=== PATIENT | female | born 1950 | race Caucasian/White ===

== ENCOUNTER 2016-06-03 18:28 | Inpatient (IN) | payer MEDICARE ==
--- NOTE | 2016-06-03 20:41 | C.PDOC ---
History Of Present Illness 66 year old patient presents to the ED complaining of upper abdominal pain since yesterday. Patient states the pain is constant. Patient was seen by Dr. Mendez in office and sent to the ED for SVT on EKG. Patient denies nausea, vomiting, diarrhea, dysuria, or back pain. Time Seen by Provider: 06/03/16 20:16 Chief Complaint (Nursing): Palpitations History Per: Patient History/Exam Limitations: no limitations Onset/Duration Of Symptoms: Other Current Symptoms Are (Timing): Still Present Severity: Mild Pain Scale Rating Of: 3 Reports Recently: Treated By A Physician Recent travel outside of the [place]: No Past Medical History Reviewed: Historical Data, Nursing Documentation, Vital Signs Vital Signs: Last Vital Signs Temp 98.3 F 06/06/16 16:00 Pulse 104 H 06/06/16 16:00 Resp 18 06/06/16 16:00 BP 156/92 H 06/06/16 16:00 Pulse Ox 98 06/06/16 16:00 Family History: States: Unknown Family Hx - Social History Hx Alcohol Use: No Hx Substance Use: No - Immunization History Hx Tetanus Toxoid Vaccination: No Hx Influenza Vaccination: No Hx Pneumococcal Vaccination: No Review Of Systems Except As Marked, All Systems Reviewed And Found Negative. Gastrointestinal: Positive for: Abdominal Pain. Negative for: Nausea, Vomiting , Diarrhea Genitourinary: Negative for: Dysuria Musculoskeletal: Negative for: Back Pain Physical Exam - Physical Exam Appears: Chronically Ill Skin: Warm, Dry Head: Atraumatic, Normacephalic Eye(s): bilateral: Normal Inspection, EOMI Neck: Normal ROM, Supple Chest: Symmetrical, No Tenderness Cardiovascular: Rhythm Regular Respiratory: Normal Breath Sounds, No Rales, No Rhonchi, No Wheezing Gastrointestinal/Abdominal: Soft, No Tenderness Back: Normal Inspection, No CVA Tenderness Extremity: Normal ROM, Pedal Edema (2+ bilaterally), No Deformity Neurological/Psych: Oriented x3 ED Course And Treatment - Laboratory Results Result Diagrams: 06/03/16 20:51 06/03/16 20:51 O2 Sat by Pulse Oximetry: 96 (RA) - Radiology CXR: Interpreted by Me, Viewed By Me CXR Interpretation: Yes: Other (right side pleural effusion; small opacity in the lower left lobe) Medical Decision Making Medical Decision Making: The pts HR initially normalized w vagal maneuver, then went back into rvr. rvr resolved after 10mg cardizem, pt had transient asymptomatic hypotension to 80's which resolved shortly after. 1st EKG at 20:14 Sinus Tachycardia 131 bpm RBBB Pattern suspect for SVT 2nd EKG at 20:25 NSR 87 bpm RBBB SVT wave abnormality 20:[address] Loomis regarding the EKG who states there is no code heart criteria met at this time. 20:[address] Mendez who is aware of the plan and will admit the patient. Disposition - Disposition Disposition: HOSPITALIZED Disposition Time: 20:43 Condition: STABLE - Clinical Impression Clinical Impression: Atrial fibrillation with rapid ventricular response, Pancreatitis - Scribe Statement The provider has reviewed the documentation as recorded by the Amandaiblinda Frias Provider Attestation: All medical record entries made by the Amandaiblinda were at my direction and personally dictated by me. I have reviewed the chart and agree that the record accurately reflects my personal performance of the history, physical exam, medical decision making, and the department course for this patient. I have also personally directed, reviewed, and agree with the discharge instructions and disposition.
[2016-06-03 21:06] LABS: BASO % 0.5 % (0.0-2.0); EOS % 0.6 % (0.0-4.0); LYMPH % 15.8 % (20.0-40.0); MEAN CELL VOLUME 94.7 fL (81.0-99.0); MEAN CORPUSCULAR HEMOGLOBIN 29.6 pg (27.0-31.0); MEAN CORPUSCULAR HGB CONC 31.3 g/dL (33.0-37.0); MEAN PLATELET VOLUME 10.4 fL (7.2-11.7); MONO # 0.5 K/uL (0.0-0.8); MONO % 7.4 % (0.0-10.0); NRBC % 0.2 % (0.0-2.0); RED CELL DISTRIBUTION WIDTH 16.6 % (11.5-14.5); WHITE BLOOD COUNT 6.4 K/uL (4.8-10.8)
[2016-06-03 21:10] LABS: POTASSIUM 4.2 mmol/L (3.6-5.2)
[2016-06-03 21:12] LABS: ALB/GLOB RATIO 0.9 (1.0-2.1); BILIRUBIN,TOTAL 0.7 mg/dL (0.2-1.3); TOTAL PROTEIN 7.1 g/dL (6.3-8.3)
[2016-06-03 21:13] LABS: CALCIUM 8.4 mg/dl (8.6-10.4)
[2016-06-03 21:31] LABS: TROPONIN I 0.396 ng/mL (0.00-0.120)
[2016-06-04] MEDS ORDERED: Sodium Chloride 0.9% 500 ML IV ONE (00:58)
[2016-06-04] MEDS ORDERED: Albumin Human 5% (12.5 gm/250 ml) IV ONE (01:38)
--- NOTE | 2016-06-04 04:53 | CP.PCM.CON ---
History of Present Illness - History of Present Illness History of Present Illness: 66F CAD/CABG, HTN, HLD, DM2, ESRD on HD (TTS), s/p thyroidectomy sent to ED from Dr. Mendez's office for SVT. In ED, pt noted to be in Afib c RVR and given cardizem IVP with resolution of rvr. Pt subsequently with HR 60s and SBP 80s- 90s. ICU eval called for hypotension. On my eval, pt is lying in bed. Awake/alert/orientedx3. Coherent and speaking in full sentences. Only offers c/o head ache and neck pain radiating down her spine. asking for ambien for sleep. She endorses seeing dr mendez earlier yesterday and being sent in for evaluation. Does not offer any other significant complaints or symptoms. Deneis lightheadedness/dizziness/vertigo/ confusion/fevers/chills/cough/sputum production/chest pain/dyspnea/abd pain/n/v/ d. Has chronic LE edema. Had last HD this past friday with 4L UF removed. PMH/Sx: as noted above ALL: NKDA MEDS: As per MAY SocHx: denies FamHx: non contributory ROS: otherwise negative except noted above PE: Afebrile, HR 60s -70s irregular; RR 16-18; BP 88/60s (lying down) --> 99/60 ( sitting up); OxSat 98% NC In mild distress from neck pain Skin: extensive skin excoriations from chronic "picking" (according to pt) HEENT: RADHA, EOMI, MM dry Neck: Supple. +JVD Lungs: bibasilar crackles CVS: Irregularly irregular; S1, S2 Abd: Soft, Nt/ND, BS +ve Ext: +ve LE edema, chronic as per pt Neuro: AAOx3, CN II --> XII intact. Moves all extremities spontaneously MSK: no significant tenderness to palpation of cervical spine; no step offs; no swelling/erythema noted of the spine Labs / imaging reviewed independently by me as noted below Impression: 66F CAD/CABG, HTN, HLD, DM2, ESRD on HD (TTS), s/p thyroidectomy sent to ED from Dr. Mendez's office for SVT, noted to be in Afib c RVR converted to Afib c slow response with SBP 80s-90s after cardizem IVP but patient remains alert/oriented and asymptomatic. Small Troponin leak is noted but likely a result of earlier SVT (demand related) without evidence for ACS on EKG. On my eval, pt is appropriate for acute care admission to telemetry with ongoing management by cardiology sugg: admit to tele hold further ccb/bb/htn meds cont asa/statin full anticoagulation as per cards HD per renal imaging of spine as per primary team pain control further mgmt as per cards/primary team please recall if clinically warranted Alessandro Ribera MD Past Patient History - Past Social History Smoking Status: Never Smoked - RENAL Hx Renal Failure: Yes Other/Comment: on dialysis T-- - PSYCHIATRIC Hx Substance Use: No - SURGICAL HISTORY Hx Cardiac Catheterization: Yes Hx Open Heart Surgery: Yes (CABG ( tripple)) Hx Vascular Access Device: Yes (Left arm shunt) - ANESTHESIA Hx Anesthesia: Yes Hx Anesthesia Reactions: No Hx Malignant Hyperthermia: No Meds Allergies/Adverse Reactions: Allergies Allergy/AdvReac Type Severity Reaction Status Date / Time No Known Allergies Allergy Verified 06/03/16 20:06 - Medications Medications: Current Medications Diltiazem HCl 125 mg/ Dextrose 125 mls @ 5 mls/hr IV .Q24H ALEXANDER; 5 MG/HR PRN Reason: Protocol Last Admin: 06/04/16 01:42 Dose: Not Given Calcium Gluconate 4.65 meq/ (Sodium Chloride) 110 mls @ 100 mls/hr IV ONCE ONE Stop: 06/04/16 04:52 Last Admin: 06/04/16 04:22 Dose: 100 mls/hr Results - Vital Signs Recent Vital Signs: Last Vital Signs Temp 97.3 F L 06/04/16 02:21 Pulse 56 L 06/04/16 04:23 Resp 16 06/04/16 04:23 BP 99/60 L 06/04/16 04:23 Pulse Ox 98 06/04/16 04:23 - Labs Result Diagrams: 06/03/16 20:51 06/03/16 20:51 Labs: Laboratory Results - last 24 hr 06/03/16 20:51 WBC 6.4 RBC 3.80 Hgb 11.3 Hct 36.0 MCV 94.7 D MCH 29.6 MCHC 31.3 L RDW 16.6 H Plt Count 130 MPV 10.4 Neut % (Auto) 75.7 H Lymph % (Auto) 15.8 L [place] % (Auto) 7.4 Eos % (Auto) 0.6 Baso % (Auto) 0.5 Neut # 4.9 Lymph # 1.0 [place] # 0.5 Eos # 0.0 Baso # 0.0 Sodium 129 L Potassium 4.2 Chloride 86 L Carbon Dioxide 24 Anion Gap 23 H BUN 88 H Creatinine 7.1 H D Est GFR ( Amer) 7 Est GFR (Non-Af Amer) 6 Random Glucose 210 H Calcium 8.4 L Total Bilirubin 0.7 AST 78 H D ALT 47 Alkaline Phosphatase 197 H D Troponin I 0.3960 H* Total Protein 7.1 Albumin 3.4 L Globulin 3.7 Albumin/Globulin Ratio 0.9 L Lipase 1119 H TSH 3rd Generation 2.95 - EKG Data EKG Interpreted by: Myself (afib c rvr; non specific st-t changes) - Imaging and Cardiology Chest x-ray Status: Image reviewed by me (cardiomegaly; + sternotomy wires; arronley bibasilar effusions, small)
--- NOTE | 2016-06-04 05:35 | CP.PCM.PN ---
Subjective - Date & Time of Evaluation Date of Evaluation: 06/04/16 Time of Evaluation: 05:34 - Subjective Subjective: pt transferred to telemetry from ED remains asymptomatic HR 65, BP 104/67 continues to improve cont telemetry mgmt. Objective - Vital Signs/Intake and Output Vital Signs (last 24 hours): Temp Pulse Resp BP Pulse Ox 98.2 F 65 20 104/67 97 06/04/16 04:55 06/04/16 04:55 06/04/16 04:55 06/04/16 04:55 06/04/16 04:55 - Medications Medications: Current Medications Diltiazem HCl 125 mg/ Dextrose 125 mls @ 5 mls/hr IV .Q24H ALEXANDER; 5 MG/HR PRN Reason: Protocol Last Admin: 06/04/16 01:42 Dose: Not Given - Labs Labs: 06/03/16 20:51 06/03/16 20:51
[2016-06-04] MEDS: Oxycodone/Acetaminophen 5/325 mg Tab PO PRN ×2 (06:14→16:55)
--- NOTE | 2016-06-04 08:54 | CP.PCM.CON ---
History of Present Illness - History of Present Illness History of Present Illness: CC recurrent falls arrhythmias HPI 66 y/o [place] female was initially seen in the office for recurrent falls and generalized weakness. Pt also c/o unsteady gait and poor coordination. EKG revealed SVT HR 136 and BP 90/60. Pt was sent to ED. Pt denied any chest pain or syncope but admits to recurrent palpitations in the past few weeks. Review of Systems - Constitutional Constitutional: Fatigue, Frequent Falls, Weakness - EENT Ears: Dizziness Nose/Mouth/Throat: absent: Epistaxis - Cardiovascular Cardiovascular: Dyspnea on Exertion, Pedal Edema - Respiratory Respiratory: Dyspnea - Musculoskeletal Musculoskeletal: Back Pain - Neurological Neurological: Abnormal Gait, Dizziness, Frequent Falls, Weakness Past Patient History - Past Medical History & Family History Past Medical History?: Yes - Past Social History Smoking Status: Never Smoked - CARDIAC Hx Cardiac Disorders: Yes Hx Hypertension: Yes - PULMONARY Hx Respiratory Disorders: No - NEUROLOGICAL Hx Neurological Disorder: No - HEENT Hx HEENT Problems: Yes Hx Cataracts: Yes - RENAL Hx Renal Failure: Yes Other/Comment: on dialysis - - ENDOCRINE/METABOLIC Hx Endocrine Disorders: Yes Hx Diabetes Mellitus Type 2: Yes - HEMATOLOGICAL/ONCOLOGICAL Hx Blood Disorders: No - INTEGUMENTARY Hx Dermatological Problems: No - MUSCULOSKELETAL/RHEUMATOLOGICAL Hx Musculoskeletal Disorders: No Hx Falls: Yes - GASTROINTESTINAL Hx Gastrointestinal Disorders: No - GENITOURINARY/GYNECOLOGICAL Hx Genitourinary Disorders: No - PSYCHIATRIC Hx Substance Use: No - SURGICAL HISTORY Hx Cardiac Catheterization: Yes Hx Open Heart Surgery: Yes (CABG ( tripple)) Hx Vascular Access Device: Yes (Left arm shunt) - ANESTHESIA Hx Anesthesia: Yes Hx Anesthesia Reactions: No Hx Malignant Hyperthermia: No Meds Allergies/Adverse Reactions: Allergies Allergy/AdvReac Type Severity Reaction Status Date / Time No Known Allergies Allergy Verified 06/03/16 20:06 - Medications Medications: Current Medications Aspirin (Aspirin Chewable) 81 mg PO DAILY ALEXANDER Calcium Acetate (Phoslo) [facility] Last Admin: 06/04/16 08:23 Dose: 667 mg Diltiazem HCl 125 mg/ Dextrose 125 mls @ 5 mls/hr IV .Q24H ALEXANDER; 5 MG/HR PRN Reason: Protocol Last Admin: 06/04/16 01:42 Dose: Not Given Insulin Aspart (Novolog) 0 unit SC Q6 ALEXANDER PRN Reason: Protocol Oxycodone/Acetaminophen (Percocet 5/325 Mg Tab) 1 tab PO Q4H PRN PRN Reason: Pain, Mild (1-3) Stop: 06/07/16 05:35 Last Admin: 06/04/16 06:14 Dose: 1 tab Physical Exam - Constitutional Appears: Non-toxic - Head Exam Head Exam: NORMAL INSPECTION - Eye Exam Eye Exam: absent: Scleral icterus - ENT Exam ENT Exam: Mucous Membranes Moist - Neck Exam Neck exam: Positive for: Full Rom. Negative for: Lymphadenopathy - Respiratory Exam Respiratory Exam: Clear to Auscultation Bilateral - Cardiovascular Exam Cardiovascular Exam: Irregular Rhythm - GI/Abdominal Exam GI & Abdominal Exam: Soft. absent: Tenderness - Extremities Exam Extremities exam: Positive for: full ROM, pedal edema. Negative for: calf tenderness Results - Vital Signs Recent Vital Signs: Last Vital Signs Temp 97.3 F L 06/04/16 07:10 Pulse 75 06/04/16 07:10 Resp 18 06/04/16 07:10 BP 123/71 06/04/16 07:10 Pulse Ox 100 06/04/16 07:10 - Labs Result Diagrams: 06/03/16 20:51 06/03/16 20:51 Labs: Laboratory Results - last 24 hr 06/03/16 06/04/16 06/04/16 20:51 06:43 07:49 WBC 6.4 RBC 3.80 Hgb 11.3 Hct 36.0 MCV 94.7 D MCH 29.6 MCHC 31.3 L RDW 16.6 H Plt Count 130 MPV 10.4 Neut % (Auto) 75.7 H Lymph % (Auto) 15.8 L [place] % (Auto) 7.4 Eos % (Auto) 0.6 Baso % (Auto) 0.5 Neut # 4.9 Lymph # 1.0 [place] # 0.5 Eos # 0.0 Baso # 0.0 Sodium 129 L Potassium 4.2 Chloride 86 L Carbon Dioxide 24 Anion Gap 23 H BUN 88 H Creatinine 7.1 H D Est GFR ( Amer) 7 Est GFR (Non-Af Amer) 6 POC Glucose (mg/dL) 162 H Random Glucose 210 H Calcium 8.4 L Total Bilirubin 0.7 AST 78 H D ALT 47 Alkaline Phosphatase 197 H D Total Creatine Kinase 168 H CK-MB (Mass) 5.44 H Troponin I 0.3960 H* Total Protein 7.1 Albumin 3.4 L Globulin 3.7 Albumin/Globulin Ratio 0.9 L Lipase 1119 H TSH 3rd Generation 2.95 Assessment & Plan - Assessment and Plan (Free Text) Assessment: Paroxysmal Afib/SVT ESRD CAD T2DM Recurrent Falls Plan: AC Hold all anti-htn meds until BP is stable ECHO Carotid ultrasound Will call for EP eval re: Watchman implant v ablation COnsider cath when more stable - Date & Time Date: 06/04/16 Time: 08:54
--- NOTE | 2016-06-04 09:38 | CP.PCM.CON ---
History of Present Illness - History of Present Illness History of Present Illness: pt seen and examined, full consult is dictated #[id number] 1. esrd 2. afib with RVR 3.htn 4.dm for hd today, d/w dr. Mendez Past Patient History - Past Medical History & Family History Past Medical History?: Yes - Past Social History Smoking Status: Never Smoked - CARDIAC Hx Cardiac Disorders: Yes Hx Hypertension: Yes - PULMONARY Hx Respiratory Disorders: No - NEUROLOGICAL Hx Neurological Disorder: No - HEENT Hx HEENT Problems: Yes Hx Cataracts: Yes - RENAL Hx Renal Failure: Yes Other/Comment: on dialysis T--S - ENDOCRINE/METABOLIC Hx Endocrine Disorders: Yes Hx Diabetes Mellitus Type 2: Yes - HEMATOLOGICAL/ONCOLOGICAL Hx Blood Disorders: No - INTEGUMENTARY Hx Dermatological Problems: No - MUSCULOSKELETAL/RHEUMATOLOGICAL Hx Musculoskeletal Disorders: No Hx Falls: Yes - GASTROINTESTINAL Hx Gastrointestinal Disorders: No - GENITOURINARY/GYNECOLOGICAL Hx Genitourinary Disorders: No - PSYCHIATRIC Hx Substance Use: No - SURGICAL HISTORY Hx Cardiac Catheterization: Yes Hx Open Heart Surgery: Yes (CABG ( tripple)) Hx Vascular Access Device: Yes (Left arm shunt) - ANESTHESIA Hx Anesthesia: Yes Hx Anesthesia Reactions: No Hx Malignant Hyperthermia: No Meds Allergies/Adverse Reactions: Allergies Allergy/AdvReac Type Severity Reaction Status Date / Time No Known Allergies Allergy Verified 06/03/16 20:06 - Medications Medications: Current Medications Aspirin (Aspirin Chewable) 81 mg PO DAILY ALEXANDER Calcium Acetate (Phoslo) 667 mg PO TIDCC ALEXANDER Last Admin: 06/04/16 08:23 Dose: 667 mg Diltiazem HCl 125 mg/ Dextrose 125 mls @ 5 mls/hr IV .Q24H ALEXANDER; 5 MG/HR PRN Reason: Protocol Last Admin: 06/04/16 01:42 Dose: Not Given Insulin Aspart (Novolog) 0 unit SC Q6 ALEXANDER PRN Reason: Protocol Oxycodone/Acetaminophen (Percocet 5/325 Mg Tab) 1 tab PO Q4H PRN PRN Reason: Pain, Mild (1-3) Stop: 06/07/16 05:35 Last Admin: 06/04/16 06:14 Dose: 1 tab Results - Vital Signs Recent Vital Signs: Last Vital Signs Temp 97.3 F L 06/04/16 07:10 Pulse 72 06/04/16 08:00 Resp 18 03/21/17 07:10 BP 123/71 06/04/16 07:10 Pulse Ox 100 06/04/16 07:10 - Labs Result Diagrams: 06/03/16 20:51 06/03/16 20:51 Labs: Laboratory Results - last 24 hr 06/03/16 06/04/16 06/04/16 20:51 06:43 07:49 WBC 6.4 RBC 3.80 Hgb 11.3 Hct 36.0 MCV 94.7 D MCH 29.6 MCHC 31.3 L RDW 16.6 H Plt Count 130 MPV 10.4 Neut % (Auto) 75.7 H Lymph % (Auto) 15.8 L [place] % (Auto) 7.4 Eos % (Auto) 0.6 Baso % (Auto) 0.5 Neut # 4.9 Lymph # 1.0 [place] # 0.5 Eos # 0.0 Baso # 0.0 Sodium 129 L Potassium 4.2 Chloride 86 L Carbon Dioxide 24 Anion Gap 23 H BUN 88 H Creatinine 7.1 H D Est GFR ( Amer) 7 Est GFR (Non-Af Amer) 6 POC Glucose (mg/dL) 162 H Random Glucose 210 H Calcium 8.4 L Total Bilirubin 0.7 AST 78 H D ALT 47 Alkaline Phosphatase 197 H D Total Creatine Kinase 168 H CK-MB (Mass) 5.44 H Troponin I 0.3960 H* Troponin I, Quant 0.3760 H* Total Protein 7.1 Albumin 3.4 L Globulin 3.7 Albumin/Globulin Ratio 0.9 L Lipase 1119 H TSH 3rd Generation 2.95
[2016-06-04] MEDS: Multivitamin Vitamin B Complex (Nephro-Vite) Tab PO SCH (10:39)
--- NOTE | 2016-06-04 11:01 | CP.PCM.HP ---
History of Present Illness - History of Present Illness History of Present Illness: 66F CAD/CABG, HTN, HLD, DM2, ESRD on HD (TTS), s/p thyroidectomy sent to ED from Dr. Mendez's office for SVT, noted to be in Afib c RVR converted to Afib c slow response with SBP 80s-90s after cardizem IVP but patient remains alert/ oriented and asymptomatic. Small Troponin leak is noted but likely a result of earlier SVT (demand related) without evidence for ACS on EKG. Present on Admission - Present on Admission Any Indicators Present on Admission: No History of DVT/PE: No History of Uncontrolled Diabetes: No Urinary Catheter: No Decubitus Ulcer Present: No History Surgical Site Infection Following: None Review of Systems - Constitutional Constitutional: As Per HPI, Fatigue - EENT Eyes: absent: As Per HPI, Blind Spots, Blurred Vision, Change in Vision, Decreased Night Vision, Diplopia, Discharge, Dry Eye, Exophthalmos, Floaters, Irritation, Itchy Eyes, Loss of Peripheral Vision, Pain, Photophobia, Requires Corrective Lenses, Sees Flashes, Spots in Vision, Tunnel Vision, Other Visual Disturbances, Loss of Vision, Other Ears: absent: As Per HPI, Decreased Hearing, Ear Discharge, Ear Pain, Tinnitus, Abnormal Hearing, Disequilibrium, Dizziness, Other Nose/Mouth/Throat: absent: As Per HPI, Epistaxis, Nasal Congestion, Nasal Discharge, Nasal Obstruction, Nasal Trauma, Nose Pain, Post Nasal Drip, Sinus Pain, Sinus Pressure, Bleeding Gums, Change in Voice, Dental Pain, Dry Mouth, Dysphagia, Halitosis, Hoarsness, Lip Swelling, Mouth Lesions, Mouth Pain, Odynophagia, Sore Throat, Throat Swelling, Tongue Swelling, Facial Pain, Neck Pain, Neck Mass, Other - Breasts Breasts: absent: As Per HPI, Change in Shape, Mass, Pain, Nipple Discharge, Nipple Inversion, Skin Changes, Swelling, Other - Cardiovascular Cardiovascular: As Per HPI - Respiratory Respiratory: absent: As Per HPI, Cough, Dyspnea, Hemoptysis, Dyspnea on Exertion , Wheezing, Snoring, Stridor, Pain on Inspiration, Chest Congestion, Excessive Mucous Production, Change in Mucous Color, Pain with Coughing, Other - Gastrointestinal Gastrointestinal: absent: As Per HPI, Abdominal Pain, Belching, Bloating, Change in Bowel Habits, Change in Stool Character, Coffee Ground Emesis, Constipation, Cramping, Diarrhea, Dyspepsia, Dysphagia, Early Satiety, Excessive Flatus, Fecal Incontinence, Heartburn, Hematemesis, Hematochezia, Loose Stools, Melena, Nausea, Odynophagia, Temesmus, Vomiting, Other - Genitourinary Genitourinary: absent: As Per HPI, Change in Urinary Stream, Difficulty Urinating, Dysuria, Flank Pain, Hematuria, Pyuria, Nocturia, Urinary Incontinence, Urinary Frequency, Urinary Hesitance, Urinary Urgency, Voiding Freq/Small Amts, Freq UTI, Hx Renal/Bladder Calculi, Hx /Renal Surgery, Bladder Distension, Other - Reproductive: Female Reproductive:Female: absent: As Per HPI, Amenorrhea, Amenorrhea/ Control, Currently Menstual, Cycle <21 Days, Cycle >35 Days, Cycle Variable, Menses 1-7 Days, Menses >/= 8 Days, Menses Variable, Cycle > 4 Weeks Between, No Menses for 6 Months, Heavy Menses, Light Menses, Normal Menses, Spotting Between Cycles , S/P Hysterectomy, Menopausal, Post Menopausal, Premenarche, Abnormal Vaginal Bleeding, Dysmenorrhea, Dyspareunia, Genital Lesions, Genital Pruritis, Pelvic Pain, Prolapse Symptoms, Sexual Dysfunction, Vaginal Discharge, Vaginal Dryness , Vaginal Odor, Vaginal Pruritis, Other - Menstruation Menstruation: absent: As Per HPI, Amenorrhea, Amenorrhea/ Control, Currently Menstual, Cycle <21 Days, Cycle >35 Days, Cycle Variable, Menses 1-7 Days, Menses >/= 8 Days, Menses Variable, Cycle > 4 Weeks Between, No Menses for 6 Months, Heavy Menses, Light Menses, Normal Menses, Spotting Between Cycles , S/P Hysterectomy, Menopausal, Post Menopausal, Premenarche, Abnormal Vaginal Bleeding, Dysmenorrhea, Other - Musculoskeletal Musculoskeletal: As Per HPI - Integumentary Integumentary: As Per HPI - Neurological Neurological: As Per HPI - Psychiatric Psychiatric: absent: As Per HPI, Abnormal Sleep Pattern, Anhedonia, Anxiety, Auditory Hallucinations, Behavioral Changes, Change in Appetite, Change in Libido, Confusion, Depression, Difficulty Concentrating, Hallucinations, Homicidal Ideation, Hopelessness, Irritability, Memory Loss, Mood Swings, Panic Attacks, Paranoia, Suicidal Ideation, Visual Hallucinations, Tactile Hallucinations, Other - Endocrine Endocrine: absent: As Per HPI, Change in Body Appearance, Change in Libido, Cold Intolorance, Deepening of Voice, Excessive Sweating, Fatigue, Flushing, Heat Intolorance, Increase in Ring/Shoe/Hat Size, Palpitations, Polydipsia, Polyphagia, Polyuria, Other Past Patient History - Past Medical History & Family History Past Medical History?: Yes - Past Social History Smoking Status: Never Smoked - CARDIAC Hx Cardiac Disorders: Yes Hx Hypertension: Yes - PULMONARY Hx Respiratory Disorders: No - NEUROLOGICAL Hx Neurological Disorder: No - HEENT Hx HEENT Problems: Yes Hx Cataracts: Yes - RENAL Hx Renal Failure: Yes Other/Comment: on dialysis - - ENDOCRINE/METABOLIC Hx Endocrine Disorders: Yes Hx Diabetes Mellitus Type 2: Yes - HEMATOLOGICAL/ONCOLOGICAL Hx Blood Disorders: No - INTEGUMENTARY Hx Dermatological Problems: No - MUSCULOSKELETAL/RHEUMATOLOGICAL Hx Musculoskeletal Disorders: No Hx Falls: Yes - GASTROINTESTINAL Hx Gastrointestinal Disorders: No - GENITOURINARY/GYNECOLOGICAL Hx Genitourinary Disorders: No - PSYCHIATRIC Hx Substance Use: No - SURGICAL HISTORY Hx Cardiac Catheterization: Yes Hx Open Heart Surgery: Yes (CABG ( tripple)) Hx Vascular Access Device: Yes (Left arm shunt) - ANESTHESIA Hx Anesthesia: Yes Hx Anesthesia Reactions: No Hx Malignant Hyperthermia: No Meds Allergies/Adverse Reactions: Allergies Allergy/AdvReac Type Severity Reaction Status Date / Time No Known Allergies Allergy Verified 06/03/16 20:06 Physical Exam - Constitutional Appears: Non-toxic, Cachectic, Chronically Ill - Head Exam Head Exam: NORMOCEPHALIC - Eye Exam Eye Exam: absent: Scleral icterus - ENT Exam ENT Exam: Mucous Membranes Dry, Normal External Ear Exam - Neck Exam Neck exam: Negative for: Lymphadenopathy - Respiratory Exam Respiratory Exam: Decreased Breath Sounds, Rhonchi - Cardiovascular Exam Cardiovascular Exam: REGULAR RHYTHM, +S1, +S2 - GI/Abdominal Exam GI & Abdominal Exam: Diminished Bowel Sounds, Soft. absent: Tenderness - Rectal Exam Rectal Exam: Deferred - Exam Exam: NORMAL INSPECTION - Extremities Exam Extremities exam: Positive for: pedal pulses present. Negative for: calf tenderness, pedal edema - Back Exam Back exam: absent: CVA tenderness (L), CVA tenderness (R) - Neurological Exam Neurological exam: Alert, CN II-XII Intact, Oriented x3, Reflexes Normal Results - Vital Signs Recent Vital Signs: Last Vital Signs Temp 97.3 F L 06/04/16 07:10 Pulse 72 06/04/16 08:00 Resp 18 06/04/16 07:10 BP 123/71 06/04/16 07:10 Pulse Ox 100 06/04/16 07:10 - Labs Result Diagrams: 06/03/16 20:51 06/03/16 20:51 Labs: Laboratory Results - last 24 hr 06/03/16 06/04/16 06/04/16 20:51 06:43 07:49 WBC 6.4 RBC 3.80 Hgb 11.3 Hct 36.0 MCV 94.7 D MCH 29.6 MCHC 31.3 L RDW 16.6 H Plt Count 130 MPV 10.4 Neut % (Auto) 75.7 H Lymph % (Auto) 15.8 L [place] % (Auto) 7.4 Eos % (Auto) 0.6 Baso % (Auto) 0.5 Neut # 4.9 Lymph # 1.0 [place] # 0.5 Eos # 0.0 Baso # 0.0 Sodium 129 L Potassium 4.2 Chloride 86 L Carbon Dioxide 24 Anion Gap 23 H BUN 88 H Creatinine 7.1 H D Est GFR ( Amer) 7 Est GFR (Non-Af Amer) 6 POC Glucose (mg/dL) 162 H Random Glucose 210 H Calcium 8.4 L Phosphorus Total Bilirubin 0.7 AST 78 H D ALT 47 Alkaline Phosphatase 197 H D Total Creatine Kinase 168 H CK-MB (Mass) 5.44 H Troponin I 0.3960 H* Troponin I, Quant 0.3760 H* Total Protein 7.1 Albumin 3.4 L Globulin 3.7 Albumin/Globulin Ratio 0.9 L Lipase 1119 H TSH 3rd Generation 2.95 06/04/16 10:16 WBC RBC Hgb Hct MCV MCH MCHC RDW Plt Count MPV Neut % (Auto) Lymph % (Auto) [place] % (Auto) Eos % (Auto) Baso % (Auto) Neut # Lymph # [place] # Eos # Baso # Sodium Potassium Chloride Carbon Dioxide Anion Gap BUN Creatinine Est GFR ( Amer) Est GFR (Non-Af Amer) POC Glucose (mg/dL) Random Glucose Calcium Phosphorus 8.3 H Total Bilirubin AST ALT Alkaline Phosphatase Total Creatine Kinase CK-MB (Mass) Troponin I Troponin I, Quant Total Protein Albumin Globulin Albumin/Globulin Ratio Lipase TSH 3rd Generation Assessment & Plan - Assessment and Plan (Free Text) Assessment: Paroxysmal Afib/SVT ESRD CAD T2DM Recurrent Falls Plan: as per neuro and cardio
--- NOTE | 2016-06-04 11:05 | RAD ---
HISTORY: SVT COMPARISON: Upper FINDINGS: LUNGS: There is right basilar atelectasis and discoid atelectasis/ scarring in the left mid lung. PLEURA: No significant pleural effusion identified, no pneumothorax apparent. CARDIOVASCULAR: There is moderate cardiomegaly. Status post CABG. OSSEOUS STRUCTURES: No significant abnormalities. VISUALIZED UPPER ABDOMEN: Normal. OTHER FINDINGS: None. IMPRESSION: Discoid atelectasis/scarring in the left mid lung. Moderate cardiomegaly. Move
[2016-06-04] MEDS ORDERED: Iohexol 240 (50 ml) PO ONE ×2 (12:00→17:00)
[2016-06-04] MEDS: (Novolog) Insulin Aspart, Recombinant 100 u/ml 10 ml vial SC SCH ×2 (15:00→19:00)
[2016-06-04] MEDS: Paricalcitol 2 mcg/ml Inj IV SCH (15:00)
--- NOTE | 2016-06-04 15:22 | CON ---
DATE: 06/04/2016 The patient is located in room 662, bed B. REQUESTING PHYSICIAN: Dr. Citlalli Mendez. REASON FOR RENAL CONSULTATION: End-stage renal disease, for continuation of hemodialysis. HISTORY OF PRESENT ILLNESS: The patient is a [id number] very pleasant elderly [place] female with a past medical history significant for longstanding hypertension, diabetes, coronary artery disease, status post CABG, status post thyroid surgery, end-stage renal disease on hemodialysis 3 times a wee k, Friday, , Friday for the last 3-4 years, who was sent from the PMD office with neck bunny n and the patient was found to have A-fib with rapid ventricular response and the patient was admitte d for further management for possible ablation or Los monitor placement, on anticoagulation. The patient denies any headache, dizziness, any chest pain, palpitation at this time. No nausea, vomiti ng, diarrhea. The patient does complain of swelling of the legs. Usually, the patient gains about 3 -4 L in between dialysis. PAST MEDICAL HISTORY: Significant for longstanding hypertension, diabetes, coronary artery disease, end-stage renal disease and congestive heart failure on hemodialysis 3 times a week, Friday, , Friday for the last 3-4 years [facility]. PAST SURGICAL HISTORY: Status post CABG and also thyroid surgery and x 1, hysterectomy and cholecystectomy. ALLERGIES: No known drug allergies. SOCIAL HISTORY: No smoking, no alcohol, no drugs. PERSONAL HISTORY: The patient is a and she has 3 children. FAMILY HISTORY: Noncontributory. CURRENT MEDICATIONS: Include as follows: Aspirin 81 mg daily, diltiazem 125 mg IV piggyback q. 24 h ours at 5 mg per hour, NovoLog for sliding scale, Percocet 1 tablet q. 4 hours p.r.n., PhosLo 667 mg p.o. t.i.d. REVIEW OF SYSTEMS: Significant for neck pain and palpitations. All other review of systems is revie wed and are negative except edema of the legs. PHYSICAL EXAMINATION: VITAL SIGNS: Blood pressure 123/71, pulse 75, respiration 18, temperature 97.3, saturation 100%, hei ght 5 feet 2 inches and weight is 144 pounds. GENERAL: The patient is a 66-year-old elderly female, moderately built, moderately nourished, not in distress with bilateral lower extremity edema. HEENT: Pupils normal, react to light and accommodation. Conjunctivae pink. Sclerae anicteric. Ton merlin is moist. NECK: Trachea is midline. LUNGS: Symmetric on both sides. Bilateral breath sounds present. Occasional basal crackles present . CARDIOVASCULAR: [place] in the fifth intercostal space midclavicular line. S1, S2 audible. Irregularl y irregular. ABDOMEN: Normal in appearance. The patient has a midline subumbilical scar from the previous hyster ectomy. Abdomen is soft, tympanic. No guarding, no rigidity. No hepatosplenomegaly. CENTRAL NERVOUS SYSTEM: The patient is alert, awake, oriented x 3, nonfocal on examination. Cranial nerves II-XII grossly intact. Sensory and motor system is within normal limits. EXTREMITIES: No cyanosis, no clubbing. The patient has 2+ edema in both lower extremities. LABORATORY DATA: Include as follows: As of 06/03/2016, WBC 6.4, hemoglobin 11.3, hematocrit is 36, p latelets 130. Sodium 129, potassium 4.2, chloride 86, CO2 24, BUN 88, creatinine 7.1, glucose 210, a nd troponin is 0.39 and 0.37. CPK 168, CK MB is 5.44, total protein 7.1, albumin is 3.4, lipase is 1 119 and TSH is 2.95. Reports: Chest x-ray report is pending. Reviewed by me and slight blunting of the right costophrenic angle. The official report is pending. EKG as of 04/12/2016, heart rate is 5 5, QRS is 134, QT 470. A-fib with slow ventricular response and right bundle branch block T inversi on in II, III, aVF and V3 to V6. SUMMARY: The patient is about 66-year-old elderly, very pleasant [place] female with a history of l ongstanding hypertension, diabetes, coronary artery disease, congestive heart failure, status post co ronary artery bypass graft, end-stage renal disease on hemodialysis 3 times a week, Friday, , Friday, who was admitted with neck pain and found to have atrial fibrillation with rapid ventricu lar response, on Cardizem drip. 1. End-stage renal disease. Continue hemodialysis 3 times a week, Friday, , Friday. 2. Hypertension. 3. Diabetes. We will continue Cardizem drip and continue to monitor Accu-Cheks. 4. Atrial fibrillation with rapid ventricular response. Continue Cardizem. We will schedule for he modialysis today and also restrict fluids to 1 L per day and we will add Nephrocaps 1 capsule p.o. da yohannes and we will add Zemplar 2 mcg during hemodialysis. We will also check phosphorus and PTH intact level, iron, TIBC, ferritin during dialysis. Thank you for allowing me to participate in your patient's care. Silva Malik MD cc: [id number] TT: 06/04/2016 15:21:15 Confirmation # [id number] Dictation # [id number] tn
[2016-06-04 21:00] LABS: RBC URINE 9 /hpf (0-3); TRANSITIONAL EPITHIAL < 1 /hpf (0-3); URINE BACTERIA OCC (<OCC); URINE BILIRUBIN NEGATIVE (NEGATIVE); URINE BLOOD 1+ (NEGATIVE); URINE COLOR Yellow (YELLOW); URINE GLUCOSE (UA) 2+ mg/dL (Normal); URINE KETONE NEGATIVE (NEGATIVE); URINE LEUKOCYTE ESTERASE 3+ Leu/uL (Negative); URINE PROTEIN 3+ mg/dL (NEGATIVE); URINE UROBILINOGEN NORMAL mg/dL (0.2-1.0); WBC URINE 28 /hpf (0-5)
[2016-06-05] MEDS: (Novolog) Insulin Aspart, Recombinant 100 u/ml 10 ml vial SC SCH ×4 (08:57→21:13)
[2016-06-05] MEDS: Multivitamin Vitamin B Complex (Nephro-Vite) Tab PO SCH (09:09)
--- NOTE | 2016-06-05 10:31 | CT ---
PROCEDURE: CT Abdomen and Pelvis with Oral contrast. HISTORY: back pain COMPARISON: None. TECHNIQUE: Contiguous axial images of the abdomen and pelvis. Oral contrast was administered. No IV contrast given. Coronal and Sagittal reformats generated. Radiation dose: Total exam DLP = 437.3 mGy-cm. Contrast dose: No IV contrast was given P FINDINGS: LOWER THORAX: There are small to moderate bilateral pleural effusions larger on the right. Heart is enlarged. Partial atelectasis of the lower lobes noted likely due to pleural effusions. . LIVER: No evidence of acute pathology or suspicious mass in the liver in this noncontrast study. GALLBLADDER AND BILE DUCTS: The gallbladder is not visualized. PANCREAS: No evidence of acute pathology. The main pancreatic duct is not dilated. SPLEEN: Focal hypodensity seen at the anterior aspect of the spleen may represent splenic lesion or focal infarction. ADRENALS: Unremarkable. KIDNEYS AND URETERS: No evidence of hydronephrosis or obstructing renal calculi. Diffuse vascular calcifications seen in both kidneys. The kidneys are slightly small in size. The ureters are not dilated. BLADDER: The urinary bladder is not distended. REPRODUCTIVE: The uterus and adnexa are not visualized P APPENDIX: No evidence of appendicitis. BOWEL: Mild diffuse small bowel wall thickening likely due to soft tissue edema. No evidence of bowel obstruction. PERITONEUM: Small amount of ascites in the abdomen and pelvis. No evidence of free air. LYMPH NODES: Unremarkable. No enlarged lymph nodes. VASCULATURE: Diffuse vascular calcification is noted may be related to renal insufficiency and atherosclerotic disease. BONES: No fracture or destructive lesion. OTHER FINDINGS: None. IMPRESSION: Moderate right and small left pleural effusions. Mild cardiomegaly. Small ascites in the abdomen and pelvis. Diffuse vascular calcification. Focal hypodensity seen in the spleen may represent splenic lesion or focal infarction. [id number] anasarca. Preliminary report was submitted by [facility].
--- NOTE | 2016-06-05 10:46 | CP.PCM.CON ---
History of Present Illness - History of Present Illness History of Present Illness: I have been asked by Dr. Mendez to see this patient with atrial fibrillation 66 yo woman with extensive cardiac history that includes HTN, DM, hypercholesterolemia, RBBB, CAD, pulmonary HTN, CABG and PAF. She also has ESRD on HD. Her history is also notable for hospitalizations due to missed HD sessions. She was admitted with shortness of breath and new sustained atrial fibrillation. She was given cardizem and also experienced bradycardia. She also reports discomfort of her heel. She gets SOB located in chest with minimal exertion. No associated dizziness. No modifying factors. No fever or chills. She was hospitalized in March at [facility] and had a bronchoscopy to evaluate hemoptysis. At that time she was in sinus rhythm. CABG 2010 at [facility]: ABBASI---> LAD, VG--> D2, VG-->OM1, VG-->PDA, with RLL nodule wedge resection. PMEDHX: CAD, s/p CABG 2010, CHF, PAF, DM, HTN, hypercholesteroemia, ESRD on HD 2012, LVH, s/p thyroidecomy, s/p , s/p appy, erosive gastritis Social Hx: Does not smoke or use alcohol Family History: No premature CAD or sudden Echo 06/04/16 LAE 4.9 Mild MR Pulm HTn 43 Severe LVH Ao calcification wihtout stenosis IVC dilated Severely reduced EF 08/09/15 LA 4.2 EF 55% LVH Diastolic dysfunction Pulm HTN 02/04/13 EF 20-25% LVH Mod pulm htn Mod TR Stress 02/02/13 EF 45% mil anteroseptal reversibility ECG 06/04/16 Aflutter v afib at 130 bpm -35 degrees RBBB 06/04/16: AFib with slow ventricular response. 02/02/13: SR at 88 180/140/360 TSH 2.95 CXR 06/04/16 s/p CABG, enlarged cardiac silhouette, small bilat effusions increased airspace opacity c/v volume overload EGD 05/17/15: erosive gastritis Review of Systems - Constitutional Constitutional: Fatigue. absent: Fever, Sleep Apnea - EENT Eyes: absent: Blind Spots, Blurred Vision Ears: Dizziness. absent: Ear Discharge Nose/Mouth/Throat: Epistaxis - Cardiovascular Cardiovascular: As Per HPI - Respiratory Respiratory: Dyspnea - Gastrointestinal Gastrointestinal: absent: Constipation, Diarrhea - Musculoskeletal Musculoskeletal: As Per HPI - Integumentary Integumentary: Skin Ulcer, Unusual Bruising - Neurological Neurological: absent: Abnormal Gait, Abnormal Hearing - Psychiatric Psychiatric: absent: As Per HPI, Abnormal Sleep Pattern, Anhedonia, Anxiety, Auditory Hallucinations, Behavioral Changes, Change in Appetite, Change in Libido, Confusion, Depression, Difficulty Concentrating, Hallucinations, Homicidal Ideation, Hopelessness, Irritability, Memory Loss, Mood Swings, Panic Attacks, Paranoia, Suicidal Ideation, Visual Hallucinations, Tactile Hallucinations, Other Past Patient History - Past Medical History & Family History Past Medical History?: Yes - Past Social History Smoking Status: Never Smoked - CARDIAC Hx Cardiac Disorders: Yes Hx Hypertension: Yes - PULMONARY Hx Respiratory Disorders: No - NEUROLOGICAL Hx Neurological Disorder: No - HEENT Hx HEENT Problems: Yes Hx Cataracts: Yes - RENAL Hx Renal Failure: Yes Other/Comment: on dialysis T-- - ENDOCRINE/METABOLIC Hx Endocrine Disorders: Yes Hx Diabetes Mellitus Type 2: Yes - HEMATOLOGICAL/ONCOLOGICAL Hx Blood Disorders: No - INTEGUMENTARY Hx Dermatological Problems: No - MUSCULOSKELETAL/RHEUMATOLOGICAL Hx Musculoskeletal Disorders: No Hx Falls: Yes - GASTROINTESTINAL Hx Gastrointestinal Disorders: No - GENITOURINARY/GYNECOLOGICAL Hx Genitourinary Disorders: No - PSYCHIATRIC Hx Substance Use: No - SURGICAL HISTORY Hx Cardiac Catheterization: Yes Hx Open Heart Surgery: Yes (CABG ( tripple)) Hx Vascular Access Device: Yes (Left arm shunt) - ANESTHESIA Hx Anesthesia: Yes Hx Anesthesia Reactions: No Hx Malignant Hyperthermia: No Meds Allergies/Adverse Reactions: Allergies Allergy/AdvReac Type Severity Reaction Status Date / Time No Known Allergies Allergy Verified 06/03/16 20:06 - Medications Medications: Current Medications Aspirin (Aspirin Chewable) 81 mg PO DAILY [facility] Last Admin: 06/05/16 09:09 Dose: 81 mg Calcium Acetate (Phoslo) 667 mg PO TIDCC [facility] Last Admin: 06/05/16 08:57 Dose: 667 mg Insulin Aspart (Novolog) 0 unit SC ACHS [facility] PRN Reason: Protocol Last Admin: 06/05/16 08:57 Dose: 1 unit Ondansetron HCl (Zofran Inj) 4 mg IVP Q6 PRN PRN Reason: Nausea/Vomiting Last Admin: 06/04/16 19:44 Dose: 4 mg Oxycodone/Acetaminophen (Percocet 5/325 Mg Tab) 1 tab PO Q4H PRN PRN Reason: Pain, Mild (1-3) Stop: 06/07/16 05:35 Last Admin: 06/04/16 16:55 Dose: 1 tab Paricalcitol (Zemplar) 2 mcg IV TTS [facility] Last Admin: 06/04/16 15:00 Dose: Not Given Vitamin B Complex/Vit C/Folic Acid (Nephro-Jose) 1 tab PO DAILY [facility] Last Admin: 06/05/16 09:09 Dose: 1 tab Zolpidem Tartrate (Ambien) 5 mg PO HS PRN PRN Reason: Insomnia Last Admin: 06/05/16 00:26 Dose: 5 mg Physical Exam - Constitutional Appears: Well, Non-toxic - Head Exam Head Exam: ATRAUMATIC, NORMAL INSPECTION, NORMOCEPHALIC - Eye Exam Eye Exam: EOMI, Normal appearance, PERRL - ENT Exam ENT Exam: Mucous Membranes Moist, Normal Exam - Respiratory Exam Additional comments: decreased breath sounds both bases - Cardiovascular Exam Cardiovascular Exam: Irregular Rhythm, +S2, Systolic Murmur Additional comments: irregularly irregular - Extremities Exam Extremities exam: Positive for: pedal edema - Back Exam Back exam: CVA tenderness (L). absent: CVA tenderness (R) - Neurological Exam Neurological exam: Alert, CN II-XII Intact - Psychiatric Exam Psychiatric exam: Normal Mood - Skin Skin Exam: Dry, Warm Results - Vital Signs Recent Vital Signs: Last Vital Signs Temp 97.3 F L 06/05/16 07:15 Pulse 90 06/05/16 07:15 Resp 18 06/05/16 07:15 BP 126/74 06/05/16 07:15 Pulse Ox 98 06/05/16 07:15 - Labs Result Diagrams: 06/03/16 20:51 06/03/16 20:51 Labs: Laboratory Results - last 24 hr 06/04/16 06/04/16 06/05/16 20:45 23:50 06:11 POC Glucose (mg/dL) 179 H 165 H Urine Color Yellow Urine Clarity Hazy Urine pH 5.0 Ur Specific [place] 1.017 Urine Protein 3+ H Urine Glucose (UA) 2+ H Urine Ketones Negative Urine Blood 1+ H Urine Nitrate Negative Urine Bilirubin Negative Urine Urobilinogen Normal Ur Leukocyte Esterase 3+ H Urine WBC (Auto) 28 H Urine RBC (Auto) 9 H Ur Squamous Epith Cells 13 H Ur Transition Epith Cell < 1 Urine Bacteria Occ H Urine Yeast (Budding) Few H Assessment & Plan - Assessment and Plan (Free Text) Assessment: 66 yo woman with history of CAD, previous CABG, ESRD on HD, HTN, pulmonary HTN, DM,hypercholesterolemia admitted with rapid AF and found to have a low ER. AF: suggest HINA/DCCV and initiation of amiodarone. She declines terminal carman anticoagultion due to epistaxis and bruising. Should take for one month after CV. Amiodarone can be used to maintain SR. She is at high risk for both bleeding and stroke. HINA will screen for suitabiltiy of watchman ELDER closure. CHF: Has had dynamic EF ranges over the years since CABG. Reevaluate after she has been put back into SR. HTN: stable CAD: continue asa and statine. ESRD: HD
--- NOTE | 2016-06-05 11:59 | CP.PCM.CON ---
History of Present Illness - History of Present Illness History of Present Illness: Patient is a 66 year old female with PMH of CAD/CABG, HTN, HLD, DM2, ESRD on Dialysis who presented to the ED on 06/03/16 with complaints of upper abdominal pain. Pt was s/p recent Thyroidectomy and was sent to the ED from Dr. Mendez's office due for findings of SVT and Afib c RVR converted to Afib c slow response with SBP 80s-90s after cardizem IVP. However, patient remained alert/oriented and asymptomatic. Pt also had a small Troponin leak but this was likely a result of earlier SVT. Pulmonary team was consulted due to findings of pleural effusion on Abdominal CT. Pt seen and examined at bedside. Pt sitting up in bed, appears to be comfortable. Pt states that she is doing "okay". Pt admits to dry coughs, but denies any production, congestion, SOB, SOB and subjective fever. Review of Systems - Constitutional Constitutional: absent: Fever - Cardiovascular Cardiovascular: As Per HPI - Respiratory Respiratory: Cough (Dry). absent: Dyspnea, Hemoptysis, Wheezing, Chest Congestion, Excessive Mucous Production, Change in Mucous Color - Musculoskeletal Musculoskeletal: As Per HPI - Neurological Neurological: As Per HPI Past Patient History - Past Medical History & Family History Past Medical History?: Yes - Past Social History Smoking Status: Never Smoked - CARDIAC Hx Cardiac Disorders: Yes Hx Hypertension: Yes - PULMONARY Hx Respiratory Disorders: No - NEUROLOGICAL Hx Neurological Disorder: No - HEENT Hx HEENT Problems: Yes Hx Cataracts: Yes - RENAL Hx Renal Failure: Yes Other/Comment: on dialysis - - ENDOCRINE/METABOLIC Hx Endocrine Disorders: Yes Hx Diabetes Mellitus Type 2: Yes - HEMATOLOGICAL/ONCOLOGICAL Hx Blood Disorders: No - INTEGUMENTARY Hx Dermatological Problems: No - MUSCULOSKELETAL/RHEUMATOLOGICAL Hx Musculoskeletal Disorders: No Hx Falls: Yes - GASTROINTESTINAL Hx Gastrointestinal Disorders: No - GENITOURINARY/GYNECOLOGICAL Hx Genitourinary Disorders: No - PSYCHIATRIC Hx Substance Use: No - SURGICAL HISTORY Hx Cardiac Catheterization: Yes Hx Open Heart Surgery: Yes (CABG ( tripple)) Hx Vascular Access Device: Yes (Left arm shunt) - ANESTHESIA Hx Anesthesia: Yes Hx Anesthesia Reactions: No Hx Malignant Hyperthermia: No Meds Allergies/Adverse Reactions: Allergies Allergy/AdvReac Type Severity Reaction Status Date / Time No Known Allergies Allergy Verified 06/03/16 20:06 - Medications Medications: Current Medications Aspirin (Aspirin Chewable) 81 mg PO DAILY [facility] Last Admin: 06/05/16 09:09 Dose: 81 mg Calcium Acetate (Phoslo) 667 mg PO TIDCC [facility] Last Admin: 06/05/16 08:57 Dose: 667 mg Insulin Aspart (Novolog) 0 unit SC ACHS [facility] PRN Reason: Protocol Last Admin: 06/05/16 08:57 Dose: 1 unit Ondansetron HCl (Zofran Inj) 4 mg IVP Q6 PRN PRN Reason: Nausea/Vomiting Last Admin: 06/04/16 19:44 Dose: 4 mg Oxycodone/Acetaminophen (Percocet 5/325 Mg Tab) 1 tab PO Q4H PRN PRN Reason: Pain, Mild (1-3) Stop: 06/07/16 05:35 Last Admin: 06/04/16 16:55 Dose: 1 tab Paricalcitol (Zemplar) 2 mcg IV TTS [facility] Last Admin: 06/04/16 15:00 Dose: Not Given Vitamin B Complex/Vit C/Folic Acid (Nephro-Jose) 1 tab PO DAILY [facility] Last Admin: 06/05/16 09:09 Dose: 1 tab Zolpidem Tartrate (Ambien) 5 mg PO HS PRN PRN Reason: Insomnia Last Admin: 06/05/16 00:26 Dose: 5 mg Physical Exam - Constitutional Appears: Non-toxic, No Acute Distress - Head Exam Head Exam: ATRAUMATIC, NORMOCEPHALIC - Eye Exam Eye Exam: Normal appearance - ENT Exam ENT Exam: Mucous Membranes Moist - Respiratory Exam Respiratory Exam: Decreased Breath Sounds - Cardiovascular Exam Cardiovascular Exam: REGULAR RHYTHM, +S1, +S2 - Neurological Exam Neurological exam: Alert, CN II-XII Intact, Oriented x3 - Psychiatric Exam Psychiatric exam: Normal Affect, Normal Mood - Skin Skin Exam: Dry, Intact, Normal Color, Warm Results - Vital Signs Recent Vital Signs: Last Vital Signs Temp 97.3 F L 06/05/16 07:15 Pulse 90 06/05/16 07:15 Resp 18 06/05/16 07:15 BP 126/74 06/05/16 07:15 Pulse Ox 98 06/05/16 07:15 - Labs Result Diagrams: 06/03/16 20:51 06/03/16 20:51 Labs: Laboratory Results - last 24 hr 06/04/16 06/04/16 06/05/16 20:45 23:50 06:11 POC Glucose (mg/dL) 179 H 165 H Urine Color Yellow Urine Clarity Hazy Urine pH 5.0 [address] [place] 1.017 Urine Protein 3+ H Urine Glucose (UA) 2+ H Urine Ketones Negative Urine Blood 1+ H Urine Nitrate Negative Urine Bilirubin Negative Urine Urobilinogen Normal Ur Leukocyte Esterase 3+ H Urine WBC (Auto) 28 H Urine RBC (Auto) 9 H Ur Squamous Epith Cells 13 H Ur Transition Epith Cell < 1 Urine Bacteria Occ H Urine Yeast (Budding) Few H 06/05/16 11:18 POC Glucose (mg/dL) 251 H Urine Color Urine Clarity Urine pH Ur Specific [place] Urine Protein Urine Glucose (UA) Urine Ketones Urine Blood Urine Nitrate Urine Bilirubin Urine Urobilinogen Ur Leukocyte Esterase Urine WBC (Auto) Urine RBC (Auto) Ur Squamous Epith Cells Ur Transition Epith Cell Urine Bacteria Urine Yeast (Budding) Assessment & Plan (1) Pleural effusion Assessment and Plan: CAT scan of the abdomen showed small to moderate right-sided pleural effusion Patient denies shortness of breath but complaining of cough Will consider thoracentesis Continue present treatment Status: Acute
--- NOTE | 2016-06-05 12:06 | CARD ---
APPROVED REPORT EKG Measurement Heart [id number] <Conclusion> Atrial fibrillation with slow ventricular response Right bundle branch block Possible Inferior infarct, age undetermined T wave abnormality, consider lateral ischemia Abnormal ECG
--- NOTE | 2016-06-05 12:34 | CARD ---
APPROVED REPORT EXAM: Two-dimensional and M-mode echocardiogram with Doppler and color Doppler. Other Information Quality : GoodRhythm : NSR INDICATION Diastolic RISK FACTORS Hypertension Diabetes M-Mode DIMENSIONS RVDd2.60 (2.1-3.2cm)Left Atrium (MM)4.95 (2.5-4.0cm) IVSd1.50 (0.7-1.1cm)Aortic Root3.03 (2.2-3.7cm) LVDd3.81 (4.0-5.6cm)Aortic Cusp Exc.1.69 (1.5-2.0cm) PWd1.66 (0.7-1.1cm)FS (%) 11 % LVDs3.38 (2.0-3.8cm)LVEF (%)25 (>50%) Mitral Valve MV E Wououahk062.8cm/sMV A Twblehkj28.4cm/sE/A ratio3.8 TDI E/Lateral E'0.0E/Medial E'0.0 Tricuspid Valve TR Peak Njiemqwm123kv/sTR Peak Gr.[id number] LEFT VENTRICLE The left ventricle is normal size. There is mild to moderate concentric left ventricular hypertrophy. Left ventricle systolic function is moderately to severely impaired. The Ejection Fraction is 30-35%. Bundle branch block Atrial fibrillation There is no ventricular septal defect visualized. RIGHT VENTRICLE The right ventricle is borderline dilated. The right ventricular systolic function is normal. ATRIA The left atrium is mildly dilated. The right atrium is mildly dilated. Consider small patent foramina ovale, consider HINA for verification AORTIC VALVE The aortic valve is mildly sclerotic. The aortic valve is tri-cuspid. No aortic regurgitation is present. There is no aortic valvular stenosis. MITRAL VALVE Mitral annular calcification is mild. There is no evidence of mitral valve prolapse. Mitral regurgitation is mild. Centrally oriented yet TRICUSPID VALVE The tricuspid valve is normal in structure. There is moderate tricuspid regurgitation. Right ventricular systolic pressure is estimated at greater than 60 mmHg. There is severe pulmonary hypertension. PULMONIC VALVE The pulmonic valve is not well visualized. There is trace pulmonic valvular regurgitation. GREAT VESSELS The IVC is dilated. PERICARDIAL EFFUSION There is no pericardial effusion. <Conclusion> There is mild to moderate concentric left ventricular hypertrophy. Left ventricle systolic function is moderately to severely impaired. The Ejection Fraction is 30-35%. Mitral regurgitation is mild. There is severe pulmonary hypertension.
--- NOTE | 2016-06-05 14:54 | VASCLAB ---
PROCEDURE: HISTORY: recurrent dizziness COMPARISON: None available. TECHNIQUE: Grayscale and duplex Doppler evaluation of the cervical carotid and vertebral arteries were performed. The common carotid, carotid bifurcations and cervical Internal Carotid Artery (ICA) and proximal External Carotid Artery (ECA) were evaluated. The vertebral arteries were evaluated for gross patency and flow direction. Report prepared by Jose C Simmons, BS, RVT FINDINGS: RIGHT CAROTID ARTERIES: 1. Common Carotid Artery: Severe calcified plaque formation of the right proximal CCA which does not results in a hemodynamically significant stenosis. Maximum Peak Systolic velocity: 43 cm/sec: End-diastolic velocity 9 cm/sec. 2. Carotid Bifurcation: plaque formation. Maximum Peak Systolic velocity: 35 cm/sec: End-diastolic velocity 12 cm/sec. 3. Internal Carotid Artery: Severe plaque formation of the right proximal ICA which does not results in a hemodynamically significant stenosis. Plaque description: Calcified 3.1. Proximal Segment: Peak systolic velocity 48 cm/sec: End-diastolic velocity 21 cm/sec - % stenosis 0-15% 3.2. Middle Segment: Peak systolic velocity 90 cm/sec: End-diastolic velocity 23 cm/sec - % stenosis 0-15% 3.3. Distal Segment: Peak systolic velocity 65 cm/sec: End-diastolic velocity 21 cm/sec - % stenosis 0-15% 4. External Carotid Artery: No significant focal plaque formation. Peak systolic velocity 49 cm/sec 5. ICA/CCA Ratio: 2.1 LEFT CAROTID ARTERIES: 1. Common Carotid Artery: Moderate calcified plaque formation of the left proximal CCA which does not results in hemodynamically significant stenosis. Maximum Peak Systolic velocity: 79 cm/sec: End-diastolic velocity 26 cm/sec. 2. Carotid Bifurcation: plaque formation. Maximum Peak Systolic velocity: 82 cm/sec: End-diastolic velocity 25 cm/sec. 3. Internal Carotid Artery: Severe plaque formation of the left proximal ICA which results in a hemodynamically significant stenosis. Plaque description: Calcified 3.1. Proximal Segment: Peak systolic velocity 87 cm/sec: End-diastolic velocity 28 cm/sec - % stenosis 0-15% 3.2. Middle Segment: Peak systolic velocity 60 cm/sec: End-diastolic velocity 23 cm/sec - % stenosis 0-15% 3.3. Distal Segment: Peak systolic velocity 65 cm/sec: End-diastolic velocity 24 cm/sec - % stenosis 0-15% 4. External Carotid Artery: Significant calcified plaque formation. Peak systolic velocity Not visualized 5. ICA/CCA Ratio: 1.1 VERTEBRAL ARTERIES: 1. Right Vertebral Artery: The right vertebral artery flow direction is antegrade. 2. Left Vertebral Artery: The left vertebral artery flow direction is antegrade. OTHER FINDINGS: 1. Right Brachial Blood pressure: 127 mmHg. 2. Left Brachial Blood pressure: mmHg. IMPRESSION: RIGHT: Severe calcific plaque in the common carotid artery and severe calcific plaque of the right proximal CCA that do not results in a hemodynamically significant stenosis. LEFT: Moderate calcific plaque in the common carotid artery and severe calcific plaque of the right proximal CCA that do not results in a hemodynamically significant stenosis.
--- NOTE | 2016-06-05 14:55 | VASCLAB ---
PROCEDURE: Lower Extremity Venous Duplex Exam. HISTORY: Bilateral lower extremity swelling r/o dvt PRIORS: None. TECHNIQUE: Bilateral common femoral, femoral, popliteal and posterior tibial, peroneal and great saphenous veins were evaluated. Flow was assessed with color Doppler, compressibility, assessment of phasic flow and augmentation response. Report prepared by Jose C Simmons, WERNER, RVT FINDINGS: RIGHT: 1. Common Femoral Vein: 1.1. Compressibility - Fully compressible: Thrombus - None : Flow - Phasic: Augmentation -Normal: Reflux - None. 2. Femoral Vein: 2.1. Compressibility - Fully compressible: Thrombus - None : Flow - Phasic: Augmentation -Normal: Reflux - None. 3. Popliteal Vein: 3.1. Compressibility - Fully compressible: Thrombus - None : Flow - Phasic: Augmentation -Normal: Reflux - None. 4. Posterior Tibial Vein: 4.1. Compressibility - Fully compressible: Thrombus - None: Flow - Phasic: Augmentation -Normal: Reflux - None. 5. Peroneal Vein: 5.1. Compressibility - Fully compressible: Thrombus - None: Flow - Phasic: Augmentation -Normal: Reflux - None. 6. Great Saphenous Vein: 6.1. Compressibility - : Thrombus - : Flow - : Augmentation - : Reflux - . LEFT: 1. Common Femoral Vein: 1.1. Compressibility - Fully compressible: Thrombus - None: Flow - Phasic: Augmentation -Normal: Reflux - None. 2. Femoral Vein: 2.1. Compressibility - Fully compressible: Thrombus - None: Flow - Phasic: Augmentation -Normal: Reflux - None. 3. Popliteal Vein: 3.1. Compressibility - Fully compressible: Thrombus - None : Flow - Phasic: Augmentation -Normal: Reflux - None. 4. Posterior Tibial Vein: 4.1. Compressibility - Fully compressible: Thrombus - None: Flow - Phasic: Augmentation -Normal: Reflux - None. 5. Peroneal Vein: 5.1. Compressibility - Fully compressible: Thrombus - None: Flow - Phasic: Augmentation -Normal: Reflux - None. 6. Great Saphenous Vein: 6.1. Compressibility - : Thrombus - : Flow - : Augmentation - : Reflux - . OTHER FINDINGS: Bilateral greater saphenous veins has been previously removed. IMPRESSION: Right: No evidence of deep or superficial vein thrombosis of the right lower extremity. Normal valve function noted of the right side. Left: No evidence of deep or superficial vein thrombosis of the left lower extremity. Normal valve function noted of the left side.
--- NOTE | 2016-06-05 17:59 | CP.PCM.PN ---
Subjective - Date & Time of Evaluation Date of Evaluation: 06/05/16 Time of Evaluation: 17:58 - Subjective Subjective: pt seen and examined, follow up consult is dictated #[id number] for hd in am Objective - Vital Signs/Intake and Output Vital Signs (last 24 hours): Temp Pulse Resp BP Pulse Ox 97.5 F L 89 20 136/86 100 06/05/16 16:30 06/05/16 16:30 06/05/16 16:30 06/05/16 16:30 06/05/16 16:30 Intake and Output: 06/05/16 06/05/16 06:59 18:59 Intake Total 200 500 Balance 200 500 - Medications Medications: Current Medications Aspirin (Aspirin Chewable) [address] [facility] Last Admin: 06/05/16 09:09 Dose: 81 mg Calcium Acetate (Phoslo) [address] [facility] Last Admin: 06/05/16 17:37 Dose: 667 mg Diltiazem HCl (Cardizem) [address] [facility] Last Admin: 06/05/16 14:16 Dose: 30 mg Insulin Aspart (Novolog) [address] [facility] PRN Reason: Protocol Last Admin: 06/05/16 17:37 Dose: 2 unit Ondansetron HCl (Zofran Inj) 4 mg IVP Q6 PRN PRN Reason: Nausea/Vomiting Last Admin: 06/04/16 19:44 Dose: 4 mg Oxycodone/Acetaminophen (Percocet 5/325 Mg Tab) 1 tab PO Q4H PRN PRN Reason: Pain, Mild (1-3) Stop: 06/07/16 05:35 Last Admin: 06/04/16 16:55 Dose: 1 tab Paricalcitol (Zemplar) [address] [facility] Last Admin: 06/04/16 15:00 Dose: Not Given Vitamin B Complex/Vit C/Folic Acid (Nephro-Jose) [address] [facility] Last Admin: 06/05/16 09:09 Dose: 1 tab Zolpidem Tartrate (Ambien) 5 mg PO HS PRN PRN Reason: Insomnia Last Admin: 06/05/16 00:26 Dose: 5 mg
--- NOTE | 2016-06-05 18:40 | CP.PCM.PN ---
Subjective - Date & Time of Evaluation Date of Evaluation: 06/05/16 Time of Evaluation: 09:00 - Subjective Subjective: c/o foot pain has week pulses and ? ulcer right heel- very tender to touch may need vascular eval will have podiatry eval Objective - Vital Signs/Intake and Output Vital Signs (last 24 hours): Temp Pulse Resp BP Pulse Ox 97.5 F L 89 20 136/86 100 06/05/16 16:30 06/05/16 16:30 06/05/16 16:30 06/05/16 16:30 06/05/16 16:30 Intake and Output: 06/05/16 06/05/16 06:59 18:59 Intake Total 200 500 Balance 200 500 - Medications Medications: Current Medications Aspirin (Aspirin Chewable) 81 mg PO DAILY [facility] Last Admin: 06/05/16 09:09 Dose: 81 mg Calcium Acetate (Phoslo) 667 mg PO TIDCC [facility] Last Admin: 06/05/16 17:37 Dose: 667 mg Diltiazem HCl (Cardizem) 30 mg PO Q8H [facility] Last Admin: 06/05/16 14:16 Dose: 30 mg Cefazolin Sodium 2,000 mg/ (Sodium Chloride) 50 mls @ 100 mls/hr IVPB MWF [facility] Insulin Aspart (Novolog) 0 unit SC ACHS [facility] PRN Reason: Protocol Last Admin: 06/05/16 17:37 Dose: 2 unit Ondansetron HCl (Zofran Inj) 4 mg IVP Q6 PRN PRN Reason: Nausea/Vomiting Last Admin: 06/04/16 19:44 Dose: 4 mg Oxycodone/Acetaminophen (Percocet 5/325 Mg Tab) 1 tab PO Q4H PRN PRN Reason: Pain, Mild (1-3) Stop: 06/07/16 05:35 Last Admin: 06/04/16 16:55 Dose: 1 tab Paricalcitol (Zemplar) 2 mcg IV TTS [facility] Last Admin: 06/04/16 15:00 Dose: Not Given Vitamin B Complex/Vit C/Folic Acid (Nephro-Jose) 1 tab PO DAILY [facility] Last Admin: 06/05/16 09:09 Dose: 1 tab Zolpidem Tartrate (Ambien) 5 mg PO HS PRN PRN Reason: Insomnia Last Admin: 06/05/16 00:26 Dose: 5 mg - Constitutional Appears: Non-toxic, Cachectic, Chronically Ill - Head Exam Head Exam: NORMOCEPHALIC - Eye Exam Eye Exam: absent: Scleral icterus - ENT Exam ENT Exam: Mucous Membranes Dry - Neck Exam Neck Exam: absent: Lymphadenopathy - Respiratory Exam Respiratory Exam: Decreased Breath Sounds - Cardiovascular Exam Cardiovascular Exam: REGULAR RHYTHM - GI/Abdominal Exam GI & Abdominal Exam: Distended, Soft - Rectal Exam Rectal Exam: Deferred - Exam Exam: NORMAL INSPECTION - Extremities Exam Extremities Exam: Pedal Edema, Tenderness. absent: Calf Tenderness, Normal Inspection - Back Exam Back Exam: absent: CVA tenderness (L), CVA tenderness (R) - Neurological Exam Neurological Exam: Alert, Awake, CN II-XII Intact, Oriented x3 Neuro motor strength exam: Left Upper Extremity: 4, Right Upper Extremity: 4, Left Lower Extremity: 4, Right Lower Extremity: 4 - Psychiatric Exam Psychiatric exam: Normal Mood - Skin Skin Exam: Dry, Intact Assessment and Plan (1) Diabetes Status: Acute (2) End stage renal disease on dialysis Status: Acute (3) Cardiomyopathy as manifestation of underlying disease Status: Acute (4) PVD (peripheral vascular disease) Status: Acute (5) CHF (congestive heart failure), NYHA class III Status: Acute (6) Cellulitis and abscess of foot Status: Acute
--- NOTE | 2016-06-05 18:43 | CP.PCM.PN ---
Subjective - Date & Time of Evaluation Date of Evaluation: 06/05/16 Time of Evaluation: 08:00 - Subjective Subjective: dr ricks on consult consider vascular eval if ok with dr lowe Objective - Vital Signs/Intake and Output Vital Signs (last 24 hours): Temp Pulse Resp BP Pulse Ox 97.5 F L 89 20 136/86 100 06/05/16 16:30 06/05/16 16:30 06/05/16 16:30 06/05/16 16:30 06/05/16 16:30 Intake and Output: 06/05/16 06/05/16 06:59 18:59 Intake Total 200 500 Balance 200 500 - Medications Medications: Current Medications Aspirin (Aspirin Chewable) 81 mg PO DAILY [facility] Last Admin: 06/05/16 09:09 Dose: 81 mg Calcium Acetate (Phoslo) 667 mg PO TIDCC [facility] Last Admin: 06/05/16 17:37 Dose: 667 mg Diltiazem HCl (Cardizem) 30 mg PO Q8H [facility] Last Admin: 06/05/16 14:16 Dose: 30 mg Cefazolin Sodium 2,000 mg/ (Sodium Chloride) 50 mls @ 100 mls/hr IVPB MWF [facility] Insulin Aspart (Novolog) 0 unit SC ACHS [facility] PRN Reason: Protocol Last Admin: 06/05/16 17:37 Dose: 2 unit Ondansetron HCl (Zofran Inj) 4 mg IVP Q6 PRN PRN Reason: Nausea/Vomiting Last Admin: 06/04/16 19:44 Dose: 4 mg Oxycodone/Acetaminophen (Percocet 5/325 Mg Tab) 1 tab PO Q4H PRN PRN Reason: Pain, Mild (1-3) Stop: 06/07/16 05:35 Last Admin: 06/04/16 16:55 Dose: 1 tab Paricalcitol (Zemplar) 2 mcg IV TTS [facility] Last Admin: 06/04/16 15:00 Dose: Not Given Vitamin B Complex/Vit C/Folic Acid (Nephro-Jose) 1 tab PO DAILY [facility] Last Admin: 06/05/16 09:09 Dose: 1 tab Zolpidem Tartrate (Ambien) 5 mg PO HS PRN PRN Reason: Insomnia Last Admin: 06/05/16 00:26 Dose: 5 mg Assessment and Plan (1) Diabetes Status: Acute (2) End stage renal disease on dialysis Status: Acute (3) Cardiomyopathy as manifestation of underlying disease Status: Acute (4) PVD (peripheral vascular disease) Status: Acute (5) CHF (congestive heart failure), NYHA class III Status: Acute (6) Cellulitis and abscess of foot Status: Acute (7) Atrial fibrillation with rapid ventricular response Status: Acute
--- NOTE | 2016-06-05 23:31 | PN ---
DATE: 06/05/2016 LOCATION: The patient is located in room 662, bed B. REQUESTED BY: Dr. Jose C Sosa and Dr. Citlalli Mendez. REASON FOR RENAL CONSULTATION: End-stage renal disease and continuation of hemodialysis. HISTORY OF PRESENT ILLNESS: The patient is a 66-year-old elderly [place]ian female with a past medical history significant for longstanding hypertension, diabetes, CHF, AFib, end-stage renal disease, per ipheral vascular disease, on hemodialysis 3 times a week; Friday, , Friday, who was admitt ed with neck pain and palpitations. The patient was found to have AFib with rapid ventricular respon se. The patient was initially started on IV Cardizem drip. The patient is feeling better, not in ac te-moak distress, denies any chest pain, palpitations, complaints of nausea, vomiting x 1 last night. No abdominal pain, no dysuria or frequency. The patient has complaints of swelling of both legs. PHYSICAL EXAMINATION: VITAL SIGNS: Blood pressure 136/86, pulse 89, respiration 20, temperature 97.5, saturation 100%, hei ght 5 feet 2 inches, and weight is 143 pounds. GENERAL: The patient is a 66-year-old female, moderately built, moderately nourished, not in acute d istress. HEENT: Pupils normal reactive to light and accommodation, conjunctivae pink, sclerae anicteric. Ton merlin is moist. NECK: Trachea midline. LUNGS: Symmetric on both sides. Bilateral breath sounds present. Occasional basal crackles present . CARDIOVASCULAR: [place] in the fifth intercostal space midclavicular line, S1, S2 audible. No murmur, no gallop. ABDOMEN: Normal in appearance, soft, tympanic. No guarding, no rigidity. No hepatosplenomegaly. CENTRAL NERVOUS SYSTEM: The patient is alert, awake, oriented x 3, nonfocal on examination. Cranial nerves II-XII grossly intact. Sensory and motor systems are within normal limits. EXTREMITIES: No cyanosis. The patient has 2+ edema in both lower extremities. CURRENT MEDICATIONS: Include as follows: Ambien 5 mg p.o. at bedtime, aspirin 81 mg p.o. daily, Car dizem 30 mg p.o. q. 8 hours, cefazolin 2 grams 3 times a week, Nephrocaps 1 tablet daily, Nephro-Jose 1 tablet daily, Nizoral 1 gram topical b.i.d., Percocet 1 tablet q. 4 hours p.r.n., PhosLo 667 mg t .i.d., Zemplar 2 mcg 3 times a day, Zofran 4 mg IV q. 6 hours p.r.n. LABORATORY DATA: Include as follows as of 06/04/2016: Urine yellow, hazy, specific gravity 1.017, pr otein 3+, glucose 2+, ketones negative, blood 1+, nitrites negative, bilirubin negative, urobilinogen normal. Leukocyte esterase, 3+ WBCs, 28, RBCs 9. Bacteria: Occasional. CT of the abdomen and pel vis as of 06/04/2016: Impression: Moderate right and small left pleural effusion, mild cardiomegaly. Small ascites in the abdomen and pelvis, diffuse vascular calcification, focal hyperdensity seen in the spleen, may represent splenic lesion or focal infarcts, mild to moderate anasarca. Echocardiogr am as of 06/04/2016: Ejection fraction 25%. Impression: There is vluz-oj-nqhdjamb concentric left v entricular hypertrophy, left ventricular systolic function is qskjrvgd-fe-xzekwker impaired, and ejec tion fraction is about 30-35%. Mitral regurgitation is mild disease. There is severe pulmonary hype rtension. SUMMARY: The patient is a 66-year-old elderly [place]ian female with a history of hypertension, diabet es, end-stage renal disease, peripheral vascular disease, congestive heart failure, atrial fibrillati on, who was admitted with neck pain and palpitations, with bilateral leg swelling and severe pulmonar y hypertension. 1. End-stage renal disease: Continue hemodialysis 3 times a week, Friday, , Friday, and will try to ultrafiltrate as much as the patient can tolerate. 2. Atrial fibrillation: Continue Cardizem as per Dr. Mendez. 3. Fluid overload. 4. Severe pulmonary hypertension. We will follow with you. Thank you for allowing me to participate in your patient's care. Silva Malik MD cc: [id number] TT: 06/05/2016 23:30:46 Confirmation # [id number] Dictation # [id number]
[2016-06-06] MEDS: (Novolog) Insulin Aspart, Recombinant 100 u/ml 10 ml vial SC SCH ×4 (08:24→21:47)
[2016-06-06] MEDS ORDERED: Albumin Human 25% (12.5 gm/50 ml) IV ONE ×3 (09:41→11:30)
--- NOTE | 2016-06-06 09:48 | CP.PCM.PN ---
Subjective - Date & Time of Evaluation Date of Evaluation: 06/06/16 Time of Evaluation: 09:46 - Subjective Subjective: pt seen and examined, follow up consult is dictated seen in hd Objective - Vital Signs/Intake and Output Vital Signs (last 24 hours): Temp Pulse Resp BP Pulse Ox 97.9 F 60 18 132/70 97 06/06/16 07:00 06/06/16 07:00 06/06/16 07:00 06/06/16 07:00 06/06/16 07:00 Intake and Output: 06/06/16 06/06/16 06:59 18:59 Intake Total 300 Balance 300 - Medications Medications: Current Medications Aspirin (Aspirin Chewable) 81 mg PO DAILY [facility] Last Admin: 06/06/16 09:23 Dose: Not Given Calcium Acetate (Phoslo) 667 mg PO TIDCC [facility] Last Admin: 06/06/16 08:24 Dose: 667 mg Heparin Sodium (Porcine) (Heparin) 5,000 units SC Q12 [facility] Last Admin: 06/06/16 09:27 Dose: Not Given Cefazolin Sodium 2,000 mg/ (Sodium Chloride) 50 mls @ 100 mls/hr IVPB MWF [facility] Insulin Aspart (Novolog) 0 unit SC ACHS [facility] PRN Reason: Protocol Last Admin: 06/06/16 08:24 Dose: 3 unit Ketoconazole (Nizoral) 1 gm TOP BID [facility] Metoprolol Tartrate (Lopressor) 25 mg PO BID [facility] Ondansetron HCl (Zofran Inj) 4 mg IVP Q6 PRN PRN Reason: Nausea/Vomiting Last Admin: 06/04/16 19:44 Dose: 4 mg Oxycodone/Acetaminophen (Percocet 5/325 Mg Tab) 1 tab PO Q4H PRN PRN Reason: Pain, Mild (1-3) Stop: 06/07/16 05:35 Last Admin: 06/04/16 16:55 Dose: 1 tab Paricalcitol (Zemplar) 2 mcg IV TTS [facility] Last Admin: 06/04/16 15:00 Dose: Not Given Vitamin B Complex/Vit C/Folic Acid (Nephro-Jose) 1 tab PO DAILY [facility] Last Admin: 06/05/16 09:09 Dose: 1 tab Zolpidem Tartrate (Ambien) 5 mg PO HS PRN PRN Reason: Insomnia Last Admin: 06/05/16 23:46 Dose: 5 mg
[2016-06-06] MEDS: Paricalcitol 2 mcg/ml Inj IV SCH (10:19)
--- NOTE | 2016-06-06 10:34 | PN ---
DATE: 06/06/2016 LOCATION: The patient is located in room 662, bed B. REQUESTED BY: Jose C Sosa MD REASON FOR RENAL CONSULTATION: End-stage renal disease, continuation of hemodialysis. HISTORY OF PRESENT ILLNESS: The patient is a 66-year-old elderly female with a past medical history significant for hypertension, diabetes, end-stage renal disease, cardiomyopathy, atrial fibrillation and peripheral vascular disease, who was admitted with neck pain and afib with rapid ventricular resp onse. The patient was initially started on IV Cardizem and subsequently changed to p.o. Cardizem. T he patient is being dialyzed at this time. UF goal is about 3 liters and as tolerated. The patient is not in acute distress and denies any headache, dizziness and denies any chest pain, palpitations. Denies fever or cough. No abdominal pain, no nausea, vomiting, diarrhea. PHYSICAL EXAMINATION: VITAL SIGNS: As follows: Blood pressure 132/70, pulse 60, respiration 18, temperature 97.9, saturat ion 97%, height 5 feet 2 inches and weight is 145 pounds. GENERAL: A 66-year-old elderly female, moderately built, moderately nourished, not in acute distress . HEENT: Pupils normal reactive to light and accommodation. Conjunctivae pink. Sclerae anicteric. T ongue is moist. NECK: Trachea is midline. LUNGS: Symmetric on both sides. Bilateral breath sounds present. Occasional basal crackles present . CARDIOVASCULAR: [place] at the fifth intercostal space midclavicular line. S1 and S2 audible. No murm ur or gallop. ABDOMEN: Normal in appearance. Soft, tympanic. No guarding, no rigidity. No hepatosplenomegaly. CENTRAL NERVOUS SYSTEM: The patient is alert, awake, oriented x 3, nonfocal on examination. Cranial nerves II-XII grossly intact. Sensory and motor system is within normal limits. EXTREMITIES: No cyanosis, no clubbing. The patient has 1-2+ edema in both lower extremities. MEDICATIONS: Include as follows: Albumin 25% 50 mL q. 1 hour x 2 during dialysis, Ambien 5 mg at be dtime, aspirin 81 mg daily, cefazolin 2 grams 3 times a week, Friday, Friday and Friday, subcutane ous heparin 5000 q. 12 hours, Lopressor 25 mg p.o. b.i.d., Nephro-Jose 1 tablet daily, Nizoral 1 gram topical b.i.d., NovoLog for sliding scale, Percocet 1 tablet q. 4 hour p.r.n. for pain, PhosLo 667 m g p.o. t.i.d., Zemplar 2 mcg 3 times a week, Zofran 4 mg IV q. 6 hours p.r.n. and Cardizem 30 mg p.o. q. 8 not given this morning. LABORATORY DATA: Include as follows as of 06/06/2016: Accu-Chek 261. SUMMARY: The patient is a 66-year-old elderly [place]ine[place] female with a longstanding history of hyperte nsion, diabetes, end-stage renal disease, atrial fibrillation, severe pulmonary hypertension, cardiom yopathy, LV function about 30-35%, was admitted with neck pain and atrial fibrillation with rapid jeff tricular response. 1. End-stage renal disease. Continue hemodialysis 3 times a week, Friday, , Friday. 2. Atrial fibrillation. 3. Pulmonary hypertension. 4. Cardiomyopathy with LV function about 30-35%, we will try to ultrafiltrate as much as the patient can tolerate. We will also use a high sodium 148 with a sodium profile during dialysis and albumin p.r.n. for hypertension. Thank you for allowing me to participate in your patient's care. Silva Malik MD cc: [id number] TT: 06/06/2016 10:34:19 Confirmation # [id number] Dictation # [id number]
--- NOTE | 2016-06-06 10:54 | CP.PCM.CON ---
History of Present Illness - History of Present Illness History of Present Illness: 66 year old female for treatment of heel fissure right with chronic look duration unknown. Review of Systems - Constitutional Constitutional: As Per HPI - EENT Eyes: As Per HPI Nose/Mouth/Throat: As Per HPI - Cardiovascular Cardiovascular: As Per HPI - Respiratory Respiratory: As Per HPI - Gastrointestinal Gastrointestinal: As Per HPI - Genitourinary Genitourinary: As Per HPI - Musculoskeletal Musculoskeletal: As Per HPI - Integumentary Integumentary: Skin Ulcer - Neurological Neurological: As Per HPI Past Patient History - Past Medical History & Family History Past Medical History?: Yes - Past Social History Smoking Status: Never Smoked - CARDIAC Hx Cardiac Disorders: Yes Hx Hypertension: Yes - PULMONARY Hx Respiratory Disorders: No - NEUROLOGICAL Hx Neurological Disorder: No - HEENT Hx HEENT Problems: Yes Hx Cataracts: Yes - RENAL Hx Renal Failure: Yes Other/Comment: on dialysis T- - ENDOCRINE/METABOLIC Hx Endocrine Disorders: Yes Hx Diabetes Mellitus Type 2: Yes - HEMATOLOGICAL/ONCOLOGICAL Hx Blood Disorders: No - INTEGUMENTARY Hx Dermatological Problems: No - MUSCULOSKELETAL/RHEUMATOLOGICAL Hx Musculoskeletal Disorders: No Hx Falls: Yes - GASTROINTESTINAL Hx Gastrointestinal Disorders: No - GENITOURINARY/GYNECOLOGICAL Hx Genitourinary Disorders: No - PSYCHIATRIC Hx Substance Use: No - SURGICAL HISTORY Hx Cardiac Catheterization: Yes Hx Open Heart Surgery: Yes (CABG ( tripple)) Hx Vascular Access Device: Yes (Left arm shunt) - ANESTHESIA Hx Anesthesia: Yes Hx Anesthesia Reactions: No Hx Malignant Hyperthermia: No Meds Allergies/Adverse Reactions: Allergies Allergy/AdvReac Type Severity Reaction Status Date / Time No Known Allergies Allergy Verified 06/03/16 20:06 - Medications Medications: Current Medications Aspirin (Aspirin Chewable) 81 mg PO DAILY [facility] Last Admin: 06/06/16 09:23 Dose: Not Given Calcium Acetate (Phoslo) 667 mg PO TIDCC [facility] Last Admin: 06/06/16 08:24 Dose: 667 mg Heparin Sodium (Porcine) (Heparin) 5,000 units SC Q12 [facility] Last Admin: 06/06/16 09:27 Dose: Not Given Cefazolin Sodium 2,000 mg/ (Sodium Chloride) 50 mls @ 100 mls/hr IVPB MWF [facility] Insulin Aspart (Novolog) 0 unit SC ACHS [facility] PRN Reason: Protocol Last Admin: 06/06/16 08:24 Dose: 3 unit Ketoconazole (Nizoral) 1 gm TOP BID [facility] Metoprolol Tartrate (Lopressor) 25 mg PO BID [facility] Ondansetron HCl (Zofran Inj) 4 mg IVP Q6 PRN PRN Reason: Nausea/Vomiting Last Admin: 06/04/16 19:44 Dose: 4 mg Oxycodone/Acetaminophen (Percocet 5/325 Mg Tab) 1 tab PO Q4H PRN PRN Reason: Pain, Mild (1-3) Stop: 06/07/16 05:35 Last Admin: 06/04/16 16:55 Dose: 1 tab Paricalcitol (Zemplar) 2 mcg IV TTS [facility] Last Admin: 06/06/16 10:19 Dose: 2 mcg Vitamin B Complex/Vit C/Folic Acid (Nephro-Jose) 1 tab PO DAILY [facility] Last Admin: 06/05/16 09:09 Dose: 1 tab Zolpidem Tartrate (Ambien) 5 mg PO HS PRN PRN Reason: Insomnia Last Admin: 06/05/16 23:46 Dose: 5 mg Physical Exam - Extremities Exam Extremities exam: Positive for: pedal edema Additional comments: o/heel fissure type ulcer medial aspect heel . No sign of infection noted . Vascular status grossly intact .Pedal pulses non palpable. Sensorium grossly intact b/l No gross orthopedic abnormalities b/l. Results - Vital Signs Recent Vital Signs: Last Vital Signs Temp 97.4 F L 06/06/16 09:10 Pulse 72 06/06/16 09:10 Resp 18 06/06/16 09:10 BP 137/82 06/06/16 09:10 Pulse Ox 97 06/06/16 07:00 - Labs Result Diagrams: 06/03/16 20:51 06/03/16 20:51 Labs: Laboratory Results - last 24 hr 06/05/16 06/05/16 06/05/16 11:18 16:14 22:01 POC Glucose (mg/dL) 251 H 249 H 236 H 06/06/16 06:28 POC Glucose (mg/dL) 261 H Assessment & Plan - Assessment and Plan (Free Text) Assessment: a/Heel Fissure right Plan: P/apply bactoban ointment and non -adherent dressing to skin fissure right heel bid . Prevalon Boots b/l
--- NOTE | 2016-06-06 11:09 | CP.PCM.PN ---
Subjective - Date & Time of Evaluation Date of Evaluation: 06/06/16 Time of Evaluation: 08:00 - Subjective Subjective: Patient seen and examined Getting hemodialysis CAT scan of abdomen consistent with bilateral pleural effusion right greater than left Dyspnea on exertion and slight cough Objective - Vital Signs/Intake and Output Vital Signs (last 24 hours): Temp Pulse Resp BP Pulse Ox 97.4 F L 72 18 144/76 97 06/06/16 09:20 06/06/16 09:20 06/06/16 09:10 06/06/16 10:20 06/06/16 07:00 Intake and Output: 06/06/16 06/06/16 06:59 18:59 Intake Total 300 Balance 300 - Medications Medications: Current Medications Aspirin (Aspirin Chewable) 81 mg PO DAILY [facility] Last Admin: 06/06/16 09:23 Dose: Not Given Calcium Acetate (Phoslo) 667 mg PO TIDCC [facility] Last Admin: 06/06/16 08:24 Dose: 667 mg Heparin Sodium (Porcine) (Heparin) 5,000 units SC Q12 [facility] Last Admin: 06/06/16 09:27 Dose: Not Given Cefazolin Sodium 2,000 mg/ (Sodium Chloride) 50 mls @ 100 mls/hr IVPB MWF [facility] Insulin Aspart (Novolog) 0 unit SC ACHS [facility] PRN Reason: Protocol Last Admin: 06/06/16 08:24 Dose: 3 unit Ketoconazole (Nizoral) 1 gm TOP BID [facility] Metoprolol Tartrate (Lopressor) 25 mg PO BID [facility] Mupirocin (Bactroban Ointment) 0 gm TOP BID [facility] Ondansetron HCl (Zofran Inj) 4 mg IVP Q6 PRN PRN Reason: Nausea/Vomiting Last Admin: 06/04/16 19:44 Dose: 4 mg Oxycodone/Acetaminophen (Percocet 5/325 Mg Tab) 1 tab PO Q4H PRN PRN Reason: Pain, Mild (1-3) Stop: 06/07/16 05:35 Last Admin: 06/04/16 16:55 Dose: 1 tab Paricalcitol (Zemplar) 2 mcg IV TTS [facility] Last Admin: 06/06/16 10:19 Dose: 2 mcg Vitamin B Complex/Vit C/Folic Acid (Nephro-Jose) 1 tab PO DAILY [facility] Last Admin: 06/05/16 09:09 Dose: 1 tab Zolpidem Tartrate (Ambien) 5 mg PO HS PRN PRN Reason: Insomnia Last Admin: 06/05/16 23:46 Dose: 5 mg - Head Exam Head Exam: ATRAUMATIC, NORMOCEPHALIC - Eye Exam Eye Exam: Normal appearance - Neck Exam Neck Exam: Normal Inspection - Respiratory Exam Respiratory Exam: Decreased Breath Sounds - Cardiovascular Exam Cardiovascular Exam: Irregular Rhythm - GI/Abdominal Exam GI & Abdominal Exam: Soft, Normal Bowel Sounds - Extremities Exam Extremities Exam: Pedal Edema - Neurological Exam Neurological Exam: Awake Assessment and Plan (1) Pleural effusion Assessment & Plan: Most likely secondary to renal failure Thoracentesis by IR Continue aggressive hemodialysis Status: Acute
--- NOTE | 2016-06-06 13:19 | RAD ---
PROCEDURE: Radiographs of the Lumbar Spine. HISTORY: BACK PAIN COMPARISON: CT abdomen and pelvis without IV contrast performed 06/04/16 FINDINGS: Diffuse osseous demineralization limits evaluation for acute fracture lines. Loss of vertebral body height at L1 age indeterminate compression fracture with loss of height approximately 10 percent. Prominent anterior osteophyte formation. Facet hypertrophy. Dense atherosclerotic calcifications of the abdominal aorta. Right upper quadrant surgical clips. Residual oral contrast within the colon. IMPRESSION: Age indeterminate L1 compression fracture with loss of height of approximately 10 percent. Osseous demineralization. Multilevel degenerative changes.
--- NOTE | 2016-06-06 13:20 | RAD ---
HISTORY: BACK PAIN COMPARISON: None. FINDINGS: Mild kyphosis. Diffuse osseous demineralization limits evaluation for acute fracture lines. Multilevel degenerative changes including osteophyte formation. No acute displaced fracture or subluxation identified. Cardiomegaly. Atherosclerotic calcifications. Median sternotomy wires with evidence of CABG. IMPRESSION: Osseous demineralization. Multilevel degenerative changes. Mild kyphosis.
--- NOTE | 2016-06-06 13:28 | RAD ---
PROCEDURE: Cervical Spine Radiographs. HISTORY: Pain. COMPARISON: None available FINDINGS: Straightening of the normal cervical lordosis may be related to muscle spasm or positioning. Diffuse osseous demineralization limits evaluation for acute fracture lines. Suboptimal lateral view with cervical spine ; the cervical spine is not visualized beyond C5. Multilevel degenerative changes including intervertebral disc space narrowing. No acute displaced fracture or subluxation appreciated. The dens tip is obscured. Partially imaged median sternotomy wires and evidence of CABG. IMPRESSION: Limited study. Further evaluation with CT or MRI of the cervical spine suggested if clinically indicated. Straightening of the normal cervical lordosis may be related to muscle spasm or positioning. Osseous demineralization. Multilevel degenerative changes.
[2016-06-06] MEDS: Multivitamin Vitamin B Complex (Nephro-Vite) Tab PO SCH (13:29)
[2016-06-06] MEDS: Oxycodone/Acetaminophen 5/325 mg Tab PO PRN (16:27)
--- NOTE | 2016-06-06 19:31 | CP.PCM.PN ---
Subjective - Date & Time of Evaluation Date of Evaluation: 06/06/16 Time of Evaluation: 09:00 - Subjective Subjective: previous entries noted still sob weak and bedridden iv antiibotics in progress may need vascular eval CAT scan of abdomen consistent with bilateral pleural effusion right greater than left Dyspnea on exertion and slight cough Objective - Vital Signs/Intake and Output Vital Signs (last 24 hours): Temp Pulse Resp BP Pulse Ox 98.3 F 104 H 18 156/92 H 96 06/06/16 16:00 06/06/16 16:00 06/06/16 16:00 06/06/16 17:43 06/06/16 16:59 Intake and Output: 06/06/16 06/07/16 18:59 06:59 Intake Total 400 Balance 400 - Medications Medications: Current Medications Aspirin (Aspirin Chewable) 81 mg PO DAILY [facility] Last Admin: 06/06/16 09:23 Dose: Not Given Calcium Acetate (Phoslo) 667 mg PO TIDCC [facility] Last Admin: 06/06/16 17:43 Dose: 667 mg Heparin Sodium (Porcine) (Heparin) 5,000 units SC Q12 [facility] Last Admin: 06/06/16 09:27 Dose: Not Given Cefazolin Sodium 2,000 mg/ (Sodium Chloride) 100 mls @ 100 mls/hr IVPB [facility] Insulin Aspart (Novolog) 0 unit SC [facility] PRN Reason: Protocol Last Admin: 06/06/16 17:30 Dose: 4 unit Ketoconazole (Nizoral) 1 gm TOP BID [facility] Last Admin: 06/06/16 17:44 Dose: 1 applic Metoprolol Tartrate (Lopressor) 25 mg PO BID [facility] Last Admin: 06/06/16 17:43 Dose: 25 mg Mupirocin (Bactroban Ointment) 0 gm TOP BID [facility] Last Admin: 06/06/16 17:44 Dose: 1 applic Ondansetron HCl (Zofran Inj) 4 mg IVP Q6 PRN PRN Reason: Nausea/Vomiting Last Admin: 06/04/16 19:44 Dose: 4 mg Oxycodone/Acetaminophen (Percocet 5/325 Mg Tab) 1 tab PO Q4H PRN PRN Reason: Pain, Mild (1-3) Stop: 06/07/16 05:35 Last Admin: 06/06/16 16:27 Dose: 1 tab Paricalcitol (Zemplar) 2 mcg IV TTS [facility] Last Admin: 06/06/16 10:19 Dose: 2 mcg Vitamin B Complex/Vit C/Folic Acid (Nephro-Jose) 1 tab PO DAILY [facility] Last Admin: 06/06/16 13:29 Dose: 1 tab Zolpidem Tartrate (Ambien) 5 mg PO HS PRN PRN Reason: Insomnia Last Admin: 06/05/16 23:46 Dose: 5 mg - Constitutional Appears: Non-toxic, Chronically Ill - Head Exam Head Exam: NORMOCEPHALIC - Eye Exam Eye Exam: PERRL. absent: Scleral icterus - ENT Exam ENT Exam: Mucous Membranes Dry - Neck Exam Neck Exam: absent: Lymphadenopathy - Respiratory Exam Respiratory Exam: Decreased Breath Sounds, Clear to Ausculation Bilateral - Cardiovascular Exam Cardiovascular Exam: REGULAR RHYTHM, +S1, +S2 - GI/Abdominal Exam GI & Abdominal Exam: Distended, Soft. absent: Tenderness - Rectal Exam Rectal Exam: Deferred - Exam Exam: NORMAL INSPECTION - Extremities Exam Extremities Exam: absent: Calf Tenderness, Pedal Edema - Back Exam Back Exam: absent: CVA tenderness (L), CVA tenderness (R) - Neurological Exam Neurological Exam: Alert, Awake, Oriented x3 - Psychiatric Exam Psychiatric exam: Normal Mood - Skin Skin Exam: Dry Assessment and Plan (1) Diabetes Status: Acute (2) End stage renal disease on dialysis Status: Acute (3) Cardiomyopathy as manifestation of underlying disease Status: Acute (4) PVD (peripheral vascular disease) Status: Acute (5) CHF (congestive heart failure), NYHA class III Status: Acute (6) Cellulitis and abscess of foot Status: Acute (7) Atrial fibrillation with rapid ventricular response Status: Acute
[2016-06-07] MEDS: (Novolog) Insulin Aspart, Recombinant 100 u/ml 10 ml vial SC SCH ×4 (08:13→22:07)
--- NOTE | 2016-06-07 08:37 | CP.PCM.PN ---
Subjective - Date & Time of Evaluation Date of Evaluation: 06/07/16 Time of Evaluation: 08:34 - Subjective Subjective: weak - s/p thoracentesis refused HINA and cardioversion today Labs from the office recently revealed elevated tumor markers Case discussed w/ Dr Alarcon(called for Hemonc consult) Objective - Vital Signs/Intake and Output Vital Signs (last 24 hours): Temp Pulse Resp BP Pulse Ox 98.5 F 105 H 20 148/87 97 06/06/16 23:10 06/07/16 01:24 06/06/16 23:10 06/07/16 04:05 06/06/16 23:10 Intake and Output: 06/07/16 06/07/16 06:59 18:59 Intake Total 250 Balance 250 - Medications Medications: Current Medications Aspirin (Aspirin Chewable) 81 mg PO DAILY [facility] Last Admin: 06/06/16 09:23 Dose: Not Given Calcium Acetate (Phoslo) 667 mg PO TIDCC [facility] Last Admin: 06/07/16 08:15 Dose: Not Given Heparin Sodium (Porcine) (Heparin) 5,000 units SC Q12 [facility] Last Admin: 06/06/16 21:46 Dose: Not Given Cefazolin Sodium 2,000 mg/ (Sodium Chloride) 100 mls @ 100 mls/hr IVPB MWF [facility] Insulin Aspart (Novolog) 0 unit SC ACHS [facility] PRN Reason: Protocol Last Admin: 06/07/16 08:13 Dose: Not Given Ketoconazole (Nizoral) 1 gm TOP BID [facility] Last Admin: 06/06/16 17:44 Dose: 1 applic Metoprolol Tartrate (Lopressor) 25 mg PO BID [facility] Last Admin: 06/06/16 17:43 Dose: 25 mg Mupirocin (Bactroban Ointment) 0 gm TOP BID [facility] Last Admin: 06/06/16 17:44 Dose: 1 applic Ondansetron HCl (Zofran Inj) 4 mg IVP Q6 PRN PRN Reason: Nausea/Vomiting Last Admin: 06/04/16 19:44 Dose: 4 mg Paricalcitol (Zemplar) 2 mcg IV TTS [facility] Last Admin: 06/06/16 10:19 Dose: 2 mcg Vitamin B Complex/Vit C/Folic Acid (Nephro-Jose) 1 tab PO DAILY [facility] Last Admin: 06/06/16 13:29 Dose: 1 tab Zolpidem Tartrate (Ambien) 5 mg PO HS PRN PRN Reason: Insomnia Last Admin: 06/06/16 23:52 Dose: 5 mg - Constitutional Appears: Chronically Ill - Head Exam Additional comments: moonface - Eye Exam Eye Exam: Periorbital swelling. absent: Scleral icterus - Neck Exam Neck Exam: absent: Lymphadenopathy - Extremities Exam Extremities Exam: Pedal Edema - Neurological Exam Neurological Exam: Alert, Oriented x3 Assessment and Plan - Assessment and Plan (Free Text) Assessment: r/o Occult malignancy ESRD Back pain CAD T2DM Plan: Spine series Hemonc consult w/ Dr Alarcon Cancel HINA and cardioversion Pain meds
[2016-06-07 09:27] LABS: POTASSIUM 4.4 mmol/L (3.6-5.2)
[2016-06-07 09:30] LABS: CALCIUM 8.5 mg/dl (8.6-10.4)
--- NOTE | 2016-06-07 09:39 | CP.PCM.PN ---
Subjective - Date & Time of Evaluation Date of Evaluation: 06/07/16 Time of Evaluation: 08:00 - Subjective Subjective: Patient seen and examined. Lying comfortably in no acute distress awaiting for thoracentesis Status post hemodialysis yesterday Complaining of dyspnea on exertion Refusing HINA and cardioversion Objective - Vital Signs/Intake and Output Vital Signs (last 24 hours): Temp Pulse Resp BP Pulse Ox 97.5 F L 105 H 18 147/83 97 06/07/16 07:20 06/07/16 08:30 06/07/16 07:20 06/07/16 07:20 06/07/16 07:20 Intake and Output: 06/07/16 06/07/16 06:59 18:59 Intake Total 250 Balance 250 - Medications Medications: Current Medications Aspirin (Aspirin Chewable) 81 mg PO DAILY [facility] Last Admin: 06/06/16 09:23 Dose: Not Given Calcium Acetate (Phoslo) 667 mg PO TIDCC [facility] Last Admin: 06/07/16 08:15 Dose: Not Given Heparin Sodium (Porcine) (Heparin) 5,000 units SC Q12 [facility] Last Admin: 06/06/16 21:46 Dose: Not Given Cefazolin Sodium 2,000 mg/ (Sodium Chloride) 100 mls @ 100 mls/hr IVPB MWF [facility] Insulin Aspart (Novolog) 0 unit SC ACHS [facility] PRN Reason: Protocol Last Admin: 06/07/16 08:13 Dose: Not Given Ketoconazole (Nizoral) 1 gm TOP BID [facility] Last Admin: 06/06/16 17:44 Dose: 1 applic Metoprolol Tartrate (Lopressor) 25 mg PO BID [facility] Last Admin: 06/06/16 17:43 Dose: 25 mg Mupirocin (Bactroban Ointment) 0 gm TOP BID [facility] Last Admin: 06/06/16 17:44 Dose: 1 applic Ondansetron HCl (Zofran Inj) 4 mg IVP Q6 PRN PRN Reason: Nausea/Vomiting Last Admin: 06/04/16 19:44 Dose: 4 mg Paricalcitol (Zemplar) 2 mcg IV TTS [facility] Last Admin: 06/06/16 10:19 Dose: 2 mcg Vitamin B Complex/Vit C/Folic Acid (Nephro-Jose) 1 tab PO DAILY [facility] Last Admin: 06/06/16 13:29 Dose: 1 tab Zolpidem Tartrate (Ambien) 5 mg PO HS PRN PRN Reason: Insomnia Last Admin: 06/06/16 23:52 Dose: 5 mg - Labs Labs: 06/07/16 09:04 - Head Exam Head Exam: ATRAUMATIC, NORMOCEPHALIC - Eye Exam Eye Exam: Normal appearance - ENT Exam ENT Exam: Mucous Membranes Moist - Neck Exam Neck Exam: Normal Inspection - Respiratory Exam Respiratory Exam: Decreased Breath Sounds - Cardiovascular Exam Cardiovascular Exam: Irregular Rhythm - GI/Abdominal Exam GI & Abdominal Exam: Soft, Normal Bowel Sounds - Extremities Exam Extremities Exam: Pedal Edema Assessment and Plan (1) Pleural effusion Assessment & Plan: For thoracentesis Continue hemodialysis Status: Acute
[2016-06-07] MEDS: Multivitamin Vitamin B Complex (Nephro-Vite) Tab PO SCH (09:41)
--- NOTE | 2016-06-07 10:13 | CP.PCM.PN ---
Subjective - Date & Time of Evaluation Date of Evaluation: 06/07/16 Time of Evaluation: 10:13 - Subjective Subjective: pt seen and examined, follow up consult is dictated #[id number] for possible thoracentesis today Objective - Vital Signs/Intake and Output Vital Signs (last 24 hours): Temp Pulse Resp BP Pulse Ox 97.5 F L 105 H 18 147/83 97 06/07/16 07:20 06/07/16 08:30 06/07/16 07:20 06/07/16 09:40 06/07/16 07:20 Intake and Output: 06/07/16 06/07/16 06:59 18:59 Intake Total 250 Balance 250 - Medications Medications: Current Medications Aspirin (Aspirin Chewable) 81 mg PO DAILY [facility] Last Admin: 06/07/16 09:35 Dose: 81 mg Calcium Acetate (Phoslo) 667 mg PO TIDCC [facility] Last Admin: 06/07/16 08:15 Dose: Not Given Heparin Sodium (Porcine) (Heparin) 5,000 units SC Q12 [facility] Last Admin: 06/07/16 09:35 Dose: 5,000 units Cefazolin Sodium 2,000 mg/ (Sodium Chloride) 100 mls @ 100 mls/hr IVPB MWF [facility] Last Admin: 06/07/16 09:34 Dose: 100 mls/hr Insulin Aspart (Novolog) 0 unit SC ACHS [facility] PRN Reason: Protocol Last Admin: 06/07/16 08:13 Dose: Not Given Ketoconazole (Nizoral) 1 gm TOP BID [facility] Last Admin: 06/07/16 09:41 Dose: 1 applic Metoprolol Tartrate (Lopressor) 25 mg PO BID [facility] Last Admin: 06/07/16 09:40 Dose: 25 mg Mupirocin (Bactroban Ointment) 0 gm TOP BID [facility] Last Admin: 06/07/16 09:35 Dose: 1 applic Ondansetron HCl (Zofran Inj) 4 mg IVP Q6 PRN PRN Reason: Nausea/Vomiting Last Admin: 06/04/16 19:44 Dose: 4 mg Paricalcitol (Zemplar) 2 mcg IV TTS [facility] Last Admin: 06/06/16 10:19 Dose: 2 mcg Vitamin B Complex/Vit C/Folic Acid (Nephro-Jose) 1 tab PO DAILY [facility] Last Admin: 06/07/16 09:41 Dose: 1 tab Zolpidem Tartrate (Ambien) 5 mg PO HS PRN PRN Reason: Insomnia Last Admin: 06/06/16 23:52 Dose: 5 mg - Labs Labs: 06/07/16 09:04
--- NOTE | 2016-06-07 14:21 | VASCLAB ---
STUDY DESCRIPTION: HISTORY: cold feet weak pulses PRIORS: None. TECHNIQUE: Pulse volume recording waveforms and segmental pressures of bilateral lower extremities at multiple levels were obtained. Ankle Brachial Indices (ABIs) were calculated. Report prepared by WERNER Guerra, RVT RIGHT LOWER EXTREMITY: * Brachial artery: Pressure - mmHg. * High thigh: Pressure - mmHg: Ratio - : PVR waveform - Reduced * Low thigh: Pressure - mmHg: Ratio - PVR waveform: Reduced * Calf: Pressure - 220 mmHg: Ratio - NC PVR waveform: Reduced * Posterior tibial Artery: Pressure - 220 mmHg: Ratio - NC PVR waveform: Reduced * Dorsalis pedis Artery: Pressure - 220 mmHg: Ratio - NC PVR waveform: Reduced * Great toe: Pressure - mmHg: Ratio - PVR waveform: Ankle brachial index (JUDSON): NC LEFT LOWER EXTREMITY: * Brachial artery: Pressure - mmHg. * High thigh: Pressure - mmHg: Ratio - : PVR waveform - Reduced * Low thigh: Pressure - mmHg: Ratio - PVR waveform: Reduced * Calf: Pressure - 220 mmHg: Ratio - CN PVR waveform: Reduced * Posterior tibial Artery: Pressure - 220 mmHg: Ratio - CN PVR waveform: Reduced * Dorsalis pedis Artery: Pressure - 220 mmHg: Ratio - NC PVR waveform: Reduced * Great toe: Pressure - mmHg: Ratio - PVR waveform: Ankle brachial index (JUDSON): NC OTHER FINDINGS: Right: eft: IMPRESSION: Right: The ankle pressure index of the right lower extremity is non-diagnostic due to possible arterial wall calcifications. Waveforms are blunted and monophasic. Left: The ankle pressure index of the left lower extremity is non-diagnostic due to possible arterial wall calcifications. Waveforms are blunted and monophasic. Angiogram or CTA is recommended.
--- NOTE | 2016-06-07 15:31 | CP.PCM.PN ---
Subjective - Date & Time of Evaluation Date of Evaluation: 06/07/16 Time of Evaluation: 14:35 - Subjective Subjective: 66 y/o female patient seen and evaluated at bedside for follow up on right heel fissure. Patient was sleeping. Patient denies any pedal pain at this time. Patient did not have right foot dressing. Patient states that she removed the dressing. Patient denies any N/V/F/SOB/Chest pain. Objective - Vital Signs/Intake and Output Vital Signs (last 24 hours): Temp Pulse Resp BP Pulse Ox 97.5 F L 105 H 18 147/83 97 06/07/16 07:20 06/07/16 08:30 06/07/16 07:20 06/07/16 09:40 06/07/16 07:20 Intake and Output: 06/07/16 06/07/16 06:59 18:59 Intake Total 250 Balance 250 - Medications Medications: Current Medications Amiodarone HCl (Cordarone) 200 mg PO DAILY [facility] Last Admin: 06/07/16 13:07 Dose: 200 mg Aspirin (Aspirin Chewable) 81 mg PO DAILY [facility] Last Admin: 06/07/16 09:35 Dose: 81 mg Calcium Acetate (Phoslo) 667 mg PO TIDCC [facility] Last Admin: 06/07/16 13:09 Dose: 667 mg Heparin Sodium (Porcine) (Heparin) 5,000 units SC Q12 [facility] Last Admin: 06/07/16 09:35 Dose: 5,000 units Cefazolin Sodium 2,000 mg/ (Sodium Chloride) 100 mls @ 100 mls/hr IVPB MWF [facility] Last Admin: 06/07/16 09:34 Dose: 100 mls/hr Insulin Aspart (Novolog) 0 unit SC ACHS [facility] PRN Reason: Protocol Last Admin: 06/07/16 12:30 Dose: Not Given Ketoconazole (Nizoral) 1 gm TOP BID [facility] Last Admin: 06/07/16 09:41 Dose: 1 applic Metoprolol Tartrate (Lopressor) 25 mg PO BID [facility] Last Admin: 06/07/16 09:40 Dose: 25 mg Mupirocin (Bactroban Ointment) 0 gm TOP BID [facility] Last Admin: 06/07/16 09:35 Dose: 1 applic Ondansetron HCl (Zofran Inj) 4 mg IVP Q6 PRN PRN Reason: Nausea/Vomiting Last Admin: 06/04/16 19:44 Dose: 4 mg Paricalcitol (Zemplar) 2 mcg IV TTS [facility] Last Admin: 06/06/16 10:19 Dose: 2 mcg Vitamin B Complex/Vit C/Folic Acid (Nephro-Jose) 1 tab PO DAILY [facility] Last Admin: 06/07/16 09:41 Dose: 1 tab Zolpidem Tartrate (Ambien) 5 mg PO HS PRN PRN Reason: Insomnia Last Admin: 06/06/16 23:52 Dose: 5 mg - Labs Labs: 06/07/16 09:04 - Constitutional Appears: Non-toxic, No Acute Distress - Extremities Exam Additional comments: Right lower extremity Vacular: DP is faintly palpable ( 1/4) PT is non-palpable, CFT is less than 5 seconds, Skin temp is cooler than normal skin temp, no edema, Blue and purplelish skin color Derm: Longitudinal superficial small fissure (2cm longitudinal and 0.3 cm deep) is noted to the medial posterior heel area, no signs of infection, no drainage Ortho: Limited ROM of ankle and STJ Neuro: Diminished Protective sensation - Neurological Exam Neurological Exam: Alert Assessment and Plan - Assessment and Plan (Free Text) Assessment: 66 y/o female patient with right heel fissure Plan: Patient seen and evaluated at beside All the questions and concerns were addressed Discussed with attending Dr. Ramon Dressing was applied to the right foot with Muprocin ointment and DSD Labs and vitals were reviewed Podiatry will continue to follow while patient remains in house.
--- NOTE | 2016-06-07 15:51 | CP.PCM.PN ---
Subjective - Date & Time of Evaluation Date of Evaluation: 06/07/16 Time of Evaluation: 07:00 - Subjective Subjective: shady on hold severe pvd noted elevated tumor markers iv rcx renewed Objective - Vital Signs/Intake and Output Vital Signs (last 24 hours): Temp Pulse Resp BP Pulse Ox 97.5 F L 105 H 18 147/83 97 06/07/16 07:20 06/07/16 08:30 06/07/16 07:20 06/07/16 09:40 06/07/16 07:20 Intake and Output: 06/07/16 06/07/16 06:59 18:59 Intake Total 250 Balance 250 - Medications Medications: Current Medications Amiodarone HCl (Cordarone) 200 mg PO DAILY [facility] Last Admin: 06/07/16 13:07 Dose: 200 mg Aspirin (Aspirin Chewable) 81 mg PO DAILY [facility] Last Admin: 06/07/16 09:35 Dose: 81 mg Calcium Acetate (Phoslo) 667 mg PO TIDCC [facility] Last Admin: 06/07/16 13:09 Dose: 667 mg Heparin Sodium (Porcine) (Heparin) 5,000 units SC Q12 [facility] Last Admin: 06/07/16 09:35 Dose: 5,000 units Cefazolin Sodium 2,000 mg/ (Sodium Chloride) 100 mls @ 100 mls/hr IVPB MWF [facility] Last Admin: 06/07/16 09:34 Dose: 100 mls/hr Insulin Aspart (Novolog) 0 unit SC ACHS [facility] PRN Reason: Protocol Last Admin: 06/07/16 12:30 Dose: Not Given Ketoconazole (Nizoral) 1 gm TOP BID [facility] Last Admin: 06/07/16 09:41 Dose: 1 applic Metoprolol Tartrate (Lopressor) 25 mg PO BID [facility] Last Admin: 06/07/16 09:40 Dose: 25 mg Mupirocin (Bactroban Ointment) 0 gm TOP BID [facility] Last Admin: 06/07/16 09:35 Dose: 1 applic Ondansetron HCl (Zofran Inj) 4 mg IVP Q6 PRN PRN Reason: Nausea/Vomiting Last Admin: 06/04/16 19:44 Dose: 4 mg Paricalcitol (Zemplar) 2 mcg IV TTS [facility] Last Admin: 06/06/16 10:19 Dose: 2 mcg Vitamin B Complex/Vit C/Folic Acid (Nephro-Jose) 1 tab PO DAILY [facility] Last Admin: 06/07/16 09:41 Dose: 1 tab Zolpidem Tartrate (Ambien) 5 mg PO HS PRN PRN Reason: Insomnia Last Admin: 06/06/16 23:52 Dose: 5 mg - Labs Labs: 06/07/16 09:04 - Constitutional Appears: Non-toxic, Cachectic, Chronically Ill - Head Exam Head Exam: NORMOCEPHALIC - Eye Exam Eye Exam: absent: Scleral icterus - ENT Exam ENT Exam: Mucous Membranes Dry, Normal External Ear Exam - Neck Exam Neck Exam: absent: Lymphadenopathy - Respiratory Exam Respiratory Exam: Decreased Breath Sounds - Cardiovascular Exam Cardiovascular Exam: Irregular Rhythm, +S1, +S2 - GI/Abdominal Exam GI & Abdominal Exam: Distended, Soft - Rectal Exam Rectal Exam: Deferred - Exam Exam: NORMAL INSPECTION - Extremities Exam Extremities Exam: Pedal Edema, Tenderness - Back Exam Back Exam: absent: CVA tenderness (L), CVA tenderness (R) Assessment and Plan (1) Diabetes Status: Acute (2) End stage renal disease on dialysis Status: Acute (3) Cardiomyopathy as manifestation of underlying disease Status: Acute (4) PVD (peripheral vascular disease) Status: Acute (5) CHF (congestive heart failure), NYHA class III Status: Acute (6) Cellulitis and abscess of foot Status: Acute (7) Atrial fibrillation with rapid ventricular response Status: Acute
--- NOTE | 2016-06-07 17:35 | CP.PCM.CON ---
History of Present Illness - History of Present Illness History of Present Illness: 66 yo man with ESRD on hemodialysis admitted from senior materials scientist's office when patient was found to be wek, ataxic and in A-fib. An oncology consult was called for work up of elevated tumor markers done as an outpatient. Patient says she feels weak,unable to ambulate because of [place] and has lost weight, but denies any loss of appetite, abdominal distension, fever,chills or nt.sweats. She is complaining of back pain, both upper and lower back. Past Patient History - Past Medical History & Family History Past Medical History?: Yes - Past Social History Smoking Status: Never Smoked - CARDIAC Hx Cardiac Disorders: Yes (CAD, CABG, Cardiac Cath,) Hx Hypertension: Yes - PULMONARY Hx Respiratory Disorders: No - NEUROLOGICAL Hx Neurological Disorder: No - HEENT Hx HEENT Problems: Yes Hx Cataracts: Yes - RENAL Hx Renal Failure: Yes (CRF, ESRD) - ENDOCRINE/METABOLIC Hx Diabetes Mellitus Type 2: Yes - HEMATOLOGICAL/ONCOLOGICAL Hx Blood Disorders: No - INTEGUMENTARY Hx Dermatological Problems: No - MUSCULOSKELETAL/RHEUMATOLOGICAL Hx Musculoskeletal Disorders: No Hx Falls: Yes - GASTROINTESTINAL Hx Gastrointestinal Disorders: No - GENITOURINARY/GYNECOLOGICAL Hx Genitourinary Disorders: No - PSYCHIATRIC Hx Substance Use: No - SURGICAL HISTORY Hx Cardiac Catheterization: Yes Hx Open Heart Surgery: Yes (CABG ( tripple)) Hx Vascular Access Device: Yes (Left arm shunt) - ANESTHESIA Hx Anesthesia: Yes Hx Anesthesia Reactions: No Hx Malignant Hyperthermia: No Meds Allergies/Adverse Reactions: Allergies Allergy/AdvReac Type Severity Reaction Status Date / Time No Known Allergies Allergy Verified 06/03/16 20:06 - Medications Medications: Current Medications Amiodarone HCl (Cordarone) 200 mg PO DAILY [facility] Last Admin: 06/07/16 13:07 Dose: 200 mg Aspirin (Aspirin Chewable) 81 mg PO DAILY [facility] Last Admin: 06/07/16 09:35 Dose: 81 mg Calcium Acetate (Phoslo) 667 mg PO TIDCC [facility] Last Admin: 06/07/16 13:09 Dose: 667 mg Heparin Sodium (Porcine) (Heparin) 5,000 units SC Q12 [facility] Last Admin: 06/07/16 09:35 Dose: 5,000 units Cefazolin Sodium 2,000 mg/ (Sodium Chloride) 100 mls @ 100 mls/hr IVPB MWF [facility] Last Admin: 06/07/16 09:34 Dose: 100 mls/hr Insulin Aspart (Novolog) 0 unit SC ACHS [facility] PRN Reason: Protocol Last Admin: 06/07/16 12:30 Dose: Not Given Ketoconazole (Nizoral) 1 gm TOP BID [facility] Last Admin: 06/07/16 09:41 Dose: 1 applic Metoprolol Tartrate (Lopressor) 25 mg PO BID [facility] Last Admin: 06/07/16 09:40 Dose: 25 mg Mupirocin (Bactroban Ointment) 0 gm TOP BID [facility] Last Admin: 06/07/16 09:35 Dose: 1 applic Ondansetron HCl (Zofran Inj) 4 mg IVP Q6 PRN PRN Reason: Nausea/Vomiting Last Admin: 06/04/16 19:44 Dose: 4 mg Paricalcitol (Zemplar) 2 mcg IV TTS [facility] Last Admin: 06/06/16 10:19 Dose: 2 mcg Vitamin B Complex/Vit C/Folic Acid (Nephro-Jose) 1 tab PO DAILY [facility] Last Admin: 06/07/16 09:41 Dose: 1 tab Zolpidem Tartrate (Ambien) 5 mg PO HS PRN PRN Reason: Insomnia Last Admin: 06/06/16 23:52 Dose: 5 mg Results - Vital Signs Recent Vital Signs: Last Vital Signs Temp 97.1 F L 06/07/16 16:00 Pulse 91 H 06/07/16 16:00 Resp 20 06/07/16 16:00 BP 144/89 06/07/16 16:00 Pulse Ox 97 06/07/16 07:20 - Labs Result Diagrams: 06/03/16 20:51 06/07/16 09:04 Labs: Laboratory Results - last 24 hr 06/06/16 06/07/16 06/07/16 21:08 06:31 09:04 Sodium 133 Potassium 4.4 Chloride 87 L Carbon Dioxide 27 Anion Gap 23 H BUN 59 H Creatinine 6.5 H Est GFR ( Amer) 8 Est GFR (Non-Af Amer) 6 POC Glucose (mg/dL) 193 H 224 H Random Glucose 203 H Calcium 8.5 L 06/07/16 10:55 Sodium Potassium Chloride Carbon Dioxide Anion Gap BUN Creatinine Est GFR ( Amer) Est GFR (Non-Af Amer) POC Glucose (mg/dL) 235 H Random Glucose Calcium Assessment & Plan - Assessment and Plan (Free Text) Assessment: 66 yo woman with ESRD on HD, peripheral vascular disease, Type 2 DM, s/p CABG, HTN, ? new pleural effusions, limited ascites. Will repeat the markers, the tumor markers being epithelial in nature may be elevated in benign conditions like peritoneal inflammation. Since outpatient tests like PET scans may be difficult for this chronically ill patient to comply with, an option is to repeat the markers, do CAT of chest and consider thoracentesis if there is sufficient fluid
--- NOTE | 2016-06-07 22:55 | PN ---
DATE: 06/07/2016 The patient is located in room 662, bed B. HISTORY OF PRESENT ILLNESS: The patient is about a 66-year-old elderly female with a past medical hi story significant for longstanding hypertension, diabetes, end-stage renal disease, cardiomyopathy, A Fib, CHF, peripheral vascular disease, who was admitted with chief complaints of neck pain and found to have AFib with rapid ventricular response. Initially, the patient was given IV Cardizem and subse quently changed to p.o. Cardizem. The patient was also found to have bilateral effusion. The patien t underwent hemodialysis and tried to remove fluid as much as the patient can tolerate. The patient is not in acute distress. The patient is out of bed to chair. No chest pain, no palpitation, no kaiden rtness of breath. PHYSICAL EXAMINATION: VITAL SIGNS: This morning, blood pressure 147/83, pulse 105, respirations 20, temperature 97.1. Hei ght 5 feet 2 inches and weight is 140 pounds. GENERAL: The patient is a 66-year-old elderly female, moderately built, moderately nourished, not in acute distress. HEENT: Pupils normal reactive to light and accommodation. Conjunctivae pink. Sclerae anicteric. T ongue is moist. NECK: Trachea is midline. LUNGS: Symmetric on both sides. Bilateral breath sounds present. No crackles. CARDIOVASCULAR: [place] in the fifth intercostal space midclavicular line. S1 and S2 audible. No murm ur or gallop. ABDOMEN: Normal in appearance, soft, tympanic. No guarding, no rigidity, no hepatosplenomegaly. CENTRAL NERVOUS SYSTEM: The patient is alert, awake, oriented x 3, nonfocal on examination. Cranial nerves II-XII grossly intact. Sensory and motor system is within normal limits. EXTREMITIES: No cyanosis, no clubbing. The patient has 1+ edema in both lower extremities. CURRENT MEDICATIONS: Include Ambien 5 mg at bedtime, aspirin 81 mg daily, Bactroban ointment topical b.i.d., cefazolin 2 grams 3 times a week, amiodarone 200 mg p.o. daily, subcutaneous heparin 5000 q. 12 hours, Lopressor 25 mg p.o. b.i.d., Nephro-Jose 1 tablet daily, Nizoral 1 gram topical b.i.d., No voLog for sliding scale, PhosLo 667 mg p.o. t.i.d., Zemplar 2 mg IV 3 times a week, and Zofran 4 mg I V q. 6 hours. LABORATORY DATA: Include sodium 133, potassium 4.4, chloride 87, CO2 27, BUN 59, creatinine 6.5, glu cose 203, calcium 8.5. SUMMARY: The patient is a 66-year-old female with history of hypertension, diabetes, end-stage renal disease, peripheral vascular disease, cardiomyopathy, congestive heart failure with atrial fibrillat ion with rapid ventricular response. 1. End-stage renal disease. Continue hemodialysis 3 times a week - Friday, , Friday - an d will try to ultrafiltrate as much as the patient can tolerate. 2. Hypertension. Blood pressure is stable. 3. Atrial fibrillation with rapid ventricular response, on amiodarone. Restrict fluids to 1 liter p er day. Will follow with you. Thank you for allowing me to participate in your patient's care. Silva Malik MD cc: [id number] TT: 06/07/2016 22:54:41 Confirmation # [id number] Dictation # [id number] [email or web address]
[2016-06-08 08:19] LABS: CARCINOEMBRYONIC ANTIGEN 7.1 ng/mL (0-3.0)
[2016-06-08] MEDS: (Novolog) Insulin Aspart, Recombinant 100 u/ml 10 ml vial SC SCH ×4 (08:55→21:37)
--- NOTE | 2016-06-08 09:09 | CP.PCM.PN ---
Subjective - Date & Time of Evaluation Date of Evaluation: 06/08/16 Time of Evaluation: 09:05 - Subjective Subjective: pt seen for follow up of heel fissure right and old blister toe 2 left . Pt state she drained it at home with needle . Objective - Vital Signs/Intake and Output Vital Signs (last 24 hours): Temp Pulse Resp BP Pulse Ox 97.7 F 95 H 18 143/95 H 99 06/08/16 07:30 06/08/16 07:30 06/08/16 07:30 06/08/16 07:30 06/08/16 07:30 Intake and Output: 06/08/16 06/08/16 06:59 18:59 Intake Total 200 Balance 200 - Medications Medications: Current Medications Amiodarone HCl (Cordarone) 200 mg PO DAILY [facility] Last Admin: 06/07/16 13:07 Dose: 200 mg Aspirin (Aspirin Chewable) 81 mg PO DAILY [facility] Last Admin: 06/07/16 09:35 Dose: 81 mg Calcium Acetate (Phoslo) 667 mg PO TIDCC [facility] Last Admin: 06/08/16 08:54 Dose: 667 mg Heparin Sodium (Porcine) (Heparin) 5,000 units SC Q12 [facility] Last Admin: 06/07/16 22:18 Dose: 5,000 units Cefazolin Sodium 2,000 mg/ (Sodium Chloride) 100 mls @ 100 mls/hr IVPB MWF [facility] Last Admin: 06/07/16 09:34 Dose: 100 mls/hr Insulin Aspart (Novolog) 0 unit SC ACHS [facility] PRN Reason: Protocol Last Admin: 06/08/16 08:55 Dose: 2 unit Ketoconazole (Nizoral) 1 gm TOP BID [facility] Last Admin: 06/07/16 17:43 Dose: 1 applic Metoprolol Tartrate (Lopressor) 25 mg PO BID [facility] Last Admin: 06/07/16 17:42 Dose: 25 mg Mupirocin (Bactroban Ointment) 0 gm TOP BID [facility] Last Admin: 06/07/16 17:42 Dose: 1 applic Ondansetron HCl (Zofran Inj) 4 mg IVP Q6 PRN PRN Reason: Nausea/Vomiting Last Admin: 06/04/16 19:44 Dose: 4 mg Paricalcitol (Zemplar) 2 mcg IV TTS [facility] Last Admin: 06/06/16 10:19 Dose: 2 mcg Vitamin B Complex/Vit C/Folic Acid (Nephro-Jose) 1 tab PO DAILY [facility] Last Admin: 06/07/16 09:41 Dose: 1 tab Zolpidem Tartrate (Ambien) 5 mg PO HS PRN PRN Reason: Insomnia Last Admin: 06/07/16 22:23 Dose: 5 mg - Labs Labs: 06/07/16 09:04 - Extremities Exam Additional comments: O/Heel Fissure right medial aspect of heel . Stable old drained blister toe 2 left .No sign of infection .No Open wound noted. Vascular status intact but PAD noted with cold feet and N.P. pedal pulses. No gross orhtopedic abnormalities noted. Assessment and Plan - Assessment and Plan (Free Text) Assessment: A/Heel Fissure right/Old Blister dry toe 2 left . Plan: P/ Apply Bactroban /Xeroform DSD right heel . Apply Bactroban to blister.
[2016-06-08] MEDS: Multivitamin Vitamin B Complex (Nephro-Vite) Tab PO SCH (09:44)
[2016-06-08] MEDS ORDERED: Iodixanol 320 mg/ml 150 ml Bottle IV ONE (09:56)
--- NOTE | 2016-06-08 10:10 | CP.PCM.PN ---
Subjective - Date & Time of Evaluation Date of Evaluation: 06/08/16 Time of Evaluation: 10:09 - Subjective Subjective: pt seen and examined, follow up consult is dictated #[id number] for hd today Objective - Vital Signs/Intake and Output Vital Signs (last 24 hours): Temp Pulse Resp BP Pulse Ox 97.7 F 95 H 18 143/95 H 99 06/08/16 07:30 06/08/16 07:30 06/08/16 07:30 06/08/16 09:43 06/08/16 07:30 Intake and Output: 06/08/16 06/08/16 06:59 18:59 Intake Total 200 Balance 200 - Medications Medications: Current Medications Amiodarone HCl (Cordarone) 200 mg PO DAILY [facility] Last Admin: 06/08/16 09:43 Dose: 200 mg Aspirin (Aspirin Chewable) 81 mg PO DAILY [facility] Last Admin: 06/08/16 09:43 Dose: 81 mg Calcium Acetate (Phoslo) 667 mg PO TIDCC [facility] Last Admin: 06/08/16 08:54 Dose: 667 mg Heparin Sodium (Porcine) (Heparin) 5,000 units SC Q12 [facility] Last Admin: 06/08/16 09:44 Dose: 5,000 units Cefazolin Sodium 2,000 mg/ (Sodium Chloride) 100 mls @ 100 mls/hr IVPB MWF [facility] Last Admin: 06/07/16 09:34 Dose: 100 mls/hr Insulin Aspart (Novolog) 0 unit SC ACHS [facility] PRN Reason: Protocol Last Admin: 06/08/16 08:55 Dose: 2 unit Ketoconazole (Nizoral) 1 gm TOP BID [facility] Last Admin: 06/07/16 17:43 Dose: 1 applic Metoprolol Tartrate (Lopressor) 25 mg PO BID [facility] Last Admin: 06/08/16 09:43 Dose: 25 mg Mupirocin (Bactroban Ointment) 0 gm TOP BID [facility] Last Admin: 06/08/16 09:45 Dose: Not Given Ondansetron HCl (Zofran Inj) 4 mg IVP Q6 PRN PRN Reason: Nausea/Vomiting Last Admin: 06/04/16 19:44 Dose: 4 mg Paricalcitol (Zemplar) 2 mcg IV TTS [facility] Last Admin: 06/06/16 10:19 Dose: 2 mcg Vitamin B Complex/Vit C/Folic Acid (Nephro-Jose) 1 tab PO DAILY [facility] Last Admin: 06/08/16 09:44 Dose: 1 tab Zolpidem Tartrate (Ambien) 5 mg PO HS PRN PRN Reason: Insomnia Last Admin: 06/07/16 22:23 Dose: 5 mg - Labs Labs: 06/07/16 09:04
--- NOTE | 2016-06-08 10:17 | CP.PCM.CON ---
History of Present Illness - History of Present Illness History of Present Illness: Vascular Surgery - Dr. Gann 66F w/ pmh of CAD/CABG, HTN, HLD, DM2, ESRD on HD (TTS), Thyroidectomy, admitted to the hospital on 06/04 with Afib/RVR. Pt was also noted to have a right heel fissure for which podiatry was consulted. Vascular surgery is consulted to evaluate blood supply to the lower ext. Pt had dopplers done which showed poor waveform. CTA was ordered for further evaluation. Pt currently denies any complaints. She is aware of the plan for further imaging and intervention if warranted. Review of Systems - Review of Systems All systems: reviewed and no additional remarkable complaints except (as per HPI ) Past Patient History - Past Medical History & Family History Past Medical History?: Yes - Past Social History Smoking Status: Never Smoked - CARDIAC Hx Cardiac Disorders: Yes (CAD, CABG, Cardiac Cath,) Hx Hypertension: Yes - PULMONARY Hx Respiratory Disorders: No - NEUROLOGICAL Hx Neurological Disorder: No - HEENT Hx HEENT Problems: Yes Hx Cataracts: Yes - RENAL Hx Renal Failure: Yes (CRF, ESRD) - ENDOCRINE/METABOLIC Hx Diabetes Mellitus Type 2: Yes - HEMATOLOGICAL/ONCOLOGICAL Hx Blood Disorders: No - INTEGUMENTARY Hx Dermatological Problems: No - MUSCULOSKELETAL/RHEUMATOLOGICAL Hx Musculoskeletal Disorders: No Hx Falls: Yes - GASTROINTESTINAL Hx Gastrointestinal Disorders: No - GENITOURINARY/GYNECOLOGICAL Hx Genitourinary Disorders: No - PSYCHIATRIC Hx Substance Use: No - SURGICAL HISTORY Hx Cardiac Catheterization: Yes Hx Open Heart Surgery: Yes (CABG ( tripple)) Hx Vascular Access Device: Yes (Left arm shunt) - ANESTHESIA Hx Anesthesia: Yes Hx Anesthesia Reactions: No Hx Malignant Hyperthermia: No Meds Allergies/Adverse Reactions: Allergies Allergy/AdvReac Type Severity Reaction Status Date / Time No Known Allergies Allergy Verified 06/03/16 20:06 - Medications Medications: Current Medications Amiodarone HCl (Cordarone) 200 mg PO DAILY [facility] Last Admin: 06/08/16 09:43 Dose: 200 mg Aspirin (Aspirin Chewable) 81 mg PO DAILY [facility] Last Admin: 06/08/16 09:43 Dose: 81 mg Calcium Acetate (Phoslo) 667 mg PO TIDCC [facility] Last Admin: 06/08/16 08:54 Dose: 667 mg Heparin Sodium (Porcine) (Heparin) 5,000 units SC Q12 [facility] Last Admin: 06/08/16 09:44 Dose: 5,000 units Cefazolin Sodium 2,000 mg/ (Sodium Chloride) 100 mls @ 100 mls/hr IVPB MWF [facility] Last Admin: 06/07/16 09:34 Dose: 100 mls/hr Insulin Aspart (Novolog) 0 unit SC ACHS [facility] PRN Reason: Protocol Last Admin: 06/08/16 08:55 Dose: 2 unit Ketoconazole (Nizoral) 1 gm TOP BID [facility] Last Admin: 06/07/16 17:43 Dose: 1 applic Metoprolol Tartrate (Lopressor) 25 mg PO BID [facility] Last Admin: 06/08/16 09:43 Dose: 25 mg Mupirocin (Bactroban Ointment) 0 gm TOP BID [facility] Last Admin: 06/08/16 09:45 Dose: Not Given Ondansetron HCl (Zofran Inj) 4 mg IVP Q6 PRN PRN Reason: Nausea/Vomiting Last Admin: 06/04/16 19:44 Dose: 4 mg Paricalcitol (Zemplar) 2 mcg IV TTS [facility] Last Admin: 06/06/16 10:19 Dose: 2 mcg Vitamin B Complex/Vit C/Folic Acid (Nephro-Jose) 1 tab PO DAILY [facility] Last Admin: 06/08/16 09:44 Dose: 1 tab Zolpidem Tartrate (Ambien) 5 mg PO HS PRN PRN Reason: Insomnia Last Admin: 06/07/16 22:23 Dose: 5 mg Physical Exam - Constitutional Appears: Well, No Acute Distress - Head Exam Head Exam: ATRAUMATIC, NORMOCEPHALIC - Eye Exam Eye Exam: Normal appearance - Respiratory Exam Respiratory Exam: NORMAL BREATHING PATTERN. absent: Respiratory Distress - Extremities Exam Extremities exam: Negative for: calf tenderness, pedal edema, pedal pulses present Additional comments: R heel with podiatry dressing in place, foot is warm though pulses not palpable , slightly prolonged capillary refill - Neurological Exam Neurological exam: Alert, Oriented x3 - Psychiatric Exam Psychiatric exam: Normal Affect, Normal Mood - Skin Skin Exam: Dry, Intact Results - Vital Signs Recent Vital Signs: Last Vital Signs Temp 97.7 F 06/08/16 07:30 Pulse 95 H 06/08/16 07:30 Resp 18 06/08/16 07:30 BP 143/95 H 06/08/16 09:43 Pulse Ox 99 06/08/16 07:30 - Labs Result Diagrams: 06/03/16 20:51 06/07/16 09:04 Labs: Laboratory Results - last 24 hr 06/07/16 06/07/16 06/07/16 10:55 17:32 21:27 POC Glucose (mg/dL) 235 H 234 H 221 H Carcinoembryonic Ag CA 19-9 Antigen CA 125 Antigen 06/08/16 06/08/16 06:14 07:21 POC Glucose (mg/dL) 206 H Carcinoembryonic Ag 7.1 H CA 19-9 Antigen 306 H CA 125 Antigen 376 H Assessment & Plan - Assessment and Plan (Free Text) Assessment: 66 yo F w/ extensive medical hx including ESRD on HD, w/ R heel ulcer and PVD -Dopplers reviewed with Dr. Gann -CTA today to further assess vasculature -Dialysis to be done today post CTA -DW Dr. Sanjuanita Solo PGY2
--- NOTE | 2016-06-08 11:15 | PN ---
DATE: 06/08/2016 FOLLOWUP RENAL CONSULTATION LOCATION: The patient is located in room 662, bed B. REQUESTED BY: Jose C Sosa MD. REASON FOR RENAL CONSULTATION: End-stage renal disease and for continuation of hemodialysis. HISTORY OF PRESENT ILLNESS: The patient is a 66-year-old elderly [place] female with a past medical history significant for diabetes, end-stage renal disease, CHF, cardiomyopathy, AFib who was admitte d with neck pain and found to have AFib with rapid ventricular response and admitted to [facility] for further evaluation. The patient was given initially IV Cardizem, subsequently, changed it to p.o. Now the patient is on amiodarone. The patient was also complaining of right foot infection - started on IV cefazolin 2 grams 3 times a week by Dr. Sosa. The patient is not in acute distress, denies any headache, dizziness. Denies an y chest pain, palpitation. No fever, no cough, no shortness of breath. PHYSICAL EXAMINATION: VITAL SIGNS: This morning, blood pressure 143/95, pulse 95, respirations 18, temperature 97.7, satur ation 96%. Height 5 feet 2 inches, and weight is 140 pounds. GENERAL: The patient is a 66-year-old elderly female, moderately-built, moderately-nourished, not in acute distress. HEENT: Pupils normal reactive to light and accommodation. Conjunctivae are pink. Sclerae are anict erica. Tongue is moist. NECK: Trachea is midline. LUNGS: Symmetric on both sides. Bilateral breath sounds present. No crackles. CARDIOVASCULAR: [place] in the fifth intercostal space, midclavicular line. S1 and S2 audible. No mur mur or gallop. ABDOMEN: Normal in appearance, soft, tympanic. No guarding. No rigidity. No hepatosplenomegaly. CENTRAL NERVOUS SYSTEM: The patient is alert, awake, oriented x 3, nonfocal on examination. EXTREMITIES: No cyanosis, no clubbing. The patient has 1-2+ edema in both lower extremities. The p atient also has a dressing to the right foot. CURRENT MEDICATIONS: Include as follows: Ambien, aspirin, Bactroban, cefazolin, amiodarone, heparin , Lopressor, Nephro-Jose, Nizoral, NovoLog, PhosLo, Zemplar, and Zofran. LABORATORY DATA: Include as follows: As of 06/07, sodium 133, potassium 4.4, chloride 87, CO2 of 27, BUN 59, creatinine 6.5, glucose 203, calcium 8.5, and CEA is 7.1. CA 19-9 is 306, and CA 125 is ___ _. SUMMARY: The patient's is a 66-year-old elderly female with a history of longstanding hypertension, diabetes, cardiomyopathy, AFib, CHF, end-stage renal disease on hemodialysis 3 times a week. 1. End-stage renal disease. Continue hemodialysis 3 times a week, Mugvsrs-Djdusudt-Clyyvosg. 2. AFib. 3. CHF with fluid overload. 4. Rule out peripheral vascular disease. 5. Right foot infection. Continue cefazolin 2 grams 3 times a week. The patient is scheduled for p ossible CT angiogram of the lower extremities. We will try to ultrafiltrate as much as the patient c an tolerate. We will follow with you. Thank you for allowing me to participate in your patient's care. Silva Malik MD cc: [id number] TT: 06/08/2016 11:14:20 Confirmation # [id number] Dictation # [id number]
--- NOTE | 2016-06-08 11:18 | CT ---
PROCEDURE: CT Chest without contrast HISTORY: pleural effusions, [place] COMPARISON: None. TECHNIQUE: Contiguous axial images were obtained through the chest without intravenous contrast enhancement. Sagittal and coronal reconstructions were performed. Radiation dose (DLP): 744.34 mGy-cm. FINDINGS: LUNGS: Linear scar/ atelectasis right lower lobe. No pulmonary infiltrate. Minimal bilateral lower lobe compressive atelectasis, secondary to pleural effusion. There is a nodular calcification in the atelectatic portion of the right lower lobe, likely a calcified granuloma. MEDIASTINUM: Unremarkable thoracic aorta. No aneurysm. Cardiomegaly. CABG. Main pulmonary artery unremarkable. No vascular congestion. No lymphadenopathy. PLEURA: Small left and moderate right pleural effusion. Extent of pleural effusion is essentially unchanged from 06/04/2016 CT abdomen/pelvis. BONES: No fracture. No destructive lesion. UPPER ABDOMEN: Ascites. Nonspecific 1.5 cm low-attenuation lesion in spleen. Possible mass or focal infarct. Unchanged from 06/04/2016. OTHER FINDINGS: Mild anasarca. IMPRESSION: Bilateral pleural effusion. No pulmonary infiltrate. Cardiomegaly. CABG. Ascites. Mild anasarca. Nonspecific 1.5 cm low-attenuation lesion in spleen as on 06/04/2016. Preliminary interpretation of this examination was reported by [facility] at 9:49 p.m. on 06/07/2016. There is concurrence of this report with the preliminary interpretation.
[2016-06-08] MEDS: Paricalcitol 2 mcg/ml Inj IV SCH (14:14)
--- NOTE | 2016-06-08 15:02 | CARD ---
APPROVED REPORT EKG Measurement Heart [id number] <Conclusion> Wide QRS tachycardia,probable svt Indeterminate axis Right bundle branch block Septal infarct, age undetermined Inferior infarct, age undetermined T wave abnormality, consider lateral ischemia Abnormal ECG
--- NOTE | 2016-06-08 16:26 | CP.PCM.PN ---
Subjective - Date & Time of Evaluation Date of Evaluation: 06/08/16 Time of Evaluation: 15:15 - Subjective Subjective: patient seen and examined. Lying without any respir distress Afebrile Seen by vascular surgery Thoracentesis Was Canceled Not Enough Fluid Objective - Vital Signs/Intake and Output Vital Signs (last 24 hours): Temp Pulse Resp BP Pulse Ox 97.8 F 75 20 139/90 100 06/08/16 13:35 06/08/16 13:35 06/08/16 13:35 06/08/16 15:35 06/08/16 13:35 Intake and Output: 06/08/16 06/08/16 06:59 18:59 Intake Total 200 200 Balance 200 200 - Medications Medications: Current Medications Amiodarone HCl (Cordarone) 200 mg PO DAILY [facility] Last Admin: 06/08/16 09:43 Dose: 200 mg Aspirin (Aspirin Chewable) 81 mg PO DAILY [facility] Last Admin: 06/08/16 09:43 Dose: 81 mg Calcium Acetate (Phoslo) 667 mg PO TIDCC [facility] Last Admin: 06/08/16 12:41 Dose: 667 mg Heparin Sodium (Porcine) (Heparin) 5,000 units SC Q12 [facility] Last Admin: 06/08/16 10:22 Dose: Not Given Cefazolin Sodium 2,000 mg/ (Sodium Chloride) 100 mls @ 100 mls/hr IVPB MWF [facility] Last Admin: 06/07/16 09:34 Dose: 100 mls/hr Insulin Aspart (Novolog) 0 unit SC ACHS [facility] PRN Reason: Protocol Last Admin: 06/08/16 12:40 Dose: 3 unit Ketoconazole (Nizoral) 1 gm TOP BID [facility] Last Admin: 06/08/16 10:23 Dose: Not Given Metoprolol Tartrate (Lopressor) 25 mg PO BID [facility] Last Admin: 06/08/16 09:43 Dose: 25 mg Mupirocin (Bactroban Ointment) 0 gm TOP BID [facility] Last Admin: 06/08/16 09:45 Dose: Not Given Ondansetron HCl (Zofran Inj) 4 mg IVP Q6 PRN PRN Reason: Nausea/Vomiting Last Admin: 06/04/16 19:44 Dose: 4 mg Paricalcitol (Zemplar) 2 mcg IV TTS [facility] Last Admin: 06/08/16 14:14 Dose: 2 mcg Vitamin B Complex/Vit C/Folic Acid (Nephro-Jose) 1 tab PO DAILY [facility] Last Admin: 06/08/16 09:44 Dose: 1 tab Zolpidem Tartrate (Ambien) 5 mg PO HS PRN PRN Reason: Insomnia Last Admin: 06/07/16 22:23 Dose: 5 mg - Labs Labs: 06/07/16 09:04 - Head Exam Head Exam: ATRAUMATIC, NORMOCEPHALIC - Eye Exam Eye Exam: EOMI - ENT Exam ENT Exam: Mucous Membranes Moist - Neck Exam Neck Exam: Normal Inspection - Respiratory Exam Respiratory Exam: Decreased Breath Sounds - GI/Abdominal Exam GI & Abdominal Exam: Soft, Normal Bowel Sounds Assessment and Plan (1) Pleural effusion Status: Acute
--- NOTE | 2016-06-09 08:58 | CP.PCM.PN ---
Subjective - Date & Time of Evaluation Date of Evaluation: 06/09/16 Time of Evaluation: 07:00 - Subjective Subjective: Vascular Surgery Pt S&E, NAEO. Pain in R heel has improved, no other C/O Objective - Vital Signs/Intake and Output Vital Signs (last 24 hours): Temp Pulse Resp BP Pulse Ox 97.4 F L 84 20 146/88 97 06/08/16 23:11 06/09/16 00:25 06/08/16 23:11 06/08/16 23:11 06/08/16 23:11 Intake and Output: 06/09/16 06/09/16 06:59 18:59 Intake Total 240 Balance 240 - Medications Medications: Current Medications Amiodarone HCl (Cordarone) 200 mg PO DAILY [facility] Last Admin: 06/08/16 09:43 Dose: 200 mg Aspirin (Aspirin Chewable) 81 mg PO DAILY [facility] Last Admin: 06/08/16 09:43 Dose: 81 mg Calcium Acetate (Phoslo) 667 mg PO TIDCC [facility] Last Admin: 06/08/16 18:02 Dose: 667 mg Heparin Sodium (Porcine) (Heparin) 5,000 units SC Q12 [facility] Last Admin: 06/08/16 21:27 Dose: Not Given Hydroxyzine HCl (Atarax) 25 mg PO TID PRN PRN Reason: Itching / Pruritus Last Admin: 06/09/16 06:01 Dose: 25 mg Cefazolin Sodium 2,000 mg/ (Sodium Chloride) 100 mls @ 100 mls/hr IVPB MWF [facility] Last Admin: 06/07/16 09:34 Dose: 100 mls/hr Insulin Aspart (Novolog) 0 unit SC ACHS [facility] PRN Reason: Protocol Last Admin: 06/08/16 21:37 Dose: 2 unit Ketoconazole (Nizoral) 1 gm TOP BID [facility] Last Admin: 06/08/16 18:02 Dose: 1 applic Metoprolol Tartrate (Lopressor) 25 mg PO BID [facility] Last Admin: 06/08/16 18:02 Dose: 25 mg Mupirocin (Bactroban Ointment) 0 gm TOP BID [facility] Last Admin: 06/08/16 18:03 Dose: 1 applic Ondansetron HCl (Zofran Inj) 4 mg IVP Q6 PRN PRN Reason: Nausea/Vomiting Last Admin: 06/04/16 19:44 Dose: 4 mg Paricalcitol (Zemplar) 2 mcg IV TTS [facility] Last Admin: 06/08/16 14:14 Dose: 2 mcg Vitamin B Complex/Vit C/Folic Acid (Nephro-Jose) 1 tab PO DAILY [facility] Last Admin: 06/08/16 09:44 Dose: 1 tab Zolpidem Tartrate (Ambien) 5 mg PO HS PRN PRN Reason: Insomnia Last Admin: 06/09/16 00:28 Dose: 5 mg - Labs Labs: 06/07/16 09:04 - Constitutional Appears: Non-toxic, No Acute Distress - Head Exam Head Exam: ATRAUMATIC, NORMOCEPHALIC - Eye Exam Eye Exam: EOMI. absent: Scleral icterus - Respiratory Exam Respiratory Exam: NORMAL BREATHING PATTERN. absent: Respiratory Distress - GI/Abdominal Exam GI & Abdominal Exam: Soft. absent: Distended, Tenderness - Extremities Exam Additional comments: Mild R heel TTP - Neurological Exam Neurological Exam: Alert, Awake - Skin Skin Exam: Dry, Warm Assessment and Plan - Assessment and Plan (Free Text) Assessment: 66F with R heel ulcer and PVD Plan: F/U CTA results Will D/W Dr. Sanjuanita Rangel PGY3
[2016-06-09] MEDS: (Novolog) Insulin Aspart, Recombinant 100 u/ml 10 ml vial SC SCH ×4 (10:15→23:10)
[2016-06-09] MEDS: Multivitamin Vitamin B Complex (Nephro-Vite) Tab PO SCH (10:48)
--- NOTE | 2016-06-09 12:18 | CP.PCM.PN ---
Subjective - Date & Time of Evaluation Date of Evaluation: 06/09/16 Time of Evaluation: 12:16 - Subjective Subjective: vessels appear open on cta this is in conflict to previous non invasive studies Will discuss with radiology this will help us decide re procedding with formal angiography Objective - Vital Signs/Intake and Output Vital Signs (last 24 hours): Temp Pulse Resp BP Pulse Ox 97.4 F L 84 20 145/80 97 06/08/16 23:11 06/09/16 00:25 06/08/16 23:11 06/09/16 10:48 06/08/16 23:11 Intake and Output: 06/09/16 06/09/16 06:59 18:59 Intake Total 240 Balance 240 - Medications Medications: Current Medications Amiodarone HCl (Cordarone) 200 mg PO DAILY [facility] Last Admin: 06/09/16 10:48 Dose: 200 mg Aspirin (Aspirin Chewable) 81 mg PO DAILY [facility] Last Admin: 06/08/16 09:43 Dose: 81 mg Calcium Acetate (Phoslo) 667 mg PO TIDCC [facility] Last Admin: 06/09/16 10:48 Dose: 667 mg Hydroxyzine HCl (Atarax) 25 mg PO TID PRN PRN Reason: Itching / Pruritus Last Admin: 06/09/16 06:01 Dose: 25 mg Cefazolin Sodium 2,000 mg/ (Sodium Chloride) 100 mls @ 100 mls/hr IVPB MWF [facility] Last Admin: 06/07/16 09:34 Dose: 100 mls/hr Insulin Aspart (Novolog) 0 unit SC ACHS [facility] PRN Reason: Protocol Last Admin: 06/09/16 10:15 Dose: 3 unit Ketoconazole (Nizoral) 1 gm TOP BID [facility] Last Admin: 06/09/16 10:55 Dose: Not Given Metoprolol Tartrate (Lopressor) 25 mg PO BID [facility] Last Admin: 06/09/16 10:48 Dose: 25 mg Mupirocin (Bactroban Ointment) 0 gm TOP BID [facility] Last Admin: 06/08/16 18:03 Dose: 1 applic Ondansetron HCl (Zofran Inj) 4 mg IVP Q6 PRN PRN Reason: Nausea/Vomiting Last Admin: 06/04/16 19:44 Dose: 4 mg Paricalcitol (Zemplar) 2 mcg IV TTS [facility] Last Admin: 06/08/16 14:14 Dose: 2 mcg Vitamin B Complex/Vit C/Folic Acid (Nephro-Jose) 1 tab PO DAILY [facility] Last Admin: 06/09/16 10:48 Dose: 1 tab Zolpidem Tartrate (Ambien) 5 mg PO HS PRN PRN Reason: Insomnia Last Admin: 06/09/16 00:28 Dose: 5 mg - Labs Labs: 06/07/16 09:04
--- NOTE | 2016-06-09 14:47 | CP.PCM.PN ---
Subjective - Date & Time of Evaluation Date of Evaluation: 06/09/16 Time of Evaluation: 09:00 - Subjective Subjective: SEEN BY DR VINI Franco PROGRESS CONT IV RX / WOUND CARE / HD AND CARDIO WORK UP- FOR PPM Objective - Vital Signs/Intake and Output Vital Signs (last 24 hours): Temp Pulse Resp BP Pulse Ox 97.4 F L 84 20 145/80 97 06/08/16 23:11 06/09/16 00:25 06/08/16 23:11 06/09/16 10:48 06/08/16 23:11 Intake and Output: 06/09/16 06/09/16 06:59 18:59 Intake Total 240 Balance 240 - Medications Medications: Current Medications Amiodarone HCl (Cordarone) 200 mg PO DAILY [facility] Last Admin: 06/09/16 10:48 Dose: 200 mg Aspirin (Aspirin Chewable) 81 mg PO DAILY [facility] Last Admin: 06/09/16 13:18 Dose: 81 mg Calcium Acetate (Phoslo) 667 mg PO TIDCC [facility] Last Admin: 06/09/16 13:18 Dose: 667 mg Hydroxyzine HCl (Atarax) 25 mg PO TID PRN PRN Reason: Itching / Pruritus Last Admin: 06/09/16 06:01 Dose: 25 mg Cefazolin Sodium 2,000 mg/ (Sodium Chloride) 100 mls @ 100 mls/hr IVPB MWF [facility] Last Admin: 06/07/16 09:34 Dose: 100 mls/hr Insulin Aspart (Novolog) 0 unit SC ACHS [facility] PRN Reason: Protocol Last Admin: 06/09/16 13:16 Dose: 1 unit Ketoconazole (Nizoral) 1 gm TOP BID [facility] Last Admin: 06/09/16 10:55 Dose: Not Given Metoprolol Tartrate (Lopressor) 25 mg PO BID [facility] Last Admin: 06/09/16 10:48 Dose: 25 mg Mupirocin (Bactroban Ointment) 0 gm TOP BID [facility] Last Admin: 06/09/16 10:00 Dose: Not Given Ondansetron HCl (Zofran Inj) 4 mg IVP Q6 PRN PRN Reason: Nausea/Vomiting Last Admin: 06/04/16 19:44 Dose: 4 mg Paricalcitol (Zemplar) 2 mcg IV TTS [facility] Last Admin: 06/08/16 14:14 Dose: 2 mcg Vitamin B Complex/Vit C/Folic Acid (Nephro-Jose) 1 tab PO DAILY [facility] Last Admin: 06/09/16 10:48 Dose: 1 tab Zolpidem Tartrate (Ambien) 5 mg PO HS PRN PRN Reason: Insomnia Last Admin: 06/09/16 00:28 Dose: 5 mg - Labs Labs: 06/07/16 09:04 - Constitutional Appears: Non-toxic, Cachectic, Chronically Ill - Head Exam Head Exam: NORMOCEPHALIC - Eye Exam Eye Exam: PERRL. absent: Scleral icterus - ENT Exam ENT Exam: Mucous Membranes Dry - Neck Exam Neck Exam: absent: Lymphadenopathy - Respiratory Exam Respiratory Exam: Decreased Breath Sounds - Cardiovascular Exam Cardiovascular Exam: Irregular Rhythm, +S1, +S2 - GI/Abdominal Exam GI & Abdominal Exam: Distended, Soft. absent: Tenderness - Rectal Exam Rectal Exam: Deferred - Exam Exam: NORMAL INSPECTION - Extremities Exam Extremities Exam: Pedal Edema, Tenderness. absent: Calf Tenderness - Back Exam Back Exam: absent: CVA tenderness (L), CVA tenderness (R) - Neurological Exam Neurological Exam: Alert, Awake, Oriented x3 Neuro motor strength exam: Left Upper Extremity: 3, Right Upper Extremity: 3, Left Lower Extremity: 3, Right Lower Extremity: 3 - Psychiatric Exam Psychiatric exam: Depressed Assessment and Plan (1) Diabetes Status: Acute (2) End stage renal disease on dialysis Status: Acute (3) Cardiomyopathy as manifestation of underlying disease Status: Acute (4) PVD (peripheral vascular disease) Status: Acute (5) CHF (congestive heart failure), NYHA class III Status: Acute (6) Cellulitis and abscess of foot Status: Acute (7) Atrial fibrillation with rapid ventricular response Status: Acute
--- NOTE | 2016-06-09 15:25 | CP.PCM.PN ---
Subjective - Date & Time of Evaluation Date of Evaluation: 06/09/16 Time of Evaluation: 09:00 - Subjective Subjective: 66 y/o female patient seen and evaluated at bedside for right heel fissure. Patient was sleeping. Patient denies any pedal pain at this time. Patient did not have right foot dressing, as she removed it. She denies any n/v/f/c/sob/cp. Objective - Vital Signs/Intake and Output Vital Signs (last 24 hours): Temp Pulse Resp BP Pulse Ox 97.4 F L 84 20 145/80 97 06/08/16 23:11 06/09/16 00:25 06/08/16 23:11 06/09/16 10:48 06/08/16 23:11 Intake and Output: 06/09/16 06/09/16 06:59 18:59 Intake Total 240 Balance 240 - Medications Medications: Current Medications Amiodarone HCl (Cordarone) 200 mg PO DAILY [facility] Last Admin: 06/09/16 10:48 Dose: 200 mg Aspirin (Aspirin Chewable) 81 mg PO DAILY [facility] Last Admin: 06/09/16 13:18 Dose: 81 mg Calcium Acetate (Phoslo) 667 mg PO TIDCC [facility] Last Admin: 06/09/16 13:18 Dose: 667 mg Hydroxyzine HCl (Atarax) 25 mg PO TID PRN PRN Reason: Itching / Pruritus Last Admin: 06/09/16 06:01 Dose: 25 mg Cefazolin Sodium 2,000 mg/ (Sodium Chloride) 100 mls @ 100 mls/hr IVPB MWF [facility] Last Admin: 06/07/16 09:34 Dose: 100 mls/hr Insulin Aspart (Novolog) 0 unit SC ACHS [facility] PRN Reason: Protocol Last Admin: 06/09/16 13:16 Dose: 1 unit Ketoconazole (Nizoral) 1 gm TOP BID [facility] Last Admin: 06/09/16 10:55 Dose: Not Given Metoprolol Tartrate (Lopressor) 25 mg PO BID [facility] Last Admin: 06/09/16 10:48 Dose: 25 mg Mupirocin (Bactroban Ointment) 0 gm TOP BID [facility] Last Admin: 06/09/16 10:00 Dose: Not Given Ondansetron HCl (Zofran Inj) 4 mg IVP Q6 PRN PRN Reason: Nausea/Vomiting Last Admin: 06/04/16 19:44 Dose: 4 mg Paricalcitol (Zemplar) 2 mcg IV TTS [facility] Last Admin: 06/08/16 14:14 Dose: 2 mcg Vitamin B Complex/Vit C/Folic Acid (Nephro-Jose) 1 tab PO DAILY [facility] Last Admin: 06/09/16 10:48 Dose: 1 tab Zolpidem Tartrate (Ambien) 5 mg PO HS PRN PRN Reason: Insomnia Last Admin: 06/09/16 00:28 Dose: 5 mg - Labs Labs: 06/07/16 09:04 - Constitutional Appears: Non-toxic, No Acute Distress - Extremities Exam Additional comments: Right lower extremity focused exam: Vacular: DP is faintly palpable 1/4, and PT is non-palpable. CFT is less than 5 seconds. Skin temperature is cool. Derm: Longitudinal superficial small fissure approximately 2 cm long and 0.2 cm deep is noted to the medial posterior heel. No drainage, no acute signs of infection noted. Skin has a purplish color Ortho: Limited ROM of ankle and STJ Neuro: Diminished Protective sensation Assessment and Plan - Assessment and Plan (Free Text) Assessment: 66 year old female with right heel fissure Plan: Patient examined and evaluated at beside Chart and vitals reviewed Discussed with attending Dr. Ramon Dressing was applied to the right foot with bactroban and DSD Podiatry will continue to follow while patient remains in house.
--- NOTE | 2016-06-09 16:09 | CP.PCM.PN ---
Subjective - Date & Time of Evaluation Date of Evaluation: 06/09/16 Time of Evaluation: 16:07 - Subjective Subjective: Patient is more awake, still somewhat lethargic. Able to answer questions. Discussed with patient about elevated tumor markers, unclear if this represents benign/ inflammatory findings or represents malignancy. Objective - Vital Signs/Intake and Output Vital Signs (last 24 hours): Temp Pulse Resp BP Pulse Ox 97.4 F L 84 20 145/80 97 06/08/16 23:11 06/09/16 00:25 06/08/16 23:11 06/09/16 10:48 06/08/16 23:11 Intake and Output: 06/09/16 06/09/16 06:59 18:59 Intake Total 240 Balance 240 - Medications Medications: Current Medications Amiodarone HCl (Cordarone) 200 mg PO DAILY [facility] Last Admin: 06/09/16 10:48 Dose: 200 mg Aspirin (Aspirin Chewable) 81 mg PO DAILY [facility] Last Admin: 06/09/16 13:18 Dose: 81 mg Calcium Acetate (Phoslo) 667 mg PO TIDCC [facility] Last Admin: 06/09/16 13:18 Dose: 667 mg Hydroxyzine HCl (Atarax) 25 mg PO TID PRN PRN Reason: Itching / Pruritus Last Admin: 06/09/16 06:01 Dose: 25 mg Cefazolin Sodium 2,000 mg/ (Sodium Chloride) 100 mls @ 100 mls/hr IVPB MWF [facility] Last Admin: 06/07/16 09:34 Dose: 100 mls/hr Insulin Aspart (Novolog) 0 unit SC ACHS [facility] PRN Reason: Protocol Last Admin: 06/09/16 13:16 Dose: 1 unit Ketoconazole (Nizoral) 1 gm TOP BID [facility] Last Admin: 06/09/16 10:55 Dose: Not Given Metoprolol Tartrate (Lopressor) 25 mg PO BID [facility] Last Admin: 06/09/16 10:48 Dose: 25 mg Mupirocin (Bactroban Ointment) 0 gm TOP BID [facility] Last Admin: 06/09/16 10:00 Dose: Not Given Ondansetron HCl (Zofran Inj) 4 mg IVP Q6 PRN PRN Reason: Nausea/Vomiting Last Admin: 06/04/16 19:44 Dose: 4 mg Paricalcitol (Zemplar) 2 mcg IV TTS [facility] Last Admin: 06/08/16 14:14 Dose: 2 mcg Vitamin B Complex/Vit C/Folic Acid (Nephro-Jose) 1 tab PO DAILY [facility] Last Admin: 06/09/16 10:48 Dose: 1 tab Zolpidem Tartrate (Ambien) 5 mg PO HS PRN PRN Reason: Insomnia Last Admin: 06/09/16 00:28 Dose: 5 mg - Labs Labs: 06/07/16 09:04 Assessment and Plan (1) Elevated CEA Assessment & Plan: Elevated CEA, CA19-9, Ca125 levels without any obvious lesions, masses or fluid to biopsy. Will discuss with IR if there is enough fluid for paracentesis. Patient is agreeable if it is safely possible. If it is not possible, will try and get PET scan approved as outpatient Status: Acute
--- NOTE | 2016-06-09 16:59 | CP.PCM.PN ---
Subjective - Date & Time of Evaluation Date of Evaluation: 06/09/16 Time of Evaluation: 16:59 - Subjective Subjective: pt seen and examined, follow up consult is dictated #[id number] Objective - Vital Signs/Intake and Output Vital Signs (last 24 hours): Temp Pulse Resp BP Pulse Ox 97.8 F 95 H 20 111/72 100 06/09/16 16:20 06/09/16 16:20 06/09/16 16:20 06/09/16 16:20 06/09/16 16:20 Intake and Output: 06/09/16 06/09/16 06:59 18:59 Intake Total 240 Balance 240 - Medications Medications: Current Medications Amiodarone HCl (Cordarone) 200 mg PO DAILY [facility] Last Admin: 06/09/16 10:48 Dose: 200 mg Aspirin (Aspirin Chewable) 81 mg PO DAILY [facility] Last Admin: 06/09/16 13:18 Dose: 81 mg Calcium Acetate (Phoslo) 667 mg PO TIDCC [facility] Last Admin: 06/09/16 13:18 Dose: 667 mg Hydroxyzine HCl (Atarax) 25 mg PO TID PRN PRN Reason: Itching / Pruritus Last Admin: 06/09/16 06:01 Dose: 25 mg Cefazolin Sodium 2,000 mg/ (Sodium Chloride) 100 mls @ 100 mls/hr IVPB MWF [facility] Last Admin: 06/07/16 09:34 Dose: 100 mls/hr Insulin Aspart (Novolog) 0 unit SC ACHS [facility] PRN Reason: Protocol Last Admin: 06/09/16 13:16 Dose: 1 unit Ketoconazole (Nizoral) 1 gm TOP BID [facility] Last Admin: 06/09/16 10:55 Dose: Not Given Metoprolol Tartrate (Lopressor) 25 mg PO BID [facility] Last Admin: 06/09/16 10:48 Dose: 25 mg Mupirocin (Bactroban Ointment) 0 gm TOP BID [facility] Last Admin: 06/09/16 10:00 Dose: Not Given Ondansetron HCl (Zofran Inj) 4 mg IVP Q6 PRN PRN Reason: Nausea/Vomiting Last Admin: 06/04/16 19:44 Dose: 4 mg Paricalcitol (Zemplar) 2 mcg IV TTS [facility] Last Admin: 06/08/16 14:14 Dose: 2 mcg Vitamin B Complex/Vit C/Folic Acid (Nephro-Jose) 1 tab PO DAILY [facility] Last Admin: 06/09/16 10:48 Dose: 1 tab Zolpidem Tartrate (Ambien) 5 mg PO HS PRN PRN Reason: Insomnia Last Admin: 06/09/16 00:28 Dose: 5 mg - Labs Labs: 06/07/16 09:04
--- NOTE | 2016-06-09 22:23 | PN ---
DATE: 06/09/2016 The patient is located in room 662, bed B. REQUESTED BY: Dr. Jose C Sosa. REASON FOR RENAL CONSULTATION: End-stage renal disease, continuation of hemodialysis. HISTORY OF PRESENT ILLNESS: The patient is a 66-year-old elderly [place] female with a past medical history significant for diabetes, end-stage renal disease, CHF, cardiomyopathy, atrial fibrillation, who was admitted with pain in the neck and atrial fibrillation with rapid ventricular response. Was initially started on IV Cardizem and subsequently was changed to p.o. Cardizem and now the patient i s on amiodarone. The patient is not in acute distress. Denies any headache or dizziness. Denies an y chest pain or palpitations. Denies any shortness of breath at this time. She is status post CT an giogram of the abdomen and underwent hemodialysis yesterday and had ultrafiltration of about 2.7 lite rs. The patient is not in acute distress. PHYSICAL EXAMINATION: VITAL SIGNS: Are as follows: Blood pressure 111/72, pulse 95, respiration 20, temperature 97.8, sat uration 100%, height 5 feet 2 inches and weight is 140 pounds. GENERAL: The patient is a 66-year-old elderly female, moderately built, moderately nourished, not in acute distress. HEENT: Pupils normal reactive to light and accommodation. Conjunctivae pink. Sclerae anicteric. T ongue is moist. NECK: Trachea is midline. LUNGS: Symmetric on both sides. Bilateral breath sounds present. No crackles. CARDIOVASCULAR: Donnelly at the fifth intercostal space midclavicular line. S1 and S2 audible. No murm ur or gallop. ABDOMEN: Normal in appearance, soft, tympanic. No guarding, no rigidity. No hepatosplenomegaly. CENTRAL NERVOUS SYSTEM: The patient is alert, awake, oriented x 3, nonfocal on examination. Cranial nerves II-XII grossly intact. Sensory and motor system is within normal limits. EXTREMITIES: No cyanosis, no clubbing. The patient has 1-2+ edema in both lower extremities. The p atient has a dressing to the right foot for right heel fissure. CURRENT MEDICATIONS: Include as follows: Ambien 5 mg p.o. at bedtime p.r.n., aspirin 81 mg daily, A tarax 25 mg p.o. t.i.d., mupirocin ointment topical b.i.d., cefazolin 2 grams three times a week, Fri, Friday and Friday; amiodarone 200 mg p.o. daily, Nephro-Jose 1 tablet daily, Nizoral topical b.i.d., NovoLog for sliding scale, PhosLo 667 mg p.o. t.i.d., Zemplar 2 mcg 3 times a week TTS, Zofra n 4 mg IV q.6 hours p.r.n. LABORATORY DATA: No new labs are available. Accu-Cheks today were 280, [address] abdominal a ngiogram report is pending. IN SUMMARY: The patient is a 66-year-old elderly [place] female with a history of diabetes, end-sta ge renal disease, congestive heart failure, cardiomyopathy, status post CT angiogram. 1. End-stage renal disease. Continue hemodialysis 3 times a week, Friday, , Friday. The patient underwent hemodialysis yesterday after the CT angiogram and had ultrafiltration of about 2.7 liters. 2. Congestive heart failure secondary to fluid overload and poor left ventricular function. Restric t fluids to 1 liter per day. Discussed with the patient and patient's daughter at the bedside. 3. Atrial fibrillation. Continue amiodarone. 4. Fissure of the right heel. Follow up with vascular surgery, Dr. Gann. Thank you for allowing me to participate in your patient's care. Silva Malik MD cc: [id number] TT: 06/09/2016 22:22:25 Confirmation # [id number] Dictation # [id number] dn
--- NOTE | 2016-06-09 23:06 | CP.PCM.PN ---
Subjective - Date & Time of Evaluation Date of Evaluation: 06/06/16 Time of Evaluation: 01:15 - Subjective Subjective: remains weak +elevated tumor markers - needs to r/o occult malignancy Druck/Palathingal on case tele - Afib Objective - Vital Signs/Intake and Output Vital Signs (last 24 hours): Temp Pulse Resp BP Pulse Ox 97.8 F 95 H 20 111/70 100 06/09/16 16:20 06/09/16 18:27 06/09/16 16:20 06/09/16 18:00 06/09/16 16:20 Intake and Output: 06/09/16 06/10/16 18:59 06:59 Intake Total 350 Balance 350 - Medications Medications: Current Medications Amiodarone HCl (Cordarone) 200 mg PO DAILY [facility] Last Admin: 06/09/16 10:48 Dose: 200 mg Aspirin (Aspirin Chewable) 81 mg PO DAILY [facility] Last Admin: 06/09/16 13:18 Dose: 81 mg Calcium Acetate (Phoslo) 667 mg PO TIDCC [facility] Last Admin: 06/09/16 17:28 Dose: 667 mg Hydroxyzine HCl (Atarax) 25 mg PO TID PRN PRN Reason: Itching / Pruritus Last Admin: 06/09/16 17:29 Dose: 25 mg Cefazolin Sodium 2,000 mg/ (Sodium Chloride) 100 mls @ 100 mls/hr IVPB MWF [facility] Last Admin: 06/07/16 09:34 Dose: 100 mls/hr Insulin Aspart (Novolog) 0 unit SC ACHS [facility] PRN Reason: Protocol Last Admin: 06/09/16 17:29 Dose: 1 unit Ketoconazole (Nizoral) 1 gm TOP BID [facility] Last Admin: 06/09/16 18:00 Dose: 1 applic Metoprolol Tartrate (Lopressor) 25 mg PO BID [facility] Last Admin: 06/09/16 18:00 Dose: Not Given Mupirocin (Bactroban Ointment) 0 gm TOP BID [facility] Last Admin: 06/09/16 21:23 Dose: Not Given Ondansetron HCl (Zofran Inj) 4 mg IVP Q6 PRN PRN Reason: Nausea/Vomiting Last Admin: 06/04/16 19:44 Dose: 4 mg Paricalcitol (Zemplar) 2 mcg IV TTS [facility] Last Admin: 06/08/16 14:14 Dose: 2 mcg Vitamin B Complex/Vit C/Folic Acid (Nephro-Jose) 1 tab PO DAILY [facility] Last Admin: 06/09/16 10:48 Dose: 1 tab Zolpidem Tartrate (Ambien) 5 mg PO HS PRN PRN Reason: Insomnia Last Admin: 06/09/16 00:28 Dose: 5 mg - Labs Labs: 06/07/16 09:04 - Constitutional Appears: Chronically Ill - Head Exam Head Exam: ATRAUMATIC - Eye Exam Eye Exam: Scleral icterus - ENT Exam ENT Exam: Mucous Membranes Moist - Neck Exam Neck Exam: absent: Lymphadenopathy - Respiratory Exam Respiratory Exam: Decreased Breath Sounds - Cardiovascular Exam Cardiovascular Exam: REGULAR RHYTHM - GI/Abdominal Exam GI & Abdominal Exam: Soft. absent: Tenderness - Extremities Exam Extremities Exam: Pedal Edema Assessment and Plan - Assessment and Plan (Free Text) Assessment: Afib Elevated tumor markers CAD T2DM ESRD Plan: W/u for occult malignancy Cont HD
--- NOTE | 2016-06-09 23:14 | CP.PCM.PN ---
Subjective - Date & Time of Evaluation Date of Evaluation: 06/09/16 Time of Evaluation: 12:05 - Subjective Subjective: feels better tele - afib Objective - Vital Signs/Intake and Output Vital Signs (last 24 hours): Temp Pulse Resp BP Pulse Ox 97.8 F 95 H 20 111/70 100 06/09/16 16:20 06/09/16 18:27 06/09/16 16:20 06/09/16 18:00 06/09/16 16:20 Intake and Output: 06/09/16 06/10/16 18:59 06:59 Intake Total 350 Balance 350 - Medications Medications: Current Medications Amiodarone HCl (Cordarone) 200 mg PO DAILY [facility] Last Admin: 06/09/16 10:48 Dose: 200 mg Aspirin (Aspirin Chewable) 81 mg PO DAILY [facility] Last Admin: 06/09/16 13:18 Dose: 81 mg Calcium Acetate (Phoslo) 667 mg PO TIDCC [facility] Last Admin: 06/09/16 17:28 Dose: 667 mg Hydroxyzine HCl (Atarax) 25 mg PO TID PRN PRN Reason: Itching / Pruritus Last Admin: 06/09/16 17:29 Dose: 25 mg Cefazolin Sodium 2,000 mg/ (Sodium Chloride) 100 mls @ 100 mls/hr IVPB MWF [facility] Last Admin: 06/07/16 09:34 Dose: 100 mls/hr Insulin Aspart (Novolog) 0 unit SC ACHS [facility] PRN Reason: Protocol Last Admin: 06/09/16 23:10 Dose: Not Given Ketoconazole (Nizoral) 1 gm TOP BID [facility] Last Admin: 06/09/16 18:00 Dose: 1 applic Metoprolol Tartrate (Lopressor) 25 mg PO BID [facility] Last Admin: 06/09/16 18:00 Dose: Not Given Mupirocin (Bactroban Ointment) 0 gm TOP BID [facility] Last Admin: 06/09/16 21:23 Dose: Not Given Ondansetron HCl (Zofran Inj) 4 mg IVP Q6 PRN PRN Reason: Nausea/Vomiting Last Admin: 06/04/16 19:44 Dose: 4 mg Paricalcitol (Zemplar) 2 mcg IV TTS [facility] Last Admin: 06/08/16 14:14 Dose: 2 mcg Vitamin B Complex/Vit C/Folic Acid (Nephro-Jose) 1 tab PO DAILY [facility] Last Admin: 06/09/16 10:48 Dose: 1 tab Zolpidem Tartrate (Ambien) 5 mg PO HS PRN PRN Reason: Insomnia Last Admin: 06/09/16 00:28 Dose: 5 mg - Labs Labs: 06/07/16 09:04 - Constitutional Appears: Chronically Ill - Head Exam Head Exam: NORMOCEPHALIC - Eye Exam Eye Exam: absent: Scleral icterus - ENT Exam ENT Exam: Mucous Membranes Moist - Neck Exam Neck Exam: absent: Lymphadenopathy - Respiratory Exam Respiratory Exam: Clear to Ausculation Bilateral - Cardiovascular Exam Cardiovascular Exam: Irregular Rhythm - GI/Abdominal Exam GI & Abdominal Exam: Soft. absent: Tenderness - Extremities Exam Extremities Exam: Pedal Edema - Neurological Exam Neurological Exam: Alert, CN II-XII Intact Assessment and Plan - Assessment and Plan (Free Text) Assessment: Afib ESRD Elevated tumor markers CAD T2DM Plan: [facility] w/ cardioversion tomorrow
[2016-06-10] MEDS ORDERED: Etomidate 20 mg/10ml Inj IV ONE (07:49)
[2016-06-10] MEDS: (Novolog) Insulin Aspart, Recombinant 100 u/ml 10 ml vial SC SCH ×4 (07:55→21:51)
[2016-06-10] MEDS ORDERED: Esmolol 100 mg/10ml Inj IV ONE (07:58)
[2016-06-10] MEDS ORDERED: Phenylephrine 10 mg/ml Inj ONE (07:58)
[2016-06-10] MEDS ORDERED: ePHEDrine 50 mg/ml Inj ONE (08:01)
[2016-06-10] MEDS ORDERED: Lidocaine 4% (Laryng-O-Jet) Kit MM ONE (08:08)
--- NOTE | 2016-06-10 08:50 | CP.PCM.PN ---
Subjective - Date & Time of Evaluation Date of Evaluation: 06/10/16 Time of Evaluation: 08:38 - Subjective Subjective: PROCEDURE NOTE Proc: [facility] and possible cardioversion Indic: New onset Afib Preliminary findings EF= 25-30% Poor LV systolic function Mild MR Moderate to severe TR THROMBUS noted in the left atrial appendage(ELDER) No atrial septal defect Atherosclerotic aorta without dissection Plan: No cardioversion in view of thrombus in the ELDER Continue anticoagulation Lifevest Objective - Vital Signs/Intake and Output Vital Signs (last 24 hours): Temp Pulse Resp BP Pulse Ox 97.2 F L 95 H 20 155/77 H 100 06/09/16 23:40 06/10/16 01:57 06/09/16 23:40 06/09/16 23:40 06/09/16 23:40 - Medications Medications: Current Medications Amiodarone HCl (Cordarone) 200 mg PO DAILY [facility] Last Admin: 06/09/16 10:48 Dose: 200 mg Aspirin (Aspirin Chewable) 81 mg PO DAILY [facility] Last Admin: 06/09/16 13:18 Dose: 81 mg Calcium Acetate (Phoslo) 667 mg PO TIDCC [facility] Last Admin: 06/10/16 08:18 Dose: Not Given Hydroxyzine HCl (Atarax) 25 mg PO TID PRN PRN Reason: Itching / Pruritus Last Admin: 06/09/16 17:29 Dose: 25 mg Cefazolin Sodium 2,000 mg/ (Sodium Chloride) 100 mls @ 100 mls/hr IVPB MWF [facility] Last Admin: 06/07/16 09:34 Dose: 100 mls/hr Insulin Aspart (Novolog) 0 unit SC ACHS [facility] PRN Reason: Protocol Last Admin: 06/10/16 07:55 Dose: Not Given Ketoconazole (Nizoral) 1 gm TOP BID [facility] Last Admin: 06/09/16 18:00 Dose: 1 applic Metoprolol Tartrate (Lopressor) 25 mg PO BID [facility] Last Admin: 06/09/16 18:00 Dose: Not Given Mupirocin (Bactroban Ointment) 0 gm TOP BID [facility] Last Admin: 06/09/16 21:23 Dose: Not Given Ondansetron HCl (Zofran Inj) 4 mg IVP Q6 PRN PRN Reason: Nausea/Vomiting Last Admin: 06/04/16 19:44 Dose: 4 mg Paricalcitol (Zemplar) 2 mcg IV TTS [facility] Last Admin: 06/08/16 14:14 Dose: 2 mcg Vitamin B Complex/Vit C/Folic Acid (Nephro-Jose) 1 tab PO DAILY [facility] Last Admin: 06/09/16 10:48 Dose: 1 tab Zolpidem Tartrate (Ambien) 5 mg PO HS PRN PRN Reason: Insomnia Last Admin: 06/10/16 00:26 Dose: 5 mg - Labs Labs: 06/07/16 09:04
[2016-06-10] MEDS: Multivitamin Vitamin B Complex (Nephro-Vite) Tab PO SCH (11:28)
--- NOTE | 2016-06-10 11:52 | CP.PCM.PN ---
Subjective - Date & Time of Evaluation Date of Evaluation: 06/10/16 Time of Evaluation: 09:00 - Subjective Subjective: s/p HINA alert awake vascular eval in progress Objective - Vital Signs/Intake and Output Vital Signs (last 24 hours): Temp Pulse Resp BP Pulse Ox 97.4 F L 110 H 24 150/90 100 06/10/16 07:30 06/10/16 11:26 06/10/16 11:26 06/10/16 11:27 06/10/16 11:26 - Medications Medications: Current Medications Amiodarone HCl (Cordarone) 200 mg PO DAILY [facility] Last Admin: 06/10/16 11:28 Dose: 200 mg Apixaban (Eliquis) 5 mg PO DAILY [facility] Aspirin (Aspirin Chewable) 81 mg PO DAILY [facility] Last Admin: 06/10/16 11:27 Dose: 81 mg Calcium Acetate (Phoslo) 667 mg PO TIDCC [facility] Last Admin: 06/10/16 11:27 Dose: 667 mg Hydroxyzine HCl (Atarax) 25 mg PO TID PRN PRN Reason: Itching / Pruritus Last Admin: 06/10/16 11:28 Dose: 25 mg Cefazolin Sodium 2,000 mg/ (Sodium Chloride) 100 mls @ 100 mls/hr IVPB MWF [facility] Last Admin: 06/07/16 09:34 Dose: 100 mls/hr Insulin Aspart (Novolog) 0 unit SC ACHS [facility] PRN Reason: Protocol Last Admin: 06/10/16 07:55 Dose: Not Given Ketoconazole (Nizoral) 1 gm TOP BID [facility] Last Admin: 06/10/16 11:36 Dose: 1 applic Metoprolol Tartrate (Lopressor) 25 mg PO BID [facility] Last Admin: 06/10/16 11:27 Dose: 25 mg Mupirocin (Bactroban Ointment) 0 gm TOP BID [facility] Last Admin: 06/10/16 11:36 Dose: 1 applic Ondansetron HCl (Zofran Inj) 4 mg IVP Q6 PRN PRN Reason: Nausea/Vomiting Last Admin: 06/04/16 19:44 Dose: 4 mg Paricalcitol (Zemplar) 2 mcg IV TTS [facility] Last Admin: 06/08/16 14:14 Dose: 2 mcg Vitamin B Complex/Vit C/Folic Acid (Nephro-Jose) 1 tab PO DAILY [facility] Last Admin: 06/10/16 11:28 Dose: 1 tab Zolpidem Tartrate (Ambien) 5 mg PO HS PRN PRN Reason: Insomnia Last Admin: 06/10/16 00:26 Dose: 5 mg - Labs Labs: 06/07/16 09:04 - Constitutional Appears: Non-toxic, Cachectic, Chronically Ill - Head Exam Head Exam: NORMOCEPHALIC - Eye Exam Eye Exam: PERRL. absent: Scleral icterus - ENT Exam ENT Exam: Mucous Membranes Dry - Neck Exam Neck Exam: absent: Lymphadenopathy - Respiratory Exam Respiratory Exam: Decreased Breath Sounds, Rales, Rhonchi - Cardiovascular Exam Cardiovascular Exam: REGULAR RHYTHM, +S1, +S2 - GI/Abdominal Exam GI & Abdominal Exam: Distended, Soft. absent: Tenderness Assessment and Plan (1) Diabetes Status: Acute (2) End stage renal disease on dialysis Status: Acute (3) Cardiomyopathy as manifestation of underlying disease Status: Acute (4) PVD (peripheral vascular disease) Status: Acute (5) CHF (congestive heart failure), NYHA class III Status: Acute (6) Cellulitis and abscess of foot Status: Acute (7) Atrial fibrillation with rapid ventricular response Status: Acute
[2016-06-10 14:19] LABS: BASO % 0.6 % (0.0-2.0); EOS # 0.2 K/uL (0.0-0.7); EOS % 3.1 % (0.0-4.0); HEMATOCRIT 35.8 % (34.0-47.0); LYMPH # 1.1 K/uL (1.0-4.3); LYMPH % 13.6 % (20.0-40.0); MEAN CELL VOLUME 95.9 fL (81.0-99.0); MEAN CORPUSCULAR HEMOGLOBIN 29.8 pg (27.0-31.0); MEAN PLATELET VOLUME 9.9 fL (7.2-11.7); MONO # 0.5 K/uL (0.0-0.8); MONO % 5.9 % (0.0-10.0); NRBC % 0.1 % (0.0-2.0); RED CELL DISTRIBUTION WIDTH 16.6 % (11.5-14.5); WHITE BLOOD COUNT 8.1 K/uL (4.8-10.8)
[2016-06-10 14:25] LABS: INR 1.3
[2016-06-10 14:26] LABS: POTASSIUM 4.4 mmol/L (3.6-5.2)
[2016-06-10 14:30] LABS: CALCIUM 8.5 mg/dl (8.6-10.4)
--- NOTE | 2016-06-10 19:39 | CP.PCM.PN ---
Subjective - Date & Time of Evaluation Date of Evaluation: 06/10/16 Time of Evaluation: 19:38 - Subjective Subjective: pt seen and examined, follow up consult is dictated ##[id number] Objective - Vital Signs/Intake and Output Vital Signs (last 24 hours): Temp Pulse Resp BP Pulse Ox 97.5 F L 97 H 20 157/88 H 94 L 06/10/16 15:13 06/10/16 15:52 06/10/16 15:13 06/10/16 17:54 06/10/16 15:13 Intake and Output: 06/10/16 06/11/16 18:59 06:59 Intake Total 350 Balance 350 - Medications Medications: Current Medications Amiodarone HCl (Cordarone) 200 mg PO DAILY [facility] Last Admin: 06/10/16 11:28 Dose: 200 mg Apixaban (Eliquis) 5 mg PO DAILY [facility] Last Admin: 06/10/16 12:12 Dose: 5 mg Aspirin (Aspirin Chewable) 81 mg PO DAILY [facility] Last Admin: 06/10/16 11:27 Dose: 81 mg Calcium Acetate (Phoslo) 667 mg PO TIDCC [facility] Last Admin: 06/10/16 18:00 Dose: 667 mg Hydroxyzine HCl (Atarax) 25 mg PO TID PRN PRN Reason: Itching / Pruritus Last Admin: 06/10/16 11:28 Dose: 25 mg Cefazolin Sodium 2,000 mg/ (Sodium Chloride) 100 mls @ 100 mls/hr IVPB MWF [facility] Last Admin: 06/07/16 09:34 Dose: 100 mls/hr Insulin Aspart (Novolog) 0 unit SC ACHS [facility] PRN Reason: Protocol Last Admin: 06/10/16 17:30 Dose: 3 unit Ketoconazole (Nizoral) 1 gm TOP BID [facility] Last Admin: 06/10/16 17:55 Dose: 1 applic Metoprolol Tartrate (Lopressor) 25 mg PO BID [facility] Last Admin: 06/10/16 17:54 Dose: 25 mg Mupirocin (Bactroban Ointment) 0 gm TOP BID [facility] Last Admin: 06/10/16 17:55 Dose: 1 applic Ondansetron HCl (Zofran Inj) 4 mg IVP Q6 PRN PRN Reason: Nausea/Vomiting Last Admin: 06/04/16 19:44 Dose: 4 mg Paricalcitol (Zemplar) 2 mcg IV TTS [facility] Last Admin: 06/08/16 14:14 Dose: 2 mcg Vitamin B Complex/Vit C/Folic Acid (Nephro-Jose) 1 tab PO DAILY [facility] Last Admin: 06/10/16 11:28 Dose: 1 tab Zolpidem Tartrate (Ambien) 5 mg PO HS PRN PRN Reason: Insomnia Last Admin: 06/10/16 00:26 Dose: 5 mg - Labs Labs: 06/10/16 14:05 06/10/16 14:05 PT 14.9 SECONDS (9.7-12.2) H 06/10/16 14:05 INR 1.3 06/10/16 14:05
--- NOTE | 2016-06-10 23:22 | CARD ---
APPROVED REPORT EXAM: Transesophageal echocardiogram with color flow Doppler and Synchronized Cardioversion. INDICATION Atrial Fibrillation Mitral Valve E/A ratio0.0 TDI E/Lateral E'0.0E/Medial E'0.0 <Conclusion> Normal size left ventricle. Poor LV systolic function. EF=25-30% Mild mitral regurgitation. Moderate to severe tricuspid regurgitation. THROMBUS noted in the left atrial appendage. No atrial septal defect. Atherosclerotic aorta without dissection.
--- NOTE | 2016-06-11 02:04 | PN ---
DATE: 06/10/2016 The patient is located in room 662, bed B. REQUESTED BY: Dr. Sosa. REASON FOR RENAL CONSULTATION: End-stage renal disease for continuation of hemodialysis. HISTORY OF PRESENT ILLNESS: The patient is a 66-year-old elderly [place] female with a history of d iabetes, CHF, atrial fibrillation, end-stage renal disease, cardiomyopathy, was admitted with neck pa in and found to have atrial fibrillation with rapid ventricular response. Initially, the patient was treated with IV Cardizem. Subsequently changed to amiodarone. The patient is not in acute distress , complains of itching during dialysis. No chest pain, no palpitations, no fever, no cough, no abdom inal pain, no nausea, vomiting, diarrhea. PHYSICAL EXAMINATION: VITAL SIGNS: Blood pressure 157/88, pulse 97, respirations 20, temperature 97.5, saturation 94%. He ight 5 feet 2 inches and weight is 140 pounds. GENERAL: The patient is a 66-year-old elderly female, moderately built, moderately nourished, not in acute distress. HEENT: Pupils normal, reactive to light and accommodation. Conjunctivae pink. Sclerae anicteric. Tongue is moist. NECK: Trachea is midline. LUNGS: Symmetric on both sides. Bilateral breath sounds present. Clear on auscultation. CARDIOVASCULAR: [place] in the fifth intercostal space midclavicular line. S1 and S2 audible. No murm ur, no gallop. ABDOMEN: Normal in appearance, soft, tympanic. No guarding, no rigidity. No hepatosplenomegaly. CENTRAL NERVOUS SYSTEM: The patient is alert, awake, oriented x 3, nonfocal on examination. Cranial nerves II to XII intact. Sensory and motor system is within normal limits. EXTREMITIES: No cyanosis, no clubbing, no edema. CURRENT MEDICATIONS: Ambien 5 mg at bedtime, aspirin 81 mg daily, Atarax 25 mg p.o. t.i.d. p.r.n. an d mupirocin ointment topical and also cefazolin 2 grams 3 times a week Friday, Friday, and Friday, amiodarone 200 mg p.o. daily, Eliquis 5 mg p.o. daily, and Lopressor 25 mg p.o. b.i.d., Strovite 1 t ablet daily, Nizoral 1 gram topical b.i.d., NovoLog for sliding scale, PhosLo 667 mg p.o. t.i.d. and Zemplar 2 mcg 3 times a week, and Zofran 4 mg IV every 6 hours p.r.n. LABORATORY DATA: As of 06/10/2016, WBC 8, hemoglobin 11.1, hematocrit is 35.8, platelets 197. PT 14 .9, INR 1.3. Sodium 132, potassium 4.4, chloride 87, CO2 24, BUN 63, creatinine 7.8, glucose 231, ca lcium 8.2. SUMMARY: This is a 66-year-old elderly [place] female with a history of diabetes, hypertension, end -stage renal disease, cardiomyopathy. 1. For the end-stage renal disease, continue hemodialysis 3 times a week, Friday, , y. 2. Continue amiodarone as per Dr. Mendez. 3. Generalized itching, etiology is not clear. Cannot rule out secondary to increased chemo or seco ndary to hemodialysis. We will continue Atarax and will monitor. Will follow with you. Thank you for allowing me to participate in your patient's care. We will check phosphorus level in a .m. Silva Malik MD cc: [id number] TT: 06/11/2016 02:03:11 Confirmation # [id number] Dictation # [id number] mn
[2016-06-11] MEDS: (Novolog) Insulin Aspart, Recombinant 100 u/ml 10 ml vial SC SCH ×4 (08:12→22:27)
[2016-06-11] MEDS: Paricalcitol 2 mcg/ml Inj IV SCH (11:45)
--- NOTE | 2016-06-11 11:47 | CT ---
PROCEDURE: CT Angiography Abdomen, Pelvis and Lower Extremity with Contrast HISTORY: PVD, To be done before Dialysis COMPARISON: CT abdomen pelvis from 06/04/2016. TECHNIQUE: Technique: CT angiography of the abdomen, pelvis and bilateral lower extremities performed in the arterial phase of enhancement. Coronal and sagittal reformats, and well as rotating MIP images of the vessels generated at the workstation. Intravenous contrast dose: 150 mL. Radiation dose: Total exam DLP = 1604.95 mGy-cm. FINDINGS: CT ANGIOGRAPHY: ABDOMINAL AORTA:: No abdominal aortic aneurysm. Scattered calcified and noncalcified plaque seen throughout the abdominal aorta and its main branches. MAJOR AORTIC BRANCHES: Celiac [place]: Patent with ostial calcification. Superior mesenteric artery: Patent with ostial calcification with minimal narrowing. Inferior mesenteric artery: Patent. Distally there is a central filling defect with contrast surrounding it which could represent noncalcified plaque. Renal arteries: Patent bilaterally with ostial calcification leading to moderate narrowing. PELVIC ARTERIES: Right Common Iliac: Patent with mild calcified plaque. Right External Iliac: Patent with scattered mild calcified plaque. Right Internal Iliac: Patent. Left Common Iliac: Patent with mild calcified plaque. Left External Iliac: Patent with scattered mild calcified plaque. Left Internal Iliac: Patent. RIGHT LOWER EXTREMITY ARTERIES: Right Common Femoral: Patent with eccentric calcified and noncalcified plaque. Right Superficial Femoral: Patent throughout its course with multifocal areas of moderate to severe narrowing due to calcified and noncalcified plaque. Right Profunda Femoris: Patent. Right Popliteal: Patent with multifocal areas of moderate to severe narrowing due to calcified and noncalcified plaque. Right Anterior Tibial: Patent with multifocal areas of calcifications. Right Tibioperoneal Trunk: Patent with multifocal areas of calcifications. Right Posterior Tibial: Patent with multifocal areas of calcifications. Right Peroneal: Patent to the level of the distal calf. Right dorsalis pedis : Patent. LEFT LOWER EXTREMITY ARTERIES: Left Common Femoral: Patent with eccentric calcific and noncalcific plaque. Left Superficial Femoral: Patent throughout its course with multifocal areas of moderate to severe narrowing due to calcified and noncalcified plaque. Left Profunda Femoris: Patent. Left Popliteal: Patent with multifocal areas of moderate to severe narrowing due to calcified and noncalcified plaque. Left Anterior Tibial: Patent with multifocal areas of calcifications. Left Tibioperoneal Trunk: Patent with multifocal areas of calcifications. Left Posterior Tibial: Patent with multifocal areas of calcifications. Left Peroneal: Patent with multifocal areas of calcifications. Left Dorsalis pedis: Patent. NON-ANGIOGRAPHIC ASPECT OF THE EXAM: LOWER THORAX: Bilateral pleural effusions with associated compressive atelectasis and/ pneumonia. Enlarged heart. No significant pericardial effusion. Coronary arterial calcifications noted. LIVER: Unremarkable. No gross lesion or ductal dilatation. GALLBLADDER AND BILE DUCTS: Gallbladder not seen. PANCREAS: Unremarkable. No gross lesion or ductal dilatation. SPLEEN: Area of hypodensity seen in the anterior/lateral aspect of the spleen best seen on image 37, series 2. This was also seen in the prior CT from 06/04/2016 there remains essentially stable. ADRENALS: Diffuse thickening of the left adrenal gland. Suboptimal imaging of the right adrenal gland. KIDNEYS AND URETERS: Bilateral atrophic kidneys. No hydronephrosis. Partially exophytic hypodensity in the medial aspect of the left interpolar segment likely cyst. Diffuse vascular calcifications. Also seen partially exophytic hypodensity in the lateral aspect of the upper pole of the left kidney, also likely cyst. STOMACH AND BOWEL: Lack of oral contrast limits evaluation of bowel. There is thickening of the stomach wall particularly near the antrum, likely from underdistention versus underlying gastritis. No bowel obstruction. Minimal retained oral contrast in the distal colon. Moderate stool burden throughout the colon suggestive of constipation. Focal area of wall thickening in the descending colon best seen on image 98, series 2. Overall re- demonstration of mild diffuse small bowel wall thickening likely secondary to edema. APPENDIX: The appendix is not clearly seen however there is no CT evidence of acute appendicitis. PERITONEUM: Mild perihepatic and pelvic ascites. LYMPH NODES: Scattered retroperitoneal and inguinal region lymph nodes. Few lymph nodes also noted along the pelvic side chains. None of these lymph nodes are pathologically enlarged. BLADDER: Thickening of the bladder wall, could be due to underlying inflammation versus underdistention. REPRODUCTIVE: The uterus is not seen. The perineum is suboptimally seen. BONES: Generalized osteopenia. Degenerative changes of the lumbar spine. OTHER FINDINGS: Moderate anasarca. IMPRESSION: Abdominal angiogram: No evidence of abdominal aortic aneurysm. Scattered calcific plaque throughout the abdominal aorta and its main branches. Right lower extremity angiogram: Patent common femoral, superficial femoral and popliteal arteries. The superficial femoral and popliteal arteries demonstrate multifocal areas of moderate to severe narrowing due to calcified and noncalcified plaque. Patent anterior tibial and posterior tibial arteries. Patent peroneal artery to the level of the distal calf. Left lower extremity angiogram: Patent common femoral, superficial femoral and popliteal arteries. The superficial femoral and popliteal arteries demonstrate multifocal areas of moderate to severe narrowing due to calcified and noncalcified plaque. Patent anterior tibial, peroneal and posterior tibial arteries. Non angiographic evaluation: Bilateral pleural effusions with associated compressive atelectasis and/ pneumonia. Mild cardiomegaly. Mild ascites in the abdomen and pelvis. Focal hypodensity in the spleen may represent splenic lesion or focal infarction, stable since prior CT from 06/04/2016. Moderate anasarca. Thickening of the bladder wall, could be due to underlying inflammation versus underdistention. Underlying cystitis should be considered if clinically relevant.
--- NOTE | 2016-06-11 11:47 | CP.PCM.PN ---
Subjective - Date & Time of Evaluation Date of Evaluation: 06/11/16 Time of Evaluation: 09:00 - Subjective Subjective: events noted- for life vest Proc: HINA and possible cardioversion Indic: New onset Afib Preliminary findings EF= 25-30% Poor LV systolic function Mild MR Moderate to severe TR THROMBUS noted in the left atrial appendage(ELDER) No atrial septal defect Atherosclerotic aorta without dissection Plan: No cardioversion in view of thrombus in the ELDER Continue anticoagulation Lifevest Objective - Vital Signs/Intake and Output Vital Signs (last 24 hours): Temp Pulse Resp BP Pulse Ox 97.4 F L 65 16 132/64 100 06/11/16 09:25 06/11/16 09:25 06/11/16 09:25 06/11/16 10:51 06/11/16 09:20 Intake and Output: 06/11/16 06/11/16 06:59 18:59 Intake Total 700 Balance 700 - Medications Medications: Current Medications Amiodarone HCl (Cordarone) 200 mg PO DAILY [facility] Last Admin: 06/10/16 11:28 Dose: 200 mg Apixaban (Eliquis) 5 mg PO DAILY [facility] Last Admin: 06/10/16 12:12 Dose: 5 mg Aspirin (Aspirin Chewable) 81 mg PO DAILY [facility] Last Admin: 06/10/16 11:27 Dose: 81 mg Calcium Acetate (Phoslo) 667 mg PO TIDCC [facility] Last Admin: 06/11/16 08:13 Dose: 667 mg Hydroxyzine HCl (Atarax) 25 mg PO TID PRN PRN Reason: Itching / Pruritus Last Admin: 06/11/16 00:21 Dose: 25 mg Hydroxyzine HCl (Atarax) 25 mg PO DAILY [facility] Cefazolin Sodium 2,000 mg/ (Sodium Chloride) 100 mls @ 100 mls/hr IVPB MWF [facility] Last Admin: 06/07/16 09:34 Dose: 100 mls/hr Insulin Aspart (Novolog) 0 unit SC ACHS [facility] PRN Reason: Protocol Last Admin: 06/11/16 08:12 Dose: 374 unit Ketoconazole (Nizoral) 1 gm TOP BID [facility] Last Admin: 06/10/16 17:55 Dose: 1 applic Metoprolol Tartrate (Lopressor) 25 mg PO BID [facility] Last Admin: 06/10/16 17:54 Dose: 25 mg Mupirocin (Bactroban Ointment) 0 gm TOP BID [facility] Last Admin: 06/10/16 17:55 Dose: 1 applic Ondansetron HCl (Zofran Inj) 4 mg IVP Q6 PRN PRN Reason: Nausea/Vomiting Last Admin: 06/04/16 19:44 Dose: 4 mg Paricalcitol (Zemplar) 2 mcg IV TTS [facility] Last Admin: 06/11/16 11:45 Dose: 2 mcg Vitamin B Complex/Vit C/Folic Acid (Nephro-Jose) 1 tab PO DAILY [facility] Last Admin: 06/10/16 11:28 Dose: 1 tab Zolpidem Tartrate (Ambien) 5 mg PO HS PRN PRN Reason: Insomnia Last Admin: 06/11/16 00:21 Dose: 5 mg - Labs Labs: 06/10/16 14:05 06/10/16 14:05 PT 14.9 SECONDS (9.7-12.2) H 06/10/16 14:05 INR 1.3 06/10/16 14:05 - Constitutional Appears: Non-toxic, Chronically Ill - Head Exam Head Exam: NORMOCEPHALIC - Eye Exam Eye Exam: absent: Scleral icterus - Neck Exam Neck Exam: absent: Lymphadenopathy - Respiratory Exam Respiratory Exam: Decreased Breath Sounds - Cardiovascular Exam Cardiovascular Exam: REGULAR RHYTHM - GI/Abdominal Exam GI & Abdominal Exam: Distended, Soft Assessment and Plan (1) Diabetes Status: Acute (2) End stage renal disease on dialysis Status: Acute (3) Cardiomyopathy as manifestation of underlying disease Status: Acute (4) PVD (peripheral vascular disease) Status: Acute (5) CHF (congestive heart failure), NYHA class III Status: Acute (6) Cellulitis and abscess of foot Status: Acute (7) Atrial fibrillation with rapid ventricular response Status: Acute
[2016-06-11] MEDS ORDERED: DiphenhydrAMINE 50 mg/ml Inj IVP STA (12:07)
--- NOTE | 2016-06-11 12:13 | CP.PCM.PN ---
Subjective - Date & Time of Evaluation Date of Evaluation: 06/11/16 Time of Evaluation: 12:11 - Subjective Subjective: pt seen and examined, follow up consult is dictated #[id number] seen in hd, uf 3.5 lit Objective - Vital Signs/Intake and Output Vital Signs (last 24 hours): Temp Pulse Resp BP Pulse Ox 97.4 F L 65 16 132/64 100 06/11/16 09:25 06/11/16 09:25 06/11/16 09:25 06/11/16 10:51 06/11/16 09:20 Intake and Output: 06/11/16 06/11/16 06:59 18:59 Intake Total 700 Balance 700 - Medications Medications: Current Medications Amiodarone HCl (Cordarone) 200 mg PO DAILY [facility] Last Admin: 06/10/16 11:28 Dose: 200 mg Apixaban (Eliquis) 5 mg PO DAILY [facility] Last Admin: 06/10/16 12:12 Dose: 5 mg Aspirin (Aspirin Chewable) 81 mg PO DAILY [facility] Last Admin: 06/10/16 11:27 Dose: 81 mg Calcium Acetate (Phoslo) 667 mg PO TIDCC [facility] Last Admin: 06/11/16 08:13 Dose: 667 mg Hydroxyzine HCl (Atarax) 25 mg PO TID PRN PRN Reason: Itching / Pruritus Last Admin: 06/11/16 00:21 Dose: 25 mg Hydroxyzine HCl (Atarax) 25 mg PO DAILY [facility] Cefazolin Sodium 2,000 mg/ (Sodium Chloride) 100 mls @ 100 mls/hr IVPB MWF [facility] Last Admin: 06/07/16 09:34 Dose: 100 mls/hr Insulin Aspart (Novolog) 0 unit SC ACHS [facility] PRN Reason: Protocol Last Admin: 06/11/16 08:12 Dose: 374 unit Ketoconazole (Nizoral) 1 gm TOP BID [facility] Last Admin: 06/10/16 17:55 Dose: 1 applic Metoprolol Tartrate (Lopressor) 25 mg PO BID [facility] Last Admin: 06/10/16 17:54 Dose: 25 mg Mupirocin (Bactroban Ointment) 0 gm TOP BID [facility] Last Admin: 06/10/16 17:55 Dose: 1 applic Ondansetron HCl (Zofran Inj) 4 mg IVP Q6 PRN PRN Reason: Nausea/Vomiting Last Admin: 06/04/16 19:44 Dose: 4 mg Paricalcitol (Zemplar) 2 mcg IV TTS [facility] Last Admin: 06/11/16 11:45 Dose: 2 mcg Vitamin B Complex/Vit C/Folic Acid (Nephro-Jose) 1 tab PO DAILY [facility] Last Admin: 06/10/16 11:28 Dose: 1 tab Zolpidem Tartrate (Ambien) 5 mg PO HS PRN PRN Reason: Insomnia Last Admin: 06/11/16 00:21 Dose: 5 mg - Labs Labs: 06/10/16 14:05 06/10/16 14:05 PT 14.9 SECONDS (9.7-12.2) H 06/10/16 14:05 INR 1.3 06/10/16 14:05
--- NOTE | 2016-06-11 12:47 | CP.PCM.PN ---
Subjective - Date & Time of Evaluation Date of Evaluation: 06/11/16 Time of Evaluation: 12:46 - Subjective Subjective: official report noted areas of severe stenosis seen will plan angio Objective - Vital Signs/Intake and Output Vital Signs (last 24 hours): Temp Pulse Resp BP Pulse Ox 97.2 F L 65 20 133/70 100 06/11/16 12:21 06/11/16 12:21 06/11/16 12:21 06/11/16 12:21 06/11/16 12:21 Intake and Output: 06/11/16 06/11/16 06:59 18:59 Intake Total 700 Balance 700 - Medications Medications: Current Medications Amiodarone HCl (Cordarone) 200 mg PO DAILY [facility] Last Admin: 06/10/16 11:28 Dose: 200 mg Apixaban (Eliquis) 5 mg PO DAILY [facility] Last Admin: 06/10/16 12:12 Dose: 5 mg Aspirin (Aspirin Chewable) 81 mg PO DAILY [facility] Last Admin: 06/10/16 11:27 Dose: 81 mg Calcium Acetate (Phoslo) 667 mg PO TIDCC [facility] Last Admin: 06/11/16 08:13 Dose: 667 mg Hydroxyzine HCl (Atarax) 25 mg PO TID PRN PRN Reason: Itching / Pruritus Last Admin: 06/11/16 00:21 Dose: 25 mg Hydroxyzine HCl (Atarax) 25 mg PO DAILY [facility] Cefazolin Sodium 2,000 mg/ (Sodium Chloride) 100 mls @ 100 mls/hr IVPB MWF [facility] Last Admin: 06/07/16 09:34 Dose: 100 mls/hr Insulin Aspart (Novolog) 0 unit SC ACHS [facility] PRN Reason: Protocol Last Admin: 06/11/16 08:12 Dose: 374 unit Ketoconazole (Nizoral) 1 gm TOP BID [facility] Last Admin: 06/10/16 17:55 Dose: 1 applic Metoprolol Tartrate (Lopressor) 25 mg PO BID [facility] Last Admin: 06/10/16 17:54 Dose: 25 mg Mupirocin (Bactroban Ointment) 0 gm TOP BID [facility] Last Admin: 06/10/16 17:55 Dose: 1 applic Ondansetron HCl (Zofran Inj) 4 mg IVP Q6 PRN PRN Reason: Nausea/Vomiting Last Admin: 06/04/16 19:44 Dose: 4 mg Paricalcitol (Zemplar) 2 mcg IV TTS [facility] Last Admin: 06/11/16 11:45 Dose: 2 mcg Vitamin B Complex/Vit C/Folic Acid (Nephro-Jose) 1 tab PO DAILY [facility] Last Admin: 06/10/16 11:28 Dose: 1 tab Zolpidem Tartrate (Ambien) 5 mg PO HS PRN PRN Reason: Insomnia Last Admin: 06/11/16 00:21 Dose: 5 mg - Labs Labs: 06/10/16 14:05 06/10/16 14:05 PT 14.9 SECONDS (9.7-12.2) H 06/10/16 14:05 INR 1.3 06/10/16 14:05
[2016-06-11] MEDS: Multivitamin Vitamin B Complex (Nephro-Vite) Tab PO SCH (13:07)
--- NOTE | 2016-06-11 13:13 | CP.PCM.PN ---
Subjective - Date & Time of Evaluation Date of Evaluation: 06/11/16 Time of Evaluation: 09:45 - Subjective Subjective: 66 y/o female patient seen and evaluated at bedside for right heel fissuring. Patient was undergoing dialysis. Patient denies any pedal pain at this time. She denies any n/v/f/c/sob/cp. Objective - Vital Signs/Intake and Output Vital Signs (last 24 hours): Temp Pulse Resp BP Pulse Ox 97.2 F L 65 20 133/77 100 06/11/16 12:21 06/11/16 12:21 06/11/16 12:21 06/11/16 13:09 06/11/16 12:21 Intake and Output: 06/11/16 06/11/16 06:59 18:59 Intake Total 700 Balance 700 - Medications Medications: Current Medications Amiodarone HCl (Cordarone) 200 mg PO DAILY [facility] Last Admin: 06/11/16 13:07 Dose: 200 mg Apixaban (Eliquis) 5 mg PO DAILY [facility] Last Admin: 06/11/16 13:07 Dose: 5 mg Aspirin (Aspirin Chewable) 81 mg PO DAILY [facility] Last Admin: 06/11/16 13:07 Dose: 81 mg Calcium Acetate (Phoslo) 667 mg PO TIDCC [facility] Last Admin: 06/11/16 13:08 Dose: 667 mg Hydroxyzine HCl (Atarax) 25 mg PO TID PRN PRN Reason: Itching / Pruritus Last Admin: 06/11/16 00:21 Dose: 25 mg Hydroxyzine HCl (Atarax) 25 mg PO DAILY [facility] Last Admin: 06/11/16 13:07 Dose: 25 mg Cefazolin Sodium 2,000 mg/ (Sodium Chloride) 100 mls @ 100 mls/hr IVPB MWF [facility] Last Admin: 06/07/16 09:34 Dose: 100 mls/hr Insulin Aspart (Novolog) 0 unit SC ACHS [facility] PRN Reason: Protocol Last Admin: 06/11/16 13:08 Dose: 4 unit Ketoconazole (Nizoral) 1 gm TOP BID [facility] Last Admin: 06/11/16 13:07 Dose: 1 applic Metoprolol Tartrate (Lopressor) 25 mg PO BID [facility] Last Admin: 06/11/16 13:09 Dose: 25 mg Mupirocin (Bactroban Ointment) 0 gm TOP BID [facility] Last Admin: 06/11/16 13:07 Dose: 1 applic Ondansetron HCl (Zofran Inj) 4 mg IVP Q6 PRN PRN Reason: Nausea/Vomiting Last Admin: 06/04/16 19:44 Dose: 4 mg Paricalcitol (Zemplar) 2 mcg IV TTS [facility] Last Admin: 06/11/16 11:45 Dose: 2 mcg Vitamin B Complex/Vit C/Folic Acid (Nephro-Jose) 1 tab PO DAILY [facility] Last Admin: 06/11/16 13:07 Dose: 1 tab Zolpidem Tartrate (Ambien) 5 mg PO HS PRN PRN Reason: Insomnia Last Admin: 06/11/16 00:21 Dose: 5 mg - Labs Labs: 06/10/16 14:05 06/10/16 14:05 PT 14.9 SECONDS (9.7-12.2) H 06/10/16 14:05 INR 1.3 06/10/16 14:05 - Constitutional Appears: Non-toxic, No Acute Distress, Chronically Ill - Extremities Exam Additional comments: Right lower extremity focused exam: Vacular: DP is faintly palpable 1/4, and PT is non-palpable. CFT is less than 5 seconds. Skin temperature is cool. Derm: Longitudinal superficial small fissure approximately 2 cm long and 0.2 cm deep is noted to the medial posterior heel. No drainage, no acute signs of infection noted. Skin has a purplish color Ortho: Limited ROM of ankle and STJ Neuro: Diminished Protective sensation Assessment and Plan - Assessment and Plan (Free Text) Assessment: 66 year old female with right heel fissure Plan: Patient examined and evaluated at beside with attending, Dr. Ramon, present. Chart and vitals reviewed Dressing was applied to the right foot composed of xeroform and DSD. D/c'ing Bactroban use until further notice. Podiatry will continue to follow while patient remains in house.
--- NOTE | 2016-06-11 21:40 | PN ---
DATE: 06/11/2016 The patient is located in room 662, bed 2. REQUESTED BY: Dr. Jose C Sosa. REASON FOR FOLLOWUP: End-stage renal disease for continuation of the hemodialysis. HISTORY OF PRESENT ILLNESS: The patient is a 66-year-old elderly [place] female with a past medical history significant for hypertension, diabetes, AFib, cardiomyopathy, CHF, was admitted with neck pa in and found to have AFib with rapid ventricular response, initially treated with IV Cardizem. Subse quently, changed to p.o. Cardizem and amiodarone. The patient is seen and examined during dialysis t his morning and UF goal is about 3.5 liters. The patient is resting comfortably. Complains of itchi ng on and off, generalized. No chest pain, no palpitation, no fever, no cough, no abdominal pain, no nausea, vomiting, diarrhea. PHYSICAL EXAMINATION: VITAL SIGNS: As follows: Blood pressure this morning 147/74, pulse 65, respirations 20, temperature 97.2, saturation 100%, height 5 feet 2 inches and weight is 140 pounds. GENERAL: The patient is a 66-year-old elderly [place] female, moderately built, moderately nourishe d, not in acute distress. HEENT: Pupils normal, reactive to light and accommodation. Conjunctivae pink. Sclerae anicteric. Tongue is moist. NECK: Trachea is midline. LUNGS: Symmetric on both sides. Bilateral breath sounds present. Occasional basal crackles present . CARDIOVASCULAR: [place] in the fifth intercostal space midclavicular line. S1, S2 audible. Irregularl y irregular. ABDOMEN: Normal in appearance, soft, tympanic. No guarding, no rigidity. No hepatosplenomegaly. CENTRAL NERVOUS SYSTEM: The patient is alert, awake, oriented x 3, nonfocal on examination. Cranial nerves II-XII grossly intact. Sensory and motor system is within normal limits. EXTREMITIES: No cyanosis, no clubbing. The patient has 1+ edema in both lower extremities and the p atient has a dressing to the right foot. CURRENT MEDICATIONS: Include as follows: Ambien 5 mg at bedtime, cefazolin 2 grams 3 times a week, aspirin 81 mg daily, Atarax 25 mg p.o. t.i.d. p.r.n., mupirocin ointment topical b.i.d., Benadryl 25 mg IV piggyback x 1 dose, amiodarone 200 mg p.o. daily, Eliquis 5 mg p.o. daily, metoprolol 25 mg p.o . b.i.d., Nephro-Jose 1 tablet daily, ketoconazole 2% cream 1 gram topical b.i.d., PhosLo 667 mg p.o. t.i.d., Zemplar 2 mcg 3 times a week, and Zofran 4 mg IV q. 6 hours p.r.n. LABORATORY DATA: Include as follows: As of 06/11/2016, phosphorus level is 7.1 and glucose 374 and 314 and . SUMMARY: The patient is a 66-year-old elderly female with hypertension, diabetes, congestive heart f ailure, cardiomyopathy and fluid overload. 1. End-stage renal disease. Continue hemodialysis 3 times a week, Friday, , Friday. 2. Atrial fibrillation, continue Eliquis and amiodarone as per Dr. Mendez. 3. Hypertension. Blood pressure is stable. Continue Lopressor 25 p.o. b.i.d., restrict fluids to 1 liter per day and we will change PhosLo to Renvela 800 mg 3 tablets p.o. t.i.d. with food for hyperp hosphatemia. Thank you for allowing me to participate in your patient's care. Silva Malik MD cc: [id number] TT: 06/11/2016 21:40:17 Confirmation # [id number] Dictation # [id number] bairon
--- NOTE | 2016-06-11 23:13 | CP.PCM.PN ---
Subjective - Date & Time of Evaluation Date of Evaluation: 06/11/16 Time of Evaluation: 09:05 - Subjective Subjective: +PVD Dr Gann to eval still in afib weak Objective - Vital Signs/Intake and Output Vital Signs (last 24 hours): Temp Pulse Resp BP Pulse Ox 97.5 F L 73 20 148/86 96 06/11/16 15:52 06/11/16 16:59 06/11/16 15:52 06/11/16 17:48 06/11/16 15:52 Intake and Output: 06/11/16 06/12/16 18:59 06:59 Intake Total 350 250 Balance 350 250 - Medications Medications: Current Medications Amiodarone HCl (Cordarone) 200 mg PO DAILY [facility] Last Admin: 06/11/16 13:07 Dose: 200 mg Apixaban (Eliquis) 5 mg PO DAILY [facility] Last Admin: 06/11/16 13:07 Dose: 5 mg Aspirin (Aspirin Chewable) 81 mg PO DAILY [facility] Last Admin: 06/11/16 13:07 Dose: 81 mg Hydroxyzine HCl (Atarax) 25 mg PO TID PRN PRN Reason: Itching / Pruritus Last Admin: 06/11/16 00:21 Dose: 25 mg Hydroxyzine HCl (Atarax) 25 mg PO DAILY [facility] Last Admin: 06/11/16 13:07 Dose: 25 mg Cefazolin Sodium 2,000 mg/ (Sodium Chloride) 100 mls @ 100 mls/hr IVPB MWF [facility] Last Admin: 06/07/16 09:34 Dose: 100 mls/hr Insulin Aspart (Novolog) 0 unit SC ACHS [facility] PRN Reason: Protocol Last Admin: 06/11/16 22:27 Dose: Not Given Ketoconazole (Nizoral) 1 gm TOP BID [facility] Last Admin: 06/11/16 17:46 Dose: 1 applic Metoprolol Tartrate (Lopressor) 25 mg PO BID [facility] Last Admin: 06/11/16 17:48 Dose: 25 mg Mupirocin (Bactroban Ointment) 0 gm TOP BID [facility] Last Admin: 06/11/16 17:49 Dose: 1 applic Ondansetron HCl (Zofran Inj) 4 mg IVP Q6 PRN PRN Reason: Nausea/Vomiting Last Admin: 06/04/16 19:44 Dose: 4 mg Paricalcitol (Zemplar) 2 mcg IV TTS [facility] Last Admin: 06/11/16 11:45 Dose: 2 mcg Sevelamer Carbonate (Renvela) 2.4 gm PO TIDCC [facility] Vitamin B Complex/Vit C/Folic Acid (Nephro-Jose) 1 tab PO DAILY [facility] Last Admin: 06/11/16 13:07 Dose: 1 tab Zolpidem Tartrate (Ambien) 5 mg PO HS PRN PRN Reason: Insomnia Last Admin: 06/11/16 00:21 Dose: 5 mg - Labs Labs: 06/10/16 14:05 06/10/16 14:05 PT 14.9 SECONDS (9.7-12.2) H 06/10/16 14:05 INR 1.3 06/10/16 14:05 - Constitutional Appears: Chronically Ill - Head Exam Head Exam: ATRAUMATIC - Eye Exam Eye Exam: absent: Scleral icterus - ENT Exam ENT Exam: Mucous Membranes Dry - Neck Exam Neck Exam: Full ROM - Respiratory Exam Respiratory Exam: Decreased Breath Sounds - Cardiovascular Exam Cardiovascular Exam: Irregular Rhythm - GI/Abdominal Exam GI & Abdominal Exam: Soft. absent: Tenderness - Extremities Exam Extremities Exam: Calf Tenderness, Pedal Edema. absent: Full ROM Additional comments: mildly cyanotic - Neurological Exam Neurological Exam: Alert, Awake, Oriented x3. absent: Normal Gait Assessment and Plan - Assessment and Plan (Free Text) Assessment: Afib Ischemic cardiomyopathy PVD CAD T2DM ESRD Plan: Vascular w/u Cont eliquis dialysis Cont abtx
[2016-06-12 08:40] VITALS: O2SAT 96
[2016-06-12] MEDS: Sevelamer Carb 2.4 gm/Packet PO SCH ×3 (08:48→17:53)
[2016-06-12] MEDS: (Novolog) Insulin Aspart, Recombinant 100 u/ml 10 ml vial SC SCH ×3 (08:51→17:30)
[2016-06-12] MEDS: Multivitamin Vitamin B Complex (Nephro-Vite) Tab PO SCH (10:26)
[2016-06-12] MEDS ORDERED: (Novolog) Insulin Aspart, Recombinant 100 u/ml 10 ml vial SC ONE (11:39)
[2016-06-12 11:56] LABS: BASO # 0.1 K/uL (0.0-0.2); BASO % 0.6 % (0.0-2.0); EOS # 0.1 K/uL (0.0-0.7); EOS % 1.3 % (0.0-4.0); LYMPH # 0.8 K/uL (1.0-4.3); LYMPH % 7.7 % (20.0-40.0); MEAN CELL VOLUME 95.5 fL (81.0-99.0); MEAN CORPUSCULAR HEMOGLOBIN 30.3 pg (27.0-31.0); MEAN CORPUSCULAR HGB CONC 31.7 g/dL (33.0-37.0); MEAN PLATELET VOLUME 10.1 fL (7.2-11.7); MONO # 0.9 K/uL (0.0-0.8); MONO % 8.8 % (0.0-10.0); PLATELET COUNT 148 K/uL (130-400); RED CELL DISTRIBUTION WIDTH 17.5 % (11.5-14.5); WHITE BLOOD COUNT 10.7 K/uL (4.8-10.8)
[2016-06-12 12:09] LABS: POTASSIUM 5.2 mmol/L (3.6-5.2)
[2016-06-12 12:11] LABS: BILIRUBIN,TOTAL 0.5 mg/dL (0.2-1.3)
[2016-06-12 12:30] LABS: EOSINOPHIL 3 % (0-4); NEUTROPHIL 88 % (50-75); TOTAL CELLS COUNTED 100
[2016-06-12 12:31] LABS: LARGE PLATELETS PRESENT
--- NOTE | 2016-06-12 13:21 | CP.PCM.PN ---
Subjective - Date & Time of Evaluation Date of Evaluation: 06/12/16 Time of Evaluation: 08:05 - Subjective Subjective: Vascular Surgery Pt S&E, NAEO. No complaints at this time Objective - Vital Signs/Intake and Output Vital Signs (last 24 hours): Temp Pulse Resp BP Pulse Ox 97.3 F L 72 18 187/79 H 96 06/12/16 08:40 06/12/16 08:40 06/12/16 08:40 06/12/16 10:26 06/12/16 08:40 Intake and Output: 06/12/16 06/12/16 06:59 18:59 Intake Total 370 Balance 370 - Medications Medications: Current Medications Amiodarone HCl (Cordarone) 200 mg PO DAILY [facility] Last Admin: 06/12/16 10:26 Dose: 200 mg Apixaban (Eliquis) 5 mg PO DAILY [facility] Last Admin: 06/12/16 11:05 Dose: 5 mg Aspirin (Aspirin Chewable) 81 mg PO DAILY [facility] Last Admin: 06/12/16 10:26 Dose: 81 mg Hydroxyzine HCl (Atarax) 25 mg PO TID PRN PRN Reason: Itching / Pruritus Last Admin: 06/12/16 06:46 Dose: 25 mg Hydroxyzine HCl (Atarax) 25 mg PO DAILY [facility] Last Admin: 06/12/16 10:26 Dose: 25 mg Cefazolin Sodium 2,000 mg/ (Sodium Chloride) 100 mls @ 100 mls/hr IVPB MWF [facility] Last Admin: 06/12/16 08:48 Dose: 100 mls/hr Insulin Aspart (Novolog) 0 unit SC ACHS [facility] PRN Reason: Protocol Last Admin: 06/12/16 11:30 Dose: 6 unit Ketoconazole (Nizoral) 1 gm TOP BID [facility] Last Admin: 06/12/16 10:26 Dose: 1 applic Metoprolol Tartrate (Lopressor) 25 mg PO BID [facility] Last Admin: 06/12/16 10:26 Dose: 25 mg Mupirocin (Bactroban Ointment) 0 gm TOP BID [facility] Last Admin: 06/12/16 10:27 Dose: 1 applic Ondansetron HCl (Zofran Inj) 4 mg IVP Q6 PRN PRN Reason: Nausea/Vomiting Last Admin: 06/04/16 19:44 Dose: 4 mg Paricalcitol (Zemplar) 2 mcg IV TTS [facility] Last Admin: 06/11/16 11:45 Dose: 2 mcg Sevelamer Carbonate (Renvela) 2.4 gm PO TIDCC [facility] Last Admin: 06/12/16 12:11 Dose: Not Given Vitamin B Complex/Vit C/Folic Acid (Nephro-Jose) 1 tab PO DAILY [facility] Last Admin: 06/12/16 10:26 Dose: 1 tab Zolpidem Tartrate (Ambien) 5 mg PO HS PRN PRN Reason: Insomnia Last Admin: 06/11/16 00:21 Dose: 5 mg - Labs Labs: 06/12/16 11:49 PT 14.9 SECONDS (9.7-12.2) H 06/10/16 14:05 INR 1.3 06/10/16 14:05 - Constitutional Appears: Non-toxic, No Acute Distress - Head Exam Head Exam: ATRAUMATIC, NORMOCEPHALIC - Respiratory Exam Respiratory Exam: NORMAL BREATHING PATTERN. absent: Respiratory Distress - Extremities Exam Extremities Exam: Pedal Edema (trace) Additional comments: B/L LE discoloration - Neurological Exam Neurological Exam: Alert, Awake - Skin Skin Exam: Dry, Warm Assessment and Plan - Assessment and Plan (Free Text) Assessment: 66F with R heel ulcer and PVD Plan: Planning for angio Friday D/W Dr. Sanjuanita Rangel PGY3
[2016-06-12 15:44] VITALS: BP 133/68; PULSE 62; RESP 20; TEMP 97.7
--- NOTE | 2016-06-12 16:31 | CP.PCM.PN ---
Subjective - Date & Time of Evaluation Date of Evaluation: 06/12/16 Time of Evaluation: 16:23 - Subjective Subjective: 66 Y/O FEMALE SEEN AND EXAMINED, PT D/C HOME TODAY PER DR TAPIA AND DR REBOLLEDO , RX FOR AMIODARONE 200 MG PO DAILY #15, ELIQUIS 5 MG PO DAILY #15, KETOCONAZOLE 2% CREME 15 GM TOP BID, RENVELA 2.4 GM PO TIDCC GIVEN PER DR TAPIA, MED REC DONE PER DR TAIPA, CONTINUE HD T//FRI, CEFAZOLIN 2 GM AFTER HD [address] REBOLLEDO, RETURN TO HOSPITAL FOR ANGIO ON FRIDAY PER DR MOSHER. LAST ELIQUIS ON FRIDAY,, NPO POST MIDNIGHT FRIDAY P MN, RESTRICIT FLUID TO 1 LITER A DAY, CALL DR TAPIA OFFICE IF ANY FURTHER QUESTIONS , RETURN TO ED IF ANY WORSENING. PT AGREE, VERBALIZE UNDERSTANDING. Objective - Vital Signs/Intake and Output Vital Signs (last 24 hours): Temp Pulse Resp BP Pulse Ox 97.7 F 62 20 133/68 96 06/12/16 15:43 06/12/16 15:43 06/12/16 15:43 06/12/16 15:43 06/12/16 15:43 Intake and Output: 06/12/16 06/12/16 06:59 18:59 Intake Total 370 Balance 370 - Medications Medications: Current Medications Amiodarone HCl (Cordarone) 200 mg PO DAILY [facility] Last Admin: 06/12/16 10:26 Dose: 200 mg Apixaban (Eliquis) 5 mg PO DAILY [facility] Last Admin: 06/12/16 11:05 Dose: 5 mg Aspirin (Aspirin Chewable) 81 mg PO DAILY [facility] Last Admin: 06/12/16 10:26 Dose: 81 mg Hydroxyzine HCl (Atarax) 25 mg PO TID PRN PRN Reason: Itching / Pruritus Last Admin: 06/12/16 06:46 Dose: 25 mg Hydroxyzine HCl (Atarax) 25 mg PO DAILY [facility] Last Admin: 06/12/16 10:26 Dose: 25 mg Cefazolin Sodium 2,000 mg/ (Sodium Chloride) 100 mls @ 100 mls/hr IVPB MWF [facility] Last Admin: 06/12/16 08:48 Dose: 100 mls/hr Insulin Aspart (Novolog) 0 unit SC ACHS [facility] PRN Reason: Protocol Last Admin: 06/12/16 11:30 Dose: 6 unit Ketoconazole (Nizoral) 1 gm TOP BID [facility] Last Admin: 06/12/16 10:26 Dose: 1 applic Metoprolol Tartrate (Lopressor) 25 mg PO BID [facility] Last Admin: 06/12/16 10:26 Dose: 25 mg Mupirocin (Bactroban Ointment) 0 gm TOP BID [facility] Last Admin: 06/12/16 10:27 Dose: 1 applic Ondansetron HCl (Zofran Inj) 4 mg IVP Q6 PRN PRN Reason: Nausea/Vomiting Last Admin: 06/04/16 19:44 Dose: 4 mg Paricalcitol (Zemplar) 2 mcg IV TTS [facility] Last Admin: 06/11/16 11:45 Dose: 2 mcg Sevelamer Carbonate (Renvela) 2.4 gm PO TIDCC [facility] Last Admin: 06/12/16 12:11 Dose: Not Given Vitamin B Complex/Vit C/Folic Acid (Nephro-Jose) 1 tab PO DAILY [facility] Last Admin: 06/12/16 10:26 Dose: 1 tab Zolpidem Tartrate (Ambien) 5 mg PO HS PRN PRN Reason: Insomnia Last Admin: 06/11/16 00:21 Dose: 5 mg - Labs Labs: 06/12/16 11:49 06/12/16 11:49 PT 14.9 SECONDS (9.7-12.2) H 06/10/16 14:05 INR 1.3 06/10/16 14:05
--- NOTE | 2016-06-12 17:58 | CP.PCM.DIS ---
Provider - Provider Date of Admission: 06/04/16 17:19 Attending physician: Jose C Sosa MD Primary care physician: AMAURY Consults: REGINA VUONG Time Spent in preparation of Discharge (in minutes): 45 Diagnosis - Discharge Diagnosis (1) Diabetes Status: Acute (2) End stage renal disease on dialysis Status: Acute (3) Cardiomyopathy as manifestation of underlying disease Status: Acute (4) PVD (peripheral vascular disease) Status: Acute (5) CHF (congestive heart failure), NYHA class III Status: Acute (6) Cellulitis and abscess of foot Status: Acute (7) Atrial fibrillation with rapid ventricular response Status: Acute (8) PVD (peripheral vascular disease) with claudication Status: Acute Hospital Course - Lab Results Lab Results: Most Recent Lab Values WBC 10.7 K/uL (4.8-10.8) 06/12/16 11:49 RBC 3.24 Mil/uL (3.80-5.20) L 06/12/16 11:49 Hgb 9.8 g/dL (11.0-16.0) L 06/12/16 11:49 Hct 31.0 % (34.0-47.0) L 06/12/16 11:49 MCV 95.5 fL (81.0-99.0) 06/12/16 11:49 MCH 30.3 pg (27.0-31.0) 06/12/16 11:49 MCHC 31.7 g/dL (33.0-37.0) L 06/12/16 11:49 RDW 17.5 % (11.5-14.5) H 06/12/16 11:49 Plt Count 148 K/uL (130-400) 06/12/16 11:49 MPV 10.1 fL (7.2-11.7) 06/12/16 11:49 Neut % (Auto) 81.6 % (50.0-75.0) H 06/12/16 11:49 Lymph % (Auto) 7.7 % (20.0-40.0) L 06/12/16 11:49 [place] % (Auto) 8.8 % (0.0-10.0) 06/12/16 11:49 Eos % (Auto) 1.3 % (0.0-4.0) 06/12/16 11:49 Baso % (Auto) 0.6 % (0.0-2.0) 06/12/16 11:49 Neut # 8.8 K/uL (1.8-7.0) H 06/12/16 11:49 Lymph # 0.8 K/uL (1.0-4.3) L 06/12/16 11:49 [place] # 0.9 K/uL (0.0-0.8) H 06/12/16 11:49 Eos # 0.1 K/uL (0.0-0.7) 06/12/16 11:49 Baso # 0.1 K/uL (0.0-0.2) 06/12/16 11:49 Neutrophils % (Manual) 88 % (50-75) H 06/12/16 11:49 Lymphocytes % (Manual) 3 % (20-40) L 06/12/16 11:49 Monocytes % (Manual) 6 % (0-10) 06/12/16 11:49 Eosinophils % (Manual) 3 % (0-4) 06/12/16 11:49 Platelet Estimate Normal (NORMAL) 06/12/16 11:49 Large Platelets Present 06/12/16 11:49 Hypochromasia (manual) Slight 06/12/16 11:49 Poikilocytosis (manual Slight 06/12/16 11:49 Anisocytosis (manual) Slight 06/12/16 11:49 Target Cells Slight 06/12/16 11:49 PT 14.9 SECONDS (9.7-12.2) H 06/10/16 14:05 INR 1.3 06/10/16 14:05 Sodium 132 mmol/L (132-148) 06/12/16 11:49 Potassium 5.2 mmol/L (3.6-5.2) 06/12/16 11:49 Chloride 88 mmol/L (98-107) L 06/12/16 11:49 Carbon Dioxide 26 mmol/L (22-30) 06/12/16 11:49 Anion Gap 23 (10-20) H 06/12/16 11:49 BUN 62 mg/dL (7-17) H 06/12/16 11:49 Creatinine 7.6 MG/DL (0.7-1.2) H* 06/12/16 11:49 Est GFR ( Amer) 6 06/12/16 11:49 Est GFR (Non-Af Amer) 5 06/12/16 11:49 POC Glucose (mg/dL) 192 mg/dL (65-110) H 06/12/16 15:37 Random Glucose 400 mg/dL (65-105) H* D 06/12/16 11:49 Calcium 9.0 mg/dl (8.6-10.4) 06/12/16 11:49 Phosphorus 7.1 mg/dL (2.5-4.5) H 06/11/16 06:00 Ferritin 252.0 ng/mL 06/10/16 07:35 Total Bilirubin 0.5 mg/dL (0.2-1.3) 06/12/16 11:49 AST 38 U/L (14-36) H D 06/12/16 11:49 ALT 9 U/L (9-52) D 06/12/16 11:49 Alkaline Phosphatase 140 U/L (38-126) H D 06/12/16 11:49 Total Creatine Kinase 153 U/L (30-135) H 06/04/16 11:54 CK-MB (Mass) 5.62 ng/mL (0.0-3.38) H 06/04/16 11:54 Troponin I 0.3960 ng/mL (0.00-0.120) H* 06/03/16 20:51 Troponin I, Quant 0.3530 ng/mL (0.00-0.120) H* 06/04/16 11:54 Total Protein 7.0 g/dL (6.3-8.3) 06/12/16 11:49 Albumin 3.5 g/dL (3.5-5.0) 06/12/16 11:49 Globulin 3.5 gm/dL (2.2-3.9) 06/12/16 11:49 Albumin/Globulin Ratio 1.0 (1.0-2.1) 06/12/16 11:49 Lipase 1119 U/L (23-300) H 06/03/16 20:51 Carcinoembryonic Ag 7.1 ng/mL (0-3.0) H 06/08/16 07:21 CA 19-9 Antigen 306 U/mL (0-37) H 06/08/16 07:21 CA 125 Antigen 376 U/mL (0-35) H 06/08/16 07:21 Vitamin B12 > 1000 pg/mL (239-931) H 06/10/16 07:35 TSH 3rd Generation 2.95 mIU/L (0.46-4.68) 06/03/16 20:51 PTH Intact Whole Molec 339 pg/mL (14-64) H 06/04/16 10:16 Urine Color Yellow (YELLOW) 06/04/16 20:45 Urine Clarity Hazy (Clear) 06/04/16 20:45 Urine pH 5.0 (5.0-8.0) 06/04/16 20:45 Ur Specific [place] 1.017 (1.003-1.030) 06/04/16 20:45 Urine Protein 3+ mg/dL (NEGATIVE) H 06/04/16 20:45 Urine Glucose (UA) 2+ mg/dL (Normal) H 06/04/16 20:45 Urine Ketones Negative mg/dL (NEGATIVE) 06/04/16 20:45 Urine Blood 1+ (NEGATIVE) H 06/04/16 20:45 Urine Nitrate Negative (NEGATIVE) 06/04/16 20:45 Urine Bilirubin Negative (NEGATIVE) 06/04/16 20:45 Urine Urobilinogen Normal mg/dL (0.2-1.0) 06/04/16 20:45 Ur Leukocyte Esterase 3+ Anmol/uL (Negative) H 06/04/16 20:45 Urine WBC (Auto) 28 /hpf (0-5) H 06/04/16 20:45 Urine RBC (Auto) 9 /hpf (0-3) H 06/04/16 20:45 Ur Squamous Epith Cells 13 /hpf (0-5) H 06/04/16 20:45 Ur Transition Epith Cell < 1 /hpf (0-3) 06/04/16 20:45 Urine Bacteria Occ (<OCC) H 06/04/16 20:45 Urine Yeast (Budding) Few /hpf (NEGATIVE) H 06/04/16 20:45 Hep Bs Antigen Negative (NEGATIVE) 06/04/16 13:08 Discharge Exam - Head Exam Head Exam: ATRAUMATIC, NORMOCEPHALIC - Eye Exam Eye Exam: EOMI, PERRL - ENT Exam ENT Exam: Mucous Membranes Dry - Respiratory Exam Respiratory Exam: Decreased Breath Sounds, Clear to PA & Lateral - Cardiovascular Exam Cardiovascular Exam: REGULAR RHYTHM, +S1, +S2 - GI/Abdominal Exam GI & Abdominal Exam: Diminished Bowel Sounds, Soft. absent: Tenderness - Rectal Exam Rectal Exam: Deferred - Exam Exam: NORMAL INSPECTION - Extremities Exam Extremities exam: tenderness - Back Exam Back exam: absent: CVA tenderness (L), CVA tenderness (R) - Neurological Exam Neurological exam: Alert, CN II-XII Intact, Oriented x3, Reflexes Normal - Psychiatric Exam Psychiatric exam: Normal Mood - Skin Skin Exam: Dry Discharge Plan - Discharge Medications Prescriptions: Amiodarone [Cordarone] 200 mg PO DAILY #15 tab Apixaban [Eliquis] 5 mg PO DAILY #15 tab Ketoconazole 2% Cr [Nizoral] 1 gm TOP BID #1 tube Sevelamer Carbonate [Renvela] 2.4 gm PO TIDCC #20 packet - Follow Up Plan Condition: STABLE Disposition: HOME/ ROUTINE Instructions: Amiodarone (By mouth), Sevelamer (By mouth), Ketoconazole (On the skin), Apixaban (By mouth), Angina (DC), Heart Failure (DC), Atrial Fibrillation (DC), Transesophageal Echocardiogram (DC), Cardioversion (DC), Dialysis Diet (DC), Peripheral Vascular Disease (DC), End Stage Kidney Disease ( DC) Additional Instructions: FOLLOW UP WITH DR TAPIA IN THE OFFICE WITHIN 2-3 DAYS FOLLOW UP WITH ILEANA MASON IN 3-5 DAYS FOR PET SCAN OUTP RETURN BACK TO SAME DAY SURGERY FOR ANGIOPLASTY ON NEXT FRIDAY, LAST DOSE OF ELIQUIS ON FRIDAY, DO NOT EAT ANYTHING AFTER MIDNIGHT ON FRIDAY -- PER DR MOSHER FOLLOW UP WITH DR SOSA IN THE OFFICE WITHIN ONE WEEK RESTRICT FLUID TO 1 LITER PER DAY CONTINUE HD //FRI SCHEDULE CEFAZOLIN 2 GM AFTER HD X3 MORE DOSE CALL DR TAPIA OFFICE IF ANY FURTHER QUESTIONS RETURN TO ED IF ANY WORSENING SYMPTOMS Referrals: Manoj Vuong MD [Staff Provider] - Citlalli Tapia MD [Staff Provider] - Ochoa Marley MD [Medical Doctor] - Silva Malik MD [Staff Provider] - Jose C Sosa MD [Staff Provider] - Karlos Mosher Jr., MD [Staff Provider] - Ileana Aguilar MD [Staff Provider] - Denys Ramon DPM [Staff Provider] -
== END 2016-06-12 18:00 | disposition home or self-care (01) | DRG 308 ==
LOC: C.ER 18:28 → C.9E 20:43 → C.6T 22:37 → OBSVTOIN 06-04 17:19 → C.6T 06-06 10:46
PROVIDERS: ADMIT Internal Medicine; ATTEND Internal Medicine
PROC: 5A1D60Z (ICD-10-PCS; principal; 2016-06-04)
PROC: B246ZZ4 Ultrasonography of Right and Left Heart, Transesophageal (ICD-10-PCS; 2016-06-10 08:00)
DX: I48.0 Paroxysmal atrial fibrillation (principal); K85.90 Acute pancreatitis without necrosis or infection, unspecified; I13.2 Hypertensive heart and chronic kidney disease with heart failure and with stage 5 chronic kidney disease, or end stage renal disease; E11.22 Type 2 diabetes mellitus with diabetic chronic kidney disease; N18.6 End stage renal disease; E11.51 Type 2 diabetes mellitus with diabetic peripheral angiopathy without gangrene; L03.119 Cellulitis of unspecified part of limb; I50.9 Heart failure, unspecified; Z99.2 Dependence on renal dialysis; Z79.4 Long term (current) use of insulin; I25.10 Atherosclerotic heart disease of native coronary artery without angina pectoris; Z95.1 Presence of aortocoronary bypass graft; E78.5 Hyperlipidemia, unspecified; E89.0 Postprocedural hypothyroidism; I47.1 Supraventricular tachycardia; Z87.440 Personal history of urinary (tract) infections; Z91.81 History of falling; E78.00 Pure hypercholesterolemia, unspecified

== ENCOUNTER 2016-06-21 09:36 | Observation (INO) | payer MEDICARE, OTHER ==
[2016-06-21 09:51] VITALS: BMI 26.2
[2016-06-21] MEDS ORDERED: (Novolin R) Insulin Human Regular 100 units/ml vial SC ONE (10:20)
[2016-06-21] MEDS ORDERED: Lidocaine 2% Inj (20ml) ONE ×2 (10:30→14:24)
[2016-06-21] MEDS ORDERED: Iodixanol 320 MG/ML 100 ML BOTTLE IV ONE ×2 (10:30→14:55)
[2016-06-21] MEDS ORDERED: Iodixanol 320 MG/ML 200 ML BOTTLE IV ONE (10:30)
[2016-06-21] MEDS ORDERED: (Novolin R) Insulin Human Regular 100 units/ml vial ONE ×2 (10:39→11:33)
[2016-06-21 11:06] LABS: POTASSIUM 4.5 mmol/L (3.6-5.2)
[2016-06-21 11:09] LABS: CALCIUM 9.3 mg/dl (8.6-10.4)
[2016-06-21] MEDS ORDERED: Dexmedetomidine Hydrochloride 100 mcg/ml (2ML) ONE (11:37)
[2016-06-21] MEDS ORDERED: Midazolam 2 MG/2 ML VIAL ONE ×2 (11:44→14:22)
--- NOTE | 2016-06-21 16:28 | PCM.SURG1 ---
Surgeon's Initial Post Op Note - Surgeon's Notes Surgeon: agatha Box Coverer Hand: 0 Type of Anesthesia: IV Sedation Anesthesia Administered By: verónica Pre-Operative Diagnosis: ischemic ulceration both feet Operative Findings: tibial disease. all vessels patent to tibial trifurcation. on R 90 % proximal stenosi. ant tibial 80 %. peroneal open to ankle Post-Operative Diagnosis: same Operation Performed: aortofemoral angiogram via left groin. selective catherization of right popliteal artery. balloon angioplasty of anterior tibial and posterior tibial using 2&3 MM balloons. pressure closure left groin Specimen/Specimens Removed: 0 Estimated Blood Loss: EBL {In ML}: 50 Blood Products Given: N/A Drains Used: No Drains Post-Op Condition: Good Date of Surgery/Procedure: 06/21/16 Time of Surgery/Procedure: 16:28
[2016-06-21] MEDS ORDERED: (Novolog) Insulin Aspart, Recombinant 100 u/ml 10 ml vial SC PRN (19:04)
[2016-06-21] MEDS ORDERED: Insulin Detemir 100 units/ml Vial (Levemir) SC SCH (22:00)
[2016-06-21] MEDS ORDERED: Influenza Virus Vaccine 45 mcg/0.5 ml Syr IM ONE (22:00)
[2016-06-22 07:29] LABS: HEMATOCRIT 31.9 % (34.0-47.0); MEAN CELL VOLUME 97.2 fL (81.0-99.0); MEAN CORPUSCULAR HEMOGLOBIN 30.3 pg (27.0-31.0); MEAN CORPUSCULAR HGB CONC 31.1 g/dL (33.0-37.0); MEAN PLATELET VOLUME 10.4 fL (7.2-11.7); RED CELL DISTRIBUTION WIDTH 17.8 % (11.5-14.5); WHITE BLOOD COUNT 9.2 K/uL (4.8-10.8)
--- NOTE | 2016-06-22 07:40 | CP.PCM.PN ---
Subjective - Date & Time of Evaluation Date of Evaluation: 06/22/16 Time of Evaluation: 07:37 - Subjective Subjective: Surgery: Dr. Gann Patient seen and examined this am. Patient states she had a mild pain in her right leg s/p angio yesterday. She denies any further bleeding from the groin puncture site. She complains of not being able to sleep but otherwise doing well. Objective - Vital Signs/Intake and Output Vital Signs (last 24 hours): Temp Pulse Resp BP Pulse Ox 98 F 61 20 133/70 100 06/22/16 00:00 06/22/16 00:00 06/22/16 00:00 06/22/16 00:00 06/22/16 00:00 Intake and Output: 06/22/16 06/22/16 06:59 18:59 Intake Total 540 Balance 540 - Medications Medications: Current Medications Amiodarone HCl (Cordarone) 200 mg PO DAILY [facility] Last Admin: 06/21/16 20:20 Dose: 200 mg Aspirin (Aspirin Chewable) 81 mg PO DAILY [facility] Epoetin Rocky (Procrit) 10,000 unit IV TTS [facility] Insulin Aspart (Novolog) 4 unit SC HS PRN PRN Reason: Serum glucose Insulin Detemir (Levemir) 15 unit SC HS [facility] Last Admin: 06/21/16 22:14 Dose: Not Given Ketoconazole (Nizoral) 1 gm TOP BID [facility] Metoprolol Tartrate (Lopressor) 25 mg PO BID [facility] Last Admin: 06/21/16 20:20 Dose: 25 mg Paricalcitol (Zemplar) 2 mcg IV ONCE ONE Stop: 06/22/16 08:01 Sevelamer Carbonate (Renvela) 2.4 gm PO TIDCC [facility] Vitamin B Complex/Vit C/Folic Acid (Nephro-Jose) 1 tab PO DAILY [facility] - Labs Labs: 06/21/16 10:45 - Constitutional Appears: Non-toxic, No Acute Distress - Head Exam Head Exam: ATRAUMATIC, NORMOCEPHALIC - Eye Exam Eye Exam: Normal appearance - ENT Exam ENT Exam: Mucous Membranes Moist - Respiratory Exam Respiratory Exam: NORMAL BREATHING PATTERN. absent: Respiratory Distress - Cardiovascular Exam Cardiovascular Exam: REGULAR RHYTHM. absent: Tachycardia - Extremities Exam Additional comments: chronic LE venous insufficiency skin changes, 1+ pitting edema bilaterally. Some pain w/ compressing of right LE. faint popliteal, and PT pulses palpable on the right LE. bilateral LE are warm. Left puncture groin site w/ pressure dressing in place, dry intact. Nontender to palpation. Assessment and Plan - Assessment and Plan (Free Text) Assessment: 66 y/o female w/ bleeding from groin puncture site s/p angio PPD1 Plan: -leave pressure dressing -patient will possibly go home today after HD session -appreciate Nephrology consult -cont home meds -renal/CC diet -further recs per Dr. Sanjuanita Guerrero PGY1
[2016-06-22 07:45] LABS: POTASSIUM 4.3 mmol/L (3.6-5.2)
[2016-06-22 07:48] LABS: CALCIUM 8.8 mg/dl (8.6-10.4); PHOSPHOROUS 7.4 mg/dL (2.5-4.5)
[2016-06-22] MEDS ORDERED: Paricalcitol 2 mcg/ml Inj IV ONE ×2 (08:00→13:00)
[2016-06-22] MEDS ORDERED: Sevelamer Carb 2.4 gm/Packet PO SCH ×3 (08:00→12:00)
[2016-06-22] MEDS ORDERED: Epoetin Alfa 10,000 unit/ml Dialysis IV SCH (10:00)
[2016-06-22] MEDS ORDERED: Multivitamin Vitamin B Complex (Nephro-Vite) Tab PO SCH ×2 (10:00)
--- NOTE | 2016-06-22 10:08 | CP.PCM.PN ---
Subjective - Date & Time of Evaluation Date of Evaluation: 06/22/16 Time of Evaluation: 10:08 Objective - Vital Signs/Intake and Output Vital Signs (last 24 hours): Temp Pulse Resp BP Pulse Ox 98.4 F 70 18 177/76 H 95 06/22/16 08:00 06/22/16 08:00 06/22/16 08:00 06/22/16 08:00 06/22/16 08:00 Intake and Output: 06/22/16 06/22/16 06:59 18:59 Intake Total 540 Balance 540 - Medications Medications: Current Medications Amiodarone HCl (Cordarone) 200 mg PO DAILY [facility] Last Admin: 06/21/16 20:20 Dose: 200 mg Aspirin (Aspirin Chewable) 81 mg PO DAILY [facility] Epoetin Rocky (Procrit) 10,000 unit IV TTS [facility] Insulin Aspart (Novolog) 4 unit SC HS PRN PRN Reason: Serum glucose Insulin Detemir (Levemir) 15 unit SC HS [facility] Last Admin: 06/21/16 22:14 Dose: Not Given Insulin Human Regular (Novolin R) 0 unit SC ACHS [facility] PRN Reason: Protocol Ketoconazole (Nizoral) 1 gm TOP BID [facility] Metoprolol Tartrate (Lopressor) 25 mg PO BID [facility] Last Admin: 06/21/16 20:20 Dose: 25 mg Sevelamer Carbonate (Renvela) 2.4 gm PO TIDCC [facility] Vitamin B Complex/Vit C/Folic Acid (Nephro-Jose) 1 tab PO DAILY [facility] - Labs Labs: 06/22/16 07:18 06/22/16 07:18
--- NOTE | 2016-06-22 10:48 | CP.PCM.CON ---
History of Present Illness - History of Present Illness History of Present Illness: pt seen and examined, full consult is dictated #[id number] 1. esrd 2. anemia 3. hyperphosphatemia 4. pvd 5. s/p angiogram, s/p baloon angioplasty of rt ant. tbial, and psoterior tibial artery 6. afib 7. sec. hpth, nephrovite, zemplar d/c after hd today for hd today continue epoegn, renvela, nephrovite, zemplar Past Patient History - Past Medical History & Family History Past Medical History?: Yes - Past Social History Smoking Status: Never Smoked - CARDIAC Hx Cardiac Disorders: Yes (CAD, CABG, ) Hx Cardia Arrhythmia: Yes (hx atril fib) Hx Circulatory Problems: Yes Hx Congestive Heart Failure: Yes Hx Hypertension: Yes Hx Peripheral Edema: Yes Hx Peripheral Vascular Disease: Yes Other/Comment: pt wears life vest does not know why - PULMONARY Hx Respiratory Disorders: No - NEUROLOGICAL Hx Neurological Disorder: Yes Hx Dizziness: Yes - HEENT Hx HEENT Problems: Yes (icteric) Hx Cataracts: Yes (bilat iol) - RENAL Hx Chronic Kidney Disease: Yes Date of Last Dialysis Treatment: 06/20/16 Hx Renal Failure: Yes (CRF, ESRD) - ENDOCRINE/METABOLIC Hx Endocrine Disorders: Yes Hx Diabetes Mellitus Type 2: Yes Other/Comment: hx thyroidectomy - HEMATOLOGICAL/ONCOLOGICAL Hx Blood Disorders: Yes Hx Anemia: Yes Hx Blood Transfusions: Yes Hx Blood Transfusion Reaction: No - INTEGUMENTARY Hx Dermatological Problems: Yes (discolored areas generalized, generalized pruritus) - MUSCULOSKELETAL/RHEUMATOLOGICAL Hx Falls: No - GASTROINTESTINAL Hx Gastrointestinal Disorders: Yes Hx Gall Bladder Disease: Yes - GENITOURINARY/GYNECOLOGICAL Hx Genitourinary Disorders: Yes (hx fibroid uterus hysterectomy) - PSYCHIATRIC Hx Substance Use: No - SURGICAL HISTORY Hx Surgeries: Yes Hx Angiogram: Yes Hx Appendectomy: Yes Hx Cardiac Catheterization: Yes Hx Cholecystectomy: Yes Hx Hysterectomy: Yes Hx Open Heart Surgery: Yes (CABG ( tripple)) Hx Thyroidectomy: Yes Hx Vascular Access Device: Yes (left arm fistula) - ANESTHESIA Hx Anesthesia: Yes Hx Anesthesia Reactions: No Hx Malignant Hyperthermia: No Has any member of the family had a problem w/ anesthesia?: No Meds Allergies/Adverse Reactions: Allergies Allergy/AdvReac Type Severity Reaction Status Date / Time No Known Allergies Allergy Verified 06/03/16 20:06 - Medications Medications: Current Medications Amiodarone HCl (Cordarone) 200 mg PO DAILY [facility] Last Admin: 06/22/16 10:32 Dose: Not Given Aspirin (Aspirin Chewable) 81 mg PO DAILY [facility] Epoetin Rocky (Procrit) 10,000 unit IV TTS [facility] Insulin Aspart (Novolog) 4 unit SC HS PRN PRN Reason: Serum glucose Insulin Detemir (Levemir) 15 unit SC HS [facility] Last Admin: 06/21/16 22:14 Dose: Not Given Insulin Human Regular (Novolin R) 0 unit SC ACHS [facility] PRN Reason: Protocol Ketoconazole (Nizoral) 1 gm TOP BID [facility] Last Admin: 06/22/16 10:33 Dose: Not Given Metoprolol Tartrate (Lopressor) 25 mg PO BID [facility] Last Admin: 06/22/16 10:32 Dose: Not Given Sevelamer Carbonate (Renvela) 2.4 gm PO TIDCC [facility] Vitamin B Complex/Vit C/Folic Acid (Nephro-Jose) 1 tab PO DAILY [facility] Last Admin: 06/22/16 10:33 Dose: Not Given Results - Vital Signs Recent Vital Signs: Last Vital Signs Temp 98.4 F 06/22/16 08:00 Pulse 70 06/22/16 08:00 Resp 18 06/22/16 08:00 BP 177/76 H 06/22/16 08:00 Pulse Ox 95 06/22/16 08:00 - Labs Result Diagrams: 06/22/16 07:18 06/22/16 07:18 Labs: Laboratory Results - last 24 hr 06/21/16 06/21/16 06/21/16 10:45 11:22 12:51 WBC RBC Hgb Hct MCV MCH MCHC RDW Plt Count MPV Sodium 138 Potassium 4.5 Chloride 91 L Carbon Dioxide 28 Anion Gap 24 H BUN 49 H Creatinine 5.6 H Est GFR ( Amer) 9 Est GFR (Non-Af Amer) 8 POC Glucose (mg/dL) 385 H 225 H Random Glucose 369 H Calcium 9.3 Phosphorus 06/21/16 06/22/16 06/22/16 21:23 07:18 07:20 WBC 9.2 RBC 3.28 L Hgb 9.9 L Hct 31.9 L MCV 97.2 MCH 30.3 MCHC 31.1 L RDW 17.8 H Plt Count 192 MPV 10.4 Sodium 138 Potassium 4.3 Chloride 90 L Carbon Dioxide 24 Anion Gap 28 H BUN 57 H Creatinine 6.0 H Est GFR ( Amer) 9 Est GFR (Non-Af Amer) 7 POC Glucose (mg/dL) 119 H 307 H Random Glucose 288 H Calcium 8.8 Phosphorus 7.4 H
--- NOTE | 2016-06-22 11:17 | PN ---
DATE: 06/22/2016 LOCATION: The patient is located in room 361, bed A. REQUESTING PHYSICIAN: Dr. Karlos Gann. REASON FOR RENAL CONSULTATION: End-stage renal disease for continuation of hemodialysis, status post angioplasty of the right lower extremity, angioplasty of the femoral artery, and balloon angioplasty . The operation was an aortofemoral angiogram via left groin and selective catheterization of the ri ght popliteal artery, balloon angioplasty, with anterior tibial and posterior tibialis, using 2 and 3 mm balloons and pressure closed the left groin. HISTORY OF PRESENT ILLNESS: The patient is a 66-year-old, elderly Nepalese female with past medical history significant for longstanding hypertension, diabetes, CHF, AFib, end-stage renal disease, philip pheral vascular disease, who was now admitted recently for neck pain and found to have AFib with rapi d ventricular response and right leg also status post angiogram and angioplasty of the right anterior tibial and posterior tibial artery balloon angioplasty. The patient is not in acute distress and de nies any headache, dizziness, any chest pain, palpitation. Denies any fever, cough. No nausea, vomi ting, or diarrhea. VITAL SIGNS: Blood pressure 177/76, pulse 70, respirations 18, temperature 98.4, saturation 95%. PAST MEDICAL HISTORY: Significant for longstanding hypertension, diabetes, CHF, coronary artery dise ase, AFib, end-stage renal disease on hemodialysis 3 times a week. PAST SURGICAL HISTORY: Status post left upper extremity AV fistula. ALLERGIES: No known drug allergies. SOCIAL HISTORY: No smoking, no alcohol, no drugs. CURRENT MEDICATIONS: Include aspirin 81 mg daily, amiodarone 200 mg p.o. daily, Levemir 15 units sub Q at bedtime, Lopressor 25 mg p.o. b.i.d., Nephro-Jose 1 tablet daily, Nizoral cream 1 g topical b.i. d., Procrit 10,000 units 3 times a week on Friday, , Friday, and Renvela 2.4 grams t.i.d. FAMILY HISTORY: Not significant. REVIEW OF SYSTEMS: Significant for peripheral vascular disease and slight pain in the right leg. Al l other review of systems are reviewed and are negative. PHYSICAL EXAMINATION GENERAL: The patient is a 66-year-old elderly [place]alese female, moderately built, moderately nourish ed, not in acute distress. VITAL SIGNS: Height 5 feet 2 inches and weight is 143 pounds. Blood pressure 177/76, pulse 70, resp iration 18, temperature 98.4, saturation 95%. HEENT: Pupils normal, reactive to light and accommodation. Conjunctivae pink. Sclerae anicteric. Tongue is moist. NECK: Trachea is midline. LUNGS: Symmetric on both sides. Bilateral breath sounds present. Occasional basal crackles present . CARDIOVASCULAR: [place] in the fifth intercostal space midclavicular line. S1 and S2 audible. No murm ur, no gallop. ABDOMEN: Normal in appearance, soft, tympanic. No guarding, no rigidity. No hepatosplenomegaly. N o abdominal bruits. CENTRAL NERVOUS SYSTEM: The patient is alert, awake, oriented x 3, nonfocal on examination. Cranial nerves II-XII grossly intact. Sensory and motor system is within normal limits. EXTREMITIES: No cyanosis, no clubbing. The patient has trace to 1+ edema in both lower extremities. LABORATORY DATA: Include as follows: As of 06/22/2016. WBC 9.3, hemoglobin 9.9, hematocrit is 31.9, platelets 192. Sodium 138, potassium 4.3, chloride 90, CO2 24, BUN 57, creatinine 6, glucose 288, ca lcium 8.8, phosphorus 7.4. SUMMARY: The patient is a 66-year-old elderly [place]alese female with a history of hypertension, diabet es, COPD, CHF, end-stage renal disease, peripheral vascular disease, status post angiogram and angiop lasty of the right anterior tibial and posterior tibial artery and balloon angioplasty. 1. End-stage renal disease. Continue hemodialysis 3 times a week, Friday, , Friday. 2. Hyperphosphatemia secondary to end-stage renal disease. Continue Renvela 2.4 g 3 times a day with food. 3. Anemia secondary to renal failure and recent angiogram and angioplasty. We will continue Procrit 10,000 units 3 times a week. 4. Secondary hyperparathyroidism. We will continue Renvela 2.4 g t.i.d. with food and also Zemplar d uring dialysis. The case discussed with Dr. Karlos Gann and the patient will be discharged after the hemodialysi s. We will follow with you. Thank you for allowing me to participate in your patient's care. The patient can be followed as an o utpatient with her primary canvas baster jumpbasting once discharged home. Silva Malik MD cc: [id number] TT: 06/22/2016 11:17:03 Confirmation # [id number] Dictation # [id number] ln
[2016-06-22 11:29] VITALS: TEMP 97.4
[2016-06-22 11:31] VITALS: O2SAT 100
[2016-06-22] MEDS: (Novolin R) Insulin Human Regular 100 units/ml vial SC SCH ×2 (12:45→15:12)
[2016-06-22 14:32] VITALS: BP 181/73; PULSE 86; RESP 18
--- NOTE | 2016-06-24 10:11 | VAS ---
DATE: 06/21/2016 PREOPERATIVE DIAGNOSIS: Ischemic ulceration of both feet, right worse than left. PROCEDURE CARRIED OUT: Aortofemoral angiogram via left groin with selective catheterization of right femoral and popliteal artery, balloon angioplasty of anterior tibial and posterior tibial artery.. SURGEON: Karlos Gann MD. NEIGHBORHOOD PLANNER: None. ANESTHESIOLOGIST: ____ WOOD BOATBUILDER APPRENTICE. INDICATIONS: This is a 66-year-old woman on dialysis, who presents with ischemic ulceration of the feet. OPERATIVE ____ The aorta and renal arteries are free of significant occlusive disease. The right renal artery was not well visualized. Both common internal and external iliac arteries were widely patent. Common femoral arteries, superficial femoral arteries and profunda femoris arteries were widely patent. On the left side the primary problem was tibial disease, detailed picture below the level of mid calf were not obtained. On the right side, we had very detailed pictures and they showed that proximally there was an area of stenosis of approximately 50% proximally anterior tibial artery,80% stenosis distal third and in the posterior tibial artery there was a tight 90% stenosis just proximal tomid calf . The peroneal artery was patent to the ankle Subsequent to the performance of the diagnostic arteriogram, a stiff angled guidewire and eventually an Amplatz wire was advanced over the aortic bifurcation and a 7-Slovenian sheath positioned in the distal popliteal artery. Using road mapping techniques and a variety of wires the lesions were crossed and angioplastied PT 3 mm balloon with subsequent excellent results . No atherectomy device was used Subsequent to this, we removed the catheter from the groin and attempted to deploy a Perclose device . Heparin was given during the procedure . OPERATION CARRIED OUT: Aortofemoral angiogram via left groin with selective catheterization of popliteal artery, balloon angioplasty of anterior tibial and posterior tibial artery using a 2 and 3 mm balloon Karlos Gann Jr., MD cc: [id number] TT: 06/21/2016 21:30:55 Confirmation # [id number] Dictation # [id number] MTDD
== END 2016-06-22 19:55 | disposition home or self-care (01) ==
LOC: C.SPRAD 09:36 → C.3T 18:59 → C.SPRAD 19:25
PROVIDERS: ADMIT Surgery Vascular Surgery; ATTEND Surgery Vascular Surgery
DX: I70.245 Atherosclerosis of native arteries of left leg with ulceration of other part of foot (principal); E11.22 Type 2 diabetes mellitus with diabetic chronic kidney disease; I13.2 Hypertensive heart and chronic kidney disease with heart failure and with stage 5 chronic kidney disease, or end stage renal disease; I50.9 Heart failure, unspecified; N18.6 End stage renal disease; I48.91 Unspecified atrial fibrillation; Z99.2 Dependence on renal dialysis; Z79.82 Long term (current) use of aspirin; Z79.4 Long term (current) use of insulin; E83.39 Other disorders of phosphorus metabolism; N25.81 Secondary hyperparathyroidism of renal origin; D63.1 Anemia in chronic kidney disease; I25.10 Atherosclerotic heart disease of native coronary artery without angina pectoris; Z95.1 Presence of aortocoronary bypass graft; L97.529 Non-pressure chronic ulcer of other part of left foot with unspecified severity; I70.235 Atherosclerosis of native arteries of right leg with ulceration of other part of foot; L97.519 Non-pressure chronic ulcer of other part of right foot with unspecified severity
CPT/HCPCS: 36200; 36246; 36415; 37228; 75625; 75710; 80048; 82948; 84100; 85027; C1725; C1760; C1766; C1769; C1887; G0257; G0378; J1644; J2250; J2501; J3010; Q4081; Q9966; Q9967

== ENCOUNTER 2016-08-19 11:35 | Inpatient (IN) | payer MEDICARE ==
[2016-08-19 11:50] VITALS: BMI 25.6
[2016-08-19] MEDS ORDERED: Cefepime 1 GM in Sodium Chloride 0.9% 50 ML IVPB ONE (12:41)
--- NOTE | 2016-08-19 12:57 | RAD ---
PROCEDURE: Radiographs of the right tibia and fibula. HISTORY: RIGHT LOWER LEG WOUNDS COMPARISON: None available. TECHNIQUE: Frontal and lateral views obtained. FINDINGS: BONES: No fracture or destructive lesion. No osseous erosion or periosteal reaction. JOINT SPACES: Unremarkable. OTHER FINDINGS: Large soft tissue defect medial and lateral aspect of the lower extremity of the level of the mid tibial diaphysis. IMPRESSION: Soft tissue wounds as above. No radiographic evidence of osteomyelitis.
[2016-08-19 13:33] LABS: BASO % 0.3 % (0.0-2.0); EOS # 0.2 K/uL (0.0-0.7); EOS % 1.6 % (0.0-4.0); HEMATOCRIT 26.7 % (34.0-47.0); LYMPH % 7.6 % (20.0-40.0); MEAN CORPUSCULAR HEMOGLOBIN 27.8 pg (27.0-31.0); MEAN CORPUSCULAR HGB CONC 30.8 g/dL (33.0-37.0); MEAN PLATELET VOLUME 8.7 fL (7.2-11.7); MONO # 1.2 K/uL (0.0-0.8); MONO % 8.9 % (0.0-10.0); NRBC % 0.3 % (0.0-2.0); RED CELL DISTRIBUTION WIDTH 17.8 % (11.5-14.5); WHITE BLOOD COUNT 13.3 K/uL (4.8-10.8)
[2016-08-19 13:41] LABS: MEAN CELL VOLUME 90.2 fL (81.0-99.0); PLATELET COUNT 293 K/uL (130-400)
[2016-08-19 13:42] LABS: POTASSIUM 4.6 mmol/L (3.6-5.2)
[2016-08-19 13:44] LABS: ALB/GLOB RATIO 0.8 (1.0-2.1); BILIRUBIN,TOTAL 0.8 mg/dL (0.2-1.3)
--- NOTE | 2016-08-19 13:44 | C.PDOC ---
History Of Present Illness Patient sent to ER for evaluation of leg wounds that have developed after she had femomoral artery angioplasty/stenting done June [address] Lin. Patient states the wounds have been worsening over the past several weeks and are painful. She denies fever, chest pain, SOB. Patient s/p 1 regimen of PO Levaquin given by kohinoor operator. Time Seen by Provider: 08/19/16 12:07 Chief Complaint (Nursing): Lower Extremity Problem/Injury History Per: Patient History/Exam Limitations: other (poor historian) Onset/Duration Of Symptoms: Persistent Current Symptoms Are (Timing): Still Present Severity: Moderate Past Medical History Reviewed: Historical Data, Nursing Documentation, Vital Signs Vital Signs: Last Vital Signs Temp 98.3 F 08/19/16 11:44 Pulse 68 08/19/16 14:30 Resp 16 08/19/16 14:30 BP 111/43 L 08/19/16 14:30 Pulse Ox 97 08/19/16 15:18 - Medical History PMH: Anemia, Cardia Arrhythmia (hx atril fib), CHF, Gall Bladder Disease, HTN, Hyperlipidemia, Peripheral Edema, End Stage Renal Disease, Chronic Kidney Disease Surgical History: Appendectomy, Cholecystectomy, Endoscopy - [facility] Procedures PERFORMANCE OF URINARY FILTRATION, MULTIPLE (06/04/16) ULTRASONOGRAPHY OF RIGHT AND LEFT HEART, TRANSESOPHAGEAL (06/04/16) Family History: States: No Known Family Hx - Social History Hx Alcohol Use: No Hx Substance Use: No - Immunization History Hx Tetanus Toxoid Vaccination: No Hx Influenza Vaccination: No Hx Pneumococcal Vaccination: No Review Of Systems Except As Marked, All Systems Reviewed And Found Negative. Constitutional: Negative for: Fever, Chills Cardiovascular: Negative for: Chest Pain, Palpitations Respiratory: Negative for: Cough, Shortness of Breath Gastrointestinal: Negative for: Nausea, Vomiting, Abdominal Pain, Diarrhea Musculoskeletal: Positive for: Other (right leg wounds ) Physical Exam - Physical Exam Appears: Non-toxic, No Acute Distress Skin: Warm, Dry, Other (see extremity exam) Eye(s): bilateral: Normal Inspection, Other (cataracts B/L) Oral Mucosa: Moist Neck: Other (thyroidectomy scar) Chest: Other (midline sternotomy scar) Cardiovascular: Rhythm Regular Respiratory: Normal Breath Sounds, No Rales, No Rhonchi, No Wheezing Gastrointestinal/Abdominal: Normal Exam, Bowel Sounds, Soft, No Tenderness Extremity: Other (right loweer leg medial aspect - approx 7cm in length large wound with fibrinous tissue andsurrounding erythema, no purulent discharge, lateral aspect - two approx 3cm open wounds similar in appaerance) Pulses: Left Dorsalis Pedis: Decreased, Right Dorsalis Pedis: Decreased Neurological/Psych: Oriented x3 ED Course And Treatment - Laboratory Results Result Diagrams: 08/19/16 13:23 08/19/16 13:23 O2 Sat by Pulse Oximetry: 97 Progress Note: Blood work, Xray of leg ordered and reviewed. IV Vancomycin and IV cefepime given. 3:15pm- Spoke with Dr. Lin, will see patient on vascular surgery consult, recommends medical admission. Pending cakk back from PMD Dr. Mendez.
[2016-08-19 13:58] LABS: BASOPHIL 1 % (0-2); EOSINOPHIL 2 % (0-4); NEUTROPHIL 86 % (50-75); TOTAL CELLS COUNTED 100
[2016-08-19] MEDS ORDERED: Cefepime 1 GM in Sodium Chloride 0.9% 100 ML IVPB ONE (14:00)
[2016-08-19 14:56] LABS: ERYTHROCYTE SEDIMENTATION RATE 86 mm/hr (0-20)
--- NOTE | 2016-08-19 16:42 | CP.PCM.HP ---
History of Present Illness - History of Present Illness History of Present Illness: Pt is seen and examined. Patient is a 68 y.o. F w/ PMHx of ESRD T, TH, S, CHF, DM2, HTN, PAD, CAD, and HLD, reports 2 non-healing ulcers located on the medial and lateral aspects of the Right lower extremity along the mid-tibia. Patient reports the wounds have been present for 4 weeks and have not healed and only progressively worsened. Patient further admits to intermittent pain 10/10 that is only alleviated with percocet. Patient denies any other wounds. Patient further reports intermittent ambulation but must stop and rest due to cramping in the BL LE. Patient admits to weight gain, diarrhea, lower extremity swelling, and claudication. PSHx - 1x, angioplasty in RLE, thyroidectomy, NATALIA, appendectomy, CABG PMHx - see above All - none Medications - ASA, gabapentin, unable to obtain further information Present on Admission - Present on Admission Any Indicators Present on Admission: No Review of Systems - Constitutional Constitutional: Weight Gain. absent: Chills, Fever, Headache, Weight Loss - EENT Eyes: absent: Change in Vision Ears: absent: Dizziness - Cardiovascular Cardiovascular: Claudication. absent: Chest Pain, Dyspnea on Exertion, Palpitations - Respiratory Respiratory: absent: Cough, Dyspnea - Gastrointestinal Gastrointestinal: Diarrhea. absent: Constipation, Nausea, Vomiting - Musculoskeletal Musculoskeletal: Back Pain, Muscle Cramps - Integumentary Integumentary: Skin Ulcer, Sores Past Patient History - Past Medical History & Family History Past Medical History?: Yes - Past Social History Smoking Status: Never Smoked - CARDIAC Hx Cardia Arrhythmia: Yes (hx atril fib) Hx Congestive Heart Failure: Yes Hx Hypertension: Yes Hx Peripheral Edema: Yes - PULMONARY Hx Respiratory Disorders: No - NEUROLOGICAL Hx Neurological Disorder: Yes - HEENT Hx HEENT Problems: Yes Hx Cataracts: Yes (bilat iol) - RENAL Hx Chronic Kidney Disease: Yes - ENDOCRINE/METABOLIC Hx Endocrine Disorders: Yes Hx Diabetes Mellitus Type 2: Yes - HEMATOLOGICAL/ONCOLOGICAL Hx Anemia: Yes - INTEGUMENTARY Hx Dermatological Problems: Yes (discolored areas generalized, generalized pruritus) - MUSCULOSKELETAL/RHEUMATOLOGICAL Hx Musculoskeletal Disorders: Yes Hx Falls: No - GASTROINTESTINAL Hx Gall Bladder Disease: Yes - GENITOURINARY/GYNECOLOGICAL Hx Genitourinary Disorders: Yes (hx fibroid uterus hysterectomy) - PSYCHIATRIC Hx Substance Use: No - SURGICAL HISTORY Hx Appendectomy: Yes Hx Cholecystectomy: Yes - ANESTHESIA Hx Anesthesia: Yes Hx Anesthesia Reactions: No Hx Malignant Hyperthermia: No Meds Allergies/Adverse Reactions: Allergies Allergy/AdvReac Type Severity Reaction Status Date / Time No Known Allergies Allergy Verified 06/03/16 20:06 Physical Exam - Constitutional Appears: Non-toxic, No Acute Distress - Head Exam Head Exam: ATRAUMATIC, NORMOCEPHALIC - Eye Exam Eye Exam: Normal appearance - ENT Exam ENT Exam: Normal Exam - Respiratory Exam Respiratory Exam: NORMAL BREATHING PATTERN - Cardiovascular Exam Cardiovascular Exam: REGULAR RHYTHM, +S1, +S2. absent: Tachycardia - Extremities Exam Extremities exam: Positive for: tenderness. Negative for: pedal pulses present Additional comments: palpable PT/DP in Left foot non-palpable in right palpable popliteal b/l right LE warm to touch and erythematous - Neurological Exam Neurological exam: Alert - Psychiatric Exam Psychiatric exam: Normal Mood - Skin Skin Exam: Erythema, Warm Results - Vital Signs Recent Vital Signs: Last Vital Signs Temp 98.3 F 08/19/16 11:44 Pulse 68 08/19/16 14:30 Resp 16 08/19/16 14:30 BP 111/43 L 08/19/16 14:30 Pulse Ox 97 08/19/16 15:55 - Labs Result Diagrams: 08/19/16 13:23 08/19/16 13:23 Assessment & Plan - Assessment and Plan (Free Text) Assessment: 66 year old female with non-healing ulcers on the right lower extremity. Plan: CTA w/ illeofemoral run-off Venous Doppler of LE abx further recs pending results d/w Dr Sanjuanita Grace, DO, PGY2 - Date & Time Date: 08/19/16 Time: 16:53
[2016-08-19] MEDS: (Novolog) Insulin Aspart, Recombinant 100 u/ml 10 ml vial SC SCH (22:11)
[2016-08-19] MEDS: Insulin Detemir 100 units/ml Vial (Levemir) SC SCH (22:16)
[2016-08-19] MEDS: Oxycodone/Acetaminophen 5/325 mg Tab PO PRN (22:17)
--- NOTE | 2016-08-20 07:26 | CP.PCM.PN ---
Subjective - Date & Time of Evaluation Date of Evaluation: 08/20/16 Time of Evaluation: 07:25 - Subjective Subjective: Vasc Sx: Dr Gann PT S&E. SELENAO. Reports a lot of pain in RLE. Pain medicine helps. Pt is pending imaging. For dialysis today, should receive CTA prior to dialysis. Objective - Vital Signs/Intake and Output Vital Signs (last 24 hours): Temp Pulse Resp BP Pulse Ox 97.6 F 76 20 141/80 98 08/20/16 00:00 08/20/16 00:00 08/20/16 00:00 08/20/16 00:00 08/20/16 00:00 Intake and Output: 08/20/16 08/20/16 06:59 18:59 Intake Total 250 Balance 250 - Medications Medications: Current Medications Amiodarone HCl (Cordarone) 200 mg PO DAILY [facility] Ascorbic Acid (Vitamin C 500 Mg Tab) 500 mg PO DAILY [facility] Furosemide (Lasix) 40 mg PO BID [facility] Gabapentin (Neurontin) 100 mg PO TID [facility] Glimepiride (Amaryl) 4 mg PO DAILY [facility] Cefepime HCl (Maxipime Iv 1 Gm Premix) 1 gm in 50 mls @ 100 mls/hr IVPB Q24H [facility] Vancomycin HCl 500 mg/ Sodium (Chloride) 100 mls @ 100 mls/hr IVPB TTS [facility] Insulin Aspart (Novolog) 0 unit SC ACHS [facility] PRN Reason: Protocol Last Admin: 08/19/16 22:11 Dose: Not Given Insulin Detemir (Levemir) 15 unit SC HS [facility] Last Admin: 08/19/16 22:16 Dose: 15 unit Losartan Potassium (Cozaar) 100 mg PO DAILY [facility] Metolazone (Zaroxolyn) 5 mg PO DAILY [facility] Oxycodone/Acetaminophen (Percocet 5/325 Mg Tab) 1 tab PO Q6H PRN PRN Reason: Pain, moderate (4-7) Stop: 08/22/16 20:43 Last Admin: 08/19/16 22:17 Dose: 1 tab Pantoprazole Sodium (Protonix Ec Tab) 40 mg PO DAILY [facility] Rosuvastatin Calcium (Crestor) 20 mg PO HS [facility] Last Admin: 08/19/16 22:14 Dose: 20 mg Sevelamer Carbonate (Renvela) 1,600 mg PO TIDCC [facility] Zolpidem Tartrate (Ambien) 5 mg PO HS PRN PRN Reason: Insomnia - Constitutional Appears: Non-toxic, No Acute Distress - Respiratory Exam Respiratory Exam: absent: Accessory Muscle Use, Respiratory Distress - Extremities Exam Additional comments: right extremity with medial/later ulcers with fibrous exudate dressing changed at bedside - Neurological Exam Neurological Exam: Alert, Awake - Skin Skin Exam: Normal Color, Warm Assessment and Plan - Assessment and Plan (Free Text) Assessment: 66F with non-healing ulcers of RLE Plan: imaging ordered will f/u on results CTA before dialysis today will d/w Dr Sanjuaniat Grace, PGY2
[2016-08-20] MEDS: (Novolog) Insulin Aspart, Recombinant 100 u/ml 10 ml vial SC SCH ×3 (08:53→19:30)
[2016-08-20] MEDS: Pantoprazole 40 mg EC Tab PO SCH (09:57)
[2016-08-20] MEDS: metOLazone 5 MG TAB PO SCH (09:58)
--- NOTE | 2016-08-20 09:59 | CP.PCM.CON ---
History of Present Illness - History of Present Illness History of Present Illness: pt seen and examined, full consult is dictated #[id number] for hd today after angiogram Past Patient History - Past Medical History & Family History Past Medical History?: Yes - Past Social History Smoking Status: Never Smoked - CARDIAC Hx Cardiac Disorders: Yes Hx Cardia Arrhythmia: Yes (hx atril fib) Hx Congestive Heart Failure: Yes Hx Hypertension: Yes Hx Peripheral Edema: Yes - PULMONARY Hx Respiratory Disorders: No - NEUROLOGICAL Hx Neurological Disorder: No - HEENT Hx HEENT Problems: Yes Hx Cataracts: Yes (bilat iol) - RENAL Hx Chronic Kidney Disease: Yes Hx Dialysis: Yes Type of Dialysis Access: left fore arm av fistula, Date of Last Dialysis Treatment: 08/17/16 Other/Comment: dialysis Tue, MAKENZIE, sat - ENDOCRINE/METABOLIC Hx Endocrine Disorders: Yes Hx Diabetes Mellitus Type 2: Yes - HEMATOLOGICAL/ONCOLOGICAL Hx Blood Disorders: Yes Hx Anemia: Yes - INTEGUMENTARY Hx Dermatological Problems: Yes (discolored areas generalized, generalized pruritus) - MUSCULOSKELETAL/RHEUMATOLOGICAL Hx Musculoskeletal Disorders: Yes Hx Falls: No Hx Unsteady Gait: Yes - GASTROINTESTINAL Hx Gastrointestinal Disorders: Yes Hx Gall Bladder Disease: Yes - GENITOURINARY/GYNECOLOGICAL Hx Genitourinary Disorders: Yes (hx fibroid uterus hysterectomy) - PSYCHIATRIC Hx Psychophysiologic Disorder: No Hx Substance Use: No - SURGICAL HISTORY Hx Surgeries: Yes Hx Appendectomy: Yes Hx Cholecystectomy: Yes - ANESTHESIA Hx Anesthesia: Yes Hx Anesthesia Reactions: No Hx Malignant Hyperthermia: No Has any member of the family had a problem w/ anesthesia?: No Meds Allergies/Adverse Reactions: Allergies Allergy/AdvReac Type Severity Reaction Status Date / Time No Known Allergies Allergy Verified 06/03/16 20:06 - Medications Medications: Current Medications Amiodarone HCl (Cordarone) 200 mg PO DAILY [facility] Ascorbic Acid (Vitamin C 500 Mg Tab) 500 mg PO DAILY [facility] Furosemide (Lasix) 40 mg PO BID [facility] Gabapentin (Neurontin) 100 mg PO TID [facility] Glimepiride (Amaryl) 4 mg PO DAILY [facility] Heparin Sodium (Porcine) (Heparin) 5,000 units SC Q8 [facility] Cefepime HCl (Maxipime Iv 1 Gm Premix) 1 gm in 50 mls @ 100 mls/hr IVPB Q24H [facility] Vancomycin HCl 500 mg/ Sodium (Chloride) 100 mls @ 100 mls/hr IVPB TTS [facility] Insulin Aspart (Novolog) 0 unit SC ACHS [facility] PRN Reason: Protocol Last Admin: 08/20/16 08:53 Dose: Not Given Insulin Detemir (Levemir) 15 unit SC HS [facility] Last Admin: 08/19/16 22:16 Dose: 15 unit Losartan Potassium (Cozaar) 100 mg PO DAILY [facility] Metolazone (Zaroxolyn) 5 mg PO DAILY [facility] Oxycodone/Acetaminophen (Percocet 5/325 Mg Tab) 1 tab PO Q6H PRN PRN Reason: Pain, moderate (4-7) Stop: 08/22/16 20:43 Last Admin: 08/19/16 22:17 Dose: 1 tab Pantoprazole Sodium (Protonix Ec Tab) 40 mg PO DAILY [facility] Rosuvastatin Calcium (Crestor) 20 mg PO HS [facility] Last Admin: 08/19/16 22:14 Dose: 20 mg Sevelamer Carbonate (Renvela) 1,600 mg PO TIDCC [facility] Zolpidem Tartrate (Ambien) 5 mg PO HS PRN PRN Reason: Insomnia Results - Vital Signs Recent Vital Signs: Last Vital Signs Temp 98.7 F 08/20/16 08:00 Pulse 71 08/20/16 08:00 Resp 20 08/20/16 08:00 BP 136/66 08/20/16 08:00 Pulse Ox 97 08/20/16 08:00 - Labs Result Diagrams: 08/19/16 13:23 08/19/16 13:23 Labs: Laboratory Results - last 24 hr 08/19/16 08/19/16 08/20/16 19:00 21:11 07:18 POC Glucose (mg/dL) 118 H 171 H 59 L 08/20/16 07:46 POC Glucose (mg/dL) 144 H
[2016-08-20] MEDS: Oxycodone/Acetaminophen 5/325 mg Tab PO PRN ×2 (10:11→23:25)
[2016-08-20] MEDS: Cefepime IV 1 gm in Dextrose 1 GM/50 ML BAG IVPB SCH (10:56)
--- NOTE | 2016-08-20 11:40 | CP.PCM.CON ---
History of Present Illness - History of Present Illness History of Present Illness: Patient sent to ER for evaluation of leg wounds that have developed after she had femomoral artery angioplasty/stenting done June [address] Gann. Patient states the wounds have been worsening over the past several weeks and are painful. She denies fever, chest pain, SOB. Patient s/p 1 regimen of PO Levaquin given by finishing inspector. - Medical History PMH: Anemia, Cardia Arrhythmia (hx atril fib), CHF, Gall Bladder Disease, HTN, Hyperlipidemia, Peripheral Edema, End Stage Renal Disease, Chronic Kidney Disease Surgical History: Appendectomy, Cholecystectomy, Endoscopy - [facility] Procedures PERFORMANCE OF URINARY FILTRATION, MULTIPLE (06/04/16) ULTRASONOGRAPHY OF RIGHT AND LEFT HEART, TRANSESOPHAGEAL (06/04/16) Past Patient History - Past Medical History & Family History Past Medical History?: Yes - Past Social History Smoking Status: Never Smoked - CARDIAC Hx Cardiac Disorders: Yes Hx Cardia Arrhythmia: Yes (hx atril fib) Hx Congestive Heart Failure: Yes Hx Hypertension: Yes Hx Peripheral Edema: Yes - PULMONARY Hx Respiratory Disorders: No - NEUROLOGICAL Hx Neurological Disorder: No - HEENT Hx HEENT Problems: Yes Hx Cataracts: Yes (bilat iol) - RENAL Hx Chronic Kidney Disease: Yes Hx Dialysis: Yes Type of Dialysis Access: left fore arm av fistula, Date of Last Dialysis Treatment: 08/17/16 Other/Comment: dialysis Tue, MAKENZIE, sat - ENDOCRINE/METABOLIC Hx Endocrine Disorders: Yes Hx Diabetes Mellitus Type 2: Yes - HEMATOLOGICAL/ONCOLOGICAL Hx Blood Disorders: Yes Hx Anemia: Yes - INTEGUMENTARY Hx Dermatological Problems: Yes (discolored areas generalized, generalized pruritus) - MUSCULOSKELETAL/RHEUMATOLOGICAL Hx Musculoskeletal Disorders: Yes Hx Falls: No Hx Unsteady Gait: Yes - GASTROINTESTINAL Hx Gastrointestinal Disorders: Yes Hx Gall Bladder Disease: Yes - GENITOURINARY/GYNECOLOGICAL Hx Genitourinary Disorders: Yes (hx fibroid uterus hysterectomy) - PSYCHIATRIC Hx Psychophysiologic Disorder: No Hx Substance Use: No - SURGICAL HISTORY Hx Surgeries: Yes Hx Appendectomy: Yes Hx Cholecystectomy: Yes - ANESTHESIA Hx Anesthesia: Yes Hx Anesthesia Reactions: No Hx Malignant Hyperthermia: No Has any member of the family had a problem w/ anesthesia?: No Meds Allergies/Adverse Reactions: Allergies Allergy/AdvReac Type Severity Reaction Status Date / Time No Known Allergies Allergy Verified 06/03/16 20:06 - Medications Medications: Current Medications Amiodarone HCl (Cordarone) 200 mg PO DAILY [facility] Last Admin: 08/20/16 09:56 Dose: Not Given Ascorbic Acid (Vitamin C 500 Mg Tab) 500 mg PO DAILY [facility] Last Admin: 08/20/16 09:58 Dose: Not Given Epoetin Rocky (Procrit) 20,000 unit IV TTS [facility] Furosemide (Lasix) 40 mg PO BID [facility] Last Admin: 08/20/16 09:57 Dose: Not Given Gabapentin (Neurontin) 100 mg PO TID [facility] Last Admin: 08/20/16 09:57 Dose: Not Given Glimepiride (Amaryl) 4 mg PO DAILY [facility] Last Admin: 08/20/16 09:56 Dose: Not Given Heparin Sodium (Porcine) (Heparin) 5,000 units SC Q8 [facility] Cefepime HCl (Maxipime Iv 1 Gm Premix) 1 gm in 50 mls @ 100 mls/hr IVPB Q24H [facility] Last Admin: 08/20/16 10:56 Dose: 100 mls/hr Vancomycin HCl 500 mg/ Sodium (Chloride) 100 mls @ 100 mls/hr IVPB TTS [facility] Insulin Aspart (Novolog) 0 unit SC ACHS [facility] PRN Reason: Protocol Last Admin: 08/20/16 08:53 Dose: Not Given Insulin Detemir (Levemir) 15 unit SC [facility] Last Admin: 08/19/16 22:16 Dose: 15 unit Losartan Potassium (Cozaar) 100 mg PO DAILY [facility] Last Admin: 08/20/16 09:56 Dose: Not Given Metolazone (Zaroxolyn) 5 mg PO DAILY [facility] Last Admin: 08/20/16 09:58 Dose: Not Given Oxycodone/Acetaminophen (Percocet 5/325 Mg Tab) 1 tab PO Q6H PRN PRN Reason: Pain, moderate (4-7) Stop: 08/22/16 20:43 Last Admin: 08/20/16 10:11 Dose: 1 tab Pantoprazole Sodium (Protonix Ec Tab) 40 mg PO DAILY [facility] Last Admin: 08/20/16 09:57 Dose: Not Given Paricalcitol (Zemplar) 2 mcg IV TTS [facility] Rosuvastatin Calcium (Crestor) 20 mg PO HS [facility] Last Admin: 08/19/16 22:14 Dose: 20 mg Sevelamer Carbonate (Renvela) 1,600 mg PO TIDCC [facility] Last Admin: 08/20/16 09:10 Dose: 1,600 mg Zolpidem Tartrate (Ambien) 5 mg PO HS PRN PRN Reason: Insomnia Results - Vital Signs Recent Vital Signs: Last Vital Signs Temp 98.7 F 08/20/16 08:00 Pulse 71 08/20/16 08:00 Resp 20 08/20/16 08:00 BP 136/66 08/20/16 08:00 Pulse Ox 97 08/20/16 08:00 - Labs Result Diagrams: 08/19/16 13:23 08/19/16 13:23 Labs: Laboratory Results - last 24 hr 08/19/16 08/19/16 08/20/16 19:00 21:11 07:18 POC Glucose (mg/dL) 118 H 171 H 59 L 08/20/16 08/20/16 07:46 11:20 POC Glucose (mg/dL) 144 H 214 H
[2016-08-20] MEDS ORDERED: Iodixanol 320 mg/ml 150 ml Bottle IV ONE (11:53)
--- NOTE | 2016-08-20 11:57 | CARD ---
APPROVED REPORT EKG Measurement Heart [id number] [place] [id number] <Conclusion> Sinus rhythm with 1st degree AV block Right bundle branch block Septal infarct, age undetermined Abnormal ECG
[2016-08-20 15:47] LABS: PHOSPHOROUS 6.2 mg/dL (2.5-4.5)
[2016-08-20] MEDS ORDERED: Epoetin Alfa Dialysis 20000 UNIT/ML Inj IV SCH (16:00)
[2016-08-20] MEDS ORDERED: Paricalcitol 2 mcg/ml Inj IV SCH (16:00)
[2016-08-20 16:02] LABS: IRON 34 ug/dL (37-170)
--- NOTE | 2016-08-20 16:44 | CT ---
PROCEDURE: CT Angiography Abdomen, Pelvis and Lower Extremity with Contrast HISTORY: PVD COMPARISON: None. TECHNIQUE: Technique: CT angiography of the abdomen, pelvis and bilateral lower extremities performed in the arterial phase of enhancement. Coronal and sagittal reformats, and well as rotating MIP images of the vessels generated at the workstation. Intravenous contrast dose: 100 milliliters Visipaque 320 Radiation dose: Total exam DLP = 2151.42 MGy-cm. This CT exam was performed using one or more of the following dose reduction techniques: Automated exposure control, adjustment of the mA and/or kV according to patient size, and/or use of iterative reconstruction technique. FINDINGS: CT ANGIOGRAPHY: ABDOMINAL AORTA:: Moderate calcific plaque throughout the abdominal aorta without aneurysm or stenosis. MAJOR AORTIC BRANCHES: Celiac [place]: Circumferential calcific plaque throughout the celiac artery and branches with no stenosis. Superior mesenteric artery: Circumferential calcification with no stenosis Inferior mesenteric artery: Calcified no stenosis. Renal arteries: Stenotic. Atrophic kidneys PELVIC ARTERIES: Right Common Iliac: Moderate circumferential calcific plaque no stenosis Right External Iliac: Calcific plaque but no stenosis Right Internal Iliac: Calcific plaque no stenosis Left Common Iliac: Circumferential calcific plaque no stenosis Left External Iliac: Circumferential calcific plaque no stenosis Left Internal Iliac: Unremarkable. RIGHT LOWER EXTREMITY ARTERIES: Right Common Femoral: Circumferential calcific plaque no stenosis Right Superficial Femoral: Moderate calcific plaque throughout the SFA with areas no significant stenosis distally. Right Profunda Femoris: Moderate calcific plaque with no stenosis Right Popliteal:mild calcific plaque with 60 % stenosis at the knee Right Anterior Tibial: Heavily calcified but patent. Right Tibioperoneal Trunk: Heavily calcified appears patent Right Posterior Tibial: Heavily calcified appears patent Right Peroneal: Heavily calcified is patent. Right dorsalis pedis : Unremarkable. LEFT LOWER EXTREMITY ARTERIES: Left Common Femoral: A calcific plaque with no stenosis. Left Superficial Femoral: Moderate circumferential calcification with 50 percent stenosis distally. Left Profunda Femoris: Unremarkable. Left Popliteal: Moderate calcific plaque with mild stenosis. Left Anterior Tibial: Heavily calcified and patent. Left Tibioperoneal Trunk: Unremarkable. Left Posterior Tibial: Heavily calcified and is patent. Left Peroneal: Moderate calcific and ispatent. Left Dorsalis pedis: Unremarkable. NON-ANGIOGRAPHIC ASPECT OF THE EXAM: LOWER THORAX: Small tobt-ak-rartj effusions. LIVER: Decreased attenuation consistent with fatty liver. GALLBLADDER AND BILE DUCTS: Cholecystectomy. There is is is unremarkable PANCREAS: Unremarkable. No gross lesion or ductal dilatation. SPLEEN: Unremarkable. ADRENALS: Unremarkable. No mass. KIDNEYS AND URETERS: Atrophic kidneys. Hypo dense lesion left kidney too small to characterize. STOMACH AND BOWEL: Limited evaluation of PO contrast. No obvious mass. APPENDIX: PERITONEUM: Unremarkable. No free fluid. No free air. LYMPH NODES: Unremarkable. No enlarged lymph nodes. BLADDER: Thick-walled posterior-lateral. . REPRODUCTIVE: BONES: Osteopenia. OTHER FINDINGS: Anasarca. IMPRESSION: A) CT ANGIOGRAM ABDOMEN/ PELVIS: 1. Diffuse arterial wall calcification without significant stenosis in the aorta, its major branches, or pelvic arteries. B. RIGHT LOWER EXTREMITY CT ANGIOGRAM: 1. Diffuse calcific plaque throughout the common femoral artery, superficial femoral artery, popliteal artery. There is 60 percent stenosis of the popliteal artery behind the knee. 2. There is 3 vessel runoff. The tibial vessels however are heavily calcified. C. LEFT LOWER EXTREMITY CT ANGIOGRAM: 1 calcific plaque throughout the common femoral artery, superficial femoral artery popliteal artery of which are patent. There is moderate stenosis of the distal SFA. 2. Three-vessel runoff. The tibial vessels are calcified and appear patent. NONVASCULAR FINDINGS: As per above.
--- NOTE | 2016-08-20 19:29 | CP.PCM.CON ---
History of Present Illness - History of Present Illness History of Present Illness: PODIATRY CONSULT NOTE FOR DR. RAMON: This is a 66 yo female patient w/ pmhx sign. for DM2, ESRD (on dialysis), HTN, PAD, CAD and hyperlipidemia who was seen at bedside today with Dr. Ramon following request for podiatry consult. Pt seen resting in bed in dialysis unit at time of visit. Pt states that she has had wounds to the right leg for the past few weeks that are not healing and getting worse. Says that the wounds are painful to touch. Denies any pus from the wounds. Of note, patient had a femoral artery angioplasty with stenting in June with Dr. Gann. Denies any other pedal complaints at this time. Denies f.n.v.c.pedro.cp. Review of Systems - Review of Systems Review of Systems: All systems reviewed and found to be negative except pertinent HPI findings above Past Patient History - Past Medical History & Family History Past Medical History?: Yes - Past Social History Smoking Status: Never Smoked - CARDIAC Hx Cardiac Disorders: Yes Hx Cardia Arrhythmia: Yes (hx atril fib) Hx Congestive Heart Failure: Yes Hx Hypertension: Yes Hx Peripheral Edema: Yes - PULMONARY Hx Respiratory Disorders: No - NEUROLOGICAL Hx Neurological Disorder: No - HEENT Hx HEENT Problems: Yes Hx Cataracts: Yes (bilat iol) - RENAL Hx Chronic Kidney Disease: Yes Hx Dialysis: Yes Type of Dialysis Access: left fore arm av fistula, Date of Last Dialysis Treatment: 08/17/16 Other/Comment: dialysis Tue, [place]KENZIE, sat - ENDOCRINE/METABOLIC Hx Endocrine Disorders: Yes Hx Diabetes Mellitus Type 2: Yes - HEMATOLOGICAL/ONCOLOGICAL Hx Blood Disorders: Yes Hx Anemia: Yes - INTEGUMENTARY Hx Dermatological Problems: Yes (discolored areas generalized, generalized pruritus) - MUSCULOSKELETAL/RHEUMATOLOGICAL Hx Musculoskeletal Disorders: Yes Hx Falls: No Hx Unsteady Gait: Yes - GASTROINTESTINAL Hx Gastrointestinal Disorders: Yes Hx Gall Bladder Disease: Yes - GENITOURINARY/GYNECOLOGICAL Hx Genitourinary Disorders: Yes (hx fibroid uterus hysterectomy) - PSYCHIATRIC Hx Psychophysiologic Disorder: No Hx Substance Use: No - SURGICAL HISTORY Hx Surgeries: Yes Hx Appendectomy: Yes Hx Cholecystectomy: Yes - ANESTHESIA Hx Anesthesia: Yes Hx Anesthesia Reactions: No Hx Malignant Hyperthermia: No Has any member of the family had a problem w/ anesthesia?: No Meds Allergies/Adverse Reactions: Allergies Allergy/AdvReac Type Severity Reaction Status Date / Time No Known Allergies Allergy Verified 06/03/16 20:06 - Medications Medications: Current Medications Amiodarone HCl (Cordarone) 200 mg PO DAILY [facility] Last Admin: 08/20/16 09:56 Dose: Not Given Ascorbic Acid (Vitamin C 500 Mg Tab) 500 mg PO DAILY [facility] Last Admin: 08/20/16 09:58 Dose: Not Given Collagenase (Santyl) 0 gm TOP DAILY [facility] Epoetin Rocky (Procrit) 20,000 unit IV TTS [facility] Last Admin: 08/20/16 16:23 Dose: 20,000 unit Furosemide (Lasix) 40 mg PO BID [facility] Last Admin: 08/20/16 09:57 Dose: Not Given Gabapentin (Neurontin) 100 mg PO TID [facility] Last Admin: 08/20/16 09:57 Dose: Not Given Glimepiride (Amaryl) 4 mg PO DAILY [facility] Last Admin: 08/20/16 09:56 Dose: Not Given Heparin Sodium (Porcine) (Heparin) 5,000 units SC Q8 [facility] Cefepime HCl (Maxipime Iv 1 Gm Premix) 1 gm in 50 mls @ 100 mls/hr IVPB Q24H [facility] Last Admin: 08/20/16 10:56 Dose: 100 mls/hr Vancomycin HCl 500 mg/ Sodium (Chloride) 100 mls @ 100 mls/hr IVPB TTS [facility] Insulin Aspart (Novolog) 0 unit SC ACHS [facility] PRN Reason: Protocol Last Admin: 08/20/16 12:19 Dose: 2 unit Insulin Detemir (Levemir) 15 unit SC HS [facility] Last Admin: 08/19/16 22:16 Dose: 15 unit Losartan Potassium (Cozaar) 100 mg PO DAILY [facility] Last Admin: 08/20/16 09:56 Dose: Not Given Metolazone (Zaroxolyn) 5 mg PO DAILY [facility] Last Admin: 08/20/16 09:58 Dose: Not Given Oxycodone/Acetaminophen (Percocet 5/325 Mg Tab) 1 tab PO Q6H PRN PRN Reason: Pain, moderate (4-7) Stop: 08/22/16 20:43 Last Admin: 08/20/16 10:11 Dose: 1 tab Pantoprazole Sodium (Protonix Ec Tab) 40 mg PO DAILY [facility] Last Admin: 08/20/16 09:57 Dose: Not Given Paricalcitol (Zemplar) 2 mcg IV TTS [facility] Last Admin: 08/20/16 16:22 Dose: 2 mcg Rosuvastatin Calcium (Crestor) 20 mg PO HS [facility] Last Admin: 08/19/16 22:14 Dose: 20 mg Sevelamer Carbonate (Renvela) 1,600 mg PO TIDCC [facility] Last Admin: 08/20/16 12:21 Dose: 1,600 mg Zolpidem Tartrate (Ambien) 5 mg PO HS PRN PRN Reason: Insomnia Physical Exam - Constitutional Appears: Non-toxic, No Acute Distress, Chronically Ill - Extremities Exam Extremities exam: Negative for: calf tenderness Additional comments: Bilateral lower extremity exam: VASC: DP pulse palpable 1/4 (left), DP pulse non-palp on right, PT pulse non- palpable BL cap refill > 4 sec to all digits, skin temp runs warm to cool BL, 2 + pitting edema noted to distal right leg DERM: large full thickness ulceration noted to medial aspect of leg leg ( measures approx 7.5x 4.0x0.3 cm) with mixed fibrogranular base, no purulence no malodor, slight surrounding erythema is present, moderate serous drainage is noted, no fluctuance, no probe to bone, no sinus tracks, there are 3 additional full thickness ulcerations noted to distal lateral aspect of left leg each measures approx 1.0x1.0x0.3 cm with mixed fibrogranular base, no purulence, moderate serous drainage is noted, no sinus tracking, no fluctance, no surrounding erythema. NEURO: low ext sensation grossly diminished BL (sensate to sharp touch) ORTHO: no gross deformities appreciated - Neurological Exam Neurological exam: Alert, CN II-XII Intact, Oriented x3 - Psychiatric Exam Psychiatric exam: Normal Affect, Normal Mood Results - Vital Signs Recent Vital Signs: Last Vital Signs Temp 97.5 F L 08/20/16 18:25 Pulse 74 08/20/16 18:25 Resp 17 08/20/16 18:25 BP 154/64 H 08/20/16 18:25 Pulse Ox 100 08/20/16 18:25 - Labs Result Diagrams: 08/19/16 13:23 08/19/16 13:23 Labs: Laboratory Results - last 24 hr 08/19/16 08/20/16 08/20/16 21:11 07:18 07:46 POC Glucose (mg/dL) 171 H 59 L 144 H Phosphorus Iron TIBC % Saturation Ferritin 08/20/16 08/20/16 08/20/16 11:20 15:32 15:32 POC Glucose (mg/dL) 214 H Phosphorus 6.2 H Iron 34 L TIBC 299 % Saturation 11 L Ferritin 181.0 08/20/16 16:11 POC Glucose (mg/dL) 225 H Phosphorus Iron TIBC % Saturation Ferritin Assessment & Plan - Assessment and Plan (Free Text) Assessment: 66 yo female patient with non-healing ulcerations of right lower extremity Plan: -Pt S&E at bedside with attending Dr. Ramon -Chart, labs and vitals reviewed: afebrile, slight leukocytosis (13.3) with left shift -ESR elevated (86) -Left tib-fib x-ray: (-) for OM -CTA abdomen/pelvis (08/20/16): * right diffuse plaque throughout CF artery, SFA, popliteal artery, 60% stenosis of popliteal artery behind the knee, tibial vessels heavily calcified * left calcific plaque of [employer], SFA and politeal artery. Moderate stenosis of distal SFA, tibial vessels are calcified & patent -Right leg wounds cleansed with sterile normal saline, dressed with xeroform, ABD, kerlix -Santyl ordered. To be applied tomorrow w/ daily dressing changes -c/w IV abx per ID, pain meds per primary -Podiatry will follow
[2016-08-20] MEDS: Insulin Detemir 100 units/ml Vial (Levemir) SC SCH (21:22)
[2016-08-21 01:09] VITALS: RESP 20
--- NOTE | 2016-08-21 03:04 | CON ---
DATE: 08/20/2016 LOCATION: The patient is located in room 352, bed B. REQUESTED BY: Dr. Citlalli Mendez. REASON FOR RENAL CONSULTATION: End-stage renal disease, continuation of the hemodialysis, right leg ulcers. HISTORY OF PRESENT ILLNESS: The patient is a 66-year-old elderly [place] female with a past medical history significant for diabetes since 2004, hypertension, AFib, coronary artery disease status post CABG, end-stage renal disease, on hemodialysis for the last 4-5 years, peripheral vascular disease, status post angiogram and angioplasty of the right lower extremity. A few months ago, was admitted with nonhealing ulcer on the right lower extremity on the medial and lateral aspect of the leg for the last few months. The patient was admitted with pain and also swelling of the legs and nonhealing ulcer. Denies any fever, cough. As per the patient, a few months ago, she had pain on the right lower extremity and she put some Salonpas patch. Subsequently, she noticed blisters on the leg, which she ruptured and, apparently, they ended up infected later on and also recently admitted to [facility] and was given IV antibiotics and subsequently transferred to [facility]. The patient was admitted with worsening ulcer. The patient denies any fever, cough. Denies any shortness of breath and denies any chest pain, palpitation. Denies any nausea, vomiting, diarrhea. Denies any abdominal pain. Denies any dysuria or frequency. PAST MEDICAL HISTORY: Significant for diabetes since 2004, hypertension, coronary artery disease, CABG, peripheral vascular disease, atrial fibrillation , congestive heart failure and fluid overload. PAST SURGICAL HISTORY: Status post cataract surgery a long time ago and total hysterectomy, appendectomy, cholecystectomy, bilateral cataract surgery, C- section x 1 and left upper extremity AV fistula. ALLERGIES: No known drug allergies. SOCIAL HISTORY: Denies any smoking, alcohol or drugs. PERSONAL HISTORY: She is a and she has 3 children, 3 girls. FAMILY HISTORY: Both parents are and 2 brothers . CURRENT MEDICATIONS: Include as follows: Amaryl 4 mg p.o. daily, Ambien 5 mg p.o. at bedtime, amiodarone 200 mg p.o. daily, Cozaar 100 mg p.o. daily, Crestor 20 mg at bedtime, subcutaneous heparin 5000 q. 8 hours, Lasix 40 mg p.o. b.i.d., Levemir 15 units subQ at bedtime, Maxipime 1 gram q. 24 hours, Neurontin 100 mg p.o. t.i.d. and insulin for sliding scale, Percocet 1 tablet q. 6 hours p.r.n., Procrit 20,000 units 3 times a week, Friday, , Friday, Protonix 40 mg p.o. daily, Renvela 1600 mg p.o. t.i.d., Santyl topical daily, vancomycin 500 mg 3 times a week, Friday, , Friday, and vitamin C 500 mg p.o. daily, Zaroxolyn 5 mg p.o. daily, Zemplar 2 mcg 3 times a week, Friday, and Friday. REVIEW OF SYSTEMS: Significant for swelling of both lower extremities, right more than the left, and also nonhealing ulcers on the right lower extremity. Other review of systems are reviewed and are negative. PHYSICAL EXAMINATION: VITAL SIGNS: As follows: Blood pressure this morning 136/66, pulse 71, respirations 20, temperature 98.7, saturation 97%, height 5 feet 2 inches and weight is 157 pounds. GENERAL: The patient is a 66-year-old elderly [place] female, moderately built , moderately nourished, not in acute distress. HEENT: Pupils normal, reactive to light and accommodation. Conjunctivae pink. Sclerae anicteric. Tongue is moist. NECK: Trachea is midline. The patient has a scar in the neck from the previous thyroid surgery. No thyroid enlargement. LUNGS: Symmetric on both sides. Bilateral breath sounds present. Occasional basal crackles present. CARDIOVASCULAR: Sumner in the fifth intercostal space midclavicular line. S1 and S2 audible. No murmur, no gallop. The patient has a midsternal scar present from the previous CABG. ABDOMEN: Normal in appearance. The patient has a midline subumbilical scar present from the previous surgery. Abdomen is soft, tympanic. No guarding, no rigidity. No hepatosplenomegaly. No abdominal bruit. CENTRAL NERVOUS SYSTEM: The patient is alert, awake, oriented x 3, nonfocal on examination. Cranial nerves II through XII grossly intact. Sensory and motor system is within normal limits. EXTREMITIES: No cyanosis, no clubbing. The patient has 2 ulcers on the right lower extremity. One is about 2-3 cm in diameter and the other one about 5-6 cm in diameter. Nonhealing ulcers present. Dorsalis pulses are feeble in both lower extremities. LABORATORY DATA: Include as follows: As of 08/19/2016, WBC 13.3, hemoglobin 8.2, hematocrit is 26.7 and platelets 293, neutrophils 86 and lymph is 8, monos 3 and eosinophils 2, basophils 1, sodium 131, potassium 4.6, chloride 92,, BUN 51, creatinine 4.4, glucose 121, calcium 8.0, and ESR is 86, total bilirubin 0.8 , AST 42, , alkaline phosphatase 147. Total protein 7, albumin is 3.2. Other laboratory data: phosphorus 6.2 and iron 34, TIBC 299 and saturation is 11 and ferritin is 181. X-ray of the tibia and fibula on the right lower extremity. IMPRESSION: Soft tissue wounds and no radiographic evidence of osteomyelitis. No fracture or destructive lesion, no osseous lesion, erosion or periosteal reaction. A CT angiogram of the abdomen and pelvis, diffuse arterial wall calcification without significant stenosis .. Right lower extremity CT angiogram with diffuse calcific breakthrough of the common femoral artery, superficial femoral artery and popliteal artery disease, 60% stenosis of the popliteal artery behind knee. There is a 3-vessel runoff. The tibial vessel however, already heavily calcified. Left lower extremity CT angiogram, calcium , with breakthrough of the common femoral artery, superficial femoral artery, popliteal artery, of which are patent. There is moderate stenosis of the distal superficial from SFA. 3-vessel runoff of the tibial vessels were calcified and appeared patent. Other reports as of 08/19/2016: Blood cultures , no growth after 24 hours and wound culture positive for gram-positive cocci. SUMMARY: The patient is a 66-year-old elderly [place] female with a history of longstanding hypertension, diabetes, hyperlipidemia, coronary artery disease , peripheral vascular disease, status post angioplasty, who was admitted with nonhealing ulcers for the last [address] angiogram of the abdomen and pelvic and right lower extremity and left lower extremity. IMPRESSION: 1. End-stage renal disease. Continue hemodialysis 3 times a week, Friday, , Friday. The patient is scheduled for hemodialysis after has angiogram today. 2. Anemia, most likely secondary to end-stage renal disease and cannot rule out iron deficiency anemia. He is 11% at this time. Will start IV iron also, _ ____ 125 mg daily and continue Epogen 3 times a week and, also, will give Nephrocaps 1 tablet daily and, also, will continue Renvela 1600 mg p.o. t.i.d. with food. 3. Hypertension. Blood pressure is stable. Continue Cozaar 100 mg daily. 4. Hyperlipidemia. Continue Crestor 20 mg p.o. at bedtime. 5. Status post hypoglycemia. Amylase on hold today due to hypoglycemia. Follow up with endocrinology Thank you for allowing me to participate in your patient's care. Consent obtained for the dialysis this morning. Silva Malik MD cc: [id number] TT: 08/21/2016 03:03:51 Confirmation # [id number] Dictation # [id number] bairon DELEON
[2016-08-21 08:07] VITALS: BP 145/68; PULSE 75; TEMP 97.8; O2SAT 98
[2016-08-21] MEDS: (Novolog) Insulin Aspart, Recombinant 100 u/ml 10 ml vial SC SCH ×2 (08:50→12:57)
[2016-08-21] MEDS ORDERED: Collagenase 250 Units/gm Ointment(30 gm) TOP SCH (10:00)
[2016-08-21] MEDS: Cefepime IV 1 gm in Dextrose 1 GM/50 ML BAG IVPB SCH (11:00)
[2016-08-21] MEDS: metOLazone 5 MG TAB PO SCH (11:35)
[2016-08-21] MEDS: Pantoprazole 40 mg EC Tab PO SCH (11:36)
--- NOTE | 2016-08-21 12:26 | PCM.HF ---
Heart Failure Core Measure - Heart Failure Ejection Fraction: Less Than 40 % (EF 25-30%) STACY Inhibitor Prescribed: No Contraindication/Reason for not providing: ESRD Beta-Garrett Prescribed: None Contraindication/Reason for not providing: HR controlled Angiotensin II Receptor Garrett Prescribed: Yes AnticoagulationTherapy for Atrial Fibrillation/Atrialflutter: No Contraindication/Reason for not providing: NSR Aldosterone Antagonist Prescribed: No Contraindication/Reason for not providing: CKD Hydralazine Nitrate Prescribed: No Contraindication/Reason for not providing: on amiodaron Implantable Cardioverter Defibrillator Therapy: No Contraindication/Reason for not providing: will be re-evaluated by PMD Cardiac Resynchronization Therapy Prescribed: No Contraindication/Reason for not providing: not indicated - Follow up Will be discharged to: Residential Facility ([facility])
--- NOTE | 2016-08-21 12:39 | CP.PCM.PN ---
Subjective - Date & Time of Evaluation Date of Evaluation: 08/21/16 Time of Evaluation: 12:39 - Subjective Subjective: Alert, awake, unable to walk without assistance, NAD. Objective - Vital Signs/Intake and Output Vital Signs (last 24 hours): Temp Pulse Resp BP Pulse Ox 97.8 F 75 20 145/68 98 08/21/16 08:00 08/21/16 08:00 08/21/16 08:00 08/21/16 08:00 08/21/16 08:00 - Medications Medications: Current Medications Amiodarone HCl (Cordarone) 200 mg PO DAILY [facility] Last Admin: 08/20/16 09:56 Dose: Not Given Ascorbic Acid (Vitamin C 500 Mg Tab) 500 mg PO DAILY [facility] Last Admin: 08/20/16 09:58 Dose: Not Given Collagenase (Santyl) 0 gm TOP DAILY [facility] Epoetin Rocky (Procrit) 20,000 unit IV TTS [facility] Last Admin: 08/20/16 16:23 Dose: 20,000 unit Furosemide (Lasix) 40 mg PO BID [facility] Last Admin: 08/20/16 19:31 Dose: 40 mg Gabapentin (Neurontin) 100 mg PO TID [facility] Last Admin: 08/20/16 19:31 Dose: 100 mg Glimepiride (Amaryl) 4 mg PO DAILY [facility] Last Admin: 08/20/16 09:56 Dose: Not Given Heparin Sodium (Porcine) (Heparin) 5,000 units SC Q8 [facility] Last Admin: 08/21/16 06:03 Dose: 5,000 units Cefepime HCl (Maxipime Iv 1 Gm Premix) 1 gm in 50 mls @ 100 mls/hr IVPB Q24H [facility] Last Admin: 08/20/16 10:56 Dose: 100 mls/hr Vancomycin HCl 500 mg/ Sodium (Chloride) 100 mls @ 100 mls/hr IVPB TTS [facility] Last Admin: 08/20/16 19:29 Dose: 100 mls/hr Insulin Aspart (Novolog) 0 unit SC ACHS [facility] PRN Reason: Protocol Last Admin: 08/21/16 08:50 Dose: 1 unit Insulin Detemir (Levemir) 15 unit SC HS [facility] Last Admin: 08/20/16 21:22 Dose: Not Given Losartan Potassium (Cozaar) 100 mg PO DAILY [facility] Last Admin: 08/20/16 09:56 Dose: Not Given Metolazone (Zaroxolyn) 5 mg PO DAILY [facility] Last Admin: 08/20/16 09:58 Dose: Not Given Oxycodone/Acetaminophen (Percocet 5/325 Mg Tab) 1 tab PO Q6H PRN PRN Reason: Pain, moderate (4-7) Stop: 08/22/16 20:43 Last Admin: 08/20/16 23:25 Dose: 1 tab Pantoprazole Sodium (Protonix Ec Tab) 40 mg PO DAILY [facility] Last Admin: 08/20/16 09:57 Dose: Not Given Paricalcitol (Zemplar) 2 mcg IV TTS [facility] Last Admin: 08/20/16 16:22 Dose: 2 mcg Rosuvastatin Calcium (Crestor) 20 mg PO HS [facility] Last Admin: 08/20/16 21:18 Dose: 20 mg Sevelamer Carbonate (Renvela) 1,600 mg PO TIDCC [facility] Last Admin: 08/21/16 12:27 Dose: 1,600 mg Zolpidem Tartrate (Ambien) 5 mg PO HS PRN PRN Reason: Insomnia Assessment and Plan - Assessment and Plan (Free Text) Assessment: Patient is seen and examined. Alert, awake ,no sob or chest pains. Right leg wound improving slowly. Cleared by DR Lin, d/w DR REBOLLEDO AND DR Mendez, plan to discharge back to [facility] and continue with vanco iv after each dialysis for 3 weeks. Wound care with collagenase daily as per DR Ramon.
[2016-08-21] MEDS: Oxycodone/Acetaminophen 5/325 mg Tab PO PRN (12:57)
[2016-08-21 14:12] LABS: BASO # 0.1 K/uL (0.0-0.2); BASO % 0.7 % (0.0-2.0); EOS # 0.2 K/uL (0.0-0.7); EOS % 1.4 % (0.0-4.0); HEMATOCRIT 29.9 % (34.0-47.0); LYMPH # 0.6 K/uL (1.0-4.3); LYMPH % 3.8 % (20.0-40.0); MEAN CELL VOLUME 90.7 fL (81.0-99.0); MEAN CORPUSCULAR HEMOGLOBIN 27.5 pg (27.0-31.0); MEAN CORPUSCULAR HGB CONC 30.4 g/dL (33.0-37.0); MEAN PLATELET VOLUME 8.7 fL (7.2-11.7); MONO # 0.8 K/uL (0.0-0.8); MONO % 5.7 % (0.0-10.0); NRBC % 0.2 % (0.0-2.0); PLATELET COUNT 223 K/uL (130-400); WHITE BLOOD COUNT 14.4 K/uL (4.8-10.8)
--- NOTE | 2016-08-21 14:35 | CP.PCM.PN ---
Subjective - Date & Time of Evaluation Date of Evaluation: 08/21/16 Time of Evaluation: 08:30 - Subjective Subjective: GENERAL SURGERY NOTE FOR DR. NICHOLE Pt seen and examined. No acute events overnight. Pt still c/o of RLE pain. No other acute complaints at this time. Objective - Vital Signs/Intake and Output Vital Signs (last 24 hours): Temp Pulse Resp BP Pulse Ox 97.8 F 75 20 145/68 98 08/21/16 08:00 08/21/16 12:14 08/21/16 08:00 08/21/16 12:14 08/21/16 12:14 - Medications Medications: Current Medications Amiodarone HCl (Cordarone) 200 mg PO DAILY [facility] Last Admin: 08/21/16 11:35 Dose: 200 mg Ascorbic Acid (Vitamin C 500 Mg Tab) 500 mg PO DAILY [facility] Last Admin: 08/21/16 11:35 Dose: 500 mg Collagenase (Santyl) 0 gm TOP DAILY [facility] Last Admin: 08/21/16 11:35 Dose: 1 applic Epoetin Rocky (Procrit) 20,000 unit IV TTS [facility] Last Admin: 08/20/16 16:23 Dose: 20,000 unit Furosemide (Lasix) 40 mg PO BID [facility] Last Admin: 08/21/16 11:35 Dose: 40 mg Gabapentin (Neurontin) 100 mg PO TID [facility] Last Admin: 08/21/16 11:35 Dose: 100 mg Glimepiride (Amaryl) 4 mg PO DAILY [facility] Last Admin: 08/21/16 11:35 Dose: 4 mg Heparin Sodium (Porcine) (Heparin) 5,000 units SC Q8 [facility] Last Admin: 08/21/16 06:03 Dose: 5,000 units Cefepime HCl (Maxipime Iv 1 Gm Premix) 1 gm in 50 mls @ 100 mls/hr IVPB Q24H [facility] Last Admin: 08/21/16 11:00 Dose: 100 mls/hr Vancomycin HCl 500 mg/ Sodium (Chloride) 100 mls @ 100 mls/hr IVPB TTS [facility] Last Admin: 08/20/16 19:29 Dose: 100 mls/hr Insulin Aspart (Novolog) 0 unit SC ACHS [facility] PRN Reason: Protocol Last Admin: 08/21/16 12:57 Dose: 2 unit Insulin Detemir (Levemir) 15 unit SC HS [facility] Last Admin: 08/20/16 21:22 Dose: Not Given Losartan Potassium (Cozaar) 100 mg PO DAILY [facility] Last Admin: 08/21/16 11:35 Dose: 100 mg Metolazone (Zaroxolyn) 5 mg PO DAILY [facility] Last Admin: 08/21/16 11:35 Dose: 5 mg Oxycodone/Acetaminophen (Percocet 5/325 Mg Tab) 1 tab PO Q6H PRN PRN Reason: Pain, moderate (4-7) Stop: 08/22/16 20:43 Last Admin: 08/21/16 12:57 Dose: 1 tab Pantoprazole Sodium (Protonix Ec Tab) 40 mg PO DAILY [facility] Last Admin: 08/21/16 11:36 Dose: Not Given Paricalcitol (Zemplar) 2 mcg IV TTS [facility] Last Admin: 08/20/16 16:22 Dose: 2 mcg Rosuvastatin Calcium (Crestor) 20 mg PO HS [facility] Last Admin: 08/20/16 21:18 Dose: 20 mg Sevelamer Carbonate (Renvela) 1,600 mg PO TIDCC [facility] Last Admin: 08/21/16 12:27 Dose: 1,600 mg Zolpidem Tartrate (Ambien) 5 mg PO HS PRN PRN Reason: Insomnia - Labs Labs: 08/21/16 14:05 - Constitutional Appears: Non-toxic, No Acute Distress - Respiratory Exam Respiratory Exam: absent: Accessory Muscle Use, Respiratory Distress - Extremities Exam Additional comments: right lower extremity with medial and lateral ulcers and fibrous exudate. Dressing changed at bedside - Neurological Exam Neurological Exam: Alert, Awake, Oriented x3 - Skin Skin Exam: Normal Color, Warm Assessment and Plan - Assessment and Plan (Free Text) Assessment: 66 F with non-healing ulcers of the RLE Plan: -60% popliteal arterial stenosis, 3 vessl runoff b/l - no surgery intervention indicated at this time unless bx required Case d/w Dr. Sanjuanita Eason PGY1
[2016-08-21 14:45] LABS: EOSINOPHIL 1 % (0-4); NEUTROPHIL 88 % (50-75); TOTAL CELLS COUNTED 100
--- NOTE | 2016-08-21 15:06 | VASCLAB ---
PROCEDURE: Lower Extremity Venous Duplex Exam. HISTORY: eval LE vascularity PRIORS: None. TECHNIQUE: Bilateral common femoral, femoral, popliteal and posterior tibial, peroneal and great saphenous veins were evaluated. Flow was assessed with color Doppler, compressibility, assessment of phasic flow and augmentation response. Report prepared by Jose C Simmons, WERNER, RVT FINDINGS: RIGHT: 1. Common Femoral Vein: 1.1. Compressibility - Fully compressible: Thrombus - None : Flow - Phasic: Augmentation -Normal: Reflux - None. 2. Femoral Vein: 2.1. Compressibility - Fully compressible: Thrombus - None : Flow - Phasic: Augmentation -Normal: Reflux - None. 3. Popliteal Vein: 3.1. Compressibility - Fully compressible: Thrombus - None : Flow - Phasic: Augmentation -Normal: Reflux - None. 4. Posterior Tibial Vein: 4.1. Compressibility - : Thrombus - : Flow - : Augmentation -: Reflux - . 5. Peroneal Vein: 5.1. Compressibility - : Thrombus - : Flow - : Augmentation -: Reflux - . 6. Great Saphenous Vein: 6.1. Compressibility - Fully compressible: Thrombus - None: Flow - Phasic: Augmentation - Normal: Reflux - None. LEFT: 1. Common Femoral Vein: 1.1. Compressibility - Fully compressible: Thrombus - None: Flow - Phasic: Augmentation -Normal: Reflux - None. 2. Femoral Vein: 2.1. Compressibility - Fully compressible: Thrombus - None: Flow - Phasic: Augmentation -Normal: Reflux - None. 3. Popliteal Vein: 3.1. Compressibility - Fully compressible: Thrombus - None : Flow - Phasic: Augmentation -Normal: Reflux - None. 4. Posterior Tibial Vein: 4.1. Compressibility - Fully compressible: Thrombus - None: Flow - Phasic: Augmentation -Normal: Reflux - None. 5. Peroneal Vein: 5.1. Compressibility - Fully compressible: Thrombus - None: Flow - Phasic: Augmentation -Normal: Reflux - None. 6. Great Saphenous Vein: 6.1. Compressibility - Fully compressible: Thrombus - None: Flow - Phasic: Augmentation - Normal: Reflux - None. OTHER FINDINGS: Right: Due to bandage on the calf, the peroneal and posterior tibial vein are not visualized. Left: None significant. IMPRESSION: Right: No evidence of deep or superficial vein thrombosis of the right lower extremity. Normal valve function noted of the right side. Left: No evidence of deep or superficial vein thrombosis of the left lower extremity. Normal valve function noted of the left side.
--- NOTE | 2016-08-21 17:05 | CP.PCM.HP ---
History of Present Illness - History of Present Illness History of Present Illness: cc: leg pain Hx of Present Illness: Patient is a 68 y.o. F w/ PMHx of ESRD CHF, DM2, HTN, PAD, CAD reports 2 non- healing ulcers located on the medial and lateral aspects of the Right lower extremity along the mid-tibia. Patient reports the wounds have been present for 4 weeks and have not healed and only progressively worsened. Patient further admits to intermittent pain 10/10 that is only alleviated with percocet. Patient denies any other wounds. Patient further reports intermittent ambulation but must stop and rest due to cramping in the LE. Patient admits to weight gain, diarrhea, lower extremity swelling, and claudication Present on Admission - Present on Admission Any Indicators Present on Admission: Yes Review of Systems - Constitutional Constitutional: Daytime Sleepiness - EENT Eyes: Blurred Vision Ears: absent: Ear Discharge, Ear Pain Nose/Mouth/Throat: absent: Nasal Discharge - Respiratory Respiratory: Dyspnea on Exertion - Gastrointestinal Gastrointestinal: absent: Abdominal Pain - Musculoskeletal Musculoskeletal: Arthralgias, Muscle Cramps Past Patient History - Past Medical History & Family History Past Medical History?: Yes - Past Social History Smoking Status: Never Smoked - CARDIAC Hx Cardiac Disorders: Yes Hx Congestive Heart Failure: Yes Hx Hypertension: Yes - PULMONARY Hx Respiratory Disorders: No - NEUROLOGICAL Hx Neurological Disorder: No - HEENT Hx HEENT Problems: Yes Hx Cataracts: Yes (bilat iol) - RENAL Hx Chronic Kidney Disease: Yes Hx Dialysis: Yes Type of Dialysis Access: left fore arm av fistula, Date of Last Dialysis Treatment: 08/17/16 Other/Comment: dialysis Tue, [facility], sat - ENDOCRINE/METABOLIC Hx Diabetes Mellitus Type 2: Yes - HEMATOLOGICAL/ONCOLOGICAL Hx Blood Disorders: Yes Hx Anemia: Yes - INTEGUMENTARY Hx Dermatological Problems: Yes (discolored areas generalized, generalized pruritus) - MUSCULOSKELETAL/RHEUMATOLOGICAL Hx Arthritis: Yes (KNEE) - GASTROINTESTINAL Hx Gastrointestinal Disorders: Yes Hx Gall Bladder Disease: Yes - GENITOURINARY/GYNECOLOGICAL Hx Genitourinary Disorders: Yes (hx fibroid uterus hysterectomy) - PSYCHIATRIC Hx Psychophysiologic Disorder: No Hx Substance Use: No - SURGICAL HISTORY Hx Surgeries: Yes Hx Appendectomy: Yes Hx Cholecystectomy: Yes - ANESTHESIA Hx Anesthesia: Yes Hx Anesthesia Reactions: No Hx Malignant Hyperthermia: No Has any member of the family had a problem w/ anesthesia?: No Meds Home Medications: Home Medication List Medication Instructions Recorded Confirmed Type Vancomycin [Vancomycin Inj] 500 mg IVPB TTS vial 08/21/16 Rx Allergies/Adverse Reactions: Allergies Allergy/AdvReac Type Severity Reaction Status Date / Time No Known Allergies Allergy Verified 06/03/16 20:06 Physical Exam - Constitutional Appears: Non-toxic - Head Exam Head Exam: NORMAL INSPECTION - Eye Exam Eye Exam: absent: Scleral icterus - ENT Exam ENT Exam: Mucous Membranes Moist - Neck Exam Neck exam: Positive for: Full Rom - Respiratory Exam Respiratory Exam: Decreased Breath Sounds - Cardiovascular Exam Cardiovascular Exam: REGULAR RHYTHM - GI/Abdominal Exam GI & Abdominal Exam: Soft. absent: Tenderness - Extremities Exam Extremities exam: Negative for: calf tenderness Additional comments: mild non-healing ulceration in lateral aspect of RLE Results - Vital Signs Recent Vital Signs: Last Vital Signs Temp 97.8 F 08/21/16 08:00 Pulse 75 08/21/16 12:14 Resp 20 08/21/16 08:00 BP 145/68 08/21/16 12:14 Pulse Ox 98 08/21/16 12:14 - Labs Result Diagrams: 08/21/16 14:05 08/19/16 13:23 Labs: Laboratory Results - last 24 hr 08/20/16 08/21/16 08/21/16 21:09 02:34 06:28 WBC RBC Hgb Hct MCV MCH MCHC RDW Plt Count MPV Neut % (Auto) Lymph % (Auto) Emery % (Auto) Eos % (Auto) Baso % (Auto) Neut # Lymph # Emery # Eos # Baso # Neutrophils % (Manual) Band Neutrophils % Lymphocytes % (Manual) Monocytes % (Manual) Eosinophils % (Manual) Platelet Estimate Hypochromasia (manual) Anisocytosis (manual) POC Glucose (mg/dL) 173 H 227 H 220 H 08/21/16 08/21/16 08/21/16 08:36 11:09 14:05 WBC 14.4 H RBC 3.30 L Hgb 9.1 L Hct 29.9 L MCV 90.7 MCH 27.5 MCHC 30.4 L RDW 18.0 H Plt Count 223 MPV 8.7 Neut % (Auto) 88.4 H Lymph % (Auto) 3.8 L Emery % (Auto) 5.7 Eos % (Auto) 1.4 Baso % (Auto) 0.7 Neut # 12.8 H Lymph # 0.6 L Emery # 0.8 Eos # 0.2 Baso # 0.1 Neutrophils % (Manual) 88 H Band Neutrophils % 4 H Lymphocytes % (Manual) 5 L Monocytes % (Manual) 2 Eosinophils % (Manual) 1 Platelet Estimate Normal Hypochromasia (manual) Slight Anisocytosis (manual) Slight POC Glucose (mg/dL) 190 H 216 H 08/21/16 16:06 WBC RBC Hgb Hct MCV MCH MCHC RDW Plt Count MPV Neut % (Auto) Lymph % (Auto) Emery % (Auto) Eos % (Auto) Baso % (Auto) Neut # Lymph # Emery # Eos # Baso # Neutrophils % (Manual) Band Neutrophils % Lymphocytes % (Manual) Monocytes % (Manual) Eosinophils % (Manual) Platelet Estimate Hypochromasia (manual) Anisocytosis (manual) POC Glucose (mg/dL) 279 H Assessment & Plan - Assessment and Plan (Free Text) Assessment: Non-healing wound in RLE CAD ESRD T2DM HTN PVD Plan: Vascular consult Septic w/u Dialysis Abtx ID/Renal consult - Date & Time Date: 08/19/16 Time: 20:00
--- NOTE | 2016-08-21 17:17 | CP.PCM.PN ---
Subjective - Date & Time of Evaluation Date of Evaluation: 08/20/16 Time of Evaluation: 08:30 - Subjective Subjective: Still w/ RLE pain no chest pain seen by Vascular surgeon schedule for CT angio of RLE Objective - Vital Signs/Intake and Output Vital Signs (last 24 hours): Temp Pulse Resp BP Pulse Ox 97.8 F 75 20 145/68 98 08/21/16 08:00 08/21/16 12:14 08/21/16 08:00 08/21/16 12:14 08/21/16 12:14 - Medications Medications: Current Medications Amiodarone HCl (Cordarone) 200 mg PO DAILY [facility] Last Admin: 08/21/16 11:35 Dose: 200 mg Ascorbic Acid (Vitamin C 500 Mg Tab) 500 mg PO DAILY [facility] Last Admin: 08/21/16 11:35 Dose: 500 mg Collagenase (Santyl) 0 gm TOP DAILY [facility] Last Admin: 08/21/16 11:35 Dose: 1 applic Epoetin Rocky (Procrit) 20,000 unit IV TTS [facility] Last Admin: 08/20/16 16:23 Dose: 20,000 unit Furosemide (Lasix) 40 mg PO BID [facility] Last Admin: 08/21/16 11:35 Dose: 40 mg Gabapentin (Neurontin) 100 mg PO TID [facility] Last Admin: 08/21/16 15:09 Dose: 100 mg Glimepiride (Amaryl) 4 mg PO DAILY [facility] Last Admin: 08/21/16 11:35 Dose: 4 mg Heparin Sodium (Porcine) (Heparin) 5,000 units SC Q8 [facility] Last Admin: 08/21/16 15:09 Dose: Not Given Cefepime HCl (Maxipime Iv 1 Gm Premix) 1 gm in 50 mls @ 100 mls/hr IVPB Q24H [facility] Last Admin: 08/21/16 11:00 Dose: 100 mls/hr Vancomycin HCl 500 mg/ Sodium (Chloride) 100 mls @ 100 mls/hr IVPB TTS [facility] Last Admin: 08/20/16 19:29 Dose: 100 mls/hr Insulin Aspart (Novolog) 0 unit SC ACHS [facility] PRN Reason: Protocol Last Admin: 08/21/16 12:57 Dose: 2 unit Insulin Detemir (Levemir) 15 unit SC HS [facility] Last Admin: 08/20/16 21:22 Dose: Not Given Losartan Potassium (Cozaar) 100 mg PO DAILY [facility] Last Admin: 08/21/16 11:35 Dose: 100 mg Metolazone (Zaroxolyn) 5 mg PO DAILY [facility] Last Admin: 08/21/16 11:35 Dose: 5 mg Oxycodone/Acetaminophen (Percocet 5/325 Mg Tab) 1 tab PO Q6H PRN PRN Reason: Pain, moderate (4-7) Stop: 08/22/16 20:43 Last Admin: 08/21/16 12:57 Dose: 1 tab Pantoprazole Sodium (Protonix Ec Tab) 40 mg PO DAILY [facility] Last Admin: 08/21/16 11:36 Dose: Not Given Paricalcitol (Zemplar) 2 mcg IV TTS [facility] Last Admin: 08/20/16 16:22 Dose: 2 mcg Rosuvastatin Calcium (Crestor) 20 mg PO HS [facility] Last Admin: 08/20/16 21:18 Dose: 20 mg Sevelamer Carbonate (Renvela) 1,600 mg PO TIDCC [facility] Last Admin: 08/21/16 12:27 Dose: 1,600 mg Zolpidem Tartrate (Ambien) 5 mg PO HS PRN PRN Reason: Insomnia - Labs Labs: 08/21/16 14:05 - Constitutional Appears: Non-toxic - Head Exam Head Exam: NORMAL INSPECTION - Eye Exam Eye Exam: absent: Scleral icterus - ENT Exam ENT Exam: Mucous Membranes Moist - Neck Exam Neck Exam: Full ROM. absent: Lymphadenopathy - Respiratory Exam Respiratory Exam: Clear to Ausculation Bilateral - Cardiovascular Exam Cardiovascular Exam: REGULAR RHYTHM - GI/Abdominal Exam GI & Abdominal Exam: Soft, Tenderness - Extremities Exam Extremities Exam: Pedal Edema Additional comments: 2 non-healing ulcer in the RLE Assessment and Plan - Assessment and Plan (Free Text) Assessment: Non-healing wound in RLE PAD T2dm CAD ESRD Plan: Cont ABTX Cont dialysis CT angio of RLE
--- NOTE | 2016-08-21 17:26 | CP.PCM.DIS ---
Provider - Provider Date of Admission: 08/19/16 15:49 Attending physician: Citlalli Mendez MD Primary care physician: Dr Citlalli Mendez Consults: Dr Sanjuanita Craft Time Spent in preparation of Discharge (in minutes): 40 Diagnosis - Discharge Diagnosis (1) Non-healing non-surgical wound Status: Acute Priority: High Hospital Course - Lab Results Lab Results: Micro Results 08/19/16 Unknown Leg - Right Gram Stain - Final 08/19/16 Unknown Leg - Right Wound Culture - Final Staphylococcus Epidermidis 08/19/16 Unknown Blood Blood Culture - Preliminary NO GROWTH AFTER 24 HOURS Most Recent Lab Values WBC 14.4 K/uL (4.8-10.8) H 08/21/16 14:05 RBC 3.30 Mil/uL (3.80-5.20) L 08/21/16 14:05 Hgb 9.1 g/dL (11.0-16.0) L 08/21/16 14:05 Hct 29.9 % (34.0-47.0) L 08/21/16 14:05 MCV 90.7 fL (81.0-99.0) 08/21/16 14:05 MCH 27.5 pg (27.0-31.0) 08/21/16 14:05 MCHC 30.4 g/dL (33.0-37.0) L 08/21/16 14:05 RDW 18.0 % (11.5-14.5) H 08/21/16 14:05 Plt Count 223 K/uL (130-400) 08/21/16 14:05 MPV 8.7 fL (7.2-11.7) 08/21/16 14:05 Neut % (Auto) 88.4 % (50.0-75.0) H 08/21/16 14:05 Lymph % (Auto) 3.8 % (20.0-40.0) L 08/21/16 14:05 Sargent % (Auto) 5.7 % (0.0-10.0) 08/21/16 14:05 Eos % (Auto) 1.4 % (0.0-4.0) 08/21/16 14:05 Baso % (Auto) 0.7 % (0.0-2.0) 08/21/16 14:05 Neut # 12.8 K/uL (1.8-7.0) H 08/21/16 14:05 Lymph # 0.6 K/uL (1.0-4.3) L 08/21/16 14:05 Sargent # 0.8 K/uL (0.0-0.8) 08/21/16 14:05 Eos # 0.2 K/uL (0.0-0.7) 08/21/16 14:05 Baso # 0.1 K/uL (0.0-0.2) 08/21/16 14:05 Neutrophils % (Manual) 88 % (50-75) H 08/21/16 14:05 Band Neutrophils % 4 % (0-2) H 08/21/16 14:05 Lymphocytes % (Manual) 5 % (20-40) L 08/21/16 14:05 Monocytes % (Manual) 2 % (0-10) 08/21/16 14:05 Eosinophils % (Manual) 1 % (0-4) 08/21/16 14:05 Basophils % (Manual) 1 % (0-2) 08/19/16 13:23 Platelet Estimate Normal (NORMAL) 08/21/16 14:05 Hypochromasia (manual) Slight 08/21/16 14:05 Poikilocytosis (manual Slight 08/19/16 13:23 Anisocytosis (manual) Slight 08/21/16 14:05 Target Cells Slight 08/19/16 13:23 ESR 86 mm/hr (0-20) H 08/19/16 13:23 Sodium 131 mmol/L (132-148) L 08/19/16 13:23 Potassium 4.6 mmol/L (3.6-5.2) 08/19/16 13:23 Chloride 92 mmol/L (98-107) L 08/19/16 13:23 Carbon Dioxide 25 mmol/L (22-30) 08/19/16 13:23 Anion Gap 19 (10-20) 08/19/16 13:23 BUN 51 mg/dL (7-17) H 08/19/16 13:23 Creatinine 4.4 MG/DL (0.7-1.2) H 08/19/16 13:23 Est GFR ( Amer) 12 08/19/16 13:23 Est GFR (Non-Af Amer) 10 08/19/16 13:23 POC Glucose (mg/dL) 279 mg/dL (65-110) H 08/21/16 16:06 Random Glucose 121 mg/dL (65-105) H 08/19/16 13:23 Calcium 8.0 mg/dl (8.6-10.4) L 08/19/16 13:23 Phosphorus 6.2 mg/dL (2.5-4.5) H 08/20/16 15:32 Iron 34 ug/dL (37-170) L 08/20/16 15:32 TIBC 299 ug/dL (250-450) 08/20/16 15:32 % Saturation 11 (20-55) L 08/20/16 15:32 Ferritin 181.0 ng/mL 08/20/16 15:32 Total Bilirubin 0.8 mg/dL (0.2-1.3) 08/19/16 13:23 AST 42 U/L (14-36) H 08/19/16 13:23 ALT 29 U/L (9-52) 08/19/16 13:23 Alkaline Phosphatase 147 U/L (38-126) H 08/19/16 13:23 Total Protein 7.0 g/dL (6.3-8.3) 08/19/16 13:23 Albumin 3.2 g/dL (3.5-5.0) L 08/19/16 13:23 Globulin 3.8 gm/dL (2.2-3.9) 08/19/16 13:23 Albumin/Globulin Ratio 0.8 (1.0-2.1) L 08/19/16 13:23 - Hospital Course Hospital Course: Pt was admitted and had septic work up done. Vasc w/u revealed CT angio of LE w / 60% stenosis of post tibial artery w/ good distal runoff. Cleared by Dr Sosa and Dr Gann for disch to [facility] for [facility] . No thrombus on Venous ultrasound. Discharge Exam - Head Exam Head Exam: NORMAL INSPECTION - Eye Exam Eye Exam: absent: Scleral icterus - ENT Exam ENT Exam: Mucous Membranes Moist - Neck Exam Neck exam: Full Rom - Respiratory Exam Respiratory Exam: Clear to PA & Lateral - Cardiovascular Exam Cardiovascular Exam: REGULAR RHYTHM - GI/Abdominal Exam GI & Abdominal Exam: Normal Bowel Sounds - Extremities Exam Extremities exam: tenderness Discharge Plan - Follow Up Plan Condition: FAIR Disposition: HOME/ ROUTINE Instructions: Heart Failure (DC), Cellulitis (DC), Renal Failure Diet (DC), Peripheral Artery Disease (DC) Referrals: Citlalli Mendez MD [Staff Provider] -
== END 2016-08-21 17:45 | DRG 638 ==
LOC: C.ER 11:35 → C.9E 15:49 → C.3T 17:34
PROVIDERS: ADMIT Internal Medicine; ATTEND Internal Medicine
PROC: 5A1D00Z (ICD-10-PCS; principal; 2016-08-20)
DX: E11.622 Type 2 diabetes mellitus with other skin ulcer (principal); L97.911 Non-pressure chronic ulcer of unspecified part of right lower leg limited to breakdown of skin; I13.2 Hypertensive heart and chronic kidney disease with heart failure and with stage 5 chronic kidney disease, or end stage renal disease; E11.22 Type 2 diabetes mellitus with diabetic chronic kidney disease; N18.6 End stage renal disease; E11.51 Type 2 diabetes mellitus with diabetic peripheral angiopathy without gangrene; B95.7 Other staphylococcus as the cause of diseases classified elsewhere; I48.91 Unspecified atrial fibrillation; I25.10 Atherosclerotic heart disease of native coronary artery without angina pectoris; I50.9 Heart failure, unspecified; E11.649 Type 2 diabetes mellitus with hypoglycemia without coma; E78.5 Hyperlipidemia, unspecified; D63.1 Anemia in chronic kidney disease; Z95.1 Presence of aortocoronary bypass graft; Z79.899 Other long term (current) drug therapy; Z99.2 Dependence on renal dialysis

== ENCOUNTER 2016-09-02 07:14 | Day surgery (SDC) | payer MEDICARE ==
[2016-08-28 08:02] VITALS: BMI 26.5
[2016-09-02 08:35] VITALS: O2SAT 97
[2016-09-02 08:37] LABS: POTASSIUM 3.1 mmol/L (3.6-5.2)
[2016-09-02 09:01] LABS: CALCIUM 5.6 mg/dl (8.6-10.4)
[2016-09-02] MEDS ORDERED: Vancomycin 1 gm/D5W 200 ml 1 GM/200 ML BAG IVPB ONE (09:27)
[2016-09-02] MEDS ORDERED: Midazolam 2 MG/2 ML VIAL ONE (09:42)
[2016-09-02] MEDS ORDERED: Propofol 10 mg/ml Inj (20 ML) ONE (09:48)
[2016-09-02] MEDS ORDERED: ePHEDrine 50 mg/ml Inj ONE (10:18)
[2016-09-02] MEDS ORDERED: Sodium Chloride 0.9% 1,000 ML IV ONE (10:30)
--- NOTE | 2016-09-02 10:47 | OP ---
PROCEDURE DATE: 09/02/2016 PREOPERATIVE DIAGNOSIS: Ulceration of both legs. PROCEDURES CARRIED OUT: Biopsy and debridement of skin, subcutaneous tissue and muscle, right leg. SURGEON: Karlos Gann MD. FLOOR BROKER: None. ANESTHESIOLOGIST: Sendy Schultz CRNA. INDICATIONS: The patient is an older woman on dialysis who has had revascularization of her leg. St ill has large persistent ulcers. OPERATIVE FINDINGS: Legs were debrided sharply with the VersaJet as well as sharply. In addition, a segment was taken to evaluate for pyoderma. The wounds were then opened. Cleaned up as best possib le. After completing the debridement, hemostasis was obtained and a mildly compressive dressings wer e applied. OPERATIONS CARRIED OUT: Debridement of skin, subcutaneous tissue and muscle from 2 wounds on the rig ht foot, medial and lateral. Karlos Gann Jr., MD cc:Citlalli Mendez MD 56 TT: 09/02/2016 10:47:03 wa
[2016-09-02 14:39] VITALS: BP 148/60; PULSE 84; RESP 20; TEMP 97.8
== END 2016-09-02 14:34 | disposition home or self-care (01) ==
LOC: C.SDS 07:14
PROVIDERS: ATTEND Surgery Vascular Surgery
DX: L97.823 Non-pressure chronic ulcer of other part of left lower leg with necrosis of muscle (principal); L97.811 Non-pressure chronic ulcer of other part of right lower leg limited to breakdown of skin
CPT/HCPCS: 11043; 36415; 80048; 82948; 87070; J2250; J2704; J3010; J3370; J7040

== ENCOUNTER 2016-10-08 17:44 | Inpatient (IN) | payer MEDICARE, OTHER ==
[2016-10-08 17:45] VITALS: BMI 25.2
[2016-10-08 18:56] LABS: BASO % 0.3 % (0.0-2.0); EOS # 0.2 K/uL (0.0-0.7); EOS % 2.3 % (0.0-4.0); HEMATOCRIT 36.5 % (34.0-47.0); LYMPH # 0.5 K/uL (1.0-4.3); LYMPH % 5.5 % (20.0-40.0); MEAN CELL VOLUME 89.4 fL (81.0-99.0); MEAN CORPUSCULAR HEMOGLOBIN 28.3 pg (27.0-31.0); MEAN CORPUSCULAR HGB CONC 31.6 g/dL (33.0-37.0); MEAN PLATELET VOLUME 8.1 fL (7.2-11.7); MONO # 0.7 K/uL (0.0-0.8); MONO % 7.2 % (0.0-10.0); PLATELET COUNT 136 K/uL (130-400); RED CELL DISTRIBUTION WIDTH 19.2 % (11.5-14.5); WHITE BLOOD COUNT 9.7 K/uL (4.8-10.8)
[2016-10-08 19:03] LABS: INR 1.3
[2016-10-08 19:32] LABS: POTASSIUM 3.9 mmol/L (3.6-5.2)
[2016-10-08 19:34] LABS: ALB/GLOB RATIO 0.9 (1.0-2.1); BILIRUBIN,TOTAL 0.7 mg/dL (0.2-1.3); TOTAL PROTEIN 7.4 g/dL (6.3-8.3)
[2016-10-08 19:35] LABS: CALCIUM 8.6 mg/dl (8.6-10.4)
--- NOTE | 2016-10-08 20:03 | C.PDOC ---
History Of Present Illness Pt was [facility] in from the [facility] for admission to perform a skin graft on right leg wounds. Time Seen by Provider: 10/08/16 18:12 Chief Complaint (Nursing): Abnormal Skin Integrity History Per: Patient, Other ([facility] records) Onset/Duration Of Symptoms: Days Current Symptoms Are (Timing): Worse Location Of Injury: Right: Leg Quality Of Symptoms: Painful, Draining Severity: Severe Additional History Per: Prior Records Past Medical History Reviewed: Historical Data, Nursing Documentation, Vital Signs Vital Signs: Last Vital Signs Temp 98.2 F 10/08/16 17:51 Pulse 82 10/08/16 17:51 Resp 20 10/08/16 17:51 BP 198/87 H 10/08/16 17:51 Pulse Ox 98 10/08/16 17:51 - Medical History PMH: Anemia, Arthritis (KNEE), Cardia Arrhythmia (hx atril fib), CHF, Gall Bladder Disease, HTN, Hyperlipidemia, Hypothyroidism, Peripheral Edema, End Stage Renal Disease, Chronic Kidney Disease Surgical History: Appendectomy, Cholecystectomy, Endoscopy - [facility] Procedures PERFORMANCE OF URINARY FILTRATION, MULTIPLE (06/04/16) PERFORMANCE OF URINARY FILTRATION, SINGLE (08/19/16) ULTRASONOGRAPHY OF RIGHT AND LEFT HEART, TRANSESOPHAGEAL (06/04/16) Family History: States: Unknown Family Hx - Social History Hx Alcohol Use: No - Immunization History Hx Tetanus Toxoid Vaccination: Yes Hx Influenza Vaccination: No Hx Pneumococcal Vaccination: No Review Of Systems Except As Marked, All Systems Reviewed And Found Negative. Constitutional: Negative for: Fever Cardiovascular: Negative for: Chest Pain Respiratory: Negative for: Shortness of Breath Gastrointestinal: Negative for: Vomiting, Abdominal Pain Musculoskeletal: Positive for: Leg Pain (right). Negative for: Neck Pain Skin: Positive for: Other (Right leg ulcers) Neurological: Negative for: Weakness, Numbness Physical Exam - Physical Exam Appears: No Acute Distress, Chronically Ill Skin: Warm, Dry Head: Atraumatic Eye(s): bilateral: PERRL, EOMI Neck: Normal ROM, Supple Cardiovascular: Rhythm Regular Respiratory: Normal Breath Sounds, No Accessory Muscle Use Gastrointestinal/Abdominal: Soft, No Tenderness Extremity: Normal ROM, Other (Right leg large, deep skin ulcers. ) Pulses: Left Dorsalis Pedis: Decreased, Right Dorsalis Pedis: Decreased Neurological/Psych: Oriented x3 ED Course And Treatment - Laboratory Results Result Diagrams: 10/08/16 18:52 10/08/16 19:21 Lab Interpretation: No Changes Compared To Prior Results O2 Sat by Pulse Oximetry: 98 Pulse Ox Interpretation: Normal Disposition Discussed With : Citlalli Mendez Comment: He wants pt to be admitted under Dr. Sosa's service since he is on the blue list, but he will take care of patient in the hospital. Doctor Will See Patient In The: Hospital Counseled Patient/Family Regarding: Studies Performed, Diagnosis - Disposition Disposition: HOSPITALIZED Disposition Time: 20:04 Condition: FAIR - Clinical Impression Clinical Impression: Ulcer of right lower leg
[2016-10-08] MEDS ORDERED: Oxycodone/Acetaminophen 5/325 mg Tab PO STA (20:56)
[2016-10-08] MEDS ORDERED: Oxycodone/Acetaminophen 5/325 mg Tab ONE (21:01)
[2016-10-08] MEDS ORDERED: Oxycodone/Acetaminophen 5/325 mg Tab PO PRN (22:05)
[2016-10-08 23:10] LABS: EOSINOPHIL 2 % (0-4); LARGE PLATELETS PRESENT; NEUTROPHIL 84 % (50-75); SMUDGE CELLS PRESENT; TOTAL CELLS COUNTED 100
[2016-10-08] MEDS: (Novolog) Insulin Aspart, Recombinant 100 u/ml 10 ml vial SC SCH (23:19)
--- NOTE | 2016-10-08 23:26 | CP.PCM.CON ---
History of Present Illness - History of Present Illness History of Present Illness: Surgery consult note for Dr. Otis Valente, PGY-1 Pt S & E at bedside. 68 yo F w/ PMH sig for 2 non-healing ulcers on the medial and lateral aspects of the Right lower extremity along the mid-tibia. Wounds have been present x a few mos, pt reports previous debridements without resolution. Admits to intermittent, severe pain alleviated by pain regimen. Denies N/V/F/C, SOB, CP, ab pain, other complaints. PMH: ESRD on HD (TTS), CHF, DM2, HTN, PAD, CAD, HLD PSH: x 1, RLE angioplasty, thyroidectomy, NATALIA, appendectomy, CABG, LUE AVF, cholecystectomy, cataract surgery, RLE wound debridements x 4 All: NKA SH: Denies ETOH, tobacco or illicit drug use PMD: [place] Review of Systems - Review of Systems All systems: reviewed and no additional remarkable complaints except - Constitutional Constitutional: absent: Chills, Fever - EENT Nose/Mouth/Throat: absent: Sore Throat - Cardiovascular Cardiovascular: absent: Chest Pain - Gastrointestinal Gastrointestinal: absent: Abdominal Pain, Nausea, Vomiting - Integumentary Integumentary: Bleeding Lesions, Non-Healing Lesions, Skin Ulcer (RLE) - Neurological Neurological: absent: Dizziness Past Patient History - Past Medical History & Family History Past Medical History?: Yes - Past Social History Smoking Status: Never Smoked - CARDIAC Hx Cardia Arrhythmia: Yes (hx atril fib) Hx Congestive Heart Failure: Yes Hx Hypertension: Yes Hx Peripheral Edema: Yes - NEUROLOGICAL Hx Neurological Disorder: Yes Hx Dizziness: Yes - HEENT Hx HEENT Problems: Yes Hx Cataracts: Yes (bilat iol) - RENAL Hx Chronic Kidney Disease: Yes Hx Dialysis: Yes Type of Dialysis Access: Left FA AVS Date of Last Dialysis Treatment: 10/08/16 Hx Renal Failure: Yes - ENDOCRINE/METABOLIC Hx Hypothyroidism: Yes - HEMATOLOGICAL/ONCOLOGICAL Hx Anemia: Yes - INTEGUMENTARY Hx Dermatological Problems: Yes (discolored areas generalized, generalized pruritus) Other/Comment: RIGHT LEG ULCER,rt and left knees outer part with dry wound - MUSCULOSKELETAL/RHEUMATOLOGICAL Hx Arthritis: Yes (KNEE) Hx Falls: No - GASTROINTESTINAL Hx Gall Bladder Disease: Yes - GENITOURINARY/GYNECOLOGICAL Hx Genitourinary Disorders: Yes (hx fibroid uterus hysterectomy) - PSYCHIATRIC Hx Substance Use: No - SURGICAL HISTORY Hx Angioplasty: Yes (by Dr Lin) Hx Appendectomy: Yes Hx Cholecystectomy: Yes Hx Coronary Artery Bypass Graft: Yes Hx Hysterectomy: Yes (1994) Hx Thyroidectomy: Yes (1995) - ANESTHESIA Hx Anesthesia: Yes Hx Anesthesia Reactions: No Hx Malignant Hyperthermia: No Meds Allergies/Adverse Reactions: Allergies Allergy/AdvReac Type Severity Reaction Status Date / Time No Known Allergies Allergy Verified 06/03/16 20:06 - Medications Medications: Current Medications Amiodarone HCl (Cordarone) 200 mg PO DAILY [facility] Ascorbic Acid (Vitamin C 500 Mg Tab) 500 mg PO DAILY [facility] Diphenhydramine HCl (Benadryl) 25 mg PO Q12H PRN PRN Reason: itchiness Famotidine (Pepcid) 20 mg PO DAILY [facility] Furosemide (Lasix) 40 mg PO Q12 [facility] Gabapentin (Neurontin) 100 mg PO TID [facility] Glimepiride (Amaryl) 4 mg PO DAILY [facility] Insulin Aspart (Novolog) 0 unit SC ACHS [facility] PRN Reason: Protocol Last Admin: 10/08/16 23:19 Dose: Not Given Insulin Detemir (Levemir) 15 unit SC HS [facility] Lactulose (Enulose) 20 gm PO Q12 [facility] Losartan Potassium (Cozaar) 100 mg PO DAILY [facility] Metolazone (Zaroxolyn) 5 mg PO DAILY [facility] Mupirocin (Bactroban Ointment) 1 gm TOP DAILY [facility] Oxycodone/Acetaminophen (Percocet 5/325 Mg Tab) 2 tab PO Q6H PRN PRN Reason: pain Stop: 10/11/16 22:06 Polyethylene Glycol (Miralax) 17 gm PO DAILY [facility] Rosuvastatin Calcium (Crestor) 20 mg PO HS [facility] Zolpidem Tartrate (Ambien) 5 mg PO HS [facility] Physical Exam - Constitutional Appears: Non-toxic, No Acute Distress - Head Exam Head Exam: ATRAUMATIC, NORMAL INSPECTION, NORMOCEPHALIC - Eye Exam Eye Exam: EOMI, Normal appearance - ENT Exam ENT Exam: Mucous Membranes Moist, Normal Exam - Neck Exam Neck exam: Positive for: Full Rom - Respiratory Exam Respiratory Exam: Clear to Auscultation Bilateral, NORMAL BREATHING PATTERN - Cardiovascular Exam Cardiovascular Exam: REGULAR RHYTHM, +S1, +S2 - GI/Abdominal Exam GI & Abdominal Exam: Normal Bowel Sounds, Soft. absent: Tenderness - Extremities Exam Additional comments: Right lower extremity with large skin ulcers x 2 on medial and lateral aspect with dressing in place- C/D/I. Left lower extremity with small non healing ulcer on lateral/posterior aspect of mid leg w/dressing in place- C/D/I - Neurological Exam Neurological exam: Alert, CN II-XII Intact, Oriented x3 - Psychiatric Exam Psychiatric exam: Normal Affect, Normal Mood - Skin Skin Exam: Normal Color, Warm Additional comments: See extremity exam for skin findings Results - Vital Signs Recent Vital Signs: Last Vital Signs Temp 97.9 F 10/08/16 21:04 Pulse 78 10/08/16 21:10 Resp 20 10/08/16 21:10 BP 169/72 H 10/08/16 21:10 Pulse Ox 98 10/08/16 21:10 - Labs Result Diagrams: 10/08/16 18:52 10/08/16 19:21 Labs: Laboratory Results - last 24 hr 10/08/16 22:15 POC Glucose (mg/dL) 101 Assessment & Plan - Assessment and Plan (Free Text) Assessment: 68F w/non healing wounds of RLE Plan: Plan for OR in AM for wound debridement possible skin graft NPO after MN Pain regimen Further recs as per attending Will DIMAS attending Sdira, PGY-1 - Date & Time Date: 10/08/16 Time: 23:27
[2016-10-08] MEDS ORDERED: Insulin Detemir 100 units/ml Vial (Levemir) SC SCH (23:30)
[2016-10-09 07:41] LABS: BASO # 0.1 K/uL (0.0-0.2); EOS # 0.2 K/uL (0.0-0.7); EOS % 3.2 % (0.0-4.0); HEMATOCRIT 34.2 % (34.0-47.0); LYMPH # 0.7 K/uL (1.0-4.3); MEAN CELL VOLUME 89.6 fL (81.0-99.0); MEAN CORPUSCULAR HGB CONC 31.2 g/dL (33.0-37.0); MONO # 0.7 K/uL (0.0-0.8); MONO % 9.4 % (0.0-10.0); NRBC % 0.2 % (0.0-2.0); RED CELL DISTRIBUTION WIDTH 19.5 % (11.5-14.5); WHITE BLOOD COUNT 7.4 K/uL (4.8-10.8)
[2016-10-09 07:47] LABS: POTASSIUM 4.4 mmol/L (3.6-5.2)
[2016-10-09 07:49] LABS: BILIRUBIN,TOTAL 0.8 mg/dL (0.2-1.3)
[2016-10-09 07:50] LABS: ALB/GLOB RATIO 0.8 (1.0-2.1)
[2016-10-09 07:51] LABS: CALCIUM 8.4 mg/dl (8.6-10.4)
[2016-10-09 07:56] LABS: INR 1.3
--- NOTE | 2016-10-09 08:25 | CP.PCM.CON ---
History of Present Illness - History of Present Illness History of Present Illness: Reason for consultation: pre-op for screen grafting HPI: 68 yo F w/ PMH sig for 2 non-healing ulcers on the medial and lateral aspects of the Right lower extremity along the mid-tibia. Wounds have been present x a few mos, pt reports previous debridements without resolution. Admits to intermittent, severe pain alleviated by pain regimen. Denies N/V/F/C, SOB, CP, ab pain, other complaints. Past Patient History - Past Medical History & Family History Past Medical History?: Yes - Past Social History Smoking Status: Never Smoked - CARDIAC Hx Cardia Arrhythmia: Yes (hx atril fib) Hx Congestive Heart Failure: Yes Hx Hypertension: Yes Hx Peripheral Edema: Yes - NEUROLOGICAL Hx Neurological Disorder: Yes Hx Dizziness: Yes - HEENT Hx HEENT Problems: Yes Hx Cataracts: Yes (bilat iol) - RENAL Hx Chronic Kidney Disease: Yes Hx Dialysis: Yes Type of Dialysis Access: Left FA AVS Date of Last Dialysis Treatment: 10/08/16 Hx Renal Failure: Yes - ENDOCRINE/METABOLIC Hx Hypothyroidism: Yes - HEMATOLOGICAL/ONCOLOGICAL Hx Anemia: Yes - INTEGUMENTARY Hx Dermatological Problems: Yes (discolored areas generalized, generalized pruritus) Other/Comment: RIGHT LEG ULCER,rt and left knees outer part with dry wound - MUSCULOSKELETAL/RHEUMATOLOGICAL Hx Arthritis: Yes (KNEE) Hx Falls: No - GASTROINTESTINAL Hx Gall Bladder Disease: Yes - GENITOURINARY/GYNECOLOGICAL Hx Genitourinary Disorders: Yes (hx fibroid uterus hysterectomy) - PSYCHIATRIC Hx Substance Use: No - SURGICAL HISTORY Hx Angioplasty: Yes (by Dr Lin) Hx Appendectomy: Yes Hx Cholecystectomy: Yes Hx Coronary Artery Bypass Graft: Yes Hx Hysterectomy: Yes (1994) Hx Thyroidectomy: Yes (1995) - ANESTHESIA Hx Anesthesia: Yes Hx Anesthesia Reactions: No Hx Malignant Hyperthermia: No Meds Allergies/Adverse Reactions: Allergies Allergy/AdvReac Type Severity Reaction Status Date / Time No Known Allergies Allergy Verified 06/03/16 20:06 - Medications Medications: Current Medications Acetaminophen (Tylenol 325mg Tab) 650 mg PO Q4 PRN PRN Reason: mild pain Amiodarone HCl (Cordarone) 200 mg PO DAILY [facility] Ascorbic Acid (Vitamin C 500 Mg Tab) 500 mg PO DAILY [facility] Diphenhydramine HCl (Benadryl) 25 mg PO Q12H PRN PRN Reason: itchiness Famotidine (Pepcid) 20 mg PO DAILY [facility] Furosemide (Lasix) 40 mg PO Q12 [facility] Gabapentin (Neurontin) 100 mg PO TID [facility] Glimepiride (Amaryl) 4 mg PO DAILY [facility] Insulin Aspart (Novolog) 0 unit SC ACHS [facility] PRN Reason: Protocol Last Admin: 10/08/16 23:19 Dose: Not Given Insulin Detemir (Levemir) 15 unit SC HS [facility] Last Admin: 10/08/16 23:26 Dose: Not Given Lactulose (Enulose) 20 gm PO Q12 [facility] Last Admin: 10/08/16 23:49 Dose: Not Given Losartan Potassium (Cozaar) 100 mg PO DAILY [facility] Metolazone (Zaroxolyn) 5 mg PO DAILY [facility] Mupirocin (Bactroban Ointment) 1 gm TOP DAILY [facility] Oxycodone/Acetaminophen (Percocet 5/325 Mg Tab) 2 tab PO Q6H PRN PRN Reason: pain Stop: 10/11/16 22:06 Polyethylene Glycol (Miralax) 17 gm PO DAILY [facility] Rosuvastatin Calcium (Crestor) 20 mg PO HS [facility] Last Admin: 10/08/16 23:50 Dose: Not Given Zolpidem Tartrate (Ambien) 5 mg PO HS [facility] Last Admin: 10/08/16 23:50 Dose: Not Given Results - Vital Signs Recent Vital Signs: Last Vital Signs Temp 98.1 F 10/09/16 00:19 Pulse 73 10/09/16 00:19 Resp 20 10/09/16 00:19 BP 163/71 H 10/09/16 00:19 Pulse Ox 96 10/09/16 00:19 - Labs Result Diagrams: 10/09/16 07:29 10/09/16 07:29 Labs: Laboratory Results - last 24 hr 10/08/16 10/09/16 10/09/16 22:15 01:47 07:08 WBC RBC Hgb Hct MCV MCH MCHC RDW Plt Count MPV Neut % (Auto) Lymph % (Auto) [place] % (Auto) Eos % (Auto) Baso % (Auto) Neut # Lymph # Ro[place] # Eos # Baso # PT INR APTT Sodium Potassium Chloride Carbon Dioxide Anion Gap BUN Creatinine Est GFR ( Amer) Est GFR (Non-Af Amer) POC Glucose (mg/dL) 101 175 H 109 Random Glucose Calcium Total Bilirubin AST ALT Alkaline Phosphatase Total Protein Albumin Globulin Albumin/Globulin Ratio 10/09/16 10/09/16 10/09/16 07:29 07:29 07:29 WBC 7.4 RBC 3.81 Hgb 10.7 L Hct 34.2 MCV 89.6 MCH 28.0 MCHC 31.2 L RDW 19.5 H Plt Count 144 MPV 9.0 Neut % (Auto) 76.4 H Lymph % (Auto) 10.0 L [place] % (Auto) 9.4 Eos % (Auto) 3.2 Baso % (Auto) 1.0 Neut # 5.7 Lymph # 0.7 L Ro[place] # 0.7 Eos # 0.2 Baso # 0.1 PT 14.6 H INR 1.3 APTT 34 D Sodium 136 Potassium 4.4 Chloride 92 L Carbon Dioxide 27 Anion Gap 21 H BUN 43 H Creatinine 3.6 H Est GFR ( Amer) 15 Est GFR (Non-Af Amer) 13 POC Glucose (mg/dL) Random Glucose 86 Calcium 8.4 L Total Bilirubin 0.8 AST 49 H D ALT 41 Alkaline Phosphatase 170 H Total Protein 7.0 Albumin 3.2 L Globulin 3.8 Albumin/Globulin Ratio 0.8 L Assessment & Plan - Assessment and Plan (Free Text) Assessment: Pt may go for skin grafting under general anesthesia. Plan: Cont meds. Hemodialysis. - Date & Time Date: 10/09/16 Time: 08:25
[2016-10-09] MEDS: (Novolog) Insulin Aspart, Recombinant 100 u/ml 10 ml vial SC SCH ×4 (09:28→21:10)
[2016-10-09] MEDS: POLYETHYLENE GLYCOL 3350 17 GM/Dose PACKET PO SCH ×2 (09:28→13:42)
[2016-10-09] MEDS: metOLazone 5 MG TAB PO SCH ×2 (09:28→13:41)
[2016-10-09] MEDS ORDERED: Pantoprazole 40 mg EC Tab PO SCH (10:00)
[2016-10-09] MEDS ORDERED: ceFAZolin IV 1 gm in Dextrose 1 GM/50 ML BAG IVPB ONE (10:04)
[2016-10-09] MEDS ORDERED: Mineral Oil Light Sterile 25 ml ONE (10:05)
[2016-10-09] MEDS ORDERED: Sodium Chloride 0.9% 500 ML IV ONE ×2 (10:09)
--- NOTE | 2016-10-09 10:20 | RAD ---
HISTORY: pre op assessment COMPARISON: Chest x-ray performed 06/03/16 TECHNIQUE: Chest, one view. FINDINGS: LUNGS: Bibasilar atelectasis. Discoid atelectasis, left mid lung zone. Calcification projecting over the medial right upper lobe may be vascular in etiology. Please note that chest x-ray has limited sensitivity for the detection of pulmonary masses. PLEURA: Small right greater than left pleural effusions. No definite pneumothorax . CARDIOVASCULAR: Median sternotomy wires with evidence of CABG. Cardiomegaly. Atherosclerotic calcifications of an ectatic aorta. OSSEOUS STRUCTURES: Degenerative changes. VISUALIZED UPPER ABDOMEN: Unremarkable. OTHER FINDINGS: None. IMPRESSION: Small right greater than left pleural effusions. Bibasilar atelectasis. Discoid atelectasis, left mid lung zone. Cardiomegaly. Median sternotomy wires with evidence of CABG.
[2016-10-09] MEDS ORDERED: Etomidate 20 mg/10ml Inj IV ONE (10:27)
[2016-10-09] MEDS ORDERED: White Petrolatum/Mineral Oil Ophth Oint(3.5 gm) ONE (10:27)
[2016-10-09] MEDS ORDERED: Midazolam 2 MG/2 ML VIAL ONE (10:27)
[2016-10-09] MEDS ORDERED: HYDROmorphone 0.5 mg/0.5 ml ISec IVP PRN (10:58)
--- NOTE | 2016-10-09 11:08 | PCM.SURG1 ---
Surgeon's Initial Post Op Note - Surgeon's Notes Surgeon: Dr. Karlos Gann [employer] Supervisor: Trang Mercado, PGY2; Angel Chang, OMS3 Pre-Operative Diagnosis: Chronic ulcers of right lower leg Operative Findings: see full operative report Post-Operative Diagnosis: same Operation Performed: Debridement of skin and subcutaneous tissue and on 2 ulcers right lower leg, split thickness skin graft 1.5:1 meshed harvested from right lateral thigh, applied to right lower leg ulcers x2 Specimen/Specimens Removed: debrided skin from Right lower leg wound Estimated Blood Loss: EBL {In ML}: 5 Date of Surgery/Procedure: 10/09/16 Time of Surgery/Procedure: 10:15
[2016-10-09] MEDS ORDERED: HYDROmorphone 0.5 mg/0.5 ml ISec ONE (11:25)
--- NOTE | 2016-10-09 18:15 | CP.PCM.HP ---
History of Present Illness - History of Present Illness History of Present Illness: 68 yo F w/ PMH sig for 2 non-healing ulcers on the medial and lateral aspects of the Right lower extremity along the mid-tibia. Wounds have been present x a few mos, pt reports previous debridements without resolution. Admits to intermittent, severe pain alleviated by pain regimen. Denies N/V/F/C, SOB, CP, ab pain, other complaints. PMH: ESRD on HD (TTS), CHF, DM2, HTN, PAD, CAD, HLD PSH: x 1, RLE angioplasty, thyroidectomy, NATALIA, appendectomy, CABG, LUE AVF, cholecystectomy, cataract surgery, RLE wound debridements x 4 All: NKA SH: Denies ETOH, tobacco or illicit drug use PMD: [place] Present on Admission - Present on Admission Any Indicators Present on Admission: No History of DVT/PE: No History of Uncontrolled Diabetes: No Urinary Catheter: No Decubitus Ulcer Present: No History Surgical Site Infection Following: None Review of Systems - Review of Systems All systems: reviewed and no additional remarkable complaints except - Constitutional Constitutional: As Per HPI - EENT Eyes: absent: As Per HPI, Blind Spots, Blurred Vision, Change in Vision, Decreased Night Vision, Diplopia, Discharge, Dry Eye, Exophthalmos, Floaters, Irritation, Itchy Eyes, Loss of Peripheral Vision, Pain, Photophobia, Requires Corrective Lenses, Sees Flashes, Spots in Vision, Tunnel Vision, Other Visual Disturbances, Loss of Vision, Other Ears: absent: As Per HPI, Decreased Hearing, Ear Discharge, Ear Pain, Tinnitus, Abnormal Hearing, Disequilibrium, Dizziness, Other Nose/Mouth/Throat: absent: As Per HPI, Epistaxis, Nasal Congestion, Nasal Discharge, Nasal Obstruction, Nasal Trauma, Nose Pain, Post Nasal Drip, Sinus Pain, Sinus Pressure, Bleeding Gums, Change in Voice, Dental Pain, Dry Mouth, Dysphagia, Halitosis, Hoarsness, Lip Swelling, Mouth Lesions, Mouth Pain, Odynophagia, Sore Throat, Throat Swelling, Tongue Swelling, Facial Pain, Neck Pain, Neck Mass, Other - Breasts Breasts: absent: As Per HPI, Change in Shape, Mass, Pain, Nipple Discharge, Nipple Inversion, Skin Changes, Swelling, Other - Cardiovascular Cardiovascular: absent: As Per HPI, Acrocyanosis, Chest Pain, Chest Pain at Rest , Chest Pain with Activity, Claudication, Diaphoresis, Dyspnea, Dyspnea on Exertion, Edema, Irregular Heart Rhythm, Pain Radiating to Arm/Neck/Jaw, Leg Edema, Leg Ulcers, Lightheadedness, Orthopnea, Palpitations, Paroxysmal Nocturnal Dyspnea, Pedal Edema, Radiating Pain, Rapid Heart Rate, Slow Heart Rate, Syncope, Other - Respiratory Respiratory: absent: As Per HPI, Cough, Dyspnea, Hemoptysis, Dyspnea on Exertion , Wheezing, Snoring, Stridor, Pain on Inspiration, Chest Congestion, Excessive Mucous Production, Change in Mucous Color, Pain with Coughing, Other - Gastrointestinal Gastrointestinal: absent: As Per HPI, Abdominal Pain, Belching, Bloating, Change in Bowel Habits, Change in Stool Character, Coffee Ground Emesis, Constipation, Cramping, Diarrhea, Dyspepsia, Dysphagia, Early Satiety, Excessive Flatus, Fecal Incontinence, Heartburn, Hematemesis, Hematochezia, Loose Stools, Melena, Nausea, Odynophagia, Temesmus, Vomiting, Other - Genitourinary Genitourinary: absent: As Per HPI, Change in Urinary Stream, Difficulty Urinating, Dysuria, Flank Pain, Hematuria, Pyuria, Nocturia, Urinary Incontinence, Urinary Frequency, Urinary Hesitance, Urinary Urgency, Voiding Freq/Small Amts, Freq UTI, Hx Renal/Bladder Calculi, Hx /Renal Surgery, Bladder Distension, Other - Reproductive: Female Reproductive:Female: absent: As Per HPI, Amenorrhea, Amenorrhea/ Control, Currently Menstual, Cycle <21 Days, Cycle >35 Days, Cycle Variable, Menses 1-7 Days, Menses >/= 8 Days, Menses Variable, Cycle > 4 Weeks Between, No Menses for 6 Months, Heavy Menses, Light Menses, Normal Menses, Spotting Between Cycles , S/P Hysterectomy, Menopausal, Post Menopausal, Premenarche, Abnormal Vaginal Bleeding, Dysmenorrhea, Dyspareunia, Genital Lesions, Genital Pruritis, Pelvic Pain, Prolapse Symptoms, Sexual Dysfunction, Vaginal Discharge, Vaginal Dryness , Vaginal Odor, Vaginal Pruritis, Other - Menstruation Menstruation: absent: As Per HPI, Amenorrhea, Amenorrhea/ Control, Currently Menstual, Cycle <21 Days, Cycle >35 Days, Cycle Variable, Menses 1-7 Days, Menses >/= 8 Days, Menses Variable, Cycle > 4 Weeks Between, No Menses for 6 Months, Heavy Menses, Light Menses, Normal Menses, Spotting Between Cycles , S/P Hysterectomy, Menopausal, Post Menopausal, Premenarche, Abnormal Vaginal Bleeding, Dysmenorrhea, Other - Musculoskeletal Musculoskeletal: As Per HPI - Integumentary Integumentary: As Per HPI - Neurological Neurological: absent: As Per HPI, Abnormal Gait, Abnormal Hearing, Abnormal Movements, Abnormal Speech, Behavioral Changes, Burning Sensations, Confusion, Convulsions, Disequilibrium, Dizziness, Numbness, Focal Weakness, Frequent Falls , Headaches, Lack of Coordination, Loss of Vision, Memory Loss, Paresthesias, Radicular Pain, Restless Legs, Sensory Deficit, Syncope, Tingling, Tremor, Vertigo, Weakness, Other Visual Disturbances, Other - Psychiatric Psychiatric: As Per HPI - Endocrine Endocrine: As Per HPI - Hematologic/Lymphatic Hematologic: absent: As Per HPI, Easy Bleeding, Easy Bruising, Lymphadenopathy, Other Past Patient History - Past Medical History & Family History Past Medical History?: Yes - Past Social History Smoking Status: Never Smoked - CARDIAC Hx Cardia Arrhythmia: Yes (hx atril fib) Hx Congestive Heart Failure: Yes Hx Hypertension: Yes Hx Peripheral Edema: Yes - NEUROLOGICAL Hx Neurological Disorder: Yes Hx Dizziness: Yes - HEENT Hx HEENT Problems: Yes Hx Cataracts: Yes (bilat iol) - RENAL Hx Chronic Kidney Disease: Yes Hx Dialysis: Yes Type of Dialysis Access: Left FA AVS Date of Last Dialysis Treatment: 10/08/16 Hx Renal Failure: Yes - ENDOCRINE/METABOLIC Hx Hypothyroidism: Yes - HEMATOLOGICAL/ONCOLOGICAL Hx Anemia: Yes - INTEGUMENTARY Hx Dermatological Problems: Yes (discolored areas generalized, generalized pruritus) Other/Comment: RIGHT LEG ULCER,rt and left knees outer part with dry wound - MUSCULOSKELETAL/RHEUMATOLOGICAL Hx Arthritis: Yes (KNEE) Hx Falls: No - GASTROINTESTINAL Hx Gall Bladder Disease: Yes - GENITOURINARY/GYNECOLOGICAL Hx Genitourinary Disorders: Yes (hx fibroid uterus hysterectomy) - PSYCHIATRIC Hx Substance Use: No - SURGICAL HISTORY Hx Angioplasty: Yes (by Dr Lin) Hx Appendectomy: Yes Hx Cholecystectomy: Yes Hx Coronary Artery Bypass Graft: Yes Hx Hysterectomy: Yes (1994) Hx Thyroidectomy: Yes (1995) - ANESTHESIA Hx Anesthesia: Yes Hx Anesthesia Reactions: No Hx Malignant Hyperthermia: No Meds Allergies/Adverse Reactions: Allergies Allergy/AdvReac Type Severity Reaction Status Date / Time No Known Allergies Allergy Verified 06/03/16 20:06 Physical Exam - Constitutional Appears: Non-toxic, Cachectic, Chronically Ill - Head Exam Head Exam: ATRAUMATIC, NORMAL INSPECTION, NORMOCEPHALIC - Eye Exam Eye Exam: EOMI, PERRL. absent: Scleral icterus - ENT Exam ENT Exam: Mucous Membranes Dry, Normal External Ear Exam, Normal Oropharynx - Neck Exam Neck exam: Negative for: Lymphadenopathy, Thyromegaly - Respiratory Exam Respiratory Exam: Decreased Breath Sounds, Clear to Auscultation Bilateral - Cardiovascular Exam Cardiovascular Exam: REGULAR RHYTHM, +S1, +S2 - GI/Abdominal Exam GI & Abdominal Exam: Diminished Bowel Sounds, Soft. absent: Tenderness - Rectal Exam Rectal Exam: Deferred - Exam Exam: NORMAL INSPECTION - Extremities Exam Extremities exam: Positive for: pedal edema, pedal pulses present. Negative for : calf tenderness, tenderness Additional comments: Right lower extremity with large skin ulcers x 2 on medial and lateral aspect with dressing in place- C/D/I. Left lower extremity with small non healing ulcer on lateral/posterior aspect of mid leg w/dressing in place- C/D/I - Back Exam Back exam: absent: CVA tenderness (L), CVA tenderness (R) - Neurological Exam Neurological exam: Alert, CN II-XII Intact, Oriented x3, Reflexes Normal Additional comments: decreased visual acuity - Psychiatric Exam Psychiatric exam: Normal Mood - Skin Skin Exam: Dry, Intact Results - Vital Signs Recent Vital Signs: Last Vital Signs Temp 97.3 F L 10/09/16 16:00 Pulse 84 10/09/16 16:00 Resp 20 10/09/16 16:00 BP 167/73 H 10/09/16 16:00 Pulse Ox 96 10/09/16 16:00 - Labs Result Diagrams: 10/09/16 07:29 10/09/16 07:29 Labs: Laboratory Results - last 24 hr 10/08/16 10/09/16 10/09/16 22:15 01:47 01:47 WBC RBC Hgb Hct MCV MCH MCHC RDW Plt Count MPV Neut % (Auto) Lymph % (Auto) [place] % (Auto) Eos % (Auto) Baso % (Auto) Neut # Lymph # [place] # Eos # Baso # PT INR APTT Sodium Potassium Chloride Carbon Dioxide Anion Gap BUN Creatinine Est GFR ( Amer) Est GFR (Non-Af Amer) POC Glucose (mg/dL) 101 175 H 175 H Random Glucose Calcium Total Bilirubin AST ALT Alkaline Phosphatase Total Protein Albumin Globulin Albumin/Globulin Ratio 10/09/16 10/09/16 10/09/16 07:08 07:29 07:29 WBC 7.4 RBC 3.81 Hgb 10.7 L Hct 34.2 MCV 89.6 MCH 28.0 MCHC 31.2 L RDW 19.5 H Plt Count 144 MPV 9.0 Neut % (Auto) 76.4 H Lymph % (Auto) 10.0 L [place] % (Auto) 9.4 Eos % (Auto) 3.2 Baso % (Auto) 1.0 Neut # 5.7 Lymph # 0.7 L [place] # 0.7 Eos # 0.2 Baso # 0.1 PT 14.6 H INR 1.3 APTT 34 D Sodium Potassium Chloride Carbon Dioxide Anion Gap BUN Creatinine Est GFR ( Amer) Est GFR (Non-Af Amer) POC Glucose (mg/dL) 109 Random Glucose Calcium Total Bilirubin AST ALT Alkaline Phosphatase Total Protein Albumin Globulin Albumin/Globulin Ratio 10/09/16 10/09/16 10/09/16 07:29 11:06 16:31 WBC RBC Hgb Hct MCV MCH MCHC RDW Plt Count MPV Neut % (Auto) Lymph % (Auto) [place] % (Auto) Eos % (Auto) Baso % (Auto) Neut # Lymph # [place] # Eos # Baso # PT INR APTT Sodium 136 Potassium 4.4 Chloride 92 L Carbon Dioxide 27 Anion Gap 21 H BUN 43 H Creatinine 3.6 H Est GFR ( Amer) 15 Est GFR (Non-Af Amer) 13 POC Glucose (mg/dL) 116 H 263 H Random Glucose 86 Calcium 8.4 L Total Bilirubin 0.8 AST 49 H D ALT 41 Alkaline Phosphatase 170 H Total Protein 7.0 Albumin 3.2 L Globulin 3.8 Albumin/Globulin Ratio 0.8 L Assessment & Plan (1) Ulcer of right lower leg Status: Acute (2) Atrial fibrillation with rapid ventricular response Status: Acute (3) CHF (congestive heart failure), NYHA class III Status: Acute (4) Cardiomyopathy as manifestation of underlying disease Status: Acute (5) Cellulitis Status: Acute (6) Diabetes Status: Acute (7) PAD (peripheral artery disease) Status: Acute - Assessment and Plan (Free Text) Assessment: for or and graft cont iv antibiotics
--- NOTE | 2016-10-09 20:34 | CP.PCM.CON ---
History of Present Illness - History of Present Illness History of Present Illness: pt seen and examined, full consult is dictated #[id number] 1.esrd 2.htn 3.dm 4.snonhealing rt leg ulcers, d/p skin graft for hd in am check pth,po4 Past Patient History - Past Medical History & Family History Past Medical History?: Yes - Past Social History Smoking Status: Never Smoked - CARDIAC Hx Cardia Arrhythmia: Yes (hx atril fib) Hx Congestive Heart Failure: Yes Hx Hypertension: Yes Hx Peripheral Edema: Yes - NEUROLOGICAL Hx Neurological Disorder: Yes Hx Dizziness: Yes - HEENT Hx HEENT Problems: Yes Hx Cataracts: Yes (bilat iol) - RENAL Hx Chronic Kidney Disease: Yes Hx Dialysis: Yes Type of Dialysis Access: Left FA AVS Date of Last Dialysis Treatment: 10/08/16 Hx Renal Failure: Yes - ENDOCRINE/METABOLIC Hx Hypothyroidism: Yes - HEMATOLOGICAL/ONCOLOGICAL Hx Anemia: Yes - INTEGUMENTARY Hx Dermatological Problems: Yes (discolored areas generalized, generalized pruritus) Other/Comment: RIGHT LEG ULCER,rt and left knees outer part with dry wound - MUSCULOSKELETAL/RHEUMATOLOGICAL Hx Arthritis: Yes (KNEE) Hx Falls: No - GASTROINTESTINAL Hx Gall Bladder Disease: Yes - GENITOURINARY/GYNECOLOGICAL Hx Genitourinary Disorders: Yes (hx fibroid uterus hysterectomy) - PSYCHIATRIC Hx Substance Use: No - SURGICAL HISTORY Hx Angioplasty: Yes (by Dr Lin) Hx Appendectomy: Yes Hx Cholecystectomy: Yes Hx Coronary Artery Bypass Graft: Yes Hx Hysterectomy: Yes (1994) Hx Thyroidectomy: Yes (1995) - ANESTHESIA Hx Anesthesia: Yes Hx Anesthesia Reactions: No Hx Malignant Hyperthermia: No Meds Allergies/Adverse Reactions: Allergies Allergy/AdvReac Type Severity Reaction Status Date / Time No Known Allergies Allergy Verified 06/03/16 20:06 - Medications Medications: Current Medications Acetaminophen (Tylenol 325mg Tab) 650 mg PO Q4 PRN PRN Reason: mild pain Amiodarone HCl (Cordarone) 200 mg PO DAILY [facility] Last Admin: 10/09/16 13:41 Dose: 200 mg Ascorbic Acid (Vitamin C 500 Mg Tab) 500 mg PO DAILY [facility] Last Admin: 10/09/16 13:49 Dose: 500 mg Diphenhydramine HCl (Benadryl) 25 mg PO Q12H PRN PRN Reason: itchiness Famotidine (Pepcid) 20 mg PO DAILY [facility] Last Admin: 10/09/16 13:41 Dose: 20 mg Furosemide (Lasix) 40 mg PO Q12 [facility] Last Admin: 10/09/16 09:25 Dose: Not Given Gabapentin (Neurontin) 100 mg PO TID [facility] Last Admin: 10/09/16 17:47 Dose: 100 mg Glimepiride (Amaryl) 4 mg PO DAILY [facility] Last Admin: 10/09/16 09:25 Dose: Not Given Heparin Sodium (Porcine) (Heparin) 5,000 units SC Q12 [facility] Insulin Aspart (Novolog) 0 unit SC ACHS [facility] PRN Reason: Protocol Last Admin: 10/09/16 16:30 Dose: 3 unit Insulin Detemir (Levemir) 15 unit SC HS [facility] Last Admin: 10/08/16 23:26 Dose: Not Given Lactulose (Enulose) 20 gm PO Q12 [facility] Last Admin: 10/09/16 09:25 Dose: Not Given Losartan Potassium (Cozaar) 100 mg PO DAILY [facility] Last Admin: 10/09/16 13:41 Dose: 100 mg Metolazone (Zaroxolyn) 5 mg PO DAILY [facility] Last Admin: 10/09/16 13:41 Dose: 5 mg Mupirocin (Bactroban Ointment) 1 gm TOP DAILY [facility] Last Admin: 10/09/16 09:25 Dose: Not Given Ondansetron HCl (Zofran Inj) 4 mg IVP Q6H PRN PRN Reason: Nausea/Vomiting Oxycodone/Acetaminophen (Percocet 5/325 Mg Tab) 2 tab PO Q6H PRN PRN Reason: pain Stop: 10/11/16 22:06 Polyethylene Glycol (Miralax) 17 gm PO DAILY [facility] Last Admin: 10/09/16 13:42 Dose: 17 gm Rosuvastatin Calcium (Crestor) 20 mg PO [facility] Last Admin: 10/08/16 23:50 Dose: Not Given Sevelamer Carbonate (Renvela) 800 mg PO TIDCC [facility] Zolpidem Tartrate (Ambien) 5 mg PO [facility] Last Admin: 10/08/16 23:50 Dose: Not Given Results - Vital Signs Recent Vital Signs: Last Vital Signs Temp 97.3 F L 10/09/16 16:00 Pulse 84 10/09/16 16:00 Resp 20 10/09/16 16:00 BP 167/73 H 10/09/16 16:00 Pulse Ox 96 10/09/16 16:00 - Labs Result Diagrams: 10/09/16 07:29 10/09/16 07:29 Labs: Laboratory Results - last 24 hr 10/08/16 10/09/16 10/09/16 22:15 01:47 01:47 WBC RBC Hgb Hct MCV MCH MCHC RDW Plt Count MPV Neut % (Auto) Lymph % (Auto) [place] % (Auto) Eos % (Auto) Baso % (Auto) Neut # Lymph # [place] # Eos # Baso # PT INR APTT Sodium Potassium Chloride Carbon Dioxide Anion Gap BUN Creatinine Est GFR ( Amer) Est GFR (Non-Af Amer) POC Glucose (mg/dL) 101 175 H 175 H Random Glucose Calcium Total Bilirubin AST ALT Alkaline Phosphatase Total Protein Albumin Globulin Albumin/Globulin Ratio 10/09/16 10/09/16 10/09/16 07:08 07:29 07:29 WBC 7.4 RBC 3.81 Hgb 10.7 L Hct 34.2 MCV 89.6 MCH 28.0 MCHC 31.2 L RDW 19.5 H Plt Count 144 MPV 9.0 Neut % (Auto) 76.4 H Lymph % (Auto) 10.0 L [place] % (Auto) 9.4 Eos % (Auto) 3.2 Baso % (Auto) 1.0 Neut # 5.7 Lymph # 0.7 L [place] # 0.7 Eos # 0.2 Baso # 0.1 PT 14.6 H INR 1.3 APTT 34 D Sodium Potassium Chloride Carbon Dioxide Anion Gap BUN Creatinine Est GFR ( Amer) Est GFR (Non-Af Amer) POC Glucose (mg/dL) 109 Random Glucose Calcium Total Bilirubin AST ALT Alkaline Phosphatase Total Protein Albumin Globulin Albumin/Globulin Ratio 10/09/16 10/09/16 10/09/16 07:29 11:06 16:31 WBC RBC Hgb Hct MCV MCH MCHC RDW Plt Count MPV Neut % (Auto) Lymph % (Auto) [place] % (Auto) Eos % (Auto) Baso % (Auto) Neut # Lymph # [place] # Eos # Baso # PT INR APTT Sodium 136 Potassium 4.4 Chloride 92 L Carbon Dioxide 27 Anion Gap 21 H BUN 43 H Creatinine 3.6 H Est GFR ( Amer) 15 Est GFR (Non-Af Amer) 13 POC Glucose (mg/dL) 116 H 263 H Random Glucose 86 Calcium 8.4 L Total Bilirubin 0.8 AST 49 H D ALT 41 Alkaline Phosphatase 170 H Total Protein 7.0 Albumin 3.2 L Globulin 3.8 Albumin/Globulin Ratio 0.8 L
--- NOTE | 2016-10-09 20:48 | OP ---
PROCEDURE DATE: 10/09/2016 PREOPERATIVE DIAGNOSIS: Ischemic ulcerations of leg. POSTOPERATIVE DIAGNOSIS: Ischemic ulcerations of leg. PROCEDURE PERFORMED: Debridement and split thickness skin graft to 2 separate areas, one 50 cm2 and one 20 cm2 on the right leg; one was medial and one was lateral. SURGEON: Karlos Gann Jr., MD SUPERVISOR SEWING ROOM: . ANESTHESIA ADMINISTERED BY: Ms. Lyy. INDICATIONS: The patient is a woman on dialysis with extensive wounds on her legs. She has been treated with Unna boots with marked improved. She is now ready for skin grafting. OPERATIVE FINDINGS: There are some residual areas around the site had to be debrided, these were all debrided away the skin and subcutaneous tissues. The fresh red muscle underneath, the photograph was taken and is available for review and show a clean healthy tissue. This was cultured. It was debrided first and then skin grafts were applied on 1.5 to 1 mesh fashion raised from the right thigh. ESTIMATED BLOOD LOSS: Less than 100 mL. COMPLICATIONS: There are no operative complications. DESCRIPTION OF PROCEDURE: Procedure carried out is debridement of right leg wounds and split thickness skin graft from right thigh to right leg. One was the size I mentioned before and other was approximately smaller size. These are mentioned earlier in the operative report. Karlos Gann Jr., MD
[2016-10-10] MEDS: (Novolog) Insulin Aspart, Recombinant 100 u/ml 10 ml vial SC SCH ×3 (08:17→17:17)
--- NOTE | 2016-10-10 09:28 | CON ---
DATE: 10/09/2016 The patient is located in room 369, bed A. REQUESTED BY: Jose C Sosa MD REASON FOR RENAL CONSULTATION: End-stage renal disease with continuation of hemodialysis. HISTORY OF PRESENT ILLNESS: Ms. Eun Stephens is a 66-year-old elderly [place] female with the past medical history significant for hypertension, type 2 diabetes, CHF, coronary artery disease, PAD, hyperlipidemia, end-stage renal disease and paroxysmal A-Fib who was admitted with nonhealing two ulcers on the right leg. The patient was admitted for skin grafting. Denies any chest pain, palpitations. Denies any fever, cough. No abdominal pain, no nausea, vomiting or diarrhea. Last hemodialysis on Friday in [facility]. The patient denies any complaints. The patient underwent the skin grafting today. PAST MEDICAL HISTORY: Significant for end-stage renal disease on hemodialysis 3 times a week Friday, and Friday, longstanding hypertension, diabetes, paroxysmal A-Fib, CHF, CAD, and hyperlipidemia. PAST SURGICAL HISTORY: Status post x1, right lower extremity angioplasty, thyroidectomy, total abdominal hysterectomy, appendectomy, CABG, a left upper extremity AV fistula and cholecystectomy, cataract surgery, and right lower extremity wound debridement x4. ALLERGIES: NO KNOWN DRUG ALLERGIES. SOCIAL HISTORY: Denies any smoking. No alcohol or drugs. PERSONAL HISTORY: Not significant. She has a very supportive family. FAMILY HISTORY: Not significant. CURRENT MEDICATIONS: As follows; glimepiride 4 mg p.o. daily, Ambien 5 mg at bedtime, Bactroban 1 g topical daily, Benadryl 25 mg p.o. q. 12 hours, amiodarone 200 mg p.o. daily, Losartan 100 mg p.o. daily, Crestor 20 mg at bedtime, lactulose 20 g p.o. q. 12 hours, subcu heparin further than q. 12 hours, Lasix 40 mg p.o. q. 12 hours, Levemir 15 units subcu at bedtime, MiraLax 17 g p.o. daily, Neurontin 100 mg p.o. t.i.d., NovoLog and Pepcid 20 mg p.o. daily, Percocet 2 tablets p.o. q. 6 hours, Renvela 800 mg p.o. t.i.d., Tylenol and vitamin C 500 mg p.o. daily, metolazone 5 mg p.o. daily, and Zofran 4 mg IV q. 6 hours. REVIEW OF SYSTEMS: Significant for nonhealing ulcer of the right leg and foot skin graft. All other review of systems reviewed and are negative. PHYSICAL EXAMINATION GENERAL: Ms. Stephens is a 66-year-old elderly [place] female, moderate built, moderate nourished, not in acute distress. VITAL SIGNS: As follows; her blood pressure 167/73, pulse 84, respiration 20, temperature 97.3 and saturation 96%. Height 5 feet 2 inches and weight 141 pounds. HEENT: Pupils normal, reactive to light and accommodation. Conjunctivae pink. Sclerae anicteric. Tongue is moist. Trachea is midline. CARDIOPULMONARY: [place] at the fifth intercostal space, midclavicular line. S1 and S2 audible. The patient does have a midsternal scar present from the previous CABG. LUNGS: Symmetrical on both sides. Bilateral breath sounds present and clear on auscultation. ABDOMEN: Normal in appearance, soft, and tympanic. No guarding. No rigidity. No hepatosplenomegaly. PLANT OPERATOR: The patient is alert, awake, and oriented x3. Nonfocal on examination. Cranial nerves II through XII grossly intact. Sensory and motor system is within normal limits. EXTREMITIES: No cyanosis. No clubbing. No edema. The patient has a dressing to the right leg and also right thigh. The patient is going to get a skin graft today from the right thigh. LABORATORY DATA: Include as follows; as of 10/09/2016, WBC 7.4, hemoglobin 10.7, hematocrit 34.2, and platelets 144. PT is 14.6 and PTT 34. Sodium 136, potassium 4.4, chloride 92, CO2 27, BUN is 43, creatinine is 3.6, glucose is 109, calcium is 8.4, total bilirubin 0.8, AST 49, ALT 41, and alkaline phosphatase is 170. Total protein is 7, albumin is 3.2. As of 10/08/2016, sodium 136, potassium 3.9, chloride 90, CO2 31, BUN is 36, and creatinine is 3.1. The other reports, chest x-ray as of 10/08/2016. IMPRESSION: Small right greater than left pleural effusion, bibasilar atelectasis described at left mid-lung zone. Cardiomegaly, median sternotomy wires with evidence of coronary artery bypass graft. In summary, Ms. Stephens is a 66-year-old female with hypertension, diabetes, congestive heart failure, coronary artery disease, paroxysmal atrial fibrillation, end-stage renal disease, hyperlipidemia, nonhealing ulcers and multiple debridements and angioplasty in the past was admitted for the skin grafting. 1. End-stage renal disease, continue hemodialysis 3 times a week Friday, and Friday. 2. Hypertension, blood pressure is stable. Continue on current medications. 3. Status post skin graft for the right lower extremity ulcer. 4. Diabetes. 5. Coronary artery disease, asymptomatic. We will schedule for hemodialysis. Consent obtained from the patient for the hemodialysis. We will add Epogen 4000 units 3 times a week and Zemplar 2 mcg during dialysis 3 times a week. We will also check phosphorus and PTH intact level in the a.m. We will add Nepro 1 can p.o. daily. We will follow with you. Thank you for allowing me to participate in your patient's care. Silva Malik MD
[2016-10-10] MEDS ORDERED: Paricalcitol 2 mcg/ml Inj IV SCH (10:00)
[2016-10-10] MEDS ORDERED: EPOETIN ALFA 4,000 UNIT/ML ML Dialysis SC SCH (10:00)
--- NOTE | 2016-10-10 10:06 | CP.PCM.PN ---
Subjective - Date & Time of Evaluation Date of Evaluation: 10/10/16 Time of Evaluation: 08:40 - Subjective Subjective: s/p skin grafting no complication from cardiac standpoint Objective - Vital Signs/Intake and Output Vital Signs (last 24 hours): Temp Pulse Resp BP Pulse Ox 97 F L 69 20 152/68 H 96 10/10/16 08:33 10/10/16 08:33 10/10/16 08:33 10/10/16 08:33 10/10/16 08:33 Intake and Output: 10/10/16 10/10/16 06:59 18:59 Intake Total 600 Balance 600 - Medications Medications: Current Medications Acetaminophen (Tylenol 325mg Tab) 650 mg PO Q4 PRN PRN Reason: mild pain Amiodarone HCl (Cordarone) 200 mg PO DAILY [facility] Last Admin: 10/09/16 13:41 Dose: 200 mg Ascorbic Acid (Vitamin C 500 Mg Tab) 500 mg PO DAILY [facility] Last Admin: 10/09/16 13:49 Dose: 500 mg Diphenhydramine HCl (Benadryl) 25 mg PO Q12H PRN PRN Reason: itchiness Epoetin Rocky (Procrit) 4,000 unit SC TTS [facility] Famotidine (Pepcid) 20 mg PO DAILY [facility] Last Admin: 10/09/16 13:41 Dose: 20 mg Furosemide (Lasix) 40 mg PO Q12 [facility] Last Admin: 10/09/16 21:09 Dose: 40 mg Gabapentin (Neurontin) 100 mg PO TID [facility] Last Admin: 10/10/16 08:26 Dose: 100 mg Glimepiride (Amaryl) 4 mg PO DAILY [facility] Last Admin: 10/10/16 08:24 Dose: 4 mg Heparin Sodium (Porcine) (Heparin) 5,000 units SC Q12 [facility] Last Admin: 10/09/16 21:08 Dose: 5,000 units Insulin Aspart (Novolog) 0 unit SC ACHS [facility] PRN Reason: Protocol Last Admin: 10/10/16 08:17 Dose: 1 unit Insulin Detemir (Levemir) 15 unit SC HS [facility] Last Admin: 10/08/16 23:26 Dose: Not Given Lactulose (Enulose) 20 gm PO Q12 [facility] Last Admin: 10/09/16 21:12 Dose: Not Given Losartan Potassium (Cozaar) 100 mg PO DAILY [facility] Last Admin: 10/09/16 13:41 Dose: 100 mg Metolazone (Zaroxolyn) 5 mg PO DAILY [facility] Last Admin: 10/09/16 13:41 Dose: 5 mg Mupirocin (Bactroban Ointment) 1 gm TOP DAILY [facility] Last Admin: 10/09/16 09:25 Dose: Not Given Ondansetron HCl (Zofran Inj) 4 mg IVP Q6H PRN PRN Reason: Nausea/Vomiting Oxycodone/Acetaminophen (Percocet 5/325 Mg Tab) 2 tab PO Q6H PRN PRN Reason: pain Stop: 10/11/16 22:06 Paricalcitol (Zemplar) 2 mcg IV TTS [facility] Polyethylene Glycol (Miralax) 17 gm PO DAILY [facility] Last Admin: 10/09/16 13:42 Dose: 17 gm Rosuvastatin Calcium (Crestor) 20 mg PO HS [facility] Last Admin: 10/09/16 21:07 Dose: 20 mg Sevelamer Carbonate (Renvela) 800 mg PO TIDCC [facility] Last Admin: 10/10/16 08:17 Dose: 800 mg Zolpidem Tartrate (Ambien) 5 mg PO HS [facility] Last Admin: 10/09/16 21:08 Dose: 5 mg - Labs Labs: 10/09/16 07:29 10/09/16 07:29 PT 14.6 SECONDS (9.7-12.2) H 10/09/16 07:29 INR 1.3 10/09/16 07:29 APTT 34 SECONDS (21-34) D 10/09/16 07:29 - Constitutional Appears: Non-toxic - Head Exam Head Exam: NORMAL INSPECTION - Eye Exam Eye Exam: absent: Scleral icterus - ENT Exam ENT Exam: Mucous Membranes Moist - Neck Exam Neck Exam: Full ROM - Respiratory Exam Respiratory Exam: NORMAL BREATHING PATTERN - Cardiovascular Exam Cardiovascular Exam: REGULAR RHYTHM - Extremities Exam Extremities Exam: absent: Pedal Edema - Neurological Exam Neurological Exam: Alert Assessment and Plan - Assessment and Plan (Free Text) Assessment: CAD stable T2dm PVD s/p Skin grafting Plan: Cont meds BELÉN
--- NOTE | 2016-10-10 10:52 | CP.PCM.PN ---
Subjective - Date & Time of Evaluation Date of Evaluation: 10/10/16 Time of Evaluation: 09:30 - Subjective Subjective: General surgery progress note for Dr. Otis Valente, PGY-1 Pt S & E at bedside. Pt doing well overnight, pain well controlled, no complaints. Tolerating diet. Denies N/V/F/C, SOB, CP, ab pain. Objective - Vital Signs/Intake and Output Vital Signs (last 24 hours): Temp Pulse Resp BP Pulse Ox 97 F L 69 20 152/68 H 96 10/10/16 08:33 10/10/16 08:33 10/10/16 08:33 10/10/16 08:33 10/10/16 08:33 Intake and Output: 10/10/16 10/10/16 06:59 18:59 Intake Total 600 Balance 600 - Medications Medications: Current Medications Acetaminophen (Tylenol 325mg Tab) 650 mg PO Q4 PRN PRN Reason: mild pain Amiodarone HCl (Cordarone) 200 mg PO DAILY [facility] Last Admin: 10/09/16 13:41 Dose: 200 mg Ascorbic Acid (Vitamin C 500 Mg Tab) 500 mg PO DAILY [facility] Last Admin: 10/09/16 13:49 Dose: 500 mg Diphenhydramine HCl (Benadryl) 25 mg PO Q12H PRN PRN Reason: itchiness Epoetin Rocky (Procrit) 4,000 unit SC TTS [facility] Famotidine (Pepcid) 20 mg PO DAILY [facility] Last Admin: 10/09/16 13:41 Dose: 20 mg Furosemide (Lasix) 40 mg PO Q12 [facility] Last Admin: 10/09/16 21:09 Dose: 40 mg Gabapentin (Neurontin) 100 mg PO TID [facility] Last Admin: 10/10/16 08:26 Dose: 100 mg Glimepiride (Amaryl) 4 mg PO DAILY [facility] Last Admin: 10/10/16 08:24 Dose: 4 mg Heparin Sodium (Porcine) (Heparin) 5,000 units SC Q12 [facility] Last Admin: 10/09/16 21:08 Dose: 5,000 units Insulin Aspart (Novolog) 0 unit SC ACHS [facility] PRN Reason: Protocol Last Admin: 10/10/16 08:17 Dose: 1 unit Insulin Detemir (Levemir) 15 unit SC HS [facility] Last Admin: 10/08/16 23:26 Dose: Not Given Lactulose (Enulose) 20 gm PO Q12 [facility] Last Admin: 10/09/16 21:12 Dose: Not Given Losartan Potassium (Cozaar) 100 mg PO DAILY [facility] Last Admin: 10/09/16 13:41 Dose: 100 mg Metolazone (Zaroxolyn) 5 mg PO DAILY [facility] Last Admin: 10/09/16 13:41 Dose: 5 mg Mupirocin (Bactroban Ointment) 1 gm TOP DAILY [facility] Last Admin: 10/09/16 09:25 Dose: Not Given Ondansetron HCl (Zofran Inj) 4 mg IVP Q6H PRN PRN Reason: Nausea/Vomiting Oxycodone/Acetaminophen (Percocet 5/325 Mg Tab) 2 tab PO Q6H PRN PRN Reason: pain Stop: 10/11/16 22:06 Paricalcitol (Zemplar) 2 mcg IV TTS [facility] Polyethylene Glycol (Miralax) 17 gm PO DAILY [facility] Last Admin: 10/09/16 13:42 Dose: 17 gm Rosuvastatin Calcium (Crestor) 20 mg PO [facility] Last Admin: 10/09/16 21:07 Dose: 20 mg Sevelamer Carbonate (Renvela) 800 mg PO TIDCC [facility] Last Admin: 10/10/16 08:17 Dose: 800 mg Zolpidem Tartrate (Ambien) 5 mg PO HS [facility] Last Admin: 10/09/16 21:08 Dose: 5 mg - Labs Labs: 10/09/16 07:29 10/09/16 07:29 PT 14.6 SECONDS (9.7-12.2) H 10/09/16 07:29 INR 1.3 10/09/16 07:29 APTT 34 SECONDS (21-34) D 10/09/16 07:29 - Constitutional Appears: Non-toxic, No Acute Distress - Head Exam Head Exam: ATRAUMATIC, NORMAL INSPECTION, NORMOCEPHALIC - Eye Exam Eye Exam: EOMI, Normal appearance - ENT Exam ENT Exam: Mucous Membranes Moist, Normal Exam - Neck Exam Neck Exam: Full ROM, Normal Inspection - Respiratory Exam Respiratory Exam: Clear to Ausculation Bilateral, NORMAL BREATHING PATTERN - Cardiovascular Exam Cardiovascular Exam: REGULAR RHYTHM, +S1, +S2 - GI/Abdominal Exam GI & Abdominal Exam: Soft, Normal Bowel Sounds. absent: Tenderness - Extremities Exam Additional comments: RLE w/dressings in place over leg- c/d/i; over right thigh- moderate serous strike through on lateral aspect of dressing, non tender, no surrounding erythema noted - Skin Skin Exam: Dry, Normal Color, Warm Additional comments: see extremities for lower extremity skin findings Assessment and Plan - Assessment and Plan (Free Text) Assessment: 66F POD #1 s/p debridement of skin and subcutaneous tissue and on 2 ulcers right lower leg, split thickness skin graft 1.5:1 meshed harvested from right lateral thigh, applied to right lower leg ulcers x2; doing well Plan: Pt to follow up with Dr. Gann next week Dressings to stay in place Further mgmt as per primary team Ok for pt to return to rehab from surgical standpoint DW attending Sidra, PGY-1
[2016-10-10] MEDS: POLYETHYLENE GLYCOL 3350 17 GM/Dose PACKET PO SCH (13:29)
[2016-10-10] MEDS: metOLazone 5 MG TAB PO SCH (13:34)
[2016-10-10 17:08] VITALS: BP 154/75; PULSE 74; RESP 20; TEMP 97.9; O2SAT 97
--- NOTE | 2016-10-10 17:23 | PCM.HF ---
Heart Failure Core Measure - Heart Failure Ejection Fraction: Less Than 40 % (EF 25-30%) STACY Inhibitor Prescribed: No Contraindication/Reason for not providing: ESRD Beta-Garrett Prescribed: None Contraindication/Reason for not providing: BP and HR controlled Angiotensin II Receptor Garrett Prescribed: Yes AnticoagulationTherapy for Atrial Fibrillation/Atrialflutter: No Contraindication/Reason for not providing: NSR Aldosterone Antagonist Prescribed: No Contraindication/Reason for not providing: CKD Hydralazine Nitrate Prescribed: No Contraindication/Reason for not providing: on amiodarone Implantable Cardioverter Defibrillator Therapy: No Contraindication/Reason for not providing: Will be evaluated in the cardiologyst office Cardiac Resynchronization Therapy Prescribed: No Contraindication/Reason for not providing: not indicated - Follow up Will be discharged to: [facility] Facility ([facility]
--- NOTE | 2016-10-10 17:51 | CP.PCM.PN ---
Subjective - Date & Time of Evaluation Date of Evaluation: 10/10/16 Time of Evaluation: 17:51 - Subjective Subjective: pt seen and examined, follow up consult is dictated #[id number] s/p hd today, uf3.7 lit Objective - Vital Signs/Intake and Output Vital Signs (last 24 hours): Temp Pulse Resp BP Pulse Ox 97.9 F 74 20 154/75 H 97 10/10/16 15:00 10/10/16 15:00 10/10/16 15:00 10/10/16 15:00 10/10/16 15:00 Intake and Output: 10/10/16 10/10/16 06:59 18:59 Intake Total 600 400 Balance 600 400 - Medications Medications: Current Medications Acetaminophen (Tylenol 325mg Tab) 650 mg PO Q4 PRN PRN Reason: mild pain Amiodarone HCl (Cordarone) 200 mg PO DAILY [facility] Last Admin: 10/10/16 13:27 Dose: 200 mg Ascorbic Acid (Vitamin C 500 Mg Tab) 500 mg PO DAILY [facility] Last Admin: 10/10/16 13:35 Dose: 500 mg Diphenhydramine HCl (Benadryl) 25 mg PO Q12H PRN PRN Reason: itchiness Epoetin Rocky (Procrit) 4,000 unit SC TTS [facility] Last Admin: 10/10/16 11:24 Dose: 4,000 unit Famotidine (Pepcid) 20 mg PO DAILY [facility] Last Admin: 10/10/16 13:33 Dose: Not Given Furosemide (Lasix) 40 mg PO Q12 [facility] Last Admin: 10/10/16 13:18 Dose: Not Given Gabapentin (Neurontin) 100 mg PO TID [facility] Last Admin: 10/10/16 17:18 Dose: 100 mg Glimepiride (Amaryl) 4 mg PO DAILY [facility] Last Admin: 10/10/16 11:52 Dose: Not Given Heparin Sodium (Porcine) (Heparin) 5,000 units SC Q12 [facility] Last Admin: 10/10/16 13:27 Dose: 5,000 units Cefazolin Sodium 1,000 mg/ (Sodium Chloride) 100 mls @ 100 mls/hr IVPB Q12H [facility] Insulin Aspart (Novolog) 0 unit SC ACHS [facility] PRN Reason: Protocol Last Admin: 10/10/16 17:17 Dose: 4 unit Insulin Detemir (Levemir) 15 unit SC HS [facility] Last Admin: 10/08/16 23:26 Dose: Not Given Lactulose (Enulose) 20 gm PO Q12 [facility] Last Admin: 10/10/16 11:50 Dose: Not Given Losartan Potassium (Cozaar) 100 mg PO DAILY [facility] Last Admin: 10/10/16 13:27 Dose: 100 mg Metolazone (Zaroxolyn) 5 mg PO DAILY [facility] Last Admin: 10/10/16 13:34 Dose: 5 mg Mupirocin (Bactroban Ointment) 1 gm TOP DAILY [facility] Last Admin: 10/10/16 13:37 Dose: Not Given Ondansetron HCl (Zofran Inj) 4 mg IVP Q6H PRN PRN Reason: Nausea/Vomiting Oxycodone/Acetaminophen (Percocet 5/325 Mg Tab) 2 tab PO Q6H PRN PRN Reason: pain Stop: 10/11/16 22:06 Paricalcitol (Zemplar) 2 mcg IV TTS [facility] Last Admin: 10/10/16 11:25 Dose: 2 mcg Polyethylene Glycol (Miralax) 17 gm PO DAILY [facility] Last Admin: 10/10/16 13:29 Dose: Not Given Rosuvastatin Calcium (Crestor) 20 mg PO HS [facility] Last Admin: 10/09/16 21:07 Dose: 20 mg Sevelamer Carbonate (Renvela) 800 mg PO TIDCC [facility] Last Admin: 10/10/16 17:18 Dose: 800 mg Zolpidem Tartrate (Ambien) 5 mg PO [facility] Last Admin: 10/09/16 21:08 Dose: 5 mg - Labs Labs: 10/09/16 07:29 10/09/16 07:29 PT 14.6 SECONDS (9.7-12.2) H 10/09/16 07:29 INR 1.3 10/09/16 07:29 APTT 34 SECONDS (21-34) D 10/09/16 07:29
--- NOTE | 2016-10-10 18:14 | CP.PCM.DIS ---
Provider - Provider Date of Admission: 10/08/16 20:06 Attending physician: Jose C Sosa MD Primary care physician: DR AMAURY TAPIA Consults: DR REGINA BERMAN Time Spent in preparation of Discharge (in minutes): 45 Diagnosis - Discharge Diagnosis (1) Ulcer of right lower leg Status: Acute (2) Atrial fibrillation with rapid ventricular response Status: Acute (3) CHF (congestive heart failure), NYHA class III Status: Acute (4) Cardiomyopathy as manifestation of underlying disease Status: Acute (5) Cellulitis Status: Acute (6) Diabetes Status: Acute (7) PAD (peripheral artery disease) Status: Acute Hospital Course - Lab Results Lab Results: Micro Results 10/08/16 22:30 Blood Blood Culture - Preliminary NO GROWTH AFTER 24 HOURS 10/08/16 22:00 Blood Blood Culture - Preliminary NO GROWTH AFTER 24 HOURS 10/09/16 11:19 Leg - Right Gram Stain - Final 10/08/16 22:00 Leg - Right Gram Stain - Final Most Recent Lab Values WBC 7.4 K/uL (4.8-10.8) 10/09/16 07:29 RBC 3.81 Mil/uL (3.80-5.20) 10/09/16 07:29 Hgb 10.7 g/dL (11.0-16.0) L 10/09/16 07:29 Hct 34.2 % (34.0-47.0) 10/09/16 07:29 MCV 89.6 fL (81.0-99.0) 10/09/16 07:29 MCH 28.0 pg (27.0-31.0) 10/09/16 07:29 MCHC 31.2 g/dL (33.0-37.0) L 10/09/16 07:29 RDW 19.5 % (11.5-14.5) H 10/09/16 07:29 Plt Count 144 K/uL (130-400) 10/09/16 07:29 MPV 9.0 fL (7.2-11.7) 10/09/16 07:29 Neut % (Auto) 76.4 % (50.0-75.0) H 10/09/16 07:29 Lymph % (Auto) 10.0 % (20.0-40.0) L 10/09/16 07:29 [place] % (Auto) 9.4 % (0.0-10.0) 10/09/16 07: Eos % (Auto) 3.2 % (0.0-4.0) 10/09/16 07:29 Baso % (Auto) 1.0 % (0.0-2.0) 10/09/16 07: Neut # 5.7 K/uL (1.8-7.0) 10/09/16 07: Lymph # 0.7 K/uL (1.0-4.3) L 10/09/16 07: [place] # 0.7 K/uL (0.0-0.8) 10/09/16 07: Eos # 0.2 K/uL (0.0-0.7) 10/09/16 07: Baso # 0.1 K/uL (0.0-0.2) 10/09/16 07:29 Neutrophils % (Manual) 84 % (50-75) H 10/08/16 18:52 Lymphocytes % (Manual) 7 % (20-40) L 10/08/16 18:52 Monocytes % (Manual) 7 % (0-10) 10/08/16 18:52 Eosinophils % (Manual) 2 % (0-4) 10/08/16 18:52 Hypersegmented Polys Present 10/08/16 18:52 Smudge Cells Present 10/08/16 18:52 Platelet Estimate Normal (NORMAL) 10/08/16 18:52 Large Platelets Present 10/08/16 18:52 Polychromasia Slight 10/08/16 18:52 Poikilocytosis (manual Slight 10/08/16 18:52 Anisocytosis (manual) Slight 10/08/16 18:52 Microcytosis (manual) Slight 10/08/16 18:52 PT 14.6 SECONDS (9.7-12.2) H 10/09/16 07:29 INR 1.3 10/09/16 07:29 APTT 34 SECONDS (21-34) D 10/09/16 07:29 Sodium 136 mmol/L (132-148) 10/09/16 07:29 Potassium 4.4 mmol/L (3.6-5.2) 10/09/16 07:29 Chloride 92 mmol/L (98-107) L 10/09/16 07:29 Carbon Dioxide 27 mmol/L (22-30) 10/09/16 07:29 Anion Gap 21 (10-20) H 10/09/16 07:29 BUN 43 mg/dL (7-17) H 10/09/16 07:29 Creatinine 3.6 MG/DL (0.7-1.2) H 10/09/16 07:29 Est GFR ( Amer) 15 10/09/16 07:29 Est GFR (Non-Af Amer) 13 10/09/16 07:29 POC Glucose (mg/dL) 314 mg/dL (65-110) H 10/10/16 16:26 Random Glucose 86 mg/dL (65-105) 10/09/16 07:29 Calcium 8.4 mg/dl (8.6-10.4) L 10/09/16 07:29 Total Bilirubin 0.8 mg/dL (0.2-1.3) 10/09/16 07:29 AST 49 U/L (14-36) H D 10/09/16 07:29 ALT 41 U/L (9-52) 10/09/16 07:29 Alkaline Phosphatase 170 U/L (38-126) H 10/09/16 07:29 Total Protein 7.0 g/dL (6.3-8.3) 10/09/16 07:29 Albumin 3.2 g/dL (3.5-5.0) L 10/09/16 07:29 Globulin 3.8 gm/dL (2.2-3.9) 10/09/16 07:29 Albumin/Globulin Ratio 0.8 (1.0-2.1) L 10/09/16 07:29 Hep Bs Antigen Negative (NEGATIVE) 10/10/16 11:09 Discharge Exam - Head Exam Head Exam: ATRAUMATIC, NORMAL INSPECTION, NORMOCEPHALIC - Eye Exam Eye Exam: EOMI, PERRL - ENT Exam ENT Exam: Mucous Membranes Dry - Respiratory Exam Respiratory Exam: Decreased Breath Sounds, Clear to PA & Lateral - Cardiovascular Exam Cardiovascular Exam: REGULAR RHYTHM - GI/Abdominal Exam GI & Abdominal Exam: Diminished Bowel Sounds - Rectal Exam Rectal Exam: Deferred - Exam Exam: NORMAL INSPECTION - Extremities Exam Extremities exam: tenderness - Back Exam Back exam: absent: CVA tenderness (L), CVA tenderness (R) - Neurological Exam Neurological exam: Alert, CN II-XII Intact, Oriented x3, Reflexes Normal - Psychiatric Exam Psychiatric exam: Normal Mood - Skin Skin Exam: Dry Discharge Plan - Follow Up Plan Condition: FAIR Disposition: HOME/ ROUTINE Instructions: Chronic Wound Care (DC), Venous Insufficiency (DC) Additional Instructions: Please follow up with Dr Gann next week. Dressings are to stay in place until follow up appointment. If you have fevers or chills, please return to hospital. Referrals: Jose C Sosa MD [Staff Provider] -
[2016-10-10] MEDS ORDERED: Vancomycin 1 gm/NS 200 ml 1 GM/200 ML BAG IVPB STA (18:47)
--- NOTE | 2016-10-10 23:03 | PN ---
FOLLOWUP RENAL CONSULTATION DATE: 10/10/2016 The patient is located in room 369, bed A. REQUESTED BY: Jose C Sosa MD REASON FOR CONSULTATION: End-stage renal disease and continuation of hemodialysis, and for followup. SUBJECTIVE: Mrs. Stephens is a 66-year-old elderly Spanish female with a past medical history significant for longstanding hypertension, diabetes, end-stage renal disease, coronary artery disease, status post CABG, CHF, paroxysmal AFib with nonhealing right leg ulcer, status post debridement and angioplasty in the past, was admitted from the subacute rehab for the skin graft. The patient underwent skin grafting of the right leg ulcers yesterday. The patient is not in acute distress. Denies any headache or dizziness. Denies any chest pain or palpitations. Denies any fever or cough. No abdominal pain. No nausea, vomiting or diarrhea. The patient underwent hemodialysis today, had ultrafiltration about 3.7 liters. PHYSICAL EXAMINATION GENERAL: Mrs. Stephens is a 66 years old elderly Spanish female, moderately built and moderately nourished, and not in acute distress. VITAL SIGNS: Blood pressure 154/75, pulse 74, respiration 20, temperature 97, saturation 97%, height 5 feet 2 inches and weight is 141 pounds. HEENT: Pupils are normal and reactive to light and accommodation. Conjunctivae are pink. Sclerae are anicteric. Tongue is moist. Trachea is midline. LUNGS: Symmetry on both sides. Bilateral breath sounds are present and clear on auscultation. CARDIOVASCULAR SYSTEM: Earlimart at the fifth intercostal space, midclavicular line. S1 and S2 audible. No murmur or gallop. ABDOMEN: Normal in appearance, soft, and tympanitic. No guarding. No hepatosplenomegaly. CENTRAL NERVOUS SYSTEM: The patient is alert, awake, and oriented x3. Nonfocal on examination. Cranial nerves II through XII grossly intact. Sensory and motor system is within normal limits. EXTREMITIES: No cyanosis. No clubbing. No edema. The patient has a dressing to the right leg. Skin graft +. LABORATORY DATA: B surface antigen is negative. No other labs are available. Accu-Cheks 386, 369 and 314. As of 10/08/2016, wound culture pending, blood cultures x2 is negative day 1. CURRENT MEDICATIONS: As follows: Glimepiride 4 mg daily, Ambien 5 mg at bedtime, mupirocin ointment topical daily, Benadryl 25 mg p.o. q. 12 hours, amiodarone 200 mg p.o. daily, Losartan 100 mg p.o. daily, Crestor 20 mg at bedtime, lactulose, subcutaneous heparin further than q. 12 hours, Lasix 40 mg p.o. q. 12 hours, insulin 15 units subcutaneous at bedtime, MiraLax, gabapentin 100 mg p.o. t.i.d., NovoLog for sliding scale, Pepcid 20 mg p.o. daily, Percocet 2 tablets p.o. q. 6 hours p.r.n, Procrit 4000 units 3 times a week, Renvela 800 mg p.o. t.i.d., Tylenol and vitamin C 500 mg p.o. daily, metolazone 5 mg p.o. daily, Zemplar 2 mcg IV three times a week, and Zofran 4 mg IV q. 6 hours. ASSESSMENT AND PLAN: In summary, Mrs. Stephens is a 66 years old elderly Spanish female with history of hypertension, diabetes, hyperlipidemia, coronary artery disease status post coronary artery bypass grafting, paroxysmal atrial fibrillation, peripheral vascular disease, nonhealing right leg ulcer status post angioplasty, debridement and was admitted for the skin grafting, end-stage renal disease and hemodialysis three times a week, which will be this Friday. 1. End-stage renal disease, continue hemodialysis three times a week, which will be this Friday. 2. Nonhealing ulcer, status post skin graft. 3. Hypertension. 4. Diabetes. Sugars are still uncontrolled. Continue insulin and titrate as per Endocrinology. The patient underwent hemodialysis today and ultrafiltration about 3.7 liters without any complications. Thank you for allowing me to participate in your patient's care. Silva Malik MD [email or web address]
--- NOTE | 2016-10-25 08:23 | CARD ---
APPROVED REPORT EKG Measurement Heart [id number] PA [id number] [id number] <Conclusion> Normal sinus rhythm Right bundle branch block Septal infarct, age undetermined T wave abnormality, consider lateral ischemia Abnormal ECG
== END 2016-10-10 21:10 | DRG 264 ==
LOC: C.ER 17:44 → C.9E 20:06 → C.3T 20:59
PROVIDERS: ADMIT Internal Medicine; ATTEND Internal Medicine
PROC: 0JBN0ZZ Excision of Right Lower Leg Subcutaneous Tissue and Fascia, Open Approach (ICD-10-PCS; 2016-10-09)
PROC: 0HRKX74 Replacement of Right Lower Leg Skin with Autologous Tissue Substitute, Partial Thickness, External Approach (ICD-10-PCS; principal; 2016-10-09 10:15)
PROC: 5A1D60Z (ICD-10-PCS; 2016-10-10)
DX: E11.51 Type 2 diabetes mellitus with diabetic peripheral angiopathy without gangrene (principal); L97.819 Non-pressure chronic ulcer of other part of right lower leg with unspecified severity; L97.829 Non-pressure chronic ulcer of other part of left lower leg with unspecified severity; E11.622 Type 2 diabetes mellitus with other skin ulcer; N18.6 End stage renal disease; E11.22 Type 2 diabetes mellitus with diabetic chronic kidney disease; I13.2 Hypertensive heart and chronic kidney disease with heart failure and with stage 5 chronic kidney disease, or end stage renal disease; J98.11 Atelectasis; I42.9 Cardiomyopathy, unspecified; L03.90 Cellulitis, unspecified; I25.10 Atherosclerotic heart disease of native coronary artery without angina pectoris; I48.0 Paroxysmal atrial fibrillation; I50.9 Heart failure, unspecified; M17.11 Unilateral primary osteoarthritis, right knee; E89.0 Postprocedural hypothyroidism; E78.5 Hyperlipidemia, unspecified; Z96.1 Presence of intraocular lens; Z95.1 Presence of aortocoronary bypass graft; Z98.42 Cataract extraction status, left eye; Z98.41 Cataract extraction status, right eye; Z79.4 Long term (current) use of insulin; Z90.710 Acquired absence of both cervix and uterus; Z90.49 Acquired absence of other specified parts of digestive tract; Z99.2 Dependence on renal dialysis